=== PATIENT | female | born 1975 | race Caucasian/White ===

== ENCOUNTER 2021-01-19 18:26 | Emergency (ER) | payer MEDICAID ==
[~2021-01-19] VITALS: Ht 165.1 cm; Wt 127.0 kg
[~2021-01-19 18:26] MED LIST: ATEN100T; DIPH25CA39; TRAM-411
[2021-01-19 19:30] LABS: Basophils # (auto) 0.2 10 ^3/uL (0-0.2); Eosinophils # (auto) 0.8 10 ^3/uL (0-0.8); Eosinophils % (auto) 5.3 % (0.0-7.0); Hemoglobin 14.6 g/dL (12.2-16.2); Lymphocytes # (auto) 4.4 10 ^3/uL (0.4-5.4); Lymphocytes % (auto) 29.2 % (10.0-50.0); Mean Corpuscular Hemoglobin 30.7 pg (28.0-32.0); Mean Corpuscular Volume 90.4 fL (80.0-100.0); Monocytes # (auto) 1.2 10 ^3/uL (0-1.3); Neutrophils # (auto) 8.6 10 ^3/uL (1.6-8.6); Neutrophils % (auto) 56.5 % (37.0-80.0); Red Blood Cells 4.76 10^6/uL (4.0-5.20); Red Cell Distribution Width 13.3 % (11.8-14.3); White Blood Cell 15.2 10^3/uL (4.4-10.8)
[2021-01-19 19:47] LABS: Albumin 3.3 g/dL (3.4-5.0); Anion Gap 6 (5-15); Blood Urea Nitrogen 8 mg/dL (7-18); Calcium 9.2 mg/dL (8.5-10.1); Carbon Dioxide 26 mmol/L (21-32); Chloride 104 mmol/L (98-107); Glucose 100 mg/dL (74-106); Potassium 3.8 mmol/L (3.5-5.1); Sodium 136 mmol/L (136-145)
[2021-01-19 19:52] LABS: Alanine Aminotransferase 41 U/L (13-56); Alkaline Phosphatase 98 U/L (45-117); Aspartate Aminotransferase 39 U/L (15-37); BUN/Creatinine Ratio 14.3; Bilirubin, Total 0.8 mg/dL (0.2-1.0); GFR African American 150 mL/min; GFR Non-African American 124 mL/min; Total Protein 7.3 g/dL (6.4-8.2)
[2021-01-19] MEDS ORDERED: HYDROcodone-ACET 5/325MG TAB PO ONE (23:30)
[2021-01-20] MEDS ORDERED: HYDROcodone-ACET 5/325MG TAB PO ONE (04:15)
[2021-01-20 09:00] VITALS: BP 148/88
[2021-01-20 09:37] LABS: Urine Bacteria FEW /hpf (None Seen); Urine Blood Negative /uL (Negative); Urine Mucus FEW (None Seen); Urine Specific Gravity 1.027 (1.001-1.035); Urine WBC 3 /hpf (0 - 5)
== END 2021-01-20 11:43 | disposition home or self-care (01) ==
LOC: ER 18:34
DX: M79.605 Pain in left leg (principal); R60.0 Localized edema; E03.9 Hypothyroidism, unspecified; E66.01 Morbid (severe) obesity due to excess calories; I10 Essential (primary) hypertension; M54.5 Low back pain; G89.29 Other chronic pain; Z68.42 Body mass index [BMI] 45.0-49.9, adult; Z79.899 Other long term (current) drug therapy; Z90.710 Acquired absence of both cervix and uterus; Z98.890 Other specified postprocedural states
CPT/HCPCS: 36415; 71045; 80053; 81001; 83880; 84443; 84484; 85025; 85379; 93005; 93970

== ENCOUNTER 2022-03-16 16:33 | Emergency (ER) | payer MEDICAID ==
[~2022-03-16] VITALS: Ht 167.6 cm; Wt 140.0 kg
[2022-03-16 17:29] LABS: Basophils # (auto) 0.2 10 ^3/uL (0-0.2); Basophils % (auto) 1.3 % (0.0-2.0); Eosinophils # (auto) 0.6 10 ^3/uL (0-0.8); Eosinophils % (auto) 4.1 % (0.0-7.0); Hematocrit 44.5 % (36.0-46.0); Hemoglobin 14.7 g/dL (12.2-16.2); Lymphocytes # (auto) 3.5 10 ^3/uL (0.4-5.4); Lymphocytes % (auto) 24.9 % (10.0-50.0); Mean Corpuscular Hemoglobin 29.7 pg (28.0-32.0); Monocytes # (auto) 1.1 10 ^3/uL (0-1.3); Monocytes % (auto) 8.3 % (0.0-12.0); Neutrophils # (auto) 8.5 10 ^3/uL (1.6-8.6); Neutrophils % (auto) 61.4 % (37.0-80.0); Red Blood Cells 4.95 10^6/uL (4.0-5.20); Red Cell Distribution Width 13.1 % (11.8-14.3); White Blood Cell 13.9 10^3/uL (4.4-10.8)
[2022-03-16 17:34] LABS: Albumin 3.5 g/dL (3.4-5.0); Calcium 9.4 mg/dL (8.5-10.1); Potassium 3.6 mmol/L (3.5-5.1)
[2022-03-16 17:38] LABS: BUN/Creatinine Ratio 17.4; Bilirubin, Total 0.7 mg/dL (0.2-1.0); Total Protein 7.8 g/dL (6.4-8.2)
[2022-03-16 18:41] LABS: Urine Amorphous Crystal FEW /hpf (None Seen); Urine Bacteria FEW /hpf (None Seen); Urine Blood Negative /uL (Negative); Urine Mucus FEW (None Seen); Urine Specific Gravity 1.019 (1.001-1.035); Urine WBC 2 /hpf (0 - 5)
[2022-03-17] MEDS ORDERED: HYDROcodone-ACET 5/325MG TAB PO ONE ×2 (01:45→03:00)
[2022-03-17] MEDS ORDERED: KETOROLAC TROMETH 30 MG/ML 1ML VIAL IM ONE (01:45)
[2022-03-17 04:00] VITALS: BP 136/79
== END 2022-03-17 04:13 | disposition home or self-care (01) ==
LOC: ER 16:33
DX: R19.04 Left lower quadrant abdominal swelling, mass and lump (principal); R10.84 Generalized abdominal pain; I10 Essential (primary) hypertension; Z90.49 Acquired absence of other specified parts of digestive tract; Z90.710 Acquired absence of both cervix and uterus; Z79.899 Other long term (current) drug therapy; Z88.5 Allergy status to narcotic agent
CPT/HCPCS: 36415; 74176; 80053; 81001; 83690; 85025; 96372; 99285; J1885

== ENCOUNTER 2022-12-26 16:23 | Emergency (ER) | payer MEDICAID ==
[~2022-12-26] VITALS: Ht 167.6 cm; Wt 131.8 kg
[2022-12-26] MEDS ORDERED: HYDROmorphone HCL 2 MG/ML VL/or syr IM ONE (17:30)
[2022-12-26] MEDS ORDERED: LIDOCAINE VISCOUS 2% 15ML UD MT ONE (17:30)
[2022-12-26 18:15] LABS: Albumin 3.1 g/dL (3.4-5.0); BUN/Creatinine Ratio 7.1 (10.0-20.0); Calcium 7.9 mg/dL (8.5-10.1); Potassium 3.4 mmol/L (3.5-5.1)
[2022-12-26 18:17] LABS: Bilirubin, Total 1.1 mg/dL (0.2-1.0); Total Protein 6.7 g/dL (6.4-8.2)
[2022-12-26 18:24] LABS: Hematocrit 38.6 % (36.0-46.0); Hemoglobin 13.2 g/dL (12.2-16.2); Mean Corpuscular Hemoglobin 31.1 pg (28.0-32.0); Mean Corpuscular Hgb Conc. 34.2 g/dL (32.0-36.0); Mean Corpuscular Volume 90.8 fL (80.0-100.0); Red Blood Cells 4.26 10^6/uL (4.0-5.20); White Blood Cell 3.4 10^3/uL (4.4-10.8)
[2022-12-26 18:27] LABS: Basophils % (manual) 0 (0.0-2.0); Blast Cells 0; Metamyelocytes % 0; Myelocytes % 0; Promyelocytes % 0; Reactive Lymphocytes 0
[2022-12-26 18:54] LABS: Band Neutrophils % (manual) 1; Eosinophils % (manual) 1 (0-7); Lymphocytes % (manual) 44 (10.0-50.0); Monocytes % (manual) 42 (0-12)
[2022-12-26] MEDS ORDERED: SODIUM CHLORIDE 0.9% 1,000 ML IV ONE (19:30)
[2022-12-26 22:02] LABS: Urine Bacteria FEW /hpf (None Seen); Urine Blood Negative /uL (Negative); Urine Specific Gravity 1.018 (1.001-1.035); Urine WBC 2 /hpf (0 - 5)
[2022-12-26 23:30] VITALS: PULSE 89; RESP 12; TEMP 99; O2SAT 97
[2022-12-27] MEDS ORDERED: POTASSIUM EFFERVESENT TAB 25 MEQ PO ONE (01:15)
[2022-12-27] MEDS ORDERED: HYDROmorphone HCL 2 MG/ML VL/or syr IV ONE (01:15)
[2022-12-27] MEDS ORDERED: OXYMETAZOLINE HCL 0.05 % NASAL SPRAY 15ML EACHNOSTRI ONE (01:30)
[2022-12-27] MEDS: POTASSIUM CHL 20MEQ/100ML 100 ML IV SCH ×2 (01:34→01:35)
[2022-12-27] MEDS: CALCIUM GLUC 1,000mg/50ml-NS 50 ML IV SCH ×4 (01:34→02:54)
[2022-12-27] MEDS ORDERED: LACT10SO3 PO (01:38)
[2022-12-27] MEDS ORDERED: OXYM-15 (01:38)
[2022-12-27] MEDS ORDERED: LORA-622 PO (01:38)
[2022-12-27] MEDS ORDERED: ONDANSETRON HCL 4 MG/2 ML VIAL IV ONE (02:00)
[2022-12-27 04:00] VITALS: BP 140/71; PULSE 81; RESP 15; O2SAT 96
== END 2022-12-27 06:51 | disposition home or self-care (01) ==
LOC: EDBD 16:23 → ER 16:23
DX: B34.9 Viral infection, unspecified (principal); T45.1X5A Adverse effect of antineoplastic and immunosuppressive drugs, initial encounter; I10 Essential (primary) hypertension; Z87.442 Personal history of urinary calculi; Z90.49 Acquired absence of other specified parts of digestive tract; Z90.710 Acquired absence of both cervix and uterus; Z98.890 Other specified postprocedural states; Z88.6 Allergy status to analgesic agent; Z79.899 Other long term (current) drug therapy; Y92.89 Other specified places as the place of occurrence of the external cause
CPT/HCPCS: 36415; 36600; 80053; 81001; 82805; 83880; 85007; 85027; 96361; 96365; 96366; 96375; 99285; J0610; J1170; J2405; J3480; J7030

== ENCOUNTER 2022-12-31 05:52 | Inpatient (IN) | payer MEDICAID ==
[~2022-12-31] VITALS: Ht 167.6 cm; Wt 138.0 kg
[~2022-12-31 05:52] MED LIST changes: +LACT10SO3 PO; +LORA-622 PO; +OXYM-15
[2022-12-31] MEDS ORDERED: MORPHINE SULFATE 4 MG/ML SYR/VIAL IV ONE (06:45)
[2022-12-31] MEDS ORDERED: ONDANSETRON HCL 4 MG/2 ML VIAL IV ONE (06:45)
[2022-12-31] MEDS ORDERED: SODIUM CHLORIDE 0.9% 500 ML IV ONE (06:45)
[2022-12-31 07:26] LABS: Basophils # (auto) 0.1 10 ^3/uL (0-0.2); Basophils % (auto) 0.9 % (0.0-2.0); Eosinophils # (auto) 0 10 ^3/uL (0-0.8); Eosinophils % (auto) 0.1 % (0.0-7.0); Hematocrit 39.8 % (36.0-46.0); Lymphocytes # (auto) 2.5 10 ^3/uL (0.4-5.4); Lymphocytes % (auto) 18.3 % (10.0-50.0); Mean Corpuscular Hemoglobin 30.6 pg (28.0-32.0); Mean Corpuscular Hgb Conc. 32.6 g/dL (32.0-36.0); Mean Corpuscular Volume 93.8 fL (80.0-100.0); Monocytes # (auto) 1.3 10 ^3/uL (0-1.3); Monocytes % (auto) 9.8 % (0.0-12.0); Neutrophils # (auto) 9.7 10 ^3/uL (1.6-8.6); Neutrophils % (auto) 70.9 % (37.0-80.0); Nucleated Red Blood Cells % 0.2 %; Red Blood Cells 4.25 10^6/uL (4.0-5.20); Red Cell Distribution Width 15.5 % (11.8-14.3); White Blood Cell 13.7 10^3/uL (4.4-10.8)
[2022-12-31 07:30] VITALS: PULSE 78; RESP 15; O2SAT 97
[2022-12-31 07:39] LABS: INR 1.06 (0.9-1.15); Partial Thromboplastin Time 26.5 SEC (24.5-34.5); Prothrombin Time 11.1 sec (9.3-11.8)
[2022-12-31 07:44] LABS: Albumin 2.8 g/dL (3.4-5.0); Calcium 8.2 mg/dL (8.5-10.1)
[2022-12-31] MEDS ORDERED: HYDROmorphone HCL 2 MG/ML VL/or syr IV ONE (07:45)
[2022-12-31 07:47] LABS: BUN/Creatinine Ratio 8.8 (10.0-20.0); Bilirubin, Total 0.6 mg/dL (0.2-1.0); Total Protein 6.9 g/dL (6.4-8.2)
[2022-12-31] MEDS ORDERED: CLINDAMYCIN 600MG IV 50 ML IV ONE (08:30)
[2022-12-31] MEDS ORDERED: VANCOMYCIN 1GM/250ML 250 ML IV ONE (09:00)
[2022-12-31 09:15] LABS: Erythrocyte Sedimentation Rate 48 mm/hr (0-20)
[2022-12-31] MEDS ORDERED: TEMAZEPAM 15 MG CAP PO PRN (11:15)
[2022-12-31] MEDS ORDERED: traMADol HCL 50 MG TAB PO PRN (11:15)
[2022-12-31] MEDS ORDERED: ACETAMINOPHEN 325 MG TAB PO PRN (11:15)
[2022-12-31] MEDS ORDERED: VANCOMYCIN PER PHARMACY 0 MG IV SCH (11:15)
[2022-12-31] MEDS ORDERED: NITROGLYCERIN 0.4 MG SL TAB SL PRN (11:15)
[2022-12-31] MEDS ORDERED: POTASSIUM CHL 20MEQ/100ML 100 ML IV SCH (11:15)
[2022-12-31] MEDS: SODIUM CHLORIDE 0.9% 1,000 ML IV SCH (11:25)
[2022-12-31 12:06] LABS: Urine Bacteria FEW /hpf (None Seen); Urine Blood TRACE /uL (Negative); Urine Clarity HAZY (Clear); Urine Color Yellow (Yellow); Urine Mucus FEW (None Seen); Urine Protein, UAD TRACE (Negative); Urine Specific Gravity 1.022 (1.001-1.035); Urine WBC 104 /hpf (0 - 5)
[2022-12-31] MEDS ORDERED: POTASSIUM EFFERVESENT TAB 25 MEQ PO ONE (13:00)
[2022-12-31] MEDS: HYDROmorphone HCL 2 MG/ML VL/or syr IV PRN ×2 (14:47→23:07)
[2022-12-31] MEDS: VANCOMYCIN 1GM/250ML 250 ML IV SCH (17:00)
[2022-12-31] MEDS: NYSTATIN (MOUTH-THROAT) 500,000 UNITS/5 ML SUSP MT SCH ×2 (17:49→22:00)
[2022-12-31] MEDS: ONDANSETRON HCL 4 MG/2 ML VIAL IV PRN (17:57)
[2022-12-31] MEDS: OXYCODONE W/ ACETAMINOPHEN 5/325MG TABLET PO PRN (18:44)
[2022-12-31 22:13] VITALS: PULSE 61; RESP 19; O2SAT 97
[2023-01-01] MEDS: VANCOMYCIN 1GM/250ML 250 ML IV SCH ×3 (01:00→14:01)
[2023-01-01] MEDS: SODIUM CHLORIDE 0.9% 1,000 ML IV SCH ×4 (01:50→20:35)
[2023-01-01] MEDS: OXYCODONE W/ ACETAMINOPHEN 5/325MG TABLET PO PRN ×4 (02:19→23:09)
[2023-01-01 05:00] VITALS: BP 119/68; PULSE 61; RESP 19; TEMP 98.1; O2SAT 93
[2023-01-01] MEDS: NYSTATIN (MOUTH-THROAT) 500,000 UNITS/5 ML SUSP MT SCH ×4 (05:40→22:00)
[2023-01-01 08:00] VITALS: BP 152/87; PULSE 67; PULSE 76; RESP 22; TEMP 97.6; O2SAT 95
[2023-01-01 09:09] LABS: Basophils # (auto) 0.1 10 ^3/uL (0-0.2); Basophils % (auto) 1.2 % (0.0-2.0); Eosinophils # (auto) 0 10 ^3/uL (0-0.8); Hematocrit 38.9 % (36.0-46.0); Hemoglobin 12.7 g/dL (12.2-16.2); Lymphocytes # (auto) 2.8 10 ^3/uL (0.4-5.4); Lymphocytes % (auto) 24.3 % (10.0-50.0); Mean Corpuscular Hemoglobin 29.9 pg (28.0-32.0); Mean Corpuscular Hgb Conc. 32.7 g/dL (32.0-36.0); Mean Corpuscular Volume 91.2 fL (80.0-100.0); Monocytes # (auto) 1.2 10 ^3/uL (0-1.3); Monocytes % (auto) 10.5 % (0.0-12.0); Neutrophils # (auto) 7.3 10 ^3/uL (1.6-8.6); Nucleated Red Blood Cells % 0.1 %; Red Blood Cells 4.26 10^6/uL (4.0-5.20); Red Cell Distribution Width 15.4 % (11.8-14.3); White Blood Cell 11.4 10^3/uL (4.4-10.8)
[2023-01-01] MEDS: FAMOTIDINE 20 MG TAB PO SCH (09:12)
[2023-01-01] MEDS: ENOXAPARIN SOD 40 MG/0.4 ML SYRINGE SC SCH (09:12)
[2023-01-01 10:47] LABS: Albumin 2.7 g/dL (3.4-5.0); Calcium 8.5 mg/dL (8.5-10.1); Potassium 3.2 mmol/L (3.5-5.1)
[2023-01-01 10:50] LABS: BUN/Creatinine Ratio 7.9 (10.0-20.0); Bilirubin, Total 0.5 mg/dL (0.2-1.0); Total Protein 6.7 g/dL (6.4-8.2)
[2023-01-01] MEDS ORDERED: POTASSIUM EFFERVESENT TAB 25 MEQ PO ONE (11:15)
[2023-01-01 12:00] VITALS: BP 137/77; PULSE 64; RESP 20; TEMP 98.3; O2SAT 95
[2023-01-01] MEDS: HYDROmorphone HCL 2 MG/ML VL/or syr IV PRN ×2 (14:02→20:35)
[2023-01-01] MEDS: ONDANSETRON HCL 4 MG/2 ML VIAL IV PRN ×2 (14:19→22:57)
[2023-01-01 16:00] VITALS: BP 147/86; PULSE 75; RESP 20; TEMP 98.1; O2SAT 96
[2023-01-01] MEDS: SALINE 0.65 % NASAL SPRAY 45ML BOTTLE EACHNOSTRI SCH (17:42)
[2023-01-01] MEDS ORDERED: cefTRIAXone 1GM/50ML D5W 50 ML IV ONE (18:15)
[2023-01-01 20:00] VITALS: PULSE 76; PULSE 81; RESP 18; O2SAT 97
[2023-01-01 22:00] VITALS: BP 140/80; PULSE 77; RESP 18; TEMP 97.6; O2SAT 98
[2023-01-02] MEDS: VANCOMYCIN 1GM/250ML 250 ML IV SCH ×3 (02:09→21:59)
[2023-01-02] MEDS: SALINE 0.65 % NASAL SPRAY 45ML BOTTLE EACHNOSTRI SCH ×4 (02:17→18:20)
[2023-01-02] MEDS: HYDROmorphone HCL 2 MG/ML VL/or syr IV PRN ×3 (03:08→16:30)
[2023-01-02] MEDS: SODIUM CHLORIDE 0.9% 1,000 ML IV SCH ×3 (04:55→22:31)
[2023-01-02 05:00] VITALS: BP 120/64; PULSE 68; RESP 20; TEMP 97.7; O2SAT 97
[2023-01-02] MEDS: NYSTATIN (MOUTH-THROAT) 500,000 UNITS/5 ML SUSP MT SCH ×4 (06:00→22:00)
[2023-01-02 08:00] VITALS: BP 139/76; PULSE 61; PULSE 66; RESP 22; TEMP 97.5; O2SAT 95
[2023-01-02] MEDS: cefTRIAXone 1GM/50ML D5W 50 ML IV SCH (09:39)
[2023-01-02] MEDS: FAMOTIDINE 20 MG TAB PO SCH (09:40)
[2023-01-02] MEDS: ENOXAPARIN SOD 40 MG/0.4 ML SYRINGE SC SCH (09:51)
[2023-01-02 12:00] VITALS: BP 142/76; PULSE 65; RESP 21; TEMP 98.8; O2SAT 97
[2023-01-02] MEDS: OXYCODONE W/ ACETAMINOPHEN 5/325MG TABLET PO PRN ×2 (13:14→19:43)
[2023-01-02] MEDS: ONDANSETRON HCL 4 MG/2 ML VIAL IV PRN (13:24)
[2023-01-02 16:00] VITALS: BP 134/65; PULSE 69; RESP 21; TEMP 98; O2SAT 95
[2023-01-02 20:00] VITALS: PULSE 67; RESP 20; O2SAT 96
[2023-01-02 20:13] VITALS: PULSE 78
[2023-01-02] MEDS: DOCUSATE SOD 100 MG CAP PO SCH (21:54)
[2023-01-03] VITALS (7 sets, daily range): BP systolic 116–153; BP diastolic 63–88; PULSE 53–76; RESP 14–20; TEMP 97.4–98.9; O2SAT 95–98
[2023-01-03] MEDS: ONDANSETRON HCL 4 MG/2 ML VIAL IV PRN (00:34)
[2023-01-03] MEDS: HYDROmorphone HCL 2 MG/ML VL/or syr IV PRN ×5 (01:13→22:01)
[2023-01-03] MEDS: SALINE 0.65 % NASAL SPRAY 45ML BOTTLE EACHNOSTRI SCH ×5 (01:57→22:06)
[2023-01-03] MEDS: OXYCODONE W/ ACETAMINOPHEN 5/325MG TABLET PO PRN ×3 (02:31→15:40)
[2023-01-03] MEDS: NYSTATIN (MOUTH-THROAT) 500,000 UNITS/5 ML SUSP MT SCH ×2 (06:00→12:00)
[2023-01-03] MEDS: SODIUM CHLORIDE 0.9% 1,000 ML IV SCH (07:06)
[2023-01-03] MEDS: VANCOMYCIN 1GM/250ML 250 ML IV SCH ×2 (07:08→17:22)
[2023-01-03] MEDS: ENOXAPARIN SOD 40 MG/0.4 ML SYRINGE SC SCH (09:26)
[2023-01-03] MEDS: FAMOTIDINE 20 MG TAB PO SCH (09:27)
[2023-01-03] MEDS: DOCUSATE SOD 100 MG CAP PO SCH ×2 (09:27→22:00)
[2023-01-03] MEDS: cefTRIAXone 1GM/50ML D5W 50 ML IV SCH (09:27)
[2023-01-04] VITALS (7 sets, daily range): BP systolic 140–152; BP diastolic 69–99; PULSE 60–68; RESP 14–18; TEMP 97.5–98.5; O2SAT 93–96
[2023-01-04] MEDS: HYDROmorphone HCL 2 MG/ML VL/or syr IV PRN ×5 (03:08→20:02)
[2023-01-04] MEDS: VANCOMYCIN 1GM/250ML 250 ML IV SCH ×3 (03:31→23:17)
[2023-01-04] MEDS: OXYCODONE W/ ACETAMINOPHEN 5/325MG TABLET PO PRN ×3 (05:35→21:36)
[2023-01-04] MEDS: SALINE 0.65 % NASAL SPRAY 45ML BOTTLE EACHNOSTRI SCH ×4 (07:46→21:44)
[2023-01-04] MEDS: FAMOTIDINE 20 MG TAB PO SCH (07:55)
[2023-01-04] MEDS: cefTRIAXone 1GM/50ML D5W 50 ML IV SCH (07:55)
[2023-01-04] MEDS: DOCUSATE SOD 100 MG CAP PO SCH ×2 (07:55→21:36)
[2023-01-04] MEDS: ONDANSETRON HCL 4 MG/2 ML VIAL IV PRN ×2 (17:00→21:30)
[2023-01-05] VITALS (8 sets, daily range): BP systolic 123–170; BP diastolic 69–96; PULSE 58–80; RESP 17–19; TEMP 97.4–98.4; O2SAT 92–96
[2023-01-05] MEDS: HYDROmorphone HCL 2 MG/ML VL/or syr IV PRN ×6 (00:05→21:21)
[2023-01-05] MEDS: SALINE 0.65 % NASAL SPRAY 45ML BOTTLE EACHNOSTRI SCH ×4 (04:28→22:00)
[2023-01-05] MEDS: FAMOTIDINE 20 MG TAB PO SCH (08:05)
[2023-01-05] MEDS: DOCUSATE SOD 100 MG CAP PO SCH ×2 (08:05→21:19)
[2023-01-05] MEDS: VANCOMYCIN 1GM/250ML 250 ML IV SCH ×2 (08:41→18:39)
[2023-01-05 09:03] LABS: BUN/Creatinine Ratio 13.5 (10.0-20.0); Potassium 4.1 mmol/L (3.5-5.1)
[2023-01-05] MEDS: ONDANSETRON HCL 4 MG/2 ML VIAL IV PRN ×2 (09:10→17:30)
[2023-01-05] MEDS: cefTRIAXone 1GM/50ML D5W 50 ML IV SCH (09:15)
[2023-01-05] MEDS: OXYCODONE W/ ACETAMINOPHEN 5/325MG TABLET PO PRN (18:54)
[2023-01-05] MEDS: diphenhdrAMINE HCL 50 MG/1 ML VL IV PRN (21:21)
[2023-01-06] VITALS (7 sets, daily range): BP systolic 114–152; BP diastolic 61–85; PULSE 59–70; RESP 17–20; TEMP 97.5–98.5; O2SAT 90–97
[2023-01-06] MEDS: HYDROmorphone HCL 2 MG/ML VL/or syr IV PRN ×5 (01:54→20:37)
[2023-01-06] MEDS: ONDANSETRON HCL 4 MG/2 ML VIAL IV PRN ×2 (02:01→05:47)
[2023-01-06] MEDS: VANCOMYCIN 1GM/250ML 250 ML IV SCH (05:00)
[2023-01-06] MEDS: SALINE 0.65 % NASAL SPRAY 45ML BOTTLE EACHNOSTRI SCH ×4 (05:48→22:00)
[2023-01-06] MEDS: DOCUSATE SOD 100 MG CAP PO SCH ×2 (11:14→22:00)
[2023-01-06] MEDS: FAMOTIDINE 20 MG TAB PO SCH (11:14)
[2023-01-06] MEDS: diphenhdrAMINE HCL 50 MG/1 ML VL IV PRN ×2 (11:27→20:44)
[2023-01-06] MEDS: cefTRIAXone 1GM/50ML D5W 50 ML IV SCH (11:28)
[2023-01-06 14:10] LABS: Basophils # (auto) 0 10 ^3/uL (0-0.2); Basophils % (auto) 0.4 % (0.0-2.0); Eosinophils # (auto) 0.2 10 ^3/uL (0-0.8); Eosinophils % (auto) 1.9 % (0.0-7.0); Hematocrit 36.9 % (36.0-46.0); Hemoglobin 12.5 g/dL (12.2-16.2); Lymphocytes # (auto) 2.8 10 ^3/uL (0.4-5.4); Lymphocytes % (auto) 29.4 % (10.0-50.0); Mean Corpuscular Hgb Conc. 33.8 g/dL (32.0-36.0); Mean Corpuscular Volume 91.8 fL (80.0-100.0); Monocytes % (auto) 10.9 % (0.0-12.0); Neutrophils # (auto) 5.4 10 ^3/uL (1.6-8.6); Neutrophils % (auto) 57.4 % (37.0-80.0); Nucleated Red Blood Cells % 0.2 %; Red Blood Cells 4.02 10^6/uL (4.0-5.20); Red Cell Distribution Width 15.4 % (11.8-14.3); White Blood Cell 9.4 10^3/uL (4.4-10.8)
[2023-01-06] MEDS: DOXYCYCLINE 100 MG TAB/CAP PO SCH (22:00)
[2023-01-07] MEDS: HYDROmorphone HCL 2 MG/ML VL/or syr IV PRN ×3 (00:58→09:30)
[2023-01-07] MEDS: ONDANSETRON HCL 4 MG/2 ML VIAL IV PRN (00:58)
[2023-01-07 05:00] VITALS: BP 144/88; PULSE 69; RESP 18; TEMP 97.5; O2SAT 96
[2023-01-07] MEDS: diphenhdrAMINE HCL 50 MG/1 ML VL IV PRN (05:15)
[2023-01-07] MEDS: SALINE 0.65 % NASAL SPRAY 45ML BOTTLE EACHNOSTRI SCH ×2 (06:20→12:09)
[2023-01-07 08:10] VITALS: PULSE 77; O2SAT 95
[2023-01-07 09:00] VITALS: BP 122/74; PULSE 65; RESP 20; TEMP 97.5; O2SAT 97
[2023-01-07] MEDS ORDERED: cefTRIAXone 1GM/50ML D5W 50 ML IV SCH ×2 (09:00)
[2023-01-07] MEDS: DOCUSATE SOD 100 MG CAP PO SCH (09:02)
[2023-01-07] MEDS: FAMOTIDINE 20 MG TAB PO SCH (09:02)
[2023-01-07] MEDS: DOXYCYCLINE 100 MG TAB/CAP PO SCH (09:02)
[2023-01-07] MEDS ORDERED: DOXY-447 PO (09:41)
[2023-01-07] MEDS ORDERED: CEFD300C2 PO (09:41)
[2023-01-07 13:00] VITALS: BP 152/97; PULSE 70; RESP 16; TEMP 97.9; O2SAT 97
== END 2023-01-07 15:32 | disposition home health service (06) | DRG 383 ==
LOC: ER 05:52 → TELE 11:05 → TELE-WESTW 21:15
PROVIDERS: ADMIT Nurse Practitioner; ATTEND Nurse Practitioner
PROC: 0JH63WZ Insertion of Totally Implantable Vascular Access Device into Chest Subcutaneous Tissue and Fascia, Percutaneous Approach (ICD-10-PCS; principal; 2023-01-02)
DX: L03.314 Cellulitis of groin (principal); C56.9 Malignant neoplasm of unspecified ovary; A49.02 Methicillin resistant Staphylococcus aureus infection, unspecified site; D72.829 Elevated white blood cell count, unspecified; E66.01 Morbid (severe) obesity due to excess calories; I10 Essential (primary) hypertension; N39.0 Urinary tract infection, site not specified; E78.5 Hyperlipidemia, unspecified; L02.214 Cutaneous abscess of groin; Z68.42 Body mass index [BMI] 45.0-49.9, adult; Z80.6 Family history of leukemia; Z82.49 Family history of ischemic heart disease and other diseases of the circulatory system; Z85.43 Personal history of malignant neoplasm of ovary; Z87.442 Personal history of urinary calculi; Z90.710 Acquired absence of both cervix and uterus; Z92.21 Personal history of antineoplastic chemotherapy; Z88.5 Allergy status to narcotic agent; Z90.49 Acquired absence of other specified parts of digestive tract
CPT/HCPCS: 36415; 80048; 80053; 80202; 81001; 82565; 85025; 85610; 85652; 85730; 87040; 87077; 87186; 87205; 93926; 96361; 96365; 96375; G0378; J0696; J1642; J2405; J3480

== ENCOUNTER 2023-02-01 08:02 | Inpatient (IN) | payer MEDICAID ==
[~2023-02-01] VITALS: Ht 170.2 cm; Wt 138.1 kg
[~2023-02-01 08:02] MED LIST changes: +CEFD300C2 PO; +DOXY-447 PO; -TRAM-411
[2023-02-01 09:35] LABS: Basophils # (auto) 0.2 10 ^3/uL (0-0.2); Basophils % (auto) 1.9 % (0.0-2.0); Eosinophils # (auto) 0 10 ^3/uL (0-0.8); Hematocrit 40.1 % (36.0-46.0); Hemoglobin 13.3 g/dL (12.2-16.2); Lymphocytes # (auto) 2.5 10 ^3/uL (0.4-5.4); Lymphocytes % (auto) 20.1 % (10.0-50.0); Mean Corpuscular Hemoglobin 30.3 pg (28.0-32.0); Mean Corpuscular Volume 91.7 fL (80.0-100.0); Neutrophils # (auto) 8.9 10 ^3/uL (1.6-8.6); Nucleated Red Blood Cells % 0.2 %; Red Blood Cells 4.38 10^6/uL (4.0-5.20); Red Cell Distribution Width 15.8 % (11.8-14.3); White Blood Cell 12.7 10^3/uL (4.4-10.8)
[2023-02-01 10:04] LABS: Alanine Aminotransferase 35 U/L (7-40); Albumin 4.3 g/dL (3.2-4.8); Alkaline Phosphatase 83 U/L (46-116); Anion Gap 7.7 (5-15); Aspartate Aminotransferase 57 U/L (13-40); BUN/Creatinine Ratio 12.5 (10.0-20.0); Bilirubin, Total 1.2 mg/dL (0.2-1.0); Blood Urea Nitrogen 7 mg/dL (9-23); Calcium 9.3 mg/dL (8.5-10.1); Carbon Dioxide 26.3 mmol/L (20-30); Chloride 102 mmol/L (98-107); Glucose 120 mg/dL (74-106); Potassium 3.3 mmol/L (3.5-5.1); Sodium 136 mmol/L (136-145); Total Protein 7.2 g/dL (5.7-8.2)
[2023-02-01] MEDS ORDERED: SODIUM CHLORIDE 0.9% 1,000 ML IV ONE (10:45)
[2023-02-01] MEDS ORDERED: HYDROcodone-ACET 10/325MG TAB PO ONE (10:45)
[2023-02-01] MEDS ORDERED: DOCUSATE SOD 100 MG CAP PO ONE (10:45)
[2023-02-01] MEDS ORDERED: cefTRIAXone 1GM/50ML D5W 50 ML IV ONE (10:45)
[2023-02-01 11:56] VITALS: PULSE 75; RESP 16; O2SAT 95
[2023-02-01 13:30] VITALS: O2SAT 95
[2023-02-01] MEDS ORDERED: HYDROcodone-ACET 5/325MG TAB PO PRN (14:45)
[2023-02-01] MEDS ORDERED: KETOROLAC TROMETH 30 MG/ML 1ML VIAL IV ONE (14:45)
[2023-02-01] MEDS ORDERED: NITROGLYCERIN 0.4 MG SL TAB SL PRN (14:45)
[2023-02-01] MEDS ORDERED: ONDANSETRON HCL 4 MG/2 ML VIAL IV ONE (15:00)
[2023-02-01] MEDS: HYDROmorphone HCL 2 MG/ML VL/or syr IV PRN ×2 (15:49→20:41)
[2023-02-01] MEDS ORDERED: HYDROmorphone HCL 2 MG/ML VL/or syr IV ONE (17:45)
[2023-02-01 19:38] VITALS: PULSE 77; RESP 11; O2SAT 94
[2023-02-01 20:33] LABS: Urine Bacteria FEW /hpf (None Seen); Urine Blood Negative /uL (Negative); Urine Clarity HAZY (Clear); Urine Color Yellow (Yellow); Urine Mucus FEW (None Seen); Urine Protein, UAD TRACE (Negative); Urine Urobilinogen Normal (Negative); Urine WBC 10 /hpf (0 - 5)
[2023-02-02] VITALS (8 sets, daily range): BP systolic 111–164; BP diastolic 63–88; PULSE 72–83; RESP 16–21; TEMP 97.2–98.6; O2SAT 91–99
[2023-02-02] MEDS: HYDROmorphone HCL 2 MG/ML VL/or syr IV PRN ×8 (00:18→23:42)
[2023-02-02] MEDS: ONDANSETRON HCL 4 MG/2 ML VIAL IV PRN ×3 (00:19→20:27)
[2023-02-02 05:04] LABS: Basophils # (auto) 0 10 ^3/uL (0-0.2); Basophils % (auto) 0.1 % (0.0-2.0); Eosinophils # (auto) 0 10 ^3/uL (0-0.8); Hemoglobin 12.1 g/dL (12.2-16.2); Lymphocytes # (auto) 2.8 10 ^3/uL (0.4-5.4); Lymphocytes % (auto) 24.7 % (10.0-50.0); Mean Corpuscular Hemoglobin 30.8 pg (28.0-32.0); Mean Corpuscular Hgb Conc. 32.6 g/dL (32.0-36.0); Mean Corpuscular Volume 94.4 fL (80.0-100.0); Monocytes # (auto) 1.4 10 ^3/uL (0-1.3); Monocytes % (auto) 11.7 % (0.0-12.0); Neutrophils # (auto) 7.3 10 ^3/uL (1.6-8.6); Neutrophils % (auto) 63.5 % (37.0-80.0); Nucleated Red Blood Cells % 0.1 %; Red Blood Cells 3.92 10^6/uL (4.0-5.20); Red Cell Distribution Width 15.7 % (11.8-14.3); White Blood Cell 11.5 10^3/uL (4.4-10.8)
[2023-02-02 05:22] LABS: Alanine Aminotransferase 29 U/L (7-40); Albumin 3.8 g/dL (3.2-4.8); Alkaline Phosphatase 72 U/L (46-116); Anion Gap 6.8 (5-15); Aspartate Aminotransferase 51 U/L (13-40); BUN/Creatinine Ratio 13.8 (10.0-20.0); Blood Urea Nitrogen 9 mg/dL (9-23); Carbon Dioxide 24.2 mmol/L (20-30); Chloride 105 mmol/L (98-107); Glucose 116 mg/dL (74-106); Potassium 3.5 mmol/L (3.5-5.1); Sodium 136 mmol/L (136-145); Total Protein 6.4 g/dL (5.7-8.2)
[2023-02-02] MEDS: ENOXAPARIN SOD 40 MG/0.4 ML SYRINGE SC SCH (08:47)
[2023-02-02] MEDS: SALINE 0.65 % NASAL SPRAY 45ML BOTTLE EACHNOSTRI SCH ×3 (12:00→20:20)
[2023-02-02] MEDS: NEOMYCIN-POLYM-GRAM OPTH(EYE) SOL 10ML EACHEYE SCH ×3 (13:55→22:00)
[2023-02-02] MEDS: diphenhdrAMINE HCL 50 MG/1 ML VL IV PRN ×2 (16:26→23:43)
[2023-02-02] MEDS: LACTULOSE 20Gm/30ML SOLN PO PRN (20:20)
[2023-02-03] VITALS (7 sets, daily range): BP systolic 123–140; BP diastolic 64–81; PULSE 66–104; RESP 16–21; TEMP 97.3–97.8; O2SAT 95–97
[2023-02-03] MEDS: NEOMYCIN-POLYM-GRAM OPTH(EYE) SOL 10ML EACHEYE SCH ×6 (02:00→21:00)
[2023-02-03] MEDS: LACTULOSE 20Gm/30ML SOLN PO PRN ×2 (03:15→14:10)
[2023-02-03] MEDS: ONDANSETRON HCL 4 MG/2 ML VIAL IV PRN ×4 (03:15→20:35)
[2023-02-03] MEDS: HYDROmorphone HCL 2 MG/ML VL/or syr IV PRN ×7 (03:21→23:49)
[2023-02-03] MEDS: OXYCODONE W/ ACETAMINOPHEN 5/325MG TABLET PO PRN ×2 (04:23→18:54)
[2023-02-03] MEDS: SALINE 0.65 % NASAL SPRAY 45ML BOTTLE EACHNOSTRI SCH ×4 (06:23→21:00)
[2023-02-03] MEDS: diphenhdrAMINE HCL 50 MG/1 ML VL IV PRN ×3 (06:23→20:35)
[2023-02-03] MEDS: PANTOPRAZOLE 40 MG TAB PO SCH (08:55)
[2023-02-03] MEDS: ENOXAPARIN SOD 40 MG/0.4 ML SYRINGE SC SCH (08:56)
[2023-02-03] MEDS: LISINOPRIL 20 MG TAB PO SCH (08:56)
[2023-02-03] MEDS: HYDROCORTISONE ACET 25 MG RECTAL SUPP PR SCH ×3 (10:00→21:01)
[2023-02-04] VITALS (7 sets, daily range): BP systolic 109–129; BP diastolic 66–75; PULSE 64–100; RESP 15–20; TEMP 97.5–98.4; O2SAT 95–98
[2023-02-04] MEDS: NEOMYCIN-POLYM-GRAM OPTH(EYE) SOL 10ML EACHEYE SCH ×6 (02:00→21:31)
[2023-02-04] MEDS: diphenhdrAMINE HCL 50 MG/1 ML VL IV PRN ×4 (02:37→23:15)
[2023-02-04] MEDS: ONDANSETRON HCL 4 MG/2 ML VIAL IV PRN ×4 (02:48→23:14)
[2023-02-04] MEDS: HYDROmorphone HCL 2 MG/ML VL/or syr IV PRN ×7 (02:54→23:15)
[2023-02-04] MEDS: SENNA 8.6 MG TAB PO PRN ×2 (03:01→21:37)
[2023-02-04] MEDS: SALINE 0.65 % NASAL SPRAY 45ML BOTTLE EACHNOSTRI SCH ×4 (06:04→21:31)
[2023-02-04] MEDS: OXYCODONE W/ ACETAMINOPHEN 5/325MG TABLET PO PRN ×2 (06:56→21:28)
[2023-02-04] MEDS: PANTOPRAZOLE 40 MG TAB PO SCH (09:30)
[2023-02-04] MEDS: LISINOPRIL 20 MG TAB PO SCH (09:30)
[2023-02-04] MEDS: LACTULOSE 20Gm/30ML SOLN PO PRN ×2 (09:30→15:30)
[2023-02-04] MEDS: ENOXAPARIN SOD 40 MG/0.4 ML SYRINGE SC SCH (09:31)
[2023-02-04] MEDS: HYDROCORTISONE ACET 25 MG RECTAL SUPP PR SCH ×2 (09:31→21:31)
[2023-02-04] MEDS ORDERED: GOLYTELY 4L KIT PO ONE (11:30)
[2023-02-04] MEDS: MUPIROCIN 2% OINT 15gm or 22gm FOR MRSA NARES EACHNOSTRI SCH (21:30)
[2023-02-05] VITALS (7 sets, daily range): BP systolic 127–146; BP diastolic 70–97; PULSE 66–84; RESP 16–18; TEMP 97.7–98.3; O2SAT 93–98
[2023-02-05] MEDS: NEOMYCIN-POLYM-GRAM OPTH(EYE) SOL 10ML EACHEYE SCH ×6 (02:00→21:17)
[2023-02-05] MEDS: HYDROmorphone HCL 2 MG/ML VL/or syr IV PRN ×7 (02:33→23:35)
[2023-02-05] MEDS: diphenhdrAMINE HCL 50 MG/1 ML VL IV PRN ×3 (05:43→20:31)
[2023-02-05] MEDS: SALINE 0.65 % NASAL SPRAY 45ML BOTTLE EACHNOSTRI SCH ×4 (05:44→21:17)
[2023-02-05] MEDS: OXYCODONE W/ ACETAMINOPHEN 5/325MG TABLET PO PRN (07:11)
[2023-02-05] MEDS: ONDANSETRON HCL 4 MG/2 ML VIAL IV PRN ×2 (09:59→20:31)
[2023-02-05] MEDS: PANTOPRAZOLE 40 MG TAB PO SCH (09:59)
[2023-02-05] MEDS: LACTULOSE 20Gm/30ML SOLN PO PRN (09:59)
[2023-02-05] MEDS: LISINOPRIL 20 MG TAB PO SCH (10:00)
[2023-02-05] MEDS: ENOXAPARIN SOD 40 MG/0.4 ML SYRINGE SC SCH (10:00)
[2023-02-05] MEDS: MUPIROCIN 2% OINT 15gm or 22gm FOR MRSA NARES EACHNOSTRI SCH ×2 (10:00→21:16)
[2023-02-05] MEDS: HYDROCORTISONE ACET 25 MG RECTAL SUPP PR SCH ×2 (10:01→21:16)
[2023-02-05] MEDS ORDERED: HYD25RS PR (10:27)
[2023-02-06] VITALS (8 sets, daily range): BP systolic 119–157; BP diastolic 68–80; PULSE 72–82; RESP 18–21; TEMP 97.5–98.4; O2SAT 94–96
[2023-02-06] MEDS: diphenhdrAMINE HCL 50 MG/1 ML VL IV PRN ×2 (03:01→15:50)
[2023-02-06] MEDS: HYDROmorphone HCL 2 MG/ML VL/or syr IV PRN ×6 (03:01→21:31)
[2023-02-06] MEDS: ONDANSETRON HCL 4 MG/2 ML VIAL IV PRN ×3 (03:01→19:33)
[2023-02-06] MEDS: LACTULOSE 20Gm/30ML SOLN PO PRN (03:02)
[2023-02-06] MEDS: NEOMYCIN-POLYM-GRAM OPTH(EYE) SOL 10ML EACHEYE SCH ×6 (03:03→21:25)
[2023-02-06] MEDS: SALINE 0.65 % NASAL SPRAY 45ML BOTTLE EACHNOSTRI SCH ×4 (06:35→21:25)
[2023-02-06] MEDS: MUPIROCIN 2% OINT 15gm or 22gm FOR MRSA NARES EACHNOSTRI SCH ×2 (10:00→21:26)
[2023-02-06] MEDS: LISINOPRIL 20 MG TAB PO SCH (10:00)
[2023-02-06] MEDS: ENOXAPARIN SOD 40 MG/0.4 ML SYRINGE SC SCH (10:00)
[2023-02-06] MEDS: HYDROCORTISONE ACET 25 MG RECTAL SUPP PR SCH ×2 (10:00→21:25)
[2023-02-06] MEDS: PANTOPRAZOLE 40 MG TAB PO SCH (10:05)
[2023-02-06] MEDS: SENNA 8.6 MG TAB PO PRN (21:35)
[2023-02-07] MEDS: HYDROmorphone HCL 2 MG/ML VL/or syr IV PRN ×5 (00:34→15:16)
[2023-02-07] MEDS: NEOMYCIN-POLYM-GRAM OPTH(EYE) SOL 10ML EACHEYE SCH ×4 (03:51→15:17)
[2023-02-07 05:00] VITALS: BP 144/88; PULSE 77; RESP 18; TEMP 97.7; O2SAT 95
[2023-02-07] MEDS: diphenhdrAMINE HCL 50 MG/1 ML VL IV PRN ×2 (06:00→12:06)
[2023-02-07] MEDS: SALINE 0.65 % NASAL SPRAY 45ML BOTTLE EACHNOSTRI SCH ×2 (06:02→12:06)
[2023-02-07 08:00] VITALS: PULSE 70
[2023-02-07 09:00] VITALS: BP 122/61; PULSE 83; RESP 18; TEMP 98; O2SAT 94
[2023-02-07] MEDS: HYDROCORTISONE ACET 25 MG RECTAL SUPP PR SCH (10:00)
[2023-02-07] MEDS: LISINOPRIL 20 MG TAB PO SCH (10:00)
[2023-02-07] MEDS: ENOXAPARIN SOD 40 MG/0.4 ML SYRINGE SC SCH (10:00)
[2023-02-07] MEDS: MUPIROCIN 2% OINT 15gm or 22gm FOR MRSA NARES EACHNOSTRI SCH (10:00)
[2023-02-07] MEDS: ONDANSETRON HCL 4 MG/2 ML VIAL IV PRN (11:49)
[2023-02-07 13:00] VITALS: BP 133/82; PULSE 73; RESP 18; TEMP 98.3; O2SAT 94
[2023-02-07] MEDS ORDERED: LEVO500T91 PO (13:59)
[2023-02-07 16:02] VITALS: BP 131/80; PULSE 74; RESP 16; TEMP 98; O2SAT 98
== END 2023-02-07 17:24 | disposition home health service (06) | DRG 254 ==
LOC: ER 08:02 → TELE 14:48 → TELE-EAST 02-02 11:54
PROVIDERS: ADMIT Nurse Practitioner; ATTEND Nurse Practitioner
DX: K59.00 Constipation, unspecified (principal); B95.62 Methicillin resistant Staphylococcus aureus infection as the cause of diseases classified elsewhere; I10 Essential (primary) hypertension; E78.5 Hyperlipidemia, unspecified; K64.4 Residual hemorrhoidal skin tags; Z80.6 Family history of leukemia; Z85.43 Personal history of malignant neoplasm of ovary; Z87.442 Personal history of urinary calculi; Z90.710 Acquired absence of both cervix and uterus; Z88.6 Allergy status to analgesic agent; Z90.49 Acquired absence of other specified parts of digestive tract; Z82.49 Family history of ischemic heart disease and other diseases of the circulatory system
CPT/HCPCS: 36415; 74176; 80053; 81001; 84484; 85025; 87077; 87081; 87186; 87205; G0378; J0696; J1642; J1885; J2405

== ENCOUNTER 2023-02-17 04:49 | Inpatient (IN) | payer MEDICAID ==
[~2023-02-17] VITALS: Ht 167.6 cm; Wt 129.0 kg
[~2023-02-17 04:49] MED LIST changes: -CEFD300C2 PO; -DOXY-447 PO; +HYD25RS PR; +LEVO500T91 PO
[2023-02-17 07:01] LABS: Alanine Aminotransferase 21 U/L (7-40); Alkaline Phosphatase 81 U/L (46-116); Anion Gap 9.7 (5-15); Blood Urea Nitrogen 7 mg/dL (9-23); Calcium 9.5 mg/dL (8.5-10.1); Carbon Dioxide 22.3 mmol/L (20-30); Chloride 103 mmol/L (98-107); Glucose 111 mg/dL (74-106); Potassium 3.7 mmol/L (3.5-5.1); Sodium 135 mmol/L (136-145)
[2023-02-17 07:02] LABS: Albumin 4.1 g/dL (3.2-4.8); Aspartate Aminotransferase 35 U/L (13-40); Bilirubin, Total 1.1 mg/dL (0.2-1.0); Total Protein 7.1 g/dL (5.7-8.2)
[2023-02-17] MEDS ORDERED: ONDANSETRON HCL 4 MG/2 ML VIAL IV ONE ×2 (07:15→09:30)
[2023-02-17] MEDS ORDERED: HYDROmorphone HCL 2 MG/ML VL/or syr IV ONE ×2 (07:15→09:30)
[2023-02-17 07:50] LABS: Basophils # (auto) 0.2 10 ^3/uL (0-0.2); Eosinophils # (auto) 1.3 10 ^3/uL (0-0.8); Eosinophils % (auto) 8.9 % (0.0-7.0); Hematocrit 40.5 % (36.0-46.0); Hemoglobin 13.7 g/dL (12.2-16.2); Lymphocytes # (auto) 4.1 10 ^3/uL (0.4-5.4); Lymphocytes % (auto) 27.5 % (10.0-50.0); Mean Corpuscular Hemoglobin 31.5 pg (28.0-32.0); Mean Corpuscular Hgb Conc. 33.9 g/dL (32.0-36.0); Mean Corpuscular Volume 92.9 fL (80.0-100.0); Monocytes # (auto) 1.1 10 ^3/uL (0-1.3); Monocytes % (auto) 7.3 % (0.0-12.0); Neutrophils # (auto) 8.3 10 ^3/uL (1.6-8.6); Neutrophils % (auto) 55.3 % (37.0-80.0); Nucleated Red Blood Cells % 0.2 %; Red Blood Cells 4.36 10^6/uL (4.0-5.20); Red Cell Distribution Width 16.1 % (11.8-14.3); White Blood Cell 15.1 10^3/uL (4.4-10.8)
[2023-02-17 08:06] VITALS: PULSE 66; RESP 17; O2SAT 94
[2023-02-17] MEDS ORDERED: TEMAZEPAM 15 MG CAP PO PRN (10:00)
[2023-02-17] MEDS ORDERED: ACETAMINOPHEN 325 MG TAB PO PRN (10:00)
[2023-02-17] MEDS ORDERED: DOCUSATE SOD 100 MG CAP PO PRN (10:00)
[2023-02-17] MEDS ORDERED: NITROGLYCERIN 0.4 MG SL TAB SL PRN (10:00)
[2023-02-17] MEDS ORDERED: HYDROcodone-ACET 5/325MG TAB PO PRN (10:00)
[2023-02-17] MEDS: HYDROmorphone HCL 2 MG/ML VL/or syr IV PRN ×4 (10:39→23:53)
[2023-02-17 10:40] LABS: Urine Bacteria FEW /hpf (None Seen); Urine Blood TRACE /uL (Negative); Urine Clarity Clear (Clear); Urine Color Yellow (Yellow); Urine Mucus FEW (None Seen); Urine Protein, UAD TRACE (Negative); Urine Specific Gravity 1.023 (1.001-1.035); Urine Urobilinogen Normal (Negative); Urine WBC 6 /hpf (0 - 5); Urine pH 5.5 (5.0-8.0)
[2023-02-17] MEDS: diphenhdrAMINE HCL 50 MG/1 ML VL IV PRN (11:29)
[2023-02-17] MEDS: WITCH HAZEL-GLYCERIN PAD TOP SCH ×3 (11:40→22:00)
[2023-02-17] MEDS: LACTULOSE 20Gm/30ML SOLN PO SCH ×2 (13:40→23:39)
[2023-02-17] MEDS: HYDROCORTISONE ACET 25 MG RECTAL SUPP PR SCH ×2 (14:00→22:00)
[2023-02-17 19:45] VITALS: PULSE 68; RESP 17; O2SAT 98
[2023-02-17 22:00] VITALS: BP_SYST 130; BP_SYST 94; BP_DIAS 50; BP_DIAS 97; PULSE 73; PULSE 77; RESP 16; TEMP 97.8; TEMP 98.2; O2SAT 95; O2SAT 96
[2023-02-18] VITALS: PULSE 73; RESP 16; O2SAT 95
[2023-02-18] MEDS: ONDANSETRON HCL 4 MG/2 ML VIAL IV PRN ×5 (00:03→23:43)
[2023-02-18] MEDS: HYDROmorphone HCL 2 MG/ML VL/or syr IV PRN ×6 (04:27→23:43)
[2023-02-18 05:00] VITALS: BP 121/71; PULSE 94; RESP 16; TEMP 97.9; O2SAT 94
[2023-02-18 05:50] LABS: Basophils # (auto) 0.1 10 ^3/uL (0-0.2); Basophils % (auto) 1.4 % (0.0-2.0); Eosinophils # (auto) 0.9 10 ^3/uL (0-0.8); Eosinophils % (auto) 8.8 % (0.0-7.0); Hemoglobin 12.6 g/dL (12.2-16.2); Lymphocytes # (auto) 2.8 10 ^3/uL (0.4-5.4); Lymphocytes % (auto) 27.1 % (10.0-50.0); Mean Corpuscular Hemoglobin 31.8 pg (28.0-32.0); Mean Corpuscular Hgb Conc. 33.9 g/dL (32.0-36.0); Mean Corpuscular Volume 93.6 fL (80.0-100.0); Monocytes # (auto) 0.8 10 ^3/uL (0-1.3); Monocytes % (auto) 8.2 % (0.0-12.0); Neutrophils # (auto) 5.7 10 ^3/uL (1.6-8.6); Neutrophils % (auto) 54.5 % (37.0-80.0); Nucleated Red Blood Cells % 0.1 %; Red Blood Cells 3.96 10^6/uL (4.0-5.20); Red Cell Distribution Width 16.3 % (11.8-14.3); White Blood Cell 10.4 10^3/uL (4.4-10.8)
[2023-02-18] MEDS: LACTULOSE 20Gm/30ML SOLN PO SCH ×3 (05:51→22:04)
[2023-02-18] MEDS: HYDROCORTISONE ACET 25 MG RECTAL SUPP PR SCH ×3 (05:51→22:05)
[2023-02-18] MEDS: WITCH HAZEL-GLYCERIN PAD TOP SCH ×4 (05:51→22:05)
[2023-02-18 06:16] LABS: Alanine Aminotransferase 25 U/L (7-40); Albumin 3.9 g/dL (3.2-4.8); Alkaline Phosphatase 71 U/L (46-116); Anion Gap 8.2 (5-15); Aspartate Aminotransferase 42 U/L (13-40); BUN/Creatinine Ratio 12.1 (10.0-20.0); Blood Urea Nitrogen 7 mg/dL (9-23); Carbon Dioxide 25.8 mmol/L (20-30); Chloride 104 mmol/L (98-107); Glucose 98 mg/dL (74-106); Potassium 3.3 mmol/L (3.5-5.1); Sodium 138 mmol/L (136-145)
[2023-02-18 06:17] LABS: Bilirubin, Total 1.3 mg/dL (0.2-1.0); Total Protein 6.7 g/dL (5.7-8.2)
[2023-02-18 09:00] VITALS: BP 138/85; PULSE 68; RESP 19; TEMP 97.8; O2SAT 94
[2023-02-18 13:00] VITALS: BP 136/72; PULSE 68; RESP 18; TEMP 97.7; O2SAT 93
[2023-02-18] MEDS ORDERED: POTASSIUM CHL 20 Meq TABLET PO ONE (13:45)
[2023-02-18 17:00] VITALS: BP 135/73; PULSE 69; RESP 18; TEMP 97.9; O2SAT 98
[2023-02-18] MEDS: diphenhdrAMINE HCL 50 MG/1 ML VL IV PRN (20:39)
[2023-02-18 22:00] VITALS: BP 151/89; PULSE 75; RESP 18; TEMP 98.4; O2SAT 97
[2023-02-19] VITALS (7 sets, daily range): BP systolic 110–145; BP diastolic 63–85; PULSE 63–75; RESP 18–20; TEMP 97.5–98.4; O2SAT 93–97
[2023-02-19] MEDS: HYDROmorphone HCL 2 MG/ML VL/or syr IV PRN ×7 (03:08→23:45)
[2023-02-19] MEDS: LACTULOSE 20Gm/30ML SOLN PO SCH ×3 (06:17→21:54)
[2023-02-19] MEDS: WITCH HAZEL-GLYCERIN PAD TOP SCH ×4 (06:21→21:52)
[2023-02-19] MEDS: HYDROCORTISONE ACET 25 MG RECTAL SUPP PR SCH ×3 (06:21→21:52)
[2023-02-19] MEDS: ONDANSETRON HCL 4 MG/2 ML VIAL IV PRN ×3 (10:11→20:43)
[2023-02-19] MEDS: diphenhdrAMINE HCL 50 MG/1 ML VL IV PRN (14:20)
[2023-02-19] MEDS ORDERED: POTASSIUM CHL 20 Meq TABLET PO ONE (22:15)
[2023-02-20] MEDS: HYDROmorphone HCL 2 MG/ML VL/or syr IV PRN ×3 (02:55→09:29)
[2023-02-20 05:00] VITALS: BP 127/58; PULSE 69; RESP 18; TEMP 97.6; O2SAT 96
[2023-02-20] MEDS: LACTULOSE 20Gm/30ML SOLN PO SCH (06:00)
[2023-02-20 06:08] LABS: Anion Gap 6 (5-15); Carbon Dioxide 24 mmol/L (20-30); Chloride 106 mmol/L (98-107); Potassium 4.5 mmol/L (3.5-5.1); Sodium 136 mmol/L (136-145)
[2023-02-20 06:10] LABS: Calcium 8.9 mg/dL (8.7-10.4)
[2023-02-20] MEDS: HYDROCORTISONE ACET 25 MG RECTAL SUPP PR SCH (06:10)
[2023-02-20] MEDS: WITCH HAZEL-GLYCERIN PAD TOP SCH ×2 (06:11→12:00)
[2023-02-20 06:14] LABS: Glucose 99 mg/dL (74-106)
[2023-02-20 06:15] LABS: BUN/Creatinine Ratio 9.3 (10.0-20.0); Blood Urea Nitrogen < 5 mg/dL (9-23)
[2023-02-20 07:44] LABS: Basophils # (auto) 0.1 10 ^3/uL (0-0.2); Basophils % (auto) 0.7 % (0.0-2.0); Eosinophils # (auto) 0.9 10 ^3/uL (0-0.8); Eosinophils % (auto) 9.5 % (0.0-7.0); Hematocrit 37.8 % (36.0-46.0); Hemoglobin 12.5 g/dL (12.2-16.2); Lymphocytes # (auto) 3.3 10 ^3/uL (0.4-5.4); Lymphocytes % (auto) 33.5 % (10.0-50.0); Mean Corpuscular Hemoglobin 32.2 pg (28.0-32.0); Mean Corpuscular Hgb Conc. 33.1 g/dL (32.0-36.0); Mean Corpuscular Volume 97.2 fL (80.0-100.0); Monocytes # (auto) 0.8 10 ^3/uL (0-1.3); Monocytes % (auto) 7.8 % (0.0-12.0); Neutrophils # (auto) 4.8 10 ^3/uL (1.6-8.6); Neutrophils % (auto) 48.5 % (37.0-80.0); Nucleated Red Blood Cells % 0.1 %; Red Blood Cells 3.89 10^6/uL (4.0-5.20); Red Cell Distribution Width 16.1 % (11.8-14.3); White Blood Cell 9.9 10^3/uL (4.4-10.8)
[2023-02-20 08:00] VITALS: RESP 16; O2SAT 96
[2023-02-20 09:00] VITALS: BP 130/71; PULSE 65; RESP 18; TEMP 97.6; O2SAT 92
[2023-02-20 09:29] VITALS: BP 130/71; PULSE 65; RESP 17
[2023-02-20] MEDS ORDERED: LACT10SO3 PO (10:08)
== END 2023-02-20 11:59 | disposition home or self-care (01) | DRG 254 ==
LOC: ER 04:49 → OVERFLOW 09:57 → CENTRAL 20:50
PROVIDERS: ADMIT Nurse Practitioner; ATTEND Nurse Practitioner
DX: K59.00 Constipation, unspecified (principal); I10 Essential (primary) hypertension; K64.4 Residual hemorrhoidal skin tags; Z86.14 Personal history of Methicillin resistant Staphylococcus aureus infection; Z80.6 Family history of leukemia; Z85.43 Personal history of malignant neoplasm of ovary; Z90.710 Acquired absence of both cervix and uterus; Z87.442 Personal history of urinary calculi; Z82.49 Family history of ischemic heart disease and other diseases of the circulatory system; Z88.6 Allergy status to analgesic agent; Z90.49 Acquired absence of other specified parts of digestive tract
CPT/HCPCS: 36415; 74018; 80048; 80053; 81001; 85025; 87081; 96374; 96375; 96376; G0378; J2405

== ENCOUNTER 2023-04-02 04:25 | Inpatient (IN) | payer MEDICAID ==
[~2023-04-02] VITALS: Ht 167.6 cm; Wt 132.9 kg
[~2023-04-02 04:25] MED LIST changes: -LEVO500T91 PO
[2023-04-02 06:18] LABS: Basophils # (auto) 0.2 10 ^3/uL (0-0.2); Basophils % (auto) 1.1 % (0.0-2.0); Eosinophils # (auto) 0.6 10 ^3/uL (0-0.8); Eosinophils % (auto) 3.8 % (0.0-7.0); Hematocrit 43.2 % (36.0-46.0); Hemoglobin 14.5 g/dL (12.2-16.2); Lymphocytes # (auto) 3.4 10 ^3/uL (0.4-5.4); Mean Corpuscular Hemoglobin 31.9 pg (28.0-32.0); Mean Corpuscular Hgb Conc. 33.4 g/dL (32.0-36.0); Mean Corpuscular Volume 95.4 fL (80.0-100.0); Monocytes # (auto) 1.1 10 ^3/uL (0-1.3); Monocytes % (auto) 6.6 % (0.0-12.0); Neutrophils # (auto) 10.8 10 ^3/uL (1.6-8.6); Neutrophils % (auto) 67.5 % (37.0-80.0); Nucleated Red Blood Cells % 0.7 %; Red Blood Cells 4.53 10^6/uL (4.0-5.20); Red Cell Distribution Width 14.6 % (11.8-14.3)
[2023-04-02 06:30] LABS: Alanine Aminotransferase 28 U/L (7-40); Albumin 4.2 g/dL (3.2-4.8); Alkaline Phosphatase 78 U/L (46-116); Anion Gap 9 (5-15); Aspartate Aminotransferase 31 U/L (13-40); BUN/Creatinine Ratio 9.6 (10.0-20.0); Blood Urea Nitrogen 5 mg/dL (9-23); Carbon Dioxide 22 mmol/L (20-30); Chloride 104 mmol/L (98-107); Glucose 117 mg/dL (74-106); Potassium 4.1 mmol/L (3.5-5.1); Sodium 135 mmol/L (136-145)
[2023-04-02 06:31] LABS: Bilirubin, Total 1.9 mg/dL (0.2-1.0); Total Protein 7.1 g/dL (5.7-8.2)
[2023-04-02] MEDS ORDERED: CLINDAMYCIN 600MG IV 50 ML IV ONE (07:45)
[2023-04-02] MEDS ORDERED: cefTRIAXone 1GM/50ML D5W 50 ML IV ONE (07:45)
[2023-04-02 08:45] LABS: Lactic Acid w/Reflex 2.9 mmol/L (0.4-2.0)
[2023-04-02] MEDS ORDERED: OXYCODONE W/ ACETAMINOPHEN 5/325MG TABLET PO PRN (09:45)
[2023-04-02] MEDS ORDERED: NITROGLYCERIN 0.4 MG SL TAB SL PRN (09:45)
[2023-04-02] MEDS ORDERED: HYDROmorphone HCL 2 MG/ML VL/or syr IV PRN (09:45)
[2023-04-02] MEDS ORDERED: DOCUSATE SOD 100 MG CAP PO PRN (09:45)
[2023-04-02] MEDS ORDERED: PIPERACILLIN-TAZOB 3.375GM 100 ML IV ONE (10:00)
[2023-04-02] MEDS: HYDROCORTISONE ACET 25 MG RECTAL SUPP PR SCH ×2 (10:00→22:26)
[2023-04-02] MEDS: ONDANSETRON HCL 4 MG/2 ML VIAL IV PRN ×3 (11:05→22:25)
[2023-04-02] MEDS: LACTULOSE 20Gm/30ML SOLN PO SCH ×2 (11:05→22:16)
[2023-04-02] MEDS: SODIUM CHLORIDE 0.9% 1,000 ML IV SCH (11:05)
[2023-04-02] MEDS: ENOXAPARIN SOD 40 MG/0.4 ML SYRINGE SC SCH (11:13)
[2023-04-02] MEDS: FAMOTIDINE INJECTION 40 MG in SODIUM CHL 0.9% 100 ML IV SCH (11:14)
[2023-04-02 11:30] VITALS: PULSE 82; RESP 16; O2SAT 92
[2023-04-02 13:41] VITALS: BP 150/92; PULSE 94; RESP 18; TEMP 98.6; O2SAT 98
[2023-04-02] MEDS: diphenhdrAMINE HCL 50 MG/1 ML VL IV PRN (13:42)
[2023-04-02] MEDS: ACETAMINOPHEN 325 MG TAB PO PRN ×2 (14:28→20:30)
[2023-04-02] MEDS: HYDROmorphone HCL 2 MG/ML VL/or syr IV PRN ×3 (15:06→23:14)
[2023-04-02] MEDS: PIPERACILLIN-TAZOB 3.375GM 100 ML IV SCH ×2 (16:55→22:23)
[2023-04-02 17:00] VITALS: BP 122/67; PULSE 83; RESP 17; TEMP 97.7; O2SAT 94
[2023-04-02] MEDS ORDERED: VANCOMYCIN PER PHARMACY 0 MG IV SCH (18:30)
[2023-04-02] MEDS ORDERED: VANCOMYCIN 1GM/250ML 250 ML IV ONE (18:45)
[2023-04-02 22:00] VITALS: BP 130/76; PULSE 89; RESP 19; TEMP 99; O2SAT 96
[2023-04-03] VITALS (11 sets, daily range): BP systolic 112–140; BP diastolic 70–84; PULSE 72–83; RESP 16–20; TEMP 97.9–98.7; O2SAT 92–98
[2023-04-03] MEDS: HYDROmorphone HCL 2 MG/ML VL/or syr IV PRN ×5 (03:04→20:14)
[2023-04-03] MEDS: VANCOMYCIN 1GM/250ML 250 ML IV SCH ×3 (04:15→20:52)
[2023-04-03] MEDS: SODIUM CHLORIDE 0.9% 1,000 ML IV SCH ×2 (04:17→18:10)
[2023-04-03 05:47] LABS: Basophils # (auto) 0.1 10 ^3/uL (0-0.2); Basophils % (auto) 0.6 % (0.0-2.0); Eosinophils # (auto) 0.2 10 ^3/uL (0-0.8); Eosinophils % (auto) 1.8 % (0.0-7.0); Hematocrit 38.6 % (36.0-46.0); Lymphocytes # (auto) 1.3 10 ^3/uL (0.4-5.4); Lymphocytes % (auto) 12.7 % (10.0-50.0); Mean Corpuscular Hemoglobin 31.9 pg (28.0-32.0); Mean Corpuscular Hgb Conc. 33.7 g/dL (32.0-36.0); Mean Corpuscular Volume 94.8 fL (80.0-100.0); Neutrophils # (auto) 7.5 10 ^3/uL (1.6-8.6); Neutrophils % (auto) 74.9 % (37.0-80.0); Red Blood Cells 4.07 10^6/uL (4.0-5.20); Red Cell Distribution Width 14.2 % (11.8-14.3)
[2023-04-03] MEDS: PIPERACILLIN-TAZOB 3.375GM 100 ML IV SCH ×3 (05:54→22:10)
[2023-04-03] MEDS: ACETAMINOPHEN 325 MG TAB PO PRN ×3 (05:55→19:51)
[2023-04-03 06:00] LABS: Alkaline Phosphatase 73 U/L (46-116)
[2023-04-03 06:01] LABS: Alanine Aminotransferase 33 U/L (7-40); Albumin 3.7 g/dL (3.2-4.8); Anion Gap 5 (5-15); Aspartate Aminotransferase 53 U/L (13-40); Bilirubin, Total 0.9 mg/dL (0.2-1.0); Calcium 8.5 mg/dL (8.7-10.4); Carbon Dioxide 25 mmol/L (20-30); Chloride 104 mmol/L (98-107); Glucose 127 mg/dL (74-106); Potassium 3.8 mmol/L (3.5-5.1); Sodium 134 mmol/L (136-145); Total Protein 6.3 g/dL (5.7-8.2)
[2023-04-03 06:30] LABS: BUN/Creatinine Ratio 8.3 (10.0-20.0); Blood Urea Nitrogen < 5 mg/dL (9-23)
[2023-04-03] MEDS: ENOXAPARIN SOD 40 MG/0.4 ML SYRINGE SC SCH (10:00)
[2023-04-03] MEDS: LACTULOSE 20Gm/30ML SOLN PO SCH ×2 (10:24→22:00)
[2023-04-03] MEDS: HYDROCORTISONE ACET 25 MG RECTAL SUPP PR SCH ×2 (10:25→22:10)
[2023-04-03] MEDS: FAMOTIDINE INJECTION 40 MG in SODIUM CHL 0.9% 100 ML IV SCH (10:26)
[2023-04-03] MEDS: ONDANSETRON HCL 4 MG/2 ML VIAL IV PRN ×2 (10:39→20:18)
[2023-04-03] MEDS: diphenhdrAMINE HCL 50 MG/1 ML VL IV PRN (10:39)
[2023-04-03] MEDS ORDERED: ALBUTEROL MEDNEB 2.5 mg/3ml NEB ONE (13:36)
[2023-04-03] MEDS: ALBUTEROL SULF 2.5 MG/0.5ML(0.5%) NEB SOLN NEB PRN (13:47)
[2023-04-03] MEDS: FLUTICASONE PROP NASAL SPR 0.05 % (50MCG) 16GM EACHNOSTRI SCH ×2 (13:59→22:10)
[2023-04-03] MEDS: MUPIROCIN 2% OINT 15gm or 22gm FOR MRSA NARES EACHNOSTRI SCH (22:10)
[2023-04-04] VITALS (11 sets, daily range): BP systolic 129–153; BP diastolic 77–99; PULSE 69–74; RESP 18–20; TEMP 97.4–98.1; O2SAT 92–98
[2023-04-04] MEDS: HYDROmorphone HCL 2 MG/ML VL/or syr IV PRN ×6 (00:13→21:24)
[2023-04-04] MEDS: diphenhdrAMINE HCL 50 MG/1 ML VL IV PRN ×3 (00:27→18:13)
[2023-04-04] MEDS: ACETAMINOPHEN 325 MG TAB PO PRN ×2 (03:57→10:53)
[2023-04-04] MEDS: VANCOMYCIN 1GM/250ML 250 ML IV SCH ×3 (05:19→21:01)
[2023-04-04] MEDS: PIPERACILLIN-TAZOB 3.375GM 100 ML IV SCH ×3 (06:28→22:45)
[2023-04-04] MEDS: LACTULOSE 20Gm/30ML SOLN PO SCH ×2 (10:00→22:00)
[2023-04-04] MEDS: FAMOTIDINE INJECTION 40 MG in SODIUM CHL 0.9% 100 ML IV SCH (10:26)
[2023-04-04] MEDS: HYDROCORTISONE ACET 25 MG RECTAL SUPP PR SCH ×2 (10:26→22:52)
[2023-04-04] MEDS: MUPIROCIN 2% OINT 15gm or 22gm FOR MRSA NARES EACHNOSTRI SCH ×2 (10:26→22:53)
[2023-04-04] MEDS: FLUTICASONE PROP NASAL SPR 0.05 % (50MCG) 16GM EACHNOSTRI SCH ×2 (10:26→22:53)
[2023-04-04] MEDS: SODIUM CHLORIDE 0.9% 1,000 ML IV SCH (11:45)
[2023-04-04] MEDS ORDERED: ALBUTEROL MEDNEB 2.5 mg/3ml NEB ONE (14:00)
[2023-04-04] MEDS: ALBUTEROL SULF 2.5 MG/0.5ML(0.5%) NEB SOLN NEB PRN (14:08)
[2023-04-04] MEDS: ONDANSETRON HCL 4 MG/2 ML VIAL IV PRN (18:34)
[2023-04-04] MEDS: OXYCODONE W/ ACETAMINOPHEN 5/325MG TABLET PO PRN (23:09)
[2023-04-05] VITALS (9 sets, daily range): BP systolic 125–140; BP diastolic 76–91; PULSE 58–72; RESP 16–18; TEMP 97.5–98.4; O2SAT 95–100
[2023-04-05] MEDS: HYDROmorphone HCL 2 MG/ML VL/or syr IV PRN ×5 (01:32→20:38)
[2023-04-05] MEDS: diphenhdrAMINE HCL 50 MG/1 ML VL IV PRN ×3 (01:43→20:34)
[2023-04-05] MEDS: OXYCODONE W/ ACETAMINOPHEN 5/325MG TABLET PO PRN (03:40)
[2023-04-05] MEDS: SODIUM CHLORIDE 0.9% 1,000 ML IV SCH (04:45)
[2023-04-05] MEDS: VANCOMYCIN 1GM/250ML 250 ML IV SCH ×2 (05:07→13:12)
[2023-04-05] MEDS: PIPERACILLIN-TAZOB 3.375GM 100 ML IV SCH ×4 (06:05→22:45)
[2023-04-05 07:51] LABS: Basophils # (auto) 0.1 10 ^3/uL (0-0.2); Basophils % (auto) 0.9 % (0.0-2.0); Eosinophils # (auto) 0.6 10 ^3/uL (0-0.8); Eosinophils % (auto) 8.6 % (0.0-7.0); Hematocrit 42.6 % (36.0-46.0); Hemoglobin 13.9 g/dL (12.2-16.2); Lymphocytes # (auto) 2.2 10 ^3/uL (0.4-5.4); Lymphocytes % (auto) 30.7 % (10.0-50.0); Mean Corpuscular Hemoglobin 31.4 pg (28.0-32.0); Mean Corpuscular Hgb Conc. 32.7 g/dL (32.0-36.0); Mean Corpuscular Volume 96.3 fL (80.0-100.0); Monocytes # (auto) 1.1 10 ^3/uL (0-1.3); Monocytes % (auto) 14.6 % (0.0-12.0); Neutrophils # (auto) 3.3 10 ^3/uL (1.6-8.6); Neutrophils % (auto) 45.2 % (37.0-80.0); Red Blood Cells 4.43 10^6/uL (4.0-5.20); White Blood Cell 7.2 10^3/uL (4.4-10.8)
[2023-04-05 08:08] LABS: Alanine Aminotransferase 32 U/L (7-40); Albumin 3.8 g/dL (3.2-4.8); Alkaline Phosphatase 67 U/L (46-116); Anion Gap 8 (5-15); Aspartate Aminotransferase 45 U/L (13-40); Bilirubin, Total 0.4 mg/dL (0.2-1.0); Calcium 8.8 mg/dL (8.5-10.1); Carbon Dioxide 22 mmol/L (20-30); Chloride 106 mmol/L (98-107); Glucose 93 mg/dL (74-106); Sodium 136 mmol/L (136-145); Total Protein 6.5 g/dL (5.7-8.2)
[2023-04-05 08:10] LABS: BUN/Creatinine Ratio 8.5 (10.0-20.0); Blood Urea Nitrogen < 5 mg/dL (9-23)
[2023-04-05] MEDS: HYDROCORTISONE ACET 25 MG RECTAL SUPP PR SCH ×2 (10:00→22:00)
[2023-04-05] MEDS: LACTULOSE 20Gm/30ML SOLN PO SCH ×2 (10:00→22:00)
[2023-04-05] MEDS: FLUTICASONE PROP NASAL SPR 0.05 % (50MCG) 16GM EACHNOSTRI SCH (10:40)
[2023-04-05] MEDS: FAMOTIDINE INJECTION 40 MG in SODIUM CHL 0.9% 100 ML IV SCH (10:42)
[2023-04-05] MEDS: MUPIROCIN 2% OINT 15gm or 22gm FOR MRSA NARES EACHNOSTRI SCH (10:43)
[2023-04-05] MEDS: ACETAMINOPHEN 325 MG TAB PO PRN (12:02)
[2023-04-05] MEDS ORDERED: ALBUTEROL MEDNEB 2.5 mg/3ml NEB ONE (15:41)
[2023-04-05] MEDS: ALBUTEROL SULF 2.5 MG/0.5ML(0.5%) NEB SOLN NEB PRN (15:51)
[2023-04-05] MEDS ORDERED: ALBUTEROL MEDNEB 2.5 mg/3ml NEB NEB PRN (16:30)
[2023-04-05] MEDS: ONDANSETRON HCL 4 MG/2 ML VIAL IV PRN (20:34)
[2023-04-06] VITALS (10 sets, daily range): BP systolic 124–144; BP diastolic 64–92; PULSE 65–97; RESP 16–21; TEMP 97.6–98.2; O2SAT 95–97
[2023-04-06] MEDS: HYDROmorphone HCL 2 MG/ML VL/or syr IV PRN ×6 (01:17→22:20)
[2023-04-06] MEDS: diphenhdrAMINE HCL 50 MG/1 ML VL IV PRN ×4 (01:28→23:53)
[2023-04-06] MEDS: ONDANSETRON HCL 4 MG/2 ML VIAL IV PRN ×3 (01:28→23:36)
[2023-04-06] MEDS: VANCOMYCIN 1GM/250ML 250 ML IV SCH ×4 (01:29→22:31)
[2023-04-06] MEDS: MUPIROCIN 2% OINT 15gm or 22gm FOR MRSA NARES EACHNOSTRI SCH ×3 (01:51→22:24)
[2023-04-06] MEDS: FLUTICASONE PROP NASAL SPR 0.05 % (50MCG) 16GM EACHNOSTRI SCH ×3 (01:51→22:24)
[2023-04-06] MEDS: SODIUM CHLORIDE 0.9% 1,000 ML IV SCH ×2 (01:51→13:57)
[2023-04-06] MEDS: OXYCODONE W/ ACETAMINOPHEN 5/325MG TABLET PO PRN (04:07)
[2023-04-06] MEDS: PIPERACILLIN-TAZOB 3.375GM 100 ML IV SCH ×3 (04:56→17:51)
[2023-04-06 09:53] LABS: Basophils # (auto) 0 10 ^3/uL (0-0.2); Basophils % (auto) 0.7 % (0.0-2.0); Eosinophils # (auto) 0.5 10 ^3/uL (0-0.8); Eosinophils % (auto) 6.5 % (0.0-7.0); Hematocrit 38.9 % (36.0-46.0); Hemoglobin 13.1 g/dL (12.2-16.2); Lymphocytes # (auto) 2.2 10 ^3/uL (0.4-5.4); Mean Corpuscular Hemoglobin 31.6 pg (28.0-32.0); Mean Corpuscular Hgb Conc. 33.6 g/dL (32.0-36.0); Mean Corpuscular Volume 94.2 fL (80.0-100.0); Monocytes # (auto) 0.6 10 ^3/uL (0-1.3); Monocytes % (auto) 8.6 % (0.0-12.0); Neutrophils # (auto) 3.9 10 ^3/uL (1.6-8.6); Neutrophils % (auto) 53.2 % (37.0-80.0); Red Blood Cells 4.13 10^6/uL (4.0-5.20); Red Cell Distribution Width 13.9 % (11.8-14.3); White Blood Cell 7.2 10^3/uL (4.4-10.8)
[2023-04-06] MEDS: LACTULOSE 20Gm/30ML SOLN PO SCH ×2 (09:58→22:30)
[2023-04-06] MEDS: HYDROCORTISONE ACET 25 MG RECTAL SUPP PR SCH ×2 (09:59→23:27)
[2023-04-06] MEDS: FAMOTIDINE INJECTION 40 MG in SODIUM CHL 0.9% 100 ML IV SCH (10:05)
[2023-04-06 10:09] LABS: Alanine Aminotransferase 27 U/L (7-40); Albumin 3.7 g/dL (3.2-4.8); Alkaline Phosphatase 65 U/L (46-116); Anion Gap 6 (5-15); Aspartate Aminotransferase 30 U/L (13-40); Calcium 8.8 mg/dL (8.5-10.1); Carbon Dioxide 26 mmol/L (20-30); Chloride 104 mmol/L (98-107); Glucose 152 mg/dL (74-106); Potassium 3.4 mmol/L (3.5-5.1); Sodium 136 mmol/L (136-145); Total Protein 6.3 g/dL (5.7-8.2)
[2023-04-06 10:28] LABS: Bilirubin, Total 0.6 mg/dL (0.2-1.0)
[2023-04-06 11:54] LABS: BUN/Creatinine Ratio 8.5 (10.0-20.0); Blood Urea Nitrogen < 5 mg/dL (9-23)
[2023-04-07] VITALS (7 sets, daily range): BP systolic 111–144; BP diastolic 76–90; PULSE 61–68; RESP 16–21; TEMP 97.7–98; O2SAT 95–98
[2023-04-07] MEDS: HYDROmorphone HCL 2 MG/ML VL/or syr IV PRN ×4 (02:30→15:49)
[2023-04-07] MEDS: PIPERACILLIN-TAZOB 3.375GM 100 ML IV SCH ×3 (04:52→10:45)
[2023-04-07] MEDS: VANCOMYCIN 1GM/250ML 250 ML IV SCH ×2 (05:09→13:00)
[2023-04-07] MEDS: SODIUM CHLORIDE 0.9% 1,000 ML IV SCH (06:25)
[2023-04-07] MEDS: diphenhdrAMINE HCL 50 MG/1 ML VL IV PRN ×2 (08:09→15:53)
[2023-04-07] MEDS: FAMOTIDINE INJECTION 40 MG in SODIUM CHL 0.9% 100 ML IV SCH (09:12)
[2023-04-07] MEDS: LACTULOSE 20Gm/30ML SOLN PO SCH (09:13)
[2023-04-07] MEDS: MUPIROCIN 2% OINT 15gm or 22gm FOR MRSA NARES EACHNOSTRI SCH (09:13)
[2023-04-07] MEDS: FLUTICASONE PROP NASAL SPR 0.05 % (50MCG) 16GM EACHNOSTRI SCH (09:13)
[2023-04-07] MEDS: HYDROCORTISONE ACET 25 MG RECTAL SUPP PR SCH (09:14)
[2023-04-07] MEDS ORDERED: DOXY-447 PO (13:11)
[2023-04-07] MEDS ORDERED: PERCOT PO (13:11)
== END 2023-04-07 17:27 | disposition home or self-care (01) | DRG 383 ==
LOC: ER 04:25 → OVERFLOW 09:42 → CENTRAL 12:51
PROVIDERS: ADMIT Nurse Practitioner; ATTEND Nurse Practitioner
DX: L03.317 Cellulitis of buttock (principal); L03.314 Cellulitis of groin; I10 Essential (primary) hypertension; L02.31 Cutaneous abscess of buttock; K59.00 Constipation, unspecified; Z22.322 Carrier or suspected carrier of Methicillin resistant Staphylococcus aureus; Z78.9 Other specified health status; Z85.43 Personal history of malignant neoplasm of ovary; Z86.14 Personal history of Methicillin resistant Staphylococcus aureus infection; Z88.6 Allergy status to analgesic agent; Z80.6 Family history of leukemia; Z82.49 Family history of ischemic heart disease and other diseases of the circulatory system; Z87.442 Personal history of urinary calculi; Z90.710 Acquired absence of both cervix and uterus; Z90.49 Acquired absence of other specified parts of digestive tract
CPT/HCPCS: 36415; 74177; 80053; 80202; 81025; 83605; 85025; 87040; 87077; 87081; 87186; 87205; 93926; 93971; 94640; 96365; 96368; 96375; G0378; J0696; J1642; J2405; J2543; J3490

== ENCOUNTER 2023-07-05 11:18 | Emergency (ER) | payer MEDICAID ==
[~2023-07-05] VITALS: Ht 167.6 cm; Wt 122.7 kg
[~2023-07-05 11:18] MED LIST changes: +DOXY-447 PO; +PERCOT PO
[2023-07-05] MEDS ORDERED: SODIUM CHLORIDE 0.9% 1,000 ML IV ONE (13:00)
[2023-07-05] MEDS ORDERED: cefTRIAXone 1GM/50ML D5W 50 ML IV ONE (13:00)
[2023-07-05 13:45] LABS: Basophils # (auto) 0.2 10 ^3/uL (0-0.2); Basophils % (auto) 1.3 % (0.0-2.0); Eosinophils % (auto) 8.1 % (0.0-7.0); Hematocrit 43.6 % (36.0-46.0); Hemoglobin 14.1 g/dL (12.2-16.2); Lymphocytes # (auto) 3.6 10 ^3/uL (0.4-5.4); Lymphocytes % (auto) 30.3 % (10.0-50.0); Mean Corpuscular Hemoglobin 30.3 pg (28.0-32.0); Mean Corpuscular Hgb Conc. 32.4 g/dL (32.0-36.0); Mean Corpuscular Volume 93.6 fL (80.0-100.0); Monocytes % (auto) 8.3 % (0.0-12.0); Neutrophils # (auto) 6.2 10 ^3/uL (1.6-8.6); Nucleated Red Blood Cells % 0.1 %; Red Blood Cells 4.66 10^6/uL (4.0-5.20); Red Cell Distribution Width 14.5 % (11.8-14.3); White Blood Cell 11.8 10^3/uL (4.4-10.8)
[2023-07-05 13:46] LABS: Chloride 108 mmol/L (98-107); Potassium 3.9 mmol/L (3.5-5.1); Sodium 139 mmol/L (136-145)
[2023-07-05 13:47] LABS: Anion Gap 7 (5-15); Calcium 9.4 mg/dL (8.5-10.1); Carbon Dioxide 24 mmol/L (20-30)
[2023-07-05 13:52] LABS: BUN/Creatinine Ratio 11.3 (10.0-20.0); Blood Urea Nitrogen 6 mg/dL (9-23); Glucose 96 mg/dL (74-106)
[2023-07-05 14:05] LABS: Lipase 38 U/L (12-53)
[2023-07-05 14:06] LABS: Magnesium 1.6 mg/dL (1.6-2.6)
[2023-07-05] MEDS ORDERED: ONDANSETRON HCL 4 MG/2 ML VIAL IV ONE (14:15)
[2023-07-05] MEDS ORDERED: MORPHINE SULFATE INJ 2 MG/ml SYRG IV ONE (14:15)
[2023-07-05] MEDS ORDERED: IOHEXOL 300 MG/ML 100ML BOTTLE IJ ONE (16:04)
[2023-07-05] MEDS ORDERED: HYDROmorphone HCL 2 MG/ML VL/or syr IV ONE ×2 (17:00→18:45)
[2023-07-05] MEDS ORDERED: CEFD300C2 PO (18:48)
[2023-07-05 19:42] VITALS: BP 103/51; PULSE 73; RESP 18; TEMP 98.2; O2SAT 96
== END 2023-07-05 20:28 | disposition home or self-care (01) ==
LOC: ER 11:18
DX: R10.84 Generalized abdominal pain (principal); L76.34 Postprocedural seroma of skin and subcutaneous tissue following other procedure; I10 Essential (primary) hypertension; E78.5 Hyperlipidemia, unspecified; Z85.43 Personal history of malignant neoplasm of ovary; Z90.49 Acquired absence of other specified parts of digestive tract; Z90.710 Acquired absence of both cervix and uterus; Z90.89 Acquired absence of other organs; Z79.2 Long term (current) use of antibiotics; Z79.899 Other long term (current) drug therapy; Z88.5 Allergy status to narcotic agent
CPT/HCPCS: 36415; 74177; 80048; 83690; 83735; 85025; 96365; 96375; 96376; 99285; J0696; J1170; J2405; J7030; Q9967

== ENCOUNTER 2024-11-18 06:25 | Inpatient (IN) | payer MEDICAID ==
[~2024-11-18] VITALS: Ht 167.6 cm; Wt 122.0 kg
[~2024-11-18 06:25] MED LIST changes: -DOXY-447 PO; +LORA-655 PO; -OXYM-15
--- NOTE | 2024-11-18 06:47 | ED.PDOC ---
GI ASSESSMENT HPI Comments 49-year-old female with PMHx Ovarian Cancer presents with a chief complaint of abdominal pain and periumbilical hernia. Patient had a CT scan performed x2 days ago and it showed an incarcerated small bowel. Patient also has a non-reducible periumbilical hernia. Patient was referred to the ER from her Cancer doctor. Time Seen by MD: 06:38 Primary Care Provider: CHRIS Reviewed Notes: Medications, Allergies Allergies: Coded Allergies: Morphine (Verified Allergy, Unknown, 03/16/22) Home Meds Active Scripts Oxycodone W/ Acetaminophen (Percocet 5/325MG) 1 Tab Tb, 1 TAB PO Q6HP PRN for 5 Days, #20 TAB Prov:FALLONLINDAJHONYSAIMA Avery PLASMA TABLE OPERATOR 04/07/23 Hydrocortisone Acetate (ANUCORT-HC SUPPOSITORY) 25 Mg Cochran, 25 MG AK Q12HR for 15 Days, #30 SUPP Prov:SAIMA GUERRERO Avery PLASMA TABLE OPERATOR 02/05/23 Lactulose (Lactulose) 10 Gm/15 Ml Miroslava, 10 GM PO BIDP PRN, #300 ML Prov:ENRRIQUE RAMIREZ PAC 12/27/22 Loratadine (Claritin) 10 Mg Tab, 1 TAB PO DAILY, #30 TAB 0 Refills Prov:ENRRIQUE RAMIREZ PAC 12/27/22 Reported Medications Lorazepam (Ativan) 0.5 Mg Tab, 1 TAB PO DAILY, #30 TAB 09/08/23 Diphenhydramine Hcl (Benadryl) 25 Mg Cap 12/18/10 Atenolol (Atenolol) 100 Mg Tab 12/18/10 Information Source: Patient Mode of Arrival: Ambulatory Timing: Days Duration: Since onset Prehospital treatment: None Quality: Sharp Vomitus: Food Particles Stool: Normal Severity: Moderate Recent: None Recent Hx of: None Pain Location: LLQ, Periumbilical Associated sign and symptoms: Nausea, Vomiting, Abdominal Pain Past Medical History PAST MEDICAL HISTORY: Cancer, High Lipids, HTN, Kidney Stones Surgical History: Cholecystectomy, Hernia Repair, Hysterectomy, Tonsillectomy 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 Family History Family History: Family hx of DM, Family hx of Cancer Social History Smoker: Non-Smoker Alcohol: Denies ETOH Use Drugs: Denies Drug Use Lives In: Home Constitutional: denies: chills, diaphoresis, fatigue, fever, malaise, sweats, weakness, others EENTM: denies: blurred vision, double vision, ear bleeding, ear discharge, ear drainage, ear pain, ear ringing, eye pain, eye redness, hearing loss, mouth pain, mouth swelling, nasal discharge, nose bleeding, nose congestion, nose pain, photophobia, tearing, throat pain, throat swelling, voice changes, others Respiratory: denies: cough, hemoptysis, orthopnea, SOB at rest, shortness of breath, SOB with excertion, stridor, wheezing, others Cardiovascular: denies: chest pain, dizzy spells, diaphoresis, Dyspnea on exertion, edema, irregular heart beat, left arm pain, lightheadedness, palpitations, PND, syncope, others Gastrointestinal: reports: abdominal pain, nausea, vomiting; denies: abdomen distended, blood streaked bowels, constipated, diarrhea, dysphagia, difficulty swallowing, hematemesis, melena, poor appetite, poor fluid intake, rectal bleeding, rectal pain, others Genitourinary: denies: abnormal vagina bleeding, burning, dyspareunia, dysuria, flank pain, frequency, hematuria, incontinence, pain, , vagina discharge, urgency, others Neurological: denies: dizziness, fainting, headache, left sided numbness, left sided weakness, numbness, paresthesia, pre-existing deficit, right sided numbness, right sided weakness, seizure, speech problems, tingling, tremors, wea kness, others Musculoskeletal: denies: back pain, gout, joint pain, joint swelling, muscle pain, muscle stiffness, neck pain, others Integumetry: denies: bruises, change in color, change in hair/nails, dryness, l aceration, lesions, lumps, rash, wounds, others Allergic/Immunocompromised: denies: Difficulty Healing, Frequent Infections, Hives, Itching, others Hematologic/Lymphatic: denies: anemia, blood clots, easy bleeding, easy bruising, swollen glands, others Endocrine: denies: excessive hunger, excessive sweating, excessive thirst, excessive urination, flushing, intolerance to cold, intolerance to heat, unexplained weight gain, unexplained weight loss, others Psychiatric: denies: anxiety, bipolar disorder, depression, hopeless, panic disorder, schizophrenia, sleepless, suicidal, others All Other Systems: Reviewed and Negative Physical Exam General Appearance: No Apparent Distress, Normal HEENT: Normal ENT Inspection, Pharynx Normal, TMs Normal Neck: Full Range of Motion, Non-Tender, Normal, Normal Inspection Respiratory: Chest Non-Tender, Lungs Clear, No Accessory Muscle Use, No Respiratory Distress, Normal Breath Sounds Cardiovascular: No Edema, No JVD, No Murmur, No Gallop, Normal Peripheral Pulses, Regular Rate/Rhythm Breast Exam: Deferred Gastrointestinal: Mass (PERIUMBILICAL HERNIA, NOT REDUCABLE), No Organomegaly, Normal Bowel Sounds, Soft, Tenderness (LLQ) Genitalia: Deferred Pelvic: Deferred Rectal: Deferred Extremities: No calf tenderness, Normal capillary refill, Normal inspection, Normal range of motion, Non-tender, No pedal edema Musculoskeletal : Apperance: Normal Neurologic: Alert, director airport operations II-XII nml as Tested, No Motor Deficits, Normal Affect, Normal Mood, No Sensory Deficits Cerebellar Function: Normal Reflexes: Normal Skin: Dry, Normal Color, Warm Lymphatic: No Adenopathy Was a procedure done? Was a procedure done?: No GI differential Dx Differential Diagnosis: Bowel Obstruction, Diverticular disease, Gastritis/PUD, Gastroenteritis, Hernia, Hepatitis, Inflammatory BD, Ischemic Bowel, Pancreatitis, Impaction, Ischemic Bowel, Mass X-Ray, Labs, Meds, VS Vital Signs Date Time Temp Pulse Resp B/P (MAP) Pulse Ox O2 Delivery O2 Flow Rate FiO2 11/18/24 08:54 149/97 11/18/24 07:00 98.3 74 12 157/96 (116) 98 98.3 11/18/24 06:52 98.8 84 16 143/108 (120) 98 98.8 Lab Test 11/18/24 08:40 Range/Units White Blood Count 13.3 H 4.4-10.8 10^3/uL Red Blood Count 5.05 4.0-5.20 10^6/uL Hemoglobin 15.4 12.2-16.2 g/dL Hematocrit 46.6 H 36.0-46.0 % Mean Corpuscular Volume 92.2 80.0-100.0 fL Mean Corpuscular Hemoglobin 30.6 28.0-32.0 pg Mean Corpuscular Hemoglobin Concent 33.2 32.0-36.0 g/dL Red Cell Distribution Width 13.9 11.8-14.3 % Platelet Count 251 140-450 10^3/uL Mean Platelet Volume 8.1 6.9-10.8 fL Neutrophils (%) (Auto) 70.1 37.0-80.0 % Lymphocytes (%) (Auto) 21.5 10.0-50.0 % Monocytes (%) (Auto) 5.3 0.0-12.0 % Eosinophils (%) (Auto) 2.1 0.0-7.0 % Basophils (%) (Auto) 1.0 0.0-2.0 % Neutrophils # (Auto) 9.3 H 1.6-8.6 10 ^3/uL Lymphocytes # (Auto) 2.9 0.4-5.4 10 ^3/uL Monocytes # (Auto) 0.7 0-1.3 10 ^3/uL Eosinophils # (Auto) 0.3 0-0.8 10 ^3/uL Basophils # (Auto) 0.1 0-0.2 10 ^3/uL Nucleated Red Blood Cells 0.1 % Sodium Level 139 136-145 mmol/L Potassium Level 4.0 3.5-5.1 mmol/L Chloride Level 103 98-107 mmol/L Carbon Dioxide Level 27 20-31 mmol/L Anion Gap 9 5-15 Blood Urea Nitrogen 10 9-23 mg/dL Creatinine 0.67 0.550-1.02 mg/dL Glomerular Filtration Rate Calc 106 >90 mL/min BUN/Creatinine Ratio 14.9 10.0-20.0 Serum Glucose 138 H 74-106 mg/dL Calcium Level 10.3 8.7-10.4 mg/dL Current Medications Medications (Trade) Dose Ordered Sig/Earl Route Start Time Stop Time Status Last Admin Sodium Chloride 1,000 ml @ 1,000 mls/hr Q1H ONCE IV 11/18/24 07:00 11/18/24 07:59 DC 11/18/24 07:00 Fentanyl Citrate 25 mcg ONCE ONCE IV 11/18/24 07:00 11/18/24 07:01 DC 11/18/24 08:54 Ondansetron HCl (Zofran) 4 mg ONCE ONCE IV 11/18/24 07:00 11/18/24 07:01 DC 11/18/24 08:50 Time of 1ST Reevaluation: 07:12 Reevaluation 1ST: Unchanged Patient Education/Counseling: Diagnosis, Treatment, Need For Follow Up Family Education/Counseling: No Family Present Comments pt does not have hernia incarceration, however, she has intractable abdominal pain. she will be admitted for pain control Departure 1 Departure Time of Disposition: 09:47 Impression: Primary Impression: Intractable abdominal pain Disposition: ADMITTED INPATIENT Admit to: Med Surg Condition: Stable Discharged With: Self Critical Care Note Critical Care Time?: Yes (55 min-critical care time only) Critical care comment: due to concerns for deterioration of patient's condition, the care required my highest level of attention and readiness. i assessed the patient's condition, reviewed relevant documents, communicated with medical personnel, ordered the proper tests and treatments, reassessed for results and response to treatments, spoke to family and consultants and formulated a plan of care Stability Stability form required: No Heart Score Heart Score: Heart Score Response (Comments) Value History N/A 0 EKG N/A 0 Age N/A 0 Risk Factors N/A 0 Troponin N/A 0 Total 0 I personally scribed for SORAYA WELLS MD ([email or web address]) on 11/18/24 at 06:47. Electronically submitted by Garrick Wasserman ([email or web address]). SORAYA WELLS MD Nov 18, 2024 06:47
[2024-11-18] MEDS: SODIUM CHLORIDE 0.9% 1,000 ML IV ONE (07:00)
--- NOTE | 2024-11-18 07:38 | DVH ---
EXAM: CT Abdomen and Pelvis Without Intravenous Contrast CLINICAL INDICATION: Pain TECHNIQUE: Axial computed tomography images of the abdomen and pelvis without intravenous contrast. This CT exam was performed using one or more of the following dose reduction techniques: automated exposure control, adjustment of the mA and/or kV according to patient size, and/or use of iterative r econstruction technique. COMPARISON: No relevant prior studies available. FINDINGS: LUNG BASES: Unremarkable. No mass. No consolidation. MEDIASTINUM: Small esophageal hiatal hernia. ABDOMEN: LIVER: Fatty infiltration of the liver. GALLBLADDER AND BILE DUCTS: Gallbladder is surgically absent. No ductal dilation. PANCREAS: Unremarkable. No ductal dilation. SPLEEN: Unremarkable. No splenomegaly. ADRENALS: Unremarkable. No mass. KIDNEYS AND URETERS: Unremarkable. No obstructing stones. No hydronephrosis. STOMACH AND BOWEL: Anterior ventral hernia containing colon and fat. No bowel obstruction. Fecal r etention in the colon consistent with constipation. Colonic diverticulosis without acute diverticuli tis. PELVIS: APPENDIX: No findings to suggest acute appendicitis. BLADDER: Unremarkable. No stones. REPRODUCTIVE: 6.4 cm isodense lesion in the left lower abdomen/hemipelvis could be remnant uterus. ABDOMEN and PELVIS: INTRAPERITONEAL SPACE: Unremarkable. No free air. No significant fluid collection. BONES/JOINTS: Moderate endplate degenerative changes and disc disease of L5-S1. No acute fracture. No dislocation. SOFT TISSUES: See above. VASCULATURE: Unremarkable. No abdominal aortic aneurysm. LYMPH NODES: Unremarkable. No enlarged lymph nodes. IMPRESSION: 1. Anterior ventral hernia containing colon and fat. No bowel obstruction. 2. Small esophageal hiatal hernia. 3. Fecal retention in the colon consistent with constipation. 4. Colonic diverticulosis without acute diverticulitis.
[2024-11-18] MEDS: ONDANSETRON HCL 4 MG/2 ML VIAL IV ONE (08:50)
[2024-11-18] MEDS: fentaNYL CITRATE 100 MCG/2 ML VL IV ONE (08:54)
[2024-11-18 09:17] LABS: Chloride 103 mmol/L (98-107); Sodium 139 mmol/L (136-145)
[2024-11-18 09:18] LABS: Anion Gap 9 (5-15); Calcium 10.3 mg/dL (8.7-10.4); Carbon Dioxide 27 mmol/L (20-31)
[2024-11-18 09:19] LABS: Basophils # (auto) 0.1 10 ^3/uL (0-0.2); Eosinophils # (auto) 0.3 10 ^3/uL (0-0.8); Eosinophils % (auto) 2.1 % (0.0-7.0); Hematocrit 46.6 % (36.0-46.0); Hemoglobin 15.4 g/dL (12.2-16.2); Lymphocytes # (auto) 2.9 10 ^3/uL (0.4-5.4); Lymphocytes % (auto) 21.5 % (10.0-50.0); Mean Corpuscular Hemoglobin 30.6 pg (28.0-32.0); Mean Corpuscular Hgb Conc. 33.2 g/dL (32.0-36.0); Mean Corpuscular Volume 92.2 fL (80.0-100.0); Monocytes # (auto) 0.7 10 ^3/uL (0-1.3); Monocytes % (auto) 5.3 % (0.0-12.0); Neutrophils # (auto) 9.3 10 ^3/uL (1.6-8.6); Neutrophils % (auto) 70.1 % (37.0-80.0); Nucleated Red Blood Cells % 0.1 %; Platelet Count (auto) 251 10^3/uL (140-450); Red Blood Cells 5.05 10^6/uL (4.0-5.20); Red Cell Distribution Width 13.9 % (11.8-14.3); White Blood Cell 13.3 10^3/uL (4.4-10.8)
[2024-11-18 09:24] LABS: BUN/Creatinine Ratio 14.9 (10.0-20.0); Blood Urea Nitrogen 10 mg/dL (9-23); Glucose 138 mg/dL (74-106)
[2024-11-18] MEDS: HYDROmorphone HCL 2 MG/ML VL/or syr IV ONE (10:04)
[2024-11-18] MEDS: ALPRAZolam 0.25 MG TAB PO ONE (10:37)
[2024-11-18 11:07] VITALS: PULSE 81; RESP 14; O2SAT 97
[2024-11-18] MEDS ORDERED: LABETALOL HCL 20 MG/4 ML VL IV PRN (13:30)
[2024-11-18] MEDS: cefTRIAXone 1GM/50ML D5W 50 ML IV ONE (13:30)
[2024-11-18] MEDS: SODIUM CHLORIDE 0.9% 1,000 ML IV SCH (13:30)
--- NOTE | 2024-11-18 13:36 | DVHHPRES ---
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 Patient denying nausea and vomiting, has regular bowel movement. Patient denying any other symptoms including fever, chills, chest pain, motor weakness, sensory deficits, any other symptoms. No any other new complaints. Past medical history: Hypertension, ovarian cancer stage IV, metastasis to om entum, status post hysterectomy with bilateral oophorectomy Past surgical history: Hysterectomy, tonsillectomy, cholecystectomy, oophorectomy Allergy: Morphine Home medication: Atenolol, oxycodone, stool softener. History of chemotherapy, last dose in 2022 Review of Systems Constitutional: No: Fever, Chills, Sweats, Weakness, Malaise, Other Eyes: No: Pain, Vision change, Conjunctivae inflammation, Eyelid inflammation, Other, Redness ENT: No: Ear pain, Ear discharge, Nose pain, Nose discharge, Nose congestion, Mouth pain, Mouth swelling, Throat pain, Throat swelling, Other Respiratory: No: Cough, Dry, Shortness of breath, SOB with excertion, Wheezing, Hemoptysis, Pleuritic Pain, Sputum, Wheezing, Other Gastrointestinal: Abdominal Pain Genitourinary: No Dysuria, No Frequency, No Incontinence, No Hematuria, No Retention, No Other Musculoskeletal: No: other, neck pain, shoulder pain, arm pain, back pain, hand pain, leg pain, foot pain Skin: No: Rash, Lesions, Jaundice, Bruising, Other Allergies: Coded Allergies: Morphine (Verified Allergy, Unknown, 03/16/22) Medications Current Medications Medications Dose Ordered Sig/Earl Route Start Time Stop Time Status Last Admin Dose Admin Ceftriaxone Sodium 50 ml @ 100 mls/hr DAILY@09 IV 11/19/24 09:00 UNV Metronidazole 100 ml @ 100 mls/hr Q8HR IV 11/18/24 14:00 UNV Hydromorphone HCl 0.25 mg Q2HPRN PRN IV 11/18/24 13:30 UNV Pantoprazole Sodium 40 mg DAILY IV 11/19/24 10:00 UNV Labetalol HCl 5 mg Q2HPRN PRN IV 11/18/24 13:30 UNV Sodium Chloride 1,000 ml @ 75 mls/hr [id number] IV 11/18/24 13:30 UNV Exam Vital Signs Vital Signs Date Time Temp Pulse Resp B/P (MAP) Pulse Ox O2 Delivery O2 Flow Rate FiO2 11/18/24 11:07 81 14 97 Room Air* 0 21 11/18/24 10:04 155/103 11/18/24 07:00 98.3 98.3 Exam General Appearance: Cooperative. Well developed. Well nourished. NAD Head Exam: Normal inspection Neck Exam: Normal inspection. Non-tender. Normal alignment Pulmonary/Respiratory: Chest non-tender. Clear bilateral breath sounds Cardiovascular/Chest: Regular rate and rhythm. No murmurs. No JVD. Peripheral Pulses: 2+ Radial (R). 2+ Radial (L). 2+ Pedal (R). 2+ Pedal (L) Abdominal Exam: Normal bowel sounds. Soft. Nontender. No hepatospenomegaly. Ventral mass, non reducible, worsened with standing up or cough. No tenderness or guarding or rigidity. Ankle Exam: Negative ankle edema Lower extremities: 1 + lower extremity edema Neuro/Mental Status: A&O x4. Coherent Thoughts/Psych: Normal thought pattern. Appropriate mood and affect. Good judgement and insight Appearance: In no acute distress Skin Exam: Normal inspection. Normal color. Warm. Dry Labs/Xrays Labs Test 11/18/24 08:40 Range/Units White Blood Count 13.3 H 4.4-10.8 10^3/uL Red Blood Count 5.05 4.0-5.20 10^6/uL Hemoglobin 15.4 12.2-16.2 g/dL Hematocrit 46.6 H 36.0-46.0 % Mean Corpuscular Volume 92.2 80.0-100.0 fL Mean Corpuscular Hemoglobin 30.6 28.0-32.0 pg Mean Corpuscular Hemoglobin Concent 33.2 32.0-36.0 g/dL Red Cell Distribution Width 13.9 11.8-14.3 % Platelet Count 251 140-450 10^3/uL Mean Platelet Volume 8.1 6.9-10.8 fL Neutrophils (%) (Auto) 70.1 37.0-80.0 % Lymphocytes (%) (Auto) 21.5 10.0-50.0 % Monocytes (%) (Auto) 5.3 0.0-12.0 % Eosinophils (%) (Auto) 2.1 0.0-7.0 % Basophils (%) (Auto) 1.0 0.0-2.0 % Neutrophils # (Auto) 9.3 H 1.6-8.6 10 ^3/uL Lymphocytes # (Auto) 2.9 0.4-5.4 10 ^3/uL Monocytes # (Auto) 0.7 0-1.3 10 ^3/uL Eosinophils # (Auto) 0.3 0-0.8 10 ^3/uL Basophils # (Auto) 0.1 0-0.2 10 ^3/uL Nucleated Red Blood Cells 0.1 % Sodium Level 139 136-145 mmol/L Potassium Level 4.0 3.5-5.1 mmol/L Chloride Level 103 98-107 mmol/L Carbon Dioxide Level 27 20-31 mmol/L Anion Gap 9 5-15 Blood Urea Nitrogen 10 9-23 mg/dL Creatinine 0.67 0.550-1.02 mg/dL Glomerular Filtration Rate Calc 106 >90 mL/min BUN/Creatinine Ratio 14.9 10.0-20.0 Serum Glucose 138 H 74-106 mg/dL Calcium Level 10.3 8.7-10.4 mg/dL Assessment/Plan Assessment/Plan Incarcerated ventral hernia Hypertension Ovarian cancer stage IV, metastasis to omentum 6.4 cm isodense lesion in the left lower abdomen/hemipelvis Morbid obese BMI 36.7 kg/m2 Rule out lower extremity DVT Constipation Diverticulosis Small esophageal hiatal hernia Plan/recommendation -CT scan of abdomen reviewed, 1. Anterior ventral hernia containing colon and fat. No bowel obstruction.2. Small esophageal hiatal hernia.3. Fecal retention in the colon consistent with constipation.4. Colonic diverticulosis without acute diverticulitis -NPO -Surgical consultation -IV fluid normal saline for maintenance -IV antibiotic -pain management with p.r.n. IV Dilaudid -patient is following up with Dr. Ramos oncology in outpatient setting -PUD prophylaxis with Protonix Goals of care discussed greater than 24 minutes, full code status Plan discussed with: Patient, Other My Orders Orders - WALLY BERTRAND RESIDENT Procedure Category Date Status Time Admit ADMIT 11/18/24 Transmitted 13:17 Electrocardigram EKG 11/18/24 Logged 13:17 Npo (Nothing By DIET 11/18/24 Transmitted Mouth) Diet Lunch * Surgical Consult CONS 11/18/24 Transmitted Ceftriaxone 1gm/50ml PHA 11/19/24 Logged D5w (Rocephin) 09:00 Ceftriaxone 1gm/50ml PHA 11/18/24 Logged D5w (Rocephin) 13:30 Metronidazole PHA 11/18/24 Logged 500mg/100ml (Flagyl 14:00 Hydromorphone PHA 11/18/24 Logged Injection (Dilaudid 13:30 Pantoprazole PHA 11/19/24 Logged (Protonix) 10:00 Pantoprazole PHA 11/18/24 Logged (Protonix) 13:30 Urinalysis LAB 11/18/24 Logged 13:21 Test, Urine LAB 11/18/24 Logged 13:21 Labetalol Hcl PHA 11/18/24 Logged (Labetalol Hcl) 13:30 Bilat Lower Dvt US 11/18/24 Logged 13:22 Sodium Chloride 0.9% PHA 11/18/24 Logged 13:30 Date of Service: Nov 18, 2024 Billing Provider: RUPAL DAVIS MD Common Visit Codes: 30515-[id number] INP/OBS CARE (HIGH) WALLY BERTRAND Nov 18, 2024 13:36 RUPAL DAVIS MD Nov 21, 2024 13:42
[2024-11-18] MEDS: PANTOPRAZOLE 40 MG/10 ML VIAL INJ IV ONE (14:16)
[2024-11-18] MEDS: HYDROmorphone HCL 2 MG/ML VL/or syr IV PRN (14:17)
--- NOTE | 2024-11-18 14:22 | DVH ---
Bilateral lower extremity venous duplex Clinical History: pain Comparison: BI LOWER DVT on DOS: 01/20/21 Technique: Duplex Doppler evaluation of the deep venous systems of both lower extremities from the common femora l veins to the popliteal veins including color Doppler and spectral/pulsed waveform analysis was perf ormed. Findings: RIGHT SIDE: The common femoral vein demonstrates appropriate compressibility and waveform variability. There is compressibility/patency of the great saphenous vein at the proximal thigh. The femoral vein demonstrates appropriate compressibility and waveform variability. The deep femoral vein demonstrates appropriate compressibility and waveform variability. The popliteal vein demonstrates appropriate compressibility and waveform variability. There is normal compressibility at the tibioperoneal trunk. LEFT SIDE: The common femoral vein demonstrates appropriate compressibility and waveform variability. There is compressibility/patency of the great saphenous vein at the proximal thigh. The femoral vein demonstrates appropriate compressibility and waveform variability. The deep femoral vein demonstrates appropriate compressibility and waveform variability. The popliteal vein demonstrates appropriate compressibility and waveform variability. There is normal compressibility at the tibioperoneal trunk. Impression: No right or left femoropopliteal venous thrombosis.
[2024-11-18] MEDS: metroNIDAZOLE 500MG/100ML 100 ML IV SCH (15:02)
[2024-11-18 16:55] LABS: Urine Bacteria None Seen /hpf (None Seen)
[2024-11-18 17:14] LABS: Urine Blood Negative /uL (Negative); Urine Clarity Clear (Clear); Urine Color Yellow (Yellow); Urine Protein, UAD Negative (Negative); Urine Squamous Epithelial Cell FEW /hpf (<5); Urine Urobilinogen Normal (Negative); Urine WBC < 1 /HPF (0-5); Urine pH 6.5 (5.0-9.0)
[2024-11-18] MEDS: diphenhdrAMINE HCL 25 MG CAP PO ONE (17:15)
[2024-11-18 19:57] VITALS: PULSE 77; RESP 18; O2SAT 96
[2024-11-19 06:24] LABS: Basophils # (auto) 0.1 10 ^3/uL (0-0.2); Basophils % (auto) 0.9 % (0.0-2.0); Eosinophils # (auto) 0.5 10 ^3/uL (0-0.8); Eosinophils % (auto) 4.5 % (0.0-7.0); Hematocrit 37.9 % (36.0-46.0); Hemoglobin 12.9 g/dL (12.2-16.2); Lymphocytes # (auto) 3.1 10 ^3/uL (0.4-5.4); Lymphocytes % (auto) 28.8 % (10.0-50.0); Mean Corpuscular Hemoglobin 31.2 pg (28.0-32.0); Mean Corpuscular Volume 91.8 fL (80.0-100.0); Monocytes # (auto) 0.7 10 ^3/uL (0-1.3); Monocytes % (auto) 6.5 % (0.0-12.0); Neutrophils # (auto) 6.3 10 ^3/uL (1.6-8.6); Neutrophils % (auto) 59.3 % (37.0-80.0); Platelet Count (auto) 198 10^3/uL (140-450); Red Blood Cells 4.13 10^6/uL (4.0-5.20); Red Cell Distribution Width 13.8 % (11.8-14.3); White Blood Cell 10.7 10^3/uL (4.4-10.8)
[2024-11-19 06:30] LABS: Anion Gap 9 (5-15); Carbon Dioxide 26 mmol/L (20-31); Chloride 107 mmol/L (98-107); Potassium 3.8 mmol/L (3.5-5.1); Sodium 142 mmol/L (136-145)
[2024-11-19 06:31] LABS: Calcium 9.3 mg/dL (8.7-10.4)
[2024-11-19 06:36] LABS: BUN/Creatinine Ratio 15.8 (10.0-20.0); Blood Urea Nitrogen 9 mg/dL (9-23); Glucose 147 mg/dL (74-106)
[2024-11-19 08:00] VITALS: PULSE 73; RESP 14; O2SAT 92
[2024-11-19] MEDS: cefTRIAXone 1GM/50ML D5W 50 ML IV SCH (09:27)
[2024-11-19] MEDS: PANTOPRAZOLE 40 MG/10 ML VIAL INJ IV SCH (11:30)
[2024-11-19 14:36] VITALS: BP 130/65; PULSE 75; RESP 18; TEMP 97.8; O2SAT 75
[2024-11-19] MEDS: SODIUM CHLORIDE 0.9% 1,000 ML IV SCH (15:50)
[2024-11-19] MEDS: HYDROmorphone HCL 2 MG/ML VL/or syr IV PRN (15:54)
--- NOTE | 2024-11-19 16:00 | DVHINCON2 ---
Date of service: Nov 19, 2024 History of Present Illness 49-year-old female with a history of stage IV ovarian cancer with omental metastasis status post chemotherapy in 2022 was told by her oncologist to come to the emergency room due to her recent CT of the abdomen and pelvis which showed a new lesion in the left lower quadrant as well has an incarcerated ventral hernia. Patient has been having abdominal pain on and off for several months however the pain is mostly in the left lower quadrant and not into the hernia. Patient denies any fevers, chills, nausea or vomiting and reports normal bowel movements. Past Medical History Stage IV ovarian cancer with omental metastasis. Hypertension. Past Surgical History Hysterectomy. Subsequent bilateral oophorectomy. Expiratory laparotomy with debulking of ovarian cancer. Family History: FH: leukemia G8 MOTHER, G8 FATHER, , Onset:60 years & older Hypertension G8 MOTHER, (htn/unk year) G8 FATHER, Other blood disorders G8 FATHER, (leukemia,unk year) Family History Noncontributory Social History Denies alcohol, tobacco, IV drug use Allergies: Coded Allergies: Morphine (Verified Allergy, Unknown, 03/16/22) Home Meds Active Scripts Oxycodone W/ Acetaminophen (Percocet 5/325MG) 1 Tab Tb, 1 TAB PO Q6HP PRN for 5 Days, #20 TAB Prov:SAIMA GUERRERO NP 04/07/23 Hydrocortisone Acetate (ANUCORT-HC SUPPOSITORY) 25 Mg Cochran, 25 MG IN Q12HR for 15 Days, #30 SUPP Prov:SAIMA GUERRERO NP 02/05/23 Lactulose (Lactulose) 10 Gm/15 Ml Miroslava, 10 GM PO BIDP PRN, #300 ML Prov:ENRRIQUE RAMIREZ PAC 12/27/22 Loratadine (Claritin) 10 Mg Tab, 1 TAB PO DAILY, #30 TAB 0 Refills Prov:ENRRIQUE RAMIREZ PAC 12/27/22 Reported Medications Lorazepam (Ativan) 0.5 Mg Tab, 1 TAB PO DAILY, #30 TAB 09/08/23 Diphenhydramine Hcl (Benadryl) 25 Mg Cap 12/18/10 Atenolol (Atenolol) 100 Mg Tab 12/18/10 Current Medications Current Medications Medications (Trade) Dose Ordered Sig/Earl Route PRN Reason Start Time Stop Time Status Last Admin Ceftriaxone Sodium 50 ml @ 100 mls/hr DAILY@09 IV 11/19/24 09:00 11/19/24 09:27 Pantoprazole Sodium (Protonix) 40 mg DAILY IV 11/19/24 10:00 11/19/24 11:30 Hydromorphone HCl (Dilaudid Injection) 1 mg Q3HP PRN IV SEVERE PAIN (7-10 PAIN SCALE) 11/19/24 15:30 Prochlorperazine Edisylate (Compazine Inj) 10 mg Q4HPRN PRN IV NAUSEA OR VOMITING 11/19/24 15:30 Sennosides (Senokot Tablet) 17.2 mg HS PO 11/19/24 22:00 Polyethylene Glycol (Miralax 17GM Powder) 17 gm DAILY PO 11/19/24 15:30 Sodium Chloride 1,000 ml @ 50 mls/hr Q20H IV 11/19/24 15:30 Heparin Sodium (Porcine) 5,000 units Q12HR SC 11/20/24 10:00 Vital Signs Vital Signs Date Time Temp Pulse Resp B/P (MAP) Pulse Ox O2 Delivery O2 Flow Rate FiO2 11/19/24 15:11 75 18 130/65 11/19/24 14:36 Room Air* 0 21 11/19/24 14:36 97.8 75 97.8 Physical Exam GEN: Obese female in no acute distress. Alert. HEENT: Normocephalic atraumatic. Moist mucous membranes. Anicteric sclerae. CV: RRR Respiratory: CTAB ABD: Obese abdomen with incisional scar. There is soft periumbilical ventral hernia that is nontender. Localized left lower quadrant tenderness to palpation . CT of the abdomen and pelvis: 6.4 cm isodense lesion in the left lower abdomen/hemipelvis. Anterior ventral hernia containing colon and fat without obstruction. Labs/Diagnostic Data Labs Test 11/19/24 05:19 11/18/24 16:37 Range/Units White Blood Count 10.7 4.4-10.8 10^3/uL Red Blood Count 4.13 4.0-5.20 10^6/uL Hemoglobin 12.9 # 12.2-16.2 g/dL Hematocrit 37.9 # 36.0-46.0 % Mean Corpuscular Volume 91.8 80.0-100.0 fL Mean Corpuscular Hemoglobin 31.2 28.0-32.0 pg Mean Corpuscular Hemoglobin Concent 34.0 32.0-36.0 g/dL Red Cell Distribution Width 13.8 11.8-14.3 % Platelet Count 198 140-450 10^3/uL Mean Platelet Volume 8.1 6.9-10.8 fL Neutrophils (%) (Auto) 59.3 37.0-80.0 % Lymphocytes (%) (Auto) 28.8 10.0-50.0 % Monocytes (%) (Auto) 6.5 0.0-12.0 % Eosinophils (%) (Auto) 4.5 0.0-7.0 % Basophils (%) (Auto) 0.9 0.0-2.0 % Neutrophils # (Auto) 6.3 1.6-8.6 10 ^3/uL Lymphocytes # (Auto) 3.1 0.4-5.4 10 ^3/uL Monocytes # (Auto) 0.7 0-1.3 10 ^3/uL Eosinophils # (Auto) 0.5 0-0.8 10 ^3/uL Basophils # (Auto) 0.1 0-0.2 10 ^3/uL Nucleated Red Blood Cells 0.0 % Sodium Level 142 136-145 mmol/L Potassium Level 3.8 3.5-5.1 mmol/L Chloride Level 107 98-107 mmol/L Carbon Dioxide Level 26 20-31 mmol/L Anion Gap 9 5-15 Blood Urea Nitrogen 9 9-23 mg/dL Creatinine 0.57 0.550-1.02 mg/dL Glomerular Filtration Rate Calc 111 >90 mL/min BUN/Creatinine Ratio 15.8 10.0-20.0 Serum Glucose 147 H 74-106 mg/dL Calcium Level 9.3 8.7-10.4 mg/dL Urine Color Yellow Yellow Urine Clarity Clear Clear Urine pH 6.5 5.0-9.0 Urine Specific [place] 1.020 1.001-1.035 Urine Protein Negative Negative Urine Ketones Negative Negative Urine Blood Negative Negative /uL Urine Nitrite Negative Negative Urine Bilirubin Negative Negative Urine Urobilinogen Normal Negative mg/dL Urine Leukocyte Esterase Negative Negative /uL Urine RBC <1 0 - 4 /hpf Urine Microscopic WBC < 1 0-5 /HPF Urine Squamous Epithelial Cells Few <5 /hpf Urine Bacteria None seen None Seen /hpf Urine Glucose Normal Normal mg/dL Urine Test Negative Negative Assessment 1. Incarcerated ventral hernia without obstruction 2. New left lower quadrant pelvic lesions suspicious for recurrent cancer 3. Stage IV ovarian cancer with the omental metastasis status post chemotherapy Plan/Recommendation 1. Percutaneous biopsy of the left lower pelvic lesion by IR on Thursday. 2. No indication for acute surgical intervention for the hernia as there is no signs of obstruction. We will start diet. Plan discussed with: Patient NABOR LUBIN MD Nov 19, 2024 16:00
[2024-11-19] MEDS: POLYETHYLENE GLYCOL 17 GM PWDR PO SCH (16:03)
[2024-11-19 16:50] VITALS: BP 115/72; PULSE 70; RESP 17; TEMP 97.1; O2SAT 96
--- NOTE | 2024-11-19 17:14 | DVHPN2 ---
Progress Note - Dictate Date Seen: Nov 19, 2024 Medical Necessity Reason Pt with a Central, PICC or Fol: No vital signs Vital Sign Date Time Temp Pulse Resp B/P (MAP) Pulse Ox O2 Delivery O2 Flow Rate FiO2 11/19/24 16:50 97.1 70 17 115/72 (86) 96 97.1 11/19/24 14:36 Room Air* 0 21 Total Intake and Output 11/18/24 11/18/24 11/19/24 15:00 23:00 07:00 Intake Total 1175 ml 230 ml Balance 1175 ml 230 ml medications Current Medications Medications Dose Ordered Sig/Earl Route Start Time Stop Time Status Last Admin Dose Admin Ceftriaxone Sodium 50 ml @ 100 mls/hr DAILY@09 IV 11/19/24 09:00 11/19/24 09:27 100 MLS/HR Metronidazole 100 ml @ 100 mls/hr Q8HR IV 11/18/24 14:00 11/19/24 15:09 100 MLS/HR Pantoprazole Sodium 40 mg DAILY IV 11/19/24 10:00 11/19/24 11:30 40 MG Labetalol HCl 5 mg Q2HPRN PRN IV 11/18/24 13:30 Hydromorphone HCl 1 mg Q3HP PRN IV 11/19/24 15:30 11/19/24 15:54 1 MG Prochlorperazine Edisylate 10 mg Q4HPRN PRN IV 11/19/24 15:30 Sennosides 17.2 mg HS PO 11/19/24 22:00 Polyethylene Glycol 17 gm DAILY PO 11/19/24 15:30 11/19/24 16:03 17 GM Sodium Chloride 1,000 ml @ 50 mls/hr Q20H IV 11/19/24 15:30 11/19/24 15:50 50 MLS/HR Heparin Sodium (Porcine) 5,000 units Q12HR SC 11/20/24 10:00 objective General Appearance: alert, no distress HEENT: EOMI, PERRLA, normal external inspect of ears, no icterus, no nasal drainage Neck: no carotid bruit, no jugular venous distention (JVD), no lymphadenopathy Chest: normal thorax Respiratory: clear to auscultation, normal air movement Cardiovascular: regular rate and rhythm, no diastolic murmur, no jugular venous distention (JVD), no rub, no systolic murmur Abdominal: soft, no hepatomegaly, no mass, no splenomegaly, no tenderness Genitourinary: grossly normal external Musculoskeletal: no joint tenderness, no swelling Extremities: normal pulses, no calf tenderness, no clubbing, no cyanosis, no edema Skin: no bruising, no jaundice, no rash Neurological: alert, No focal deficit laboratory and microbiology Laboratory Tests 11/19/24 05:19 Test 11/19/24 05:19 Range/Units Serum Glucose 147 H 74-106 mg/dL Problem List 1. Ventral Hernia, Possible incarceration Surgical Consult, monitoring 2. Morbid Obesity Diet education, Monitoring 3. Chronic Constipation cathartics, monitoring 4. Stage IV ovarian cancer, S/P chemotherapy 2022 Medications, monitoring Assessment/Plan Subjective: Patient is awake and alert. Objective: Patient was admitted for large ventral hernia, possibly incarcerated. General surgery has consulted. Patient has a history of stage four ovarian cancer. She completed her chemotherapy last year. Plan: Continue current treatment. Monitor daily labs. Continue pain medication as needed. Continue IV hydration, PPI, DVT prophylaxis. Plan discussed with: Patient, Other SAIMA GUERRERO NP Nov 19, 2024 17:14
[2024-11-19] MEDS: PROCHLORPERAZINE EDISYLATE 5 MG/ML 2ML VIAL IV PRN (18:44)
[2024-11-19 18:59] VITALS: BP 154/80; PULSE 87; RESP 20
[2024-11-19] MEDS ORDERED: SENNA 8.6 MG TAB PO SCH (22:00)
[2024-11-20] MEDS ORDERED: HEPARIN SODIUM (PORCINE) 5000 UNITS/ML 1ML VIAL SC SCH (10:00)
--- NOTE | 2024-11-20 14:21 | DVHDS2 ---
Discharge Summary Date of Admission Nov 18, 2024 at 13:17 Date of Discharge: Nov 19, 2024 Labs/Diagnostic Data: Laboratory Results Test 11/19/24 05:19 11/18/24 16:37 White Blood Count 10.7 10^3/uL (4.4-10.8) Red Blood Count 4.13 10^6/uL (4.0-5.20) Hemoglobin 12.9 g/dL (12.2-16.2) Hematocrit 37.9 % (36.0-46.0) Mean Corpuscular Volume 91.8 fL (80.0-100.0) Mean Corpuscular Hemoglobin 31.2 pg (28.0-32.0) Mean Corpuscular Hemoglobin Concent 34.0 g/dL (32.0-36.0) Red Cell Distribution Width 13.8 % (11.8-14.3) Platelet Count 198 10^3/uL (140-450) Mean Platelet Volume 8.1 fL (6.9-10.8) Neutrophils (%) (Auto) 59.3 % (37.0-80.0) Lymphocytes (%) (Auto) 28.8 % (10.0-50.0) Monocytes (%) (Auto) 6.5 % (0.0-12.0) Eosinophils (%) (Auto) 4.5 % (0.0-7.0) Basophils (%) (Auto) 0.9 % (0.0-2.0) Neutrophils # (Auto) 6.3 10 ^3/uL (1.6-8.6) Lymphocytes # (Auto) 3.1 10 ^3/uL (0.4-5.4) Monocytes # (Auto) 0.7 10 ^3/uL (0-1.3) Eosinophils # (Auto) 0.5 10 ^3/uL (0-0.8) Basophils # (Auto) 0.1 10 ^3/uL (0-0.2) Nucleated Red Blood Cells 0.0 % Sodium Level 142 mmol/L (136-145) Potassium Level 3.8 mmol/L (3.5-5.1) Chloride Level 107 mmol/L (98-107) Carbon Dioxide Level 26 mmol/L (20-31) Anion Gap 9 (5-15) Blood Urea Nitrogen 9 mg/dL (9-23) Creatinine 0.57 mg/dL (0.550-1.02) Glomerular Filtration Rate Calc 111 mL/min (>90) BUN/Creatinine Ratio 15.8 (10.0-20.0) Serum Glucose 147 mg/dL (74-106) Calcium Level 9.3 mg/dL (8.7-10.4) Urine Color Yellow (Yellow) Urine Clarity Clear (Clear) Urine pH 6.5 (5.0-9.0) Urine Specific [place] 1.020 (1.001-1.035) Urine Protein Negative (Negative) Urine Ketones Negative (Negative) Urine Blood Negative /uL (Negative) Urine Nitrite Negative (Negative) Urine Bilirubin Negative (Negative) Urine Urobilinogen Normal mg/dL (Negative) Urine Leukocyte Esterase Negative /uL (Negative) Urine RBC <1 /hpf (0 - 4) Urine Microscopic WBC < 1 /HPF (0-5) Urine Squamous Epithelial Cells Few /hpf (<5) Urine Bacteria None seen /hpf (None Seen) Urine Glucose Normal mg/dL (Normal) Urine Test Negative (Negative) Other Laboratory Tests 11/19/24 05:19 Brief Hx & Hospital Course: Patient has a history of stage IV ovarian cancer. She completed her chemotherapy treatment. Patient was admitted for new pelvic masses. Patient was sent in by her oncologist Dr. Ness. Patient did not want to stay for further workup. She was seen by general surgeon and they did recommend pelvic mass biopsy. Patient left AMA before further workup could be done. She was instructed to follow-up with her PCP in 1 week. The patient decided they wanted to leave AMA. The patient was informed about the risk of leaving. And was informed about the risk that are involved if they left without any treatment which may include . The patient was okay with it and decided to leave without any intervention. The patient was told to return for any worsening symptoms. Condition at Discharge: Unstable Final Diagnosis/Problems List Ventral Hernia, Possible incarceration Morbid Obesity Chronic Constipation Stage IV ovarian cancer, S/P chemotherapy 2022 Discharge Disposition: AMA Discharge Statement: "Patient was advised to return to the ER or call 911 if any headaches, dizziness, shortness of breath, chest pain, abdominal pain, bleeding, fevers, or worsening of medical condition. Patient was counseled about treatment plan, medications, possible side effects, patientverbalized understanding. All questions were answered to the best of my ability. This discharge took greater then 30 minutes in planning, reviewing documentation, counseling the patient, and discussing with other team members." ASSESSMENT ASSESSMENT Assessment SAIMA GUERRERO WEB SITE PROJECT MANAGER Nov 20, 2024 14:21
== END 2024-11-19 21:45 | disposition left against medical advice (07) | DRG 254 ==
LOC: ER 06:25 → OVERFLOW 13:17 → CENTRAL 11-19 14:45
PROVIDERS: ADMIT Student in an Organized Health Care Education/Training Program; ATTEND Internal Medicine
DX: K43.6 Other and unspecified ventral hernia with obstruction, without gangrene (principal); C56.9 Malignant neoplasm of unspecified ovary; C78.6 Secondary malignant neoplasm of retroperitoneum and peritoneum; E66.01 Morbid (severe) obesity due to excess calories; Z68.41 Body mass index [BMI] 40.0-44.9, adult; I10 Essential (primary) hypertension; K44.9 Diaphragmatic hernia without obstruction or gangrene; K59.09 Other constipation; K57.50 Diverticulosis of both small and large intestine without perforation or abscess without bleeding; Z53.29 Procedure and treatment not carried out because of patient's decision for other reasons; Z90.49 Acquired absence of other specified parts of digestive tract; Z92.21 Personal history of antineoplastic chemotherapy; Z90.710 Acquired absence of both cervix and uterus; Z87.442 Personal history of urinary calculi; Z85.43 Personal history of malignant neoplasm of ovary; Z83.3 Family history of diabetes mellitus; Z80.8 Family history of malignant neoplasm of other organs or systems; Z82.49 Family history of ischemic heart disease and other diseases of the circulatory system; Z80.6 Family history of leukemia; Z88.5 Allergy status to narcotic agent
CPT/HCPCS: 36415; 74176; 80048; 81001; 81025; 85025; 87081; 93970; 96365; 96375; 99291; G0378; J2405; J2470; J3490

== ENCOUNTER 2025-01-04 05:19 | Inpatient (IN) | payer MEDICAID ==
[~2025-01-04] VITALS: Ht 167.6 cm; Wt 140.1 kg
[2025-01-04 06:36] LABS: Hematocrit 37.4 % (36.0-46.0); Hemoglobin 12.6 g/dL (12.2-16.2); Mean Corpuscular Hemoglobin 30.2 pg (28.0-32.0); Mean Corpuscular Volume 89.5 fL (80.0-100.0); Nucleated Red Blood Cells % 0.1 %
[2025-01-04 06:38] LABS: Alanine Aminotransferase 10 U/L (7-40); Albumin 4.1 g/dL (3.2-4.8); Alkaline Phosphatase 101 U/L (46-116); Anion Gap 10 (5-15); BUN/Creatinine Ratio 15.1 (10.0-20.0); Calcium 9.2 mg/dL (8.7-10.4); Carbon Dioxide 23 mmol/L (20-31); Chloride 105 mmol/L (98-107); Potassium 3.8 mmol/L (3.5-5.1); Sodium 138 mmol/L (136-145); Total Protein 7.1 g/dL (5.7-8.2)
[2025-01-04 06:39] LABS: Bilirubin, Total 0.8 mg/dL (0.2-1.0)
[2025-01-04 06:42] LABS: Blood Urea Nitrogen 8 mg/dL (9-23); Glucose 114 mg/dL (74-106)
--- NOTE | 2025-01-04 06:51 | ED.PDOC ---
GI ASSESSMENT HPI Comments 49-year-old female with PMHx Ovarian Cancer, Diverticulosis, Hemorrhoids presents with a chief complaint of abdominal pain and rectal bleeding x 2 weeks. Patient states that her pain is localized diffusely, nonradiating, nonexertional, describes as aching, and rates her pain a 8/10. Patient reports that she has been having rectal bleeding everyday. Patient denies any pain with her bowel movements. Patient is currently not on chemotherapy any longer for her cancer. No other symptoms or modifying factors present at this time. Chief Complaint: GI Bleed Time Seen by MD: 06:40 Primary Care Provider: CHRIS Reviewed Notes: Medications, Allergies Allergies: Coded Allergies: Morphine (Verified Allergy, Unknown, 03/16/22) Home Meds Active Scripts Oxycodone W/ Acetaminophen (Percocet 5/325MG) 1 Tab Tb, 1 TAB PO Q6HP PRN for 5 Days, #20 TAB Prov:SAMIA GUERRERO NP 04/07/23 Hydrocortisone Acetate (ANUCORT-HC SUPPOSITORY) 25 Mg Cochran, 25 MG [place] Q12HR for 15 Days, #30 SUPP Prov:SAIMA GUERRERO MACHINE CLIPPER 02/05/23 Lactulose (Lactulose) 10 Gm/15 Ml Miroslava, 10 GM PO BIDP PRN, #300 ML Prov:ENRRIQUE RAMIREZ PAC 12/27/22 Loratadine (Claritin) 10 Mg Tab, 1 TAB PO DAILY, #30 TAB 0 Refills Prov:ENRRIQUE RAMIREZ PAC 12/27/22 Reported Medications Lorazepam (Ativan) 0.5 Mg Tab, 1 TAB PO DAILY, #30 TAB 09/08/23 Diphenhydramine Hcl (Benadryl) 25 Mg Cap 12/18/10 Atenolol (Atenolol) 100 Mg Tab 12/18/10 Information Source: Patient Mode of Arrival: Ambulatory Timing: Weeks Duration: Since onset Prehospital treatment: None Quality: Cramping Vomitus: None Stool: Blood Streaked Severity: Moderate Recent: None Recent Hx of: None Pain Location: Diffuse Associated sign and symptoms: Abdominal Pain, Blood in Stool Past Medical History PAST MEDICAL HISTORY: Cancer, High Lipids, HTN, Kidney Stones Surgical History: Cholecystectomy, Hernia Repair, Hysterectomy, Tonsillectomy 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 Family History Family History: Family hx of DM, Family hx of Cancer Social History Smoker: Non-Smoker Alcohol: Denies ETOH Use Drugs: Denies Drug Use Lives In: Home Constitutional: denies: chills, diaphoresis, fatigue, fever, malaise, sweats, weakness, others EENTM: denies: blurred vision, double vision, ear bleeding, ear discharge, ear drainage, ear pain, ear ringing, eye pain, eye redness, hearing loss, mouth pain, mouth swelling, nasal discharge, nose bleeding, nose congestion, nose pain, photophobia, tearing, throat pain, throat swelling, voice changes, others Respiratory: denies: cough, hemoptysis, orthopnea, SOB at rest, shortness of breath, SOB with excertion, stridor, wheezing, others Cardiovascular: denies: chest pain, dizzy spells, diaphoresis, Dyspnea on exertion, edema, irregular heart beat, left arm pain, lightheadedness, palpitations, PND, syncope, others Gastrointestinal: reports: abdominal pain, rectal bleeding; denies: abdomen distended, blood streaked bowels, constipated, diarrhea, dysphagia, difficulty swallowing, hematemesis, melena, nausea, poor appetite, poor fluid intake, rectal pain, vomiting, others Genitourinary: denies: abnormal vagina bleeding, burning, dyspareunia, dysuria, flank pain, frequency, hematuria, incontinence, pain, , vagina discharge, urgency, others Neurological: denies: dizziness, fainting, headache, left sided numbness, left sided weakness, numbness, paresthesia, pre-existing deficit, right sided numbness, right sided weakness, seizure, speech problems, tingling, tremors, weakness, others Musculoskeletal: denies: back pain, gout, joint pain, joint swelling, muscle pain, muscle stiffness, neck pain, others Integumetry: denies: bruises, change in color, change in hair/nails, dryness, laceration, lesions, lumps, rash, wounds, others Allergic/Immunocompromised: denies: Difficulty Healing, Frequent Infections, Hives, Itching, others Hematologic/Lymphatic: denies: anemia, blood clots, easy bleeding, easy bruising, swollen glands, others Endocrine: denies: excessive hunger, excessive sweating, excessive thirst, excessive urination, flushing, intolerance to cold, intolerance to heat, unexplained weight gain, unexplained weight loss, others Psychiatric: denies: anxiety, bipolar disorder, depression, hopeless, panic disorder, schizophrenia, sleepless, suicidal, others All Other Systems: Reviewed and Negative Physical Exam General Appearance: No Apparent Distress, Obese HEENT: Normal ENT Inspection, Pharynx Normal, TMs Normal Neck: Full Range of Motion, Non-Tender, Normal, Normal Inspection Respiratory: Chest Non-Tender, Lungs Clear, No Accessory Muscle Use, No Respiratory Distress, Normal Breath Sounds Cardiovascular: No Edema, No JVD, No Murmur, No Gallop, Normal Peripheral Pulses, Regular Rate/Rhythm Breast Exam: Deferred Gastrointestinal: No Organomegaly, Non Tender, No Pulsatile Mass, Normal Bowel Sounds, Soft Genitalia: Deferred Pelvic: Deferred Rectal: Deferred Extremities: No calf tenderness, Normal capillary refill, Normal inspection, Normal range of motion, Non-tender, No pedal edema Musculoskeletal : Apperance: Normal Neurologic: Alert, youth care professional II-XII nml as Tested, No Motor Deficits, Normal Affect, Normal Mood, No Sensory Deficits Cerebellar Function: Normal Reflexes: Normal Skin: Dry, Normal Color, Warm Lymphatic: No Adenopathy Was a procedure done? Was a procedure done?: No GI differential Dx Differential Diagnosis: Constipation, Gastroenteritis, Ischemic Bowel, Pancreatitis, UTI, Urolithiasis, Dehydration, Electrolyte Imbalance, Food Poisoning, Hypovolemia X-Ray, Labs, Meds, VS Vital Signs Date Time Temp Pulse Resp B/P (MAP) Pulse Ox O2 Delivery O2 Flow Rate FiO2 01/04/25 07:30 98.0 77 20 120/46 (70) 96 98.0 01/04/25 07:30 77 20 96 Room Air* 0 21 01/04/25 05:22 98.0 81 18 125/66 96 98.0 Lab Test 01/04/25 05:58 Range/Units White Blood Count 16.1 H 4.4-10.8 10^3/uL Red Blood Count 4.18 4.0-5.20 10^6/uL Hemoglobin 12.6 12.2-16.2 g/dL Hematocrit 37.4 36.0-46.0 % Mean Corpuscular Volume 89.5 80.0-100.0 fL Mean Corpuscular Hemoglobin 30.2 28.0-32.0 pg Mean Corpuscular Hemoglobin Concent 33.7 32.0-36.0 g/dL Red Cell Distribution Width 14.1 11.8-14.3 % Platelet Count 497 H 140-450 10^3/uL Mean Platelet Volume 7.0 6.9-10.8 fL Neutrophils (%) (Auto) 69.3 37.0-80.0 % Lymphocytes (%) (Auto) 19.6 10.0-50.0 % Monocytes (%) (Auto) 7.2 0.0-12.0 % Eosinophils (%) (Auto) 2.6 0.0-7.0 % Basophils (%) (Auto) 1.3 0.0-2.0 % Neutrophils # (Auto) 11.2 H 1.6-8.6 10 ^3/uL Lymphocytes # (Auto) 3.1 0.4-5.4 10 ^3/uL Monocytes # (Auto) 1.2 0-1.3 10 ^3/uL Eosinophils # (Auto) 0.4 0-0.8 10 ^3/uL Basophils # (Auto) 0.2 0-0.2 10 ^3/uL Nucleated Red Blood Cells 0.1 % Sodium Level 138 136-145 mmol/L Potassium Level 3.8 3.5-5.1 mmol/L Chloride Level 105 98-107 mmol/L Carbon Dioxide Level 23 20-31 mmol/L Anion Gap 10 5-15 Blood Urea Nitrogen 8 L 9-23 mg/dL Creatinine 0.53 L 0.550-1.02 mg/dL Glomerular Filtration Rate Calc 113 >90 mL/min BUN/Creatinine Ratio 15.1 10.0-20.0 Serum Glucose 114 H 74-106 mg/dL Calcium Level 9.2 8.7-10.4 mg/dL Total Bilirubin 0.8 0.2-1.0 mg/dL Aspartate Amino Transferase (AST) 17 13-40 U/L Alanine Aminotransferase (ALT) 10 7-40 U/L Alkaline Phosphatase 101 46-116 U/L Total Protein 7.1 5.7-8.2 g/dL Albumin 4.1 3.2-4.8 g/dL Lipase 33 12-53 U/L Current Medications Medications (Trade) Dose Ordered Sig/Earl Route Start Time Stop Time Status Last Admin Sodium Chloride 1,000 ml @ 150 mls/hr Q6H40M ONCE IV 01/04/25 05:45 01/04/25 12:24 7/30/25 08:16 Time of 1ST Reevaluation: 07:10 Reevaluation 1ST: Unchanged Patient Education/Counseling: Diagnosis, Treatment Family Education/Counseling: No Family Present SEPSIS Sepsis Screen Date sepsis recognized/suspect: Jan 04, 2025 Time Sepsis recognized/suspect: 521 Recent Procedure: No On Antibiotic Therapy: No Respiratory Rate >20: No Heart Rate >90: No Temp<36 C (96.8 F) or >38.3 C: No SBP <90 or MAP <65 mmHG: No New Acute Mental Status Change: No Is the patient on CPAP, BIPAP,: No Physician Orders Ct Ab Pel Wo Con-No Oral Or Iv (01/04/25 05:37) Heplock Iv (01/04/25 ) Type And Screen (01/04/25 05:39) Sodium Chloride 0.9% (01/04/25 05:45) Chest Portable (01/04/25 06:44) Fentanyl Citrate Injection (01/04/25 08:30) Metoclopramide Injection (Reglan Injecti (01/04/25 08:30) Lactic Acid W/ Reflex Order (01/04/25 08:23) Blood Culture (01/04/25 08:23) Cefazolin Ancef (01/04/25 08:30) Metronidazole Ivpb Flagyl (01/04/25 08:30) Vital Signs Date Time Temp Pulse Resp B/P (MAP) Pulse Ox O2 Delivery O2 Flow Rate FiO2 01/04/25 07:30 98.0 77 20 120/46 (70) 96 98.0 01/04/25 07:30 77 20 96 Room Air* 0 21 01/04/25 05:22 98.0 81 18 125/66 96 98.0 Laboratory Tests Test 01/04/25 05:58 White Blood Count 16.1 10^3/uL (4.4-10.8) H Medications Medications Dose Ordered Sig/Earl Route Start Time Stop Time Status Last Admin Dose Admin Sodium Chloride 1,000 ml @ 150 mls/hr Q6H40M ONCE IV 01/04/25 05:45 01/04/25 12:24 01/04/25 08:16 Departure 1 Departure Time of Disposition: 08:25 (Patient presented with abdominal pain that was concerning for possible appendicits, gastritis, cholecystitis, colitis, gastroenteritis, sbo, or orther possible surgical emergency. Data: 1. I ordered and reviewed the result of at least 3 labs including a CBC, BMP, and Urinalysis. 2. I independently interpreted the following tests: CT Abdoment and Pelvis is concerning for intra-abdominal abscess .Risk:This patient has a high risk of morbidity due to further diagnostic testing or treatment and may suffer from an acute abdominal process disorder. Workup reveals abdominal abscess and patient should be admitted for further workup. and possible expert consultation. ) Impression: Primary Impression: Intra-abdominal abscess Additional Impressions: Intractable abdominal pain Bright red blood per rectum Disposition: ADMITTED INPATIENT Admit to: Med Surg Condition: Serious Critical Care Note Critical Care Time?: Yes Critical care comment: Intractable abdominal pain Authorized and Performed by: Molly Rojas MD Total critical care time: Approximately 42 minutes Due to a high probability of clinically significant, life threatening deterioration, the patient required my highest level of preparedness to intervene emergently and I personally spent this critical care time directly and personally managing the patient. This critical care time included obtaining a history; examining the patient; pulse oximetry; ordering and review of studies; arranging urgent treatment with development of a management plan; evaluation of patient's response to treatment; frequent reassessment; and, discussions with other providers. This critical care time was performed to assess and manage the high probability of imminent, life-threatening deterioration that could result in multi-organ failure. It was exclusive of separately billable procedures and treating other patients and teaching time. Please see my other sections and the rest of the note for further information on patient assessment and treatment. Stability Stability form required: No Heart Score Heart Score: Heart Score Response (Comments) Value History N/A 0 EKG N/A 0 Age N/A 0 Risk Factors N/A 0 Troponin N/A 0 Total 0 I personally scribed for MOLLY ROJAS MD ([email or web address]) on 01/04/25 at 06:51. Electronically submitted by Garrick Wasserman ([email or web address]). MOLLY ROJAS MD Jan 04, 2025 06:51
[2025-01-04 07:30] VITALS: PULSE 77; RESP 20; O2SAT 96
--- NOTE | 2025-01-04 07:49 | DVH ---
CHEST RADIOGRAPH Indication: weakness, verify port placement Technique: Single frontal view of the chest was obtained Comparison: CHEST XRAY 1 VIEW on DOS: 01/20/21 FINDINGS: Lines and Tubes: Right infusion catheter with tip terminating in the superior cavoatrial junction. Lungs: No focal consolidation. Pleura: No effusion. No pneumothorax. Cardiomediastinal contours: Unremarkable Bones: No acute osseous abnormality. IMPRESSION: 1. Right infusion catheter with tip terminating in the superior cavoatrial junction. 2. No acute cardiopulmonary disease.
--- NOTE | 2025-01-04 08:02 | DVH ---
Exam: CT CT AB PEL WO CON-NO ORAL OR IV History: Right lower quadrant pain/GI bleed Comparison Study: CT CT AB PEL WO CON-NO ORAL OR IV on DOS: 11/18/24 Technique: Multidetector spiral CT of the abdomen and pelvis was performed from lung bases to pubic s ymphysis. Imaging was performed without intravenous contrast. Coronal and sagittal multiplanar reform ats were obtained from the axial data set by the technologist. Radiation Dose : 1. Abdomen/Pelvis: CTDIvol 25.34 mGy, DLP 1432.2 mGy*cm. Findings: Evaluation of vasculature and solid organs is limited due to lack of intravenous contrast use. Lung Bases: Lung bases are clear. Visualized portions of the heart and pericardium are unremarkable. Liver: The liver is normal in size. No focal lesions. Diffusely hypoattenuating liver parenchyma con sistent with hepatic steatosis. Gallbladder and Biliary Tree: The gallbladder is surgically absent. No intrahepatic or extrahepatic b iliary ductal dilatation. Spleen: Unremarkable Pancreas: The pancreas is grossly unremarkable. Adrenal Glands: Unremarkable. Kidneys: Kidneys are unremarkable without calculi or hydronephrosis. GI tract: The stomach is grossly normal in appearance. No evidence of small bowel dilatation or wall thickening. There is sigmoid diverticulosis. There is a complex fluid collection containing gas in t he left lower quadrant which measures 14.25 x 12.8 cm inseparable from the sigmoid colon. This is inc reased in size since the prior study. No acute appendicitis. Peritoneum/mesentery/retroperitoneum. No evidence of free intraperitoneal air. No ascites. No evidenc e of suspicious lymphadenopathy. Abdominal Wall: Ventral abdominal wall hernia containing unobstructed bowel loops. Linear soft tissu e stranding in the ventral abdominal wall suggestive prior surgery. Vasculature: The visualized abdominal aorta is normal in size and caliber. Evaluation of abdominal a nd pelvic vessels is limited due to lack of intravenous contrast. Urinary Bladder: Grossly unremarkable for degree of distention. Pelvic Organs: Unremarkable Musculoskeletal: No aggressive focal bony lesions, acute fractures or dislocation. Multilevel lumbar spondylosis. IMPRESSION: 1. 14.3 cm complex fluid collection containing gas in the left lower quadrant inseparable from the si gmoid colon which contains diverticula suspicious for an abscess. This is increased significantly in size since the prior study. 2. Hepatic steatosis. 3. Ventral abdominal wall hernia containing unobstructed bowel loops. 4. Cholecystectomy.
[2025-01-04] MEDS: SODIUM CHLORIDE 0.9% 1,000 ML IV ONE (08:16)
[2025-01-04] MEDS: METOCLOPRAMIDE HCL 5MG/ml INJ 2ml VIAL IV ONE (08:45)
[2025-01-04] MEDS: HYDROmorphone HCL 2 MG/ML VL/or syr IV ONE (09:00)
[2025-01-04] MEDS: ceFAZolin 2 GM/D5W50ml 50 ML IV ONE (09:41)
[2025-01-04] MEDS ORDERED: HYDROmorphone HCL 2 MG/ML VL/or syr IV PRN (09:45)
[2025-01-04] MEDS ORDERED: NITROGLYCERIN 0.4 MG SL TAB SL PRN (09:45)
[2025-01-04] MEDS ORDERED: SODIUM CHLORIDE 0.9% 1,000 ML IV SCH (09:45)
--- NOTE | 2025-01-04 09:46 | DVHHP2 ---
Admitting Diagnosis: Abdominal pain and Rectal Bleed History of Present Illness Patient is a 49 y/o female presenting to the ED with a CC of abdominal pain and rectal bleeding x 2 weeks. Patient has a PMHx of ovarian cancer, diverticulosis, and hemorrhoids. Patient reports that her abdominal pain is nonradiating and that the rectal bleed is occurring every day. Patient states that she is not currently receiving chemotherapy for her cancer. No other symptoms at this time. While in the emergency department the patient was evaluated by the provider, Labs, vital signs, and imagining monitored. Patient will be admitted for further evaluation and treatment. I discussed admission with the patient/family and is in agreement to treatment plan. Patient Family History: FH: leukemia G8 MOTHER, G8 FATHER, , Onset:60 years & older Hypertension G8 MOTHER, (htn/unk year) G8 FATHER, Other blood disorders G8 FATHER, (leukemia,unk year) Allergies: Coded Allergies: Morphine (Verified Allergy, Unknown, 03/16/22) Home Meds Active Scripts Oxycodone W/ Acetaminophen (Percocet 5/325MG) 1 Tab Tb, 1 TAB PO Q6HP PRN for 5 Days, #20 TAB Prov:SAIMA GUERRERO [employer]very OWNER CONSULTING ENGINEER 04/07/23 Hydrocortisone Acetate (ANUCORT-HC SUPPOSITORY) 25 Mg Cochran, 25 MG [place] Q12HR for 15 Days, #30 SUPP Prov:SAIMA GUERRERO OWNER CONSULTING ENGINEER 02/05/23 Lactulose (Lactulose) 10 Gm/15 Ml Miroslava, 10 GM PO BIDP PRN, #300 ML Prov:ENRRIQUE RAMIREZ PAC 12/27/22 Loratadine (Claritin) 10 Mg Tab, 1 TAB PO DAILY, #30 TAB 0 Refills Prov:ENRRIQUE RAMIREZ PAC 12/27/22 Reported Medications Lorazepam (Ativan) 0.5 Mg Tab, 1 TAB PO DAILY, #30 TAB 09/08/23 Diphenhydramine Hcl (Benadryl) 25 Mg Cap 12/18/10 Atenolol (Atenolol) 100 Mg Tab 12/18/10 Current Medications Current Medications Medications (Trade) Dose Ordered Sig/Earl Route PRN Reason Start Time Stop Time Status Last Admin Sodium Chloride 1,000 ml @ 120 mls/hr Q8H20M IV 01/04/25 09:45 01/04/25 10:07 DC Ondansetron HCl (Zofran) 4 mg Q4HP PRN IV NAUSEA / VOMITING 01/04/25 09:45 Pantoprazole Sodium (Protonix) 40 mg BID IV 01/04/25 10:00 01/04/25 10:39 Hydromorphone HCl (Dilaudid Injection) 1 mg Q4HP PRN IV SEVERE PAIN (7-10 PAIN SCALE) 01/04/25 09:45 01/04/25 12:38 DC Nitroglycerin (Ntrostat Sublingual) 0.4 mg Q5MINP PRN SL FOR CHEST PAIN 01/04/25 09:45 Vancomycin HCl 0 ml @ 0 mls/hr UD IV 01/04/25 10:00 Piperacillin Sod/ Tazobactam Sod 100 ml @ 25 mls/hr TID IV 01/04/25 14:00 01/04/25 14:12 Sodium Chloride 1,000 ml @ 75 mls/hr [id number] IV 01/04/25 10:00 01/04/25 10:11 Lorazepam (Ativan Tablet) 1 mg BID PRN PO ANXIETY 01/04/25 10:00 Atenolol (Tenormin Tablet) 50 mg BID PO 01/04/25 10:00 01/04/25 10:40 Diphenhydramine HCl (Benadryl Injection) 25 mg Q8HP PRN IV FOR ITCHING 01/04/25 10:00 Fentanyl Citrate 100 mcg Q3HP PRN IV SEVERE PAIN (7-10 PAIN SCALE) 01/04/25 12:45 01/04/25 16:57 Oxycodone/ Acetaminophen (Percocet 5/ 325MG Tablet) 2 tab Q6HP PRN PO MODERATE PAIN (4-6 PAIN SCALE) 01/04/25 12:45 Polyethylene Glycol (Miralax 17GM Powder) 17 gm DAILY PO 01/04/25 12:45 Vancomycin HCl 200 ml @ 200 mls/hr Q8H IV 01/04/25 20:00 Review of Systems Constitutional: denies chills, denies fever, denies malaise Eyes: denies eye pain, denies vision change ENT: denies ear pain, denies headache, denies nasal congestion, denies painful swallowing, denies voice change Cardiovascular: denies chest pain, denies edema, denies orthopnea, denies palpitations, denies paroxysmal nocturnal dyspnea Respiratory: denies cough, denies shortness of breath Gastrointestinal: denies nausea, denies vomiting Genitourinary: denies dysuria, denies frequent urination, denies urethral d ischarge Musculoskeletal: denies back pain, denies joint pain, denies muscle pain Skin: denies bruising, denies itching, denies rash Neurological: denies focal weakness, denies headache, denies sensory changes Psychiatric: denies anxiety, denies depression Endocrine: denies polydipsia, denies polyuria Hematologic/Lymphatic: denies easy bleeding, denies easy bruising, denies en larged lymph nodes Allergic/Immunologic: denies allergy, denies hives Vital Signs Vital Signs Date Time Temp Pulse Resp B/P (MAP) Pulse Ox O2 Delivery O2 Flow Rate FiO2 01/04/25 16:57 134/69 01/04/25 16:52 98.2 79 17 96 98.2 01/04/25 08:49 Room Air* 0 21 Physical Exam General Appearance: alert, no distress HEENT: EOMI, PERRLA, normal external inspect of ears, no icterus, no nasal drainage Neck: no carotid bruit, no jugular venous distention (JVD), no lymphadenopathy Chest: normal thorax Respiratory: clear to auscultation, normal air movement Cardiovascular: regular rate and rhythm, no diastolic murmur, no jugular venous distention (JVD), no rub, no systolic murmur Abdominal: soft, no hepatomegaly, no mass, no splenomegaly, no tenderness Genitourinary: grossly normal external Musculoskeletal: no joint tenderness, no swelling Extremities: normal pulses, no calf tenderness, no clubbing, no cyanosis, no edema Skin: no bruising, no jaundice, no rash Neurological: alert, No focal deficit SEPSIS Sepsis Screen Date sepsis recognized/suspect: Jan 04, 2025 Time Sepsis recognized/suspect: 521 Recent Procedure: No On Antibiotic Therapy: No Respiratory Rate >20: No Heart Rate >90: No Temp<36 C (96.8 F) or >38.3 C: No SBP <90 or MAP <65 mmHG: No New Acute Mental Status Change: No Is the patient on CPAP, BIPAP,: No Physician Orders Ct Ab Pel Wo Con-No Oral Or Iv (01/04/25 05:37) Heplock Iv (01/04/25 ) Chest Portable (01/04/25 06:44) Blood Culture (01/04/25 08:23) Communication Order (01/04/25 08:48) Admit (01/04/25 09:42) Code Status (01/04/25 09:42) Oxygen Per Hour (01/04/25 09:42) Ondansetron Hcl (Zofran) (01/04/25 09:45) Complete Blood Count (01/05/25 04:00) Comprehensive Metabolic Panel (01/05/25 04:00) Condition: Fair (01/04/25 09:42) Sequential Compression Device (01/04/25 ) * Gi Dvh It Project Coordinator (01/04/25 09:42) Pantoprazole (Protonix) (01/04/25 10:00) Nitroglycerin Sublingual (Ntrostat Subli (01/04/25 09:45) Stat Ekg For Chest Pain (01/04/25 09:42) Notify Md Of Changes From Base (01/04/25 09:42) [employer]cob Pipe Manufacturing Supervisor For 24 Hours (01/04/25 09:42) Emergency Dysrhythmia Protocol (01/04/25 09:42) Rhythm Strips Once Every Shift (01/04/25 09:42) Oxygen By Nasal Cannula (01/04/25 09:42) * Surgical Consult (01/04/25 ) Vancomycin Per Pharmacy (01/04/25 10:00) Piperacillin-Tazob 3.375gm (Zosyn 3.375g (01/04/25 14:00) Sodium Chloride 0.9% (01/04/25 10:00) * Infectious [place]- Dr. Stas Crenshaw (01/04/25 09:49) Lorazepam Tablet (Ativan Tablet) (01/04/25 10:00) Atenolol Tablet (Tenormin Tablet) (01/04/25 10:00) Diphenhdramine Injection (Benadryl Injec (01/04/25 10:00) Fentanyl Citrate Injection (01/04/25 12:45) Oxycodone W/ Acet 5/325mg Tab (Percocet (01/04/25 12:45) Polyethylene Glycol 17g Powder (Miralax (01/04/25 12:45) Communication Order (01/04/25 12:35) Vancomycin 1gm/200ml Pm (01/04/25 20:00) Vancomycin,Trough (01/05/25 11:00) Vancomycin Per Pharmacy Protoc (01/05/25 12:00) * Radiologist Consult (01/04/25 16:56) Npo (Nothing By Mouth) Diet (01/04/25 Dinner) Vital Signs Date Time Temp Pulse Resp B/P (MAP) Pulse Ox O2 Delivery O2 Flow Rate FiO2 01/04/25 16:57 134/69 01/04/25 16:52 98.2 79 17 135/69 (91) 96 98.2 01/04/25 14:29 98.0 77 18 131/70 (90) 98 98.0 01/04/25 13:45 130/60 01/04/25 12:11 98.4 77 18 129/83 (98) 97 98.4 01/04/25 10:40 85 124/68 01/04/25 10:00 78 18 124/68 (86) 95 01/04/25 09:49 135/65 01/04/25 08:49 Room Air* 0 21 01/04/25 08:00 73 01/04/25 08:00 98.2 74 12 126/69 (88) 100 98.2 01/04/25 07:30 98.0 77 20 120/46 (70) 96 98.0 01/04/25 07:30 77 20 96 Room Air* 0 21 01/04/25 05:22 98.0 81 18 125/66 96 98.0 Laboratory Tests Test 01/04/25 05:58 01/04/25 09:41 White Blood Count 16.1 10^3/uL (4.4-10.8) H Lactic Acid Level 1.3 mmol/L (0.4-2.0) Medications Medications Dose Ordered Sig/Earl Route Start Time Stop Time Status Last Admin Dose Admin Atenolol 50 mg BID PO 01/04/25 10:00 01/04/25 10:40 Cefazolin Sodium/ Dextrose 50 ml @ 50 mls/hr ONCE ONCE IV 01/04/25 08:30 01/04/25 09:29 DC 01/04/25 09:41 Fentanyl Citrate 100 mcg ONCE ONCE IV 01/04/25 08:30 01/04/25 08:31 DC 01/04/25 09:49 Fentanyl Citrate 100 mcg Q3HP PRN IV 01/04/25 12:45 01/04/25 16:57 Haloperidol Lactate 10 mg ONCE ONCE IM 01/04/25 09:15 01/04/25 09:20 DC 01/04/25 09:50 Metoclopramide HCl 10 mg ONCE ONCE IV 01/04/25 08:30 01/04/25 08:31 DC 01/04/25 08:45 Metronidazole 100 ml @ 100 mls/hr ONCE ONCE IV 01/04/25 08:30 01/04/25 09:29 DC 01/04/25 09:41 Pantoprazole Sodium 40 mg BID IV 01/04/25 10:00 01/04/25 10:39 Piperacillin Sod/ Tazobactam Sod 100 ml @ 25 mls/hr TID IV 01/04/25 14:00 01/04/25 14:12 Sodium Chloride 1,000 ml @ 75 mls/hr [id number] IV 01/04/25 10:00 01/04/25 10:11 Vancomycin HCl 300 ml @ 300 mls/hr ONCE ONCE IV 01/04/25 10:15 01/04/25 11:14 DC 01/04/25 12:06 Results Labs Test 01/04/25 09:46 01/04/25 09:41 01/04/25 05:58 Range/Units Urine Color Yellow Yellow Urine Clarity Turbid H Clear Urine pH 5.5 5.0-9.0 Urine Specific [place] 1.022 1.001-1.035 Urine Protein Negative Negative Urine Ketones Negative Negative Urine Blood Negative Negative /uL Urine Nitrite Negative Negative Urine Bilirubin Negative Negative Urine Urobilinogen 3 H Negative mg/dL Urine Leukocyte Esterase Negative Negative /uL Urine RBC 2 0 - 4 /hpf Urine Microscopic WBC 2 0-5 /HPF Urine Squamous Epithelial Cells Mod <5 /hpf Urine Bacteria None seen None Seen /hpf Urine Mucus Few None Seen Urine Glucose Normal Normal mg/dL Lactic Acid Level 1.3 0.4-2.0 mmol/L White Blood Count 16.1 H 4.4-10.8 10^3/uL Red Blood Count 4.18 4.0-5.20 10^6/uL Hemoglobin 12.6 12.2-16.2 g/dL Hematocrit 37.4 36.0-46.0 % Mean Corpuscular Volume 89.5 80.0-100.0 fL Mean Corpuscular Hemoglobin 30.2 28.0-32.0 pg Mean Corpuscular Hemoglobin Concent 33.7 32.0-36.0 g/dL Red Cell Distribution Width 14.1 11.8-14.3 % Platelet Count 497 H 140-450 10^3/uL Mean Platelet Volume 7.0 6.9-10.8 fL Neutrophils (%) (Auto) 69.3 37.0-80.0 % Lymphocytes (%) (Auto) 19.6 10.0-50.0 % Monocytes (%) (Auto) 7.2 0.0-12.0 % Eosinophils (%) (Auto) 2.6 0.0-7.0 % Basophils (%) (Auto) 1.3 0.0-2.0 % Neutrophils # (Auto) 11.2 H 1.6-8.6 10 ^3/uL Lymphocytes # (Auto) 3.1 0.4-5.4 10 ^3/uL Monocytes # (Auto) 1.2 0-1.3 10 ^3/uL Eosinophils # (Auto) 0.4 0-0.8 10 ^3/uL Basophils # (Auto) 0.2 0-0.2 10 ^3/uL Nucleated Red Blood Cells 0.1 % Sodium Level 138 136-145 mmol/L Potassium Level 3.8 3.5-5.1 mmol/L Chloride Level 105 98-107 mmol/L Carbon Dioxide Level 23 20-31 mmol/L Anion Gap 10 5-15 Blood Urea Nitrogen 8 L 9-23 mg/dL Creatinine 0.53 L 0.550-1.02 mg/dL Glomerular Filtration Rate Calc 113 >90 mL/min BUN/Creatinine Ratio 15.1 10.0-20.0 Serum Glucose 114 H 74-106 mg/dL Calcium Level 9.2 8.7-10.4 mg/dL Total Bilirubin 0.8 0.2-1.0 mg/dL Aspartate Amino Transferase (AST) 17 13-40 U/L Alanine Aminotransferase (ALT) 10 7-40 U/L Alkaline Phosphatase 101 46-116 U/L Total Protein 7.1 5.7-8.2 g/dL Albumin 4.1 3.2-4.8 g/dL Lipase 33 12-53 U/L Admitting Diagnosis: 1. Rectal Bleed GI Consult, Hold blood thinners 2. Hemorrhoids Medication, GI consult 3. Morbid Obesity Diet Education, monitoring 4. Chronic constipation Cathartics, monitoring Plan discussed with: Patient, Other SAIMA GUERRERO NP Jan 04, 2025 09:46
[2025-01-04] MEDS: fentaNYL CITRATE 100 MCG/2 ML VL IV ONE (09:49)
--- NOTE | 2025-01-04 09:49 | DVHHP2 ---
Patient Family History: FH: leukemia G8 MOTHER, G8 FATHER, , Onset:60 years & older Hypertension G8 MOTHER, (htn/unk year) G8 FATHER, Other blood disorders G8 FATHER, (leukemia,unk year) Allergies: Coded Allergies: Morphine (Verified Allergy, Unknown, 03/16/22) Home Meds Active Scripts Oxycodone W/ Acetaminophen (Percocet 5/325MG) 1 Tab Tb, 1 TAB PO Q6HP PRN for 5 Days, #20 TAB Prov:SAIMA GUERRERO FUEL QUALITY TECH 04/07/23 Hydrocortisone Acetate (ANUCORT-HC SUPPOSITORY) 25 Mg Cochran, 25 MG [place] Q12HR for 15 Days, #30 SUPP Prov:SAIMA GUERRERO FUEL QUALITY TECH 02/05/23 Lactulose (Lactulose) 10 Gm/15 Ml Miroslava, 10 GM PO BIDP PRN, #300 ML Prov:ENRRIQUE RAMIREZ PAC 12/27/22 Loratadine (Claritin) 10 Mg Tab, 1 TAB PO DAILY, #30 TAB 0 Refills Prov:ENRRIQUE RAMIREZ PAC 12/27/22 Reported Medications Lorazepam (Ativan) 0.5 Mg Tab, 1 TAB PO DAILY, #30 TAB 09/08/23 Diphenhydramine Hcl (Benadryl) 25 Mg Cap 12/18/10 Atenolol (Atenolol) 100 Mg Tab 12/18/10 Current Medications Current Medications Medications (Trade) Dose Ordered Sig/Earl Route PRN Reason Start Time Stop Time Status Last Admin Sodium Chloride 1,000 ml @ 120 mls/hr Q8H20M IV 01/04/25 09:45 01/04/25 10:07 DC Ondansetron HCl (Zofran) 4 mg Q4HP PRN IV NAUSEA / VOMITING 01/04/25 09:45 Pantoprazole Sodium (Protonix) 40 mg BID IV 01/04/25 10:00 01/04/25 10:39 Hydromorphone HCl (Dilaudid Injection) 1 mg Q4HP PRN IV SEVERE PAIN (7-10 PAIN SCALE) 01/04/25 09:45 Nitroglycerin (Ntrostat Sublingual) 0.4 mg Q5MINP PRN SL FOR CHEST PAIN 01/04/25 09:45 Vancomycin HCl 0 ml @ 0 mls/hr UD IV 01/04/25 10:00 Piperacillin Sod/ Tazobactam Sod 100 ml @ 25 mls/hr TID IV 01/04/25 14:00 Sodium Chloride 1,000 ml @ 75 mls/hr [id number] IV 01/04/25 10:00 01/04/25 10:11 Lorazepam (Ativan Tablet) 1 mg BID PRN PO ANXIETY 01/04/25 10:00 Atenolol (Tenormin Tablet) 50 mg BID PO 01/04/25 10:00 01/04/25 10:40 Diphenhydramine HCl (Benadryl Injection) 25 mg Q8HP PRN IV FOR ITCHING 01/04/25 10:00 Vital Signs Vital Signs Date Time Temp Pulse Resp B/P (MAP) Pulse Ox O2 Delivery O2 Flow Rate FiO2 01/04/25 12:11 98.4 77 18 129/83 (98) 97 98.4 01/04/25 08:49 Room Air* 0 21 SEPSIS Sepsis Screen Date sepsis recognized/suspect: Jan 04, 2025 Time Sepsis recognized/suspect: 521 Recent Procedure: No On Antibiotic Therapy: No Respiratory Rate >20: No Heart Rate >90: No Temp<36 C (96.8 F) or >38.3 C: No SBP <90 or MAP <65 mmHG: No New Acute Mental Status Change: No Is the patient on CPAP, BIPAP,: No Physician Orders Ct Ab Pel Wo Con-No Oral Or Iv (01/04/25 05:37) Heplock Iv (01/04/25 ) Chest Portable (01/04/25 06:44) Blood Culture (01/04/25 08:23) Communication Order (01/04/25 08:48) Admit (01/04/25 09:42) Code Status (01/04/25 09:42) Oxygen Per Hour (01/04/25 09:42) Ondansetron Hcl (Zofran) (01/04/25 09:45) Complete Blood Count (01/05/25 04:00) Comprehensive Metabolic Panel (01/05/25 04:00) Condition: Fair (01/04/25 09:42) Clear Liq Diet (01/04/25 Lunch) Sequential Compression Device (01/04/25 ) * Gi Dvh Job Trainer (01/04/25 09:42) Pantoprazole (Protonix) (01/04/25 10:00) Hydromorphone Injection (Dilaudid Inject (01/04/25 09:45) Nitroglycerin Sublingual (Ntrostat Subli (01/04/25 09:45) Stat Ekg For Chest Pain (01/04/25 09:42) Notify Md Of Changes From Base (01/04/25 09:42) Technical Clerk For 24 Hours (01/04/25 09:42) Emergency Dysrhythmia Protocol (01/04/25 09:42) Rhythm Strips Once Every Shift (01/04/25 09:42) Oxygen By Nasal Cannula (01/04/25 09:42) * Surgical Consult (01/04/25 ) Vancomycin Per Pharmacy (01/04/25 10:00) Piperacillin-Tazob 3.375gm (Zosyn 3.375g (01/04/25 14:00) Sodium Chloride 0.9% (01/04/25 10:00) * Infectious [place]- Dr. Stas Crenshaw (01/04/25 09:49) Lorazepam Tablet (Ativan Tablet) (01/04/25 10:00) Atenolol Tablet (Tenormin Tablet) (01/04/25 10:00) Diphenhdramine Injection (Benadryl Injec (01/04/25 10:00) Vital Signs Date Time Temp Pulse Resp B/P (MAP) Pulse Ox O2 Delivery O2 Flow Rate FiO2 01/04/25 12:11 98.4 77 18 129/83 (98) 97 98.4 01/04/25 10:40 85 124/68 01/04/25 10:00 78 18 124/68 (86) 95 01/04/25 09:49 135/65 01/04/25 08:49 Room Air* 0 21 01/04/25 08:00 73 01/04/25 08:00 98.2 74 12 126/69 (88) 100 98.2 01/04/25 07:30 98.0 77 20 120/46 (70) 96 98.0 01/04/25 07:30 77 20 96 Room Air* 0 21 01/04/25 05:22 98.0 81 18 125/66 96 98.0 Laboratory Tests Test 01/04/25 05:58 7/30/25 09:41 White Blood Count 16.1 10^3/uL (4.4-10.8) H Lactic Acid Level 1.3 mmol/L (0.4-2.0) Medications Medications Dose Ordered Sig/Earl Route Start Time Stop Time Status Last Admin Dose Admin Atenolol 50 mg BID PO 01/04/25 10:00 01/04/25 10:40 Cefazolin Sodium/ Dextrose 50 ml @ 50 mls/hr ONCE ONCE IV 01/04/25 08:30 01/04/25 09:29 DC 01/04/25 09:41 Fentanyl Citrate 100 mcg ONCE ONCE IV 01/04/25 08:30 01/04/25 08:31 DC 01/04/25 09:49 Haloperidol Lactate 10 mg ONCE ONCE IM 01/04/25 09:15 01/04/25 09:20 DC 01/04/25 09:50 Metoclopramide HCl 10 mg ONCE ONCE IV 01/04/25 08:30 01/04/25 08:31 DC 01/04/25 08:45 Metronidazole 100 ml @ 100 mls/hr ONCE ONCE IV 01/04/25 08:30 01/04/25 09:29 DC 01/04/25 09:41 Pantoprazole Sodium 40 mg BID IV 01/04/25 10:00 01/04/25 10:39 Sodium Chloride 1,000 ml @ 75 mls/hr [id number] IV 01/04/25 10:00 01/04/25 10:11 Sodium Chloride 1,000 ml @ 150 mls/hr Q6H40M ONCE IV 01/04/25 05:45 01/04/25 10:08 DC 01/04/25 08:16 Vancomycin HCl 300 ml @ 300 mls/hr ONCE ONCE IV 01/04/25 10:15 01/04/25 11:14 DC 01/04/25 12:06 Results Labs Test 01/04/25 09:46 01/04/25 09:41 01/04/25 05:58 Range/Units Urine Color Yellow Yellow Urine Clarity Turbid H Clear Urine pH 5.5 5.0-9.0 Urine Specific [place] 1.022 1.001-1.035 Urine Protein Negative Negative Urine Ketones Negative Negative Urine Blood Negative Negative /uL Urine Nitrite Negative Negative Urine Bilirubin Negative Negative Urine Urobilinogen 3 H Negative mg/dL Urine Leukocyte Esterase Negative Negative /uL Urine RBC 2 0 - 4 /hpf Urine Microscopic WBC 2 0-5 /HPF Urine Squamous Epithelial Cells Mod <5 /hpf Urine Bacteria None seen None Seen /hpf Urine Mucus Few None Seen Urine Glucose Normal Normal mg/dL Lactic Acid Level 1.3 0.4-2.0 mmol/L White Blood Count 16.1 H 4.4-10.8 10^3/uL Red Blood Count 4.18 4.0-5.20 10^6/uL Hemoglobin 12.6 12.2-16.2 g/dL Hematocrit 37.4 36.0-46.0 % Mean Corpuscular Volume 89.5 80.0-100.0 fL Mean Corpuscular Hemoglobin 30.2 28.0-32.0 pg Mean Corpuscular Hemoglobin Concent 33.7 32.0-36.0 g/dL Red Cell Distribution Width 14.1 11.8-14.3 % Platelet Count 497 H 140-450 10^3/uL Mean Platelet Volume 7.0 6.9-10.8 fL Neutrophils (%) (Auto) 69.3 37.0-80.0 % Lymphocytes (%) (Auto) 19.6 10.0-50.0 % Monocytes (%) (Auto) 7.2 0.0-12.0 % Eosinophils (%) (Auto) 2.6 0.0-7.0 % Basophils (%) (Auto) 1.3 0.0-2.0 % Neutrophils # (Auto) 11.2 H 1.6-8.6 10 ^3/uL Lymphocytes # (Auto) 3.1 0.4-5.4 10 ^3/uL Monocytes # (Auto) 1.2 0-1.3 10 ^3/uL Eosinophils # (Auto) 0.4 0-0.8 10 ^3/uL Basophils # (Auto) 0.2 0-0.2 10 ^3/uL Nucleated Red Blood Cells 0.1 % Sodium Level 138 136-145 mmol/L Potassium Level 3.8 3.5-5.1 mmol/L Chloride Level 105 98-107 mmol/L Carbon Dioxide Level 23 20-31 mmol/L Anion Gap 10 5-15 Blood Urea Nitrogen 8 L 9-23 mg/dL Creatinine 0.53 L 0.550-1.02 mg/dL Glomerular Filtration Rate Calc 113 >90 mL/min BUN/Creatinine Ratio 15.1 10.0-20.0 Serum Glucose 114 H 74-106 mg/dL Calcium Level 9.2 8.7-10.4 mg/dL Total Bilirubin 0.8 0.2-1.0 mg/dL Aspartate Amino Transferase (AST) 17 13-40 U/L Alanine Aminotransferase (ALT) 10 7-40 U/L Alkaline Phosphatase 101 46-116 U/L Total Protein 7.1 5.7-8.2 g/dL Albumin 4.1 3.2-4.8 g/dL Lipase 33 12-53 U/L SAIMA GUERRERO FUEL QUALITY TECH Jan 04, 2025 09:49
[2025-01-04] MEDS: HALOPERIDOL LACTATE 5 MG/ML INJ VIAL IM ONE (09:50)
[2025-01-04] MEDS ORDERED: VANCOMYCIN PER PHARMACY 0 MG IV SCH (10:00)
[2025-01-04] MEDS: SODIUM CHLORIDE 0.9% 1,000 ML IV SCH (10:11)
[2025-01-04] MEDS: PANTOPRAZOLE 40 MG/10 ML VIAL INJ IV SCH (10:39)
[2025-01-04 10:40] LABS: Urine Protein, UAD Negative (Negative)
[2025-01-04] MEDS: ATENOLOL 25 MG TAB PO SCH (10:40)
[2025-01-04] MEDS: VANCOMYCIN 1.5GM/300ML 300 ML IV ONE (12:06)
[2025-01-04] MEDS: POLYETHYLENE GLYCOL 17 GM PWDR PO SCH (13:20)
[2025-01-04] MEDS: fentaNYL CITRATE 100 MCG/2 ML VL IV PRN (13:45)
[2025-01-04] MEDS: PIPERACILLIN-TAZOB 3.375GM 100 ML IV SCH (14:12)
--- NOTE | 2025-01-04 18:15 | DVHCONRES ---
Date Seen: Jan 04, 2025 Resident Creating Document: ANGIE TORRES RESIDENT Referring Physician SAIMA GUERRERO NP Reason for Consultation GI BLEED History of Present Illness The patient is a 49-year-old female with a past medical history of ovarian cancer, diverticulosis, and hemorrhoids, who presented with diffuse abdominal pain and rectal bleeding for the past 2 weeks. * Pain: 8/10, diffuse but primarily left lower quadrant, aching, non-radiating, non-exertional. The pain has worsened over the last few days. * Rectal bleeding: Bright red blood noted with every bowel movement, no pain during defecation. * Associated symptoms: No nausea or vomiting reported. No melena or hematemesis. * PO intake: Currently NPO for planned IR drainage. * Feeds: None; patient maintained NPO status for interventional procedure. Brief Gist of Todays Progress * CT Abdomen/Pelvis: 14.3 cm complex fluid collection with gas in LLQ inseparable from sigmoid colon consistent with diverticular abscess, increased from prior imaging. Also shows ventral abdominal wall hernia with unobstructed loops. * IR consult placed for percutaneous drainage of diverticular abscess. * Surgical consult placed for further evaluation and possible operative intervention. * Antibiotics: Currently on Vancomycin IV and Piperacillin-Tazobactam IV. * Patient continues to have LLQ tenderness on exam. * Labs show WBC 16.1 (elevated), Platelets 497 (high), Hgb 12.6, Hct 37.4, creatinine 0.53 with normal GFR. * Patient is hemodynamically stable. Past Medical History * Ovarian cancer (status post treatment, currently in remission per prior records) * Diverticulosis * Hemorrhoids Past Surgical History * Cholecystectomy * Ventral abdominal wall hernia repair (prior surgery noted) Family History: FH: leukemia G8 MOTHER, G8 FATHER, , Onset:60 years & older Hypertension G8 MOTHER, (htn/unk year) G8 FATHER, Other blood disorders G8 FATHER, (leukemia,unk year) Social History * No recent alcohol, tobacco, or illicit drug use reported. * Lives with family. Allergies: Coded Allergies: Morphine (Verified Allergy, Unknown, 03/16/22) Home Meds Active Scripts Oxycodone W/ Acetaminophen (Percocet 5/325MG) 1 Tab Tb, 1 TAB PO Q6HP PRN for 5 Days, #20 TAB Prov:SAIMA GUERRERO PLATE GRINDER 04/07/23 Hydrocortisone Acetate (ANUCORT-HC SUPPOSITORY) 25 Mg Cochran, 25 MG AK Q12HR for 15 Days, #30 SUPP Prov:SAIMA GUERRERO PLATE GRINDER 02/05/23 Lactulose (Lactulose) 10 Gm/15 Ml Miroslava, 10 GM PO BIDP PRN, #300 ML Prov:ENRRIQUE RAMIREZ PAC 12/27/22 Loratadine (Claritin) 10 Mg Tab, 1 TAB PO DAILY, #30 TAB 0 Refills Prov:ENRRIQUE RAMIREZ PAC 12/27/22 Reported Medications Lorazepam (Ativan) 0.5 Mg Tab, 1 TAB PO DAILY, #30 TAB 09/08/23 Diphenhydramine Hcl (Benadryl) 25 Mg Cap 12/18/10 Atenolol (Atenolol) 100 Mg Tab 12/18/10 Current Medications Current Medications Medications (Trade) Dose Ordered Sig/Earl Route PRN Reason Start Time Stop Time Status Last Admin Sodium Chloride 1,000 ml @ 120 mls/hr [id number] IV 01/04/25 09:45 01/04/25 10:07 DC Ondansetron HCl (Zofran) 4 mg Q4HP PRN IV NAUSEA / VOMITING 01/04/25 09:45 Pantoprazole Sodium (Protonix) 40 mg BID IV 01/04/25 10:00 01/04/25 10:39 Hydromorphone HCl (Dilaudid Injection) 1 mg Q4HP PRN IV SEVERE PAIN (7-10 PAIN SCALE) 01/04/25 09:45 01/04/25 12:38 DC Nitroglycerin (Ntrostat Sublingual) 0.4 mg Q5MINP PRN SL FOR CHEST PAIN 01/04/25 09:45 Vancomycin HCl 0 ml @ 0 mls/hr UD IV 01/04/25 10:00 Piperacillin Sod/ Tazobactam Sod 100 ml @ 25 mls/hr TID IV 01/04/25 14:00 01/04/25 14:12 Sodium Chloride 1,000 ml @ 75 mls/hr [id number] IV 01/04/25 10:00 01/04/25 10:11 Lorazepam (Ativan Tablet) 1 mg BID PRN PO ANXIETY 01/04/25 10:00 Atenolol (Tenormin Tablet) 50 mg BID PO 01/04/25 10:00 01/04/25 10:40 Diphenhydramine HCl (Benadryl Injection) 25 mg Q8HP PRN IV FOR ITCHING 01/04/25 10:00 Fentanyl Citrate 100 mcg Q3HP PRN IV SEVERE PAIN (7-10 PAIN SCALE) 01/04/25 12:45 01/04/25 16:57 Oxycodone/ Acetaminophen (Percocet 5/ 325MG Tablet) 2 tab Q6HP PRN PO MODERATE PAIN (4-6 PAIN SCALE) 01/04/25 12:45 Polyethylene Glycol (Miralax 17GM Powder) 17 gm DAILY PO 01/04/25 12:45 Vancomycin HCl 200 ml @ 200 mls/hr Q8H IV 01/04/25 20:00 Review of Systems * Constitutional: Denies fever, chills, weight loss. * GI: Positive for abdominal pain and rectal bleeding; denies nausea, vomiting, melena. * : Denies dysuria or hematuria. * Other systems: Noncontributory. Vital Signs Vital Signs Date Time Temp Pulse Resp B/P (MAP) Pulse Ox O2 Delivery O2 Flow Rate FiO2 01/04/25 16:57 134/69 01/04/25 16:52 98.2 79 17 96 98.2 01/04/25 08:49 Room Air* 0 21 Physical Exam * General: Alert, oriented, in moderate discomfort. * Abdomen: Soft, moderately distended, marked LLQ tenderness, no rebound or guarding. Hernia palpable without signs of strangulation. * Rectal: Positive for bright red blood. * Other systems: Noncontributory. Labs/Diagnostic Data Labs Test 01/04/25 09:46 01/04/25 09:41 01/04/25 05:58 Range/Units Urine Color Yellow Yellow Urine Clarity Turbid H Clear Urine pH 5.5 5.0-9.0 Urine Specific [place] 1.022 1.001-1.035 Urine Protein Negative Negative Urine Ketones Negative Negative Urine Blood Negative Negative /uL Urine Nitrite Negative Negative Urine Bilirubin Negative Negative Urine Urobilinogen 3 H Negative mg/dL Urine Leukocyte Esterase Negative Negative /uL Urine RBC 2 0 - 4 /hpf Urine Microscopic WBC 2 0-5 /HPF Urine Squamous Epithelial Cells Mod <5 /hpf Urine Bacteria None seen None Seen /hpf Urine Mucus Few None Seen Urine Glucose Normal Normal mg/dL Lactic Acid Level 1.3 0.4-2.0 mmol/L White Blood Count 16.1 H 4.4-10.8 10^3/uL Red Blood Count 4.18 4.0-5.20 10^6/uL Hemoglobin 12.6 12.2-16.2 g/dL Hematocrit 37.4 36.0-46.0 % Mean Corpuscular Volume 89.5 80.0-100.0 fL Mean Corpuscular Hemoglobin 30.2 28.0-32.0 pg Mean Corpuscular Hemoglobin Concent 33.7 32.0-36.0 g/dL Red Cell Distribution Width 14.1 11.8-14.3 % Platelet Count 497 H 140-450 10^3/uL Mean Platelet Volume 7.0 6.9-10.8 fL Neutrophils (%) (Auto) 69.3 37.0-80.0 % Lymphocytes (%) (Auto) 19.6 10.0-50.0 % Monocytes (%) (Auto) 7.2 0.0-12.0 % Eosinophils (%) (Auto) 2.6 0.0-7.0 % Basophils (%) (Auto) 1.3 0.0-2.0 % Neutrophils # (Auto) 11.2 H 1.6-8.6 10 ^3/uL Lymphocytes # (Auto) 3.1 0.4-5.4 10 ^3/uL Monocytes # (Auto) 1.2 0-1.3 10 ^3/uL Eosinophils # (Auto) 0.4 0-0.8 10 ^3/uL Basophils # (Auto) 0.2 0-0.2 10 ^3/uL Nucleated Red Blood Cells 0.1 % Sodium Level 138 136-145 mmol/L Potassium Level 3.8 3.5-5.1 mmol/L Chloride Level 105 98-107 mmol/L Carbon Dioxide Level 23 20-31 mmol/L Anion Gap 10 5-15 Blood Urea Nitrogen 8 L 9-23 mg/dL Creatinine 0.53 L 0.550-1.02 mg/dL Glomerular Filtration Rate Calc 113 >90 mL/min BUN/Creatinine Ratio 15.1 10.0-20.0 Serum Glucose 114 H 74-106 mg/dL Calcium Level 9.2 8.7-10.4 mg/dL Total Bilirubin 0.8 0.2-1.0 mg/dL Aspartate Amino Transferase (AST) 17 13-40 U/L Alanine Aminotransferase (ALT) 10 7-40 U/L Alkaline Phosphatase 101 46-116 U/L Total Protein 7.1 5.7-8.2 g/dL Albumin 4.1 3.2-4.8 g/dL Lipase 33 12-53 U/L Assessment Assessment 1. Sigmoid diverticulitis with large diverticular abscess (14.3 cm) and sepsis risk 2. Lower GI bleeding likely from diverticulosis/hemorrhoids 3. Ventral abdominal wall hernia without obstruction 4. History of ovarian cancer 5. Leukocytosis with thrombocytosis Plan/Recommendation Treatment Plan GI System * Maintain NPO status pending IR drainage. * Continue broad-spectrum IV antibiotics: Piperacillin-Tazobactam and Vancomycin as per current regimen. * Pain management: Fentanyl IV for severe pain, Percocet PO PRN for moderate pain. * Antiemetics: Ondansetron PRN for nausea. * IR consult for image-guided percutaneous drainage of abscess pending. * Surgery consult for evaluation in case surgical intervention is required. * Monitor abdominal exam, bowel movements, and rectal bleeding. Hematology/Infection * Monitor CBC daily for WBC and H/H trends. * Continue antibiotics; adjust based on cultures from abscess drainage. Fluids & Electrolytes * Maintain IV fluids (0.9% NaCl at 75 mL/hr) while NPO. * Monitor renal function and electrolytes daily. Case discussed in detail with the attending physician, including the clinical presentation, diagnostic workup, and comprehensive management plan. The patient was present for the discussion and demonstrated understanding of her condition and the proposed plan. Plan discussed with: Patient ANGIE TORRES RESIDENT Jan 04, 2025 18:15
[2025-01-04 20:06] VITALS: PULSE 73; RESP 16; O2SAT 97
[2025-01-04] MEDS: VANCOMYCIN 1GM/200ML PM 200 ML IV SCH (20:17)
[2025-01-04 21:12] VITALS: BP 125/70; PULSE 72; TEMP 98.3; O2SAT 96
[2025-01-04 22:45] VITALS: PULSE 72; RESP 18
[2025-01-04] MEDS: HYDROmorphone HCL 2 MG/ML VL/or syr IV PRN (23:58)
[2025-01-05] VITALS (8 sets, daily range): BP systolic 105–143; BP diastolic 53–81; PULSE 63–78; RESP 16–18; TEMP 97.7–98.4; O2SAT 95–99
[2025-01-05] MEDS: LORazepam 0.5 MG TAB PO PRN (00:06)
[2025-01-05 11:03] LABS: INR 1.14 (0.9-1.15); Partial Thromboplastin Time 28.2 SEC (24.5-34.5); Prothrombin Time 11.9 sec (9.3-11.8)
[2025-01-05 11:22] LABS: Albumin 3.4 g/dL (3.2-4.8); Alkaline Phosphatase 84 U/L (46-116); Anion Gap 10 (5-15); BUN/Creatinine Ratio 13.5 (10.0-20.0); Calcium 9.2 mg/dL (8.7-10.4); Carbon Dioxide 21 mmol/L (20-31); Glucose 101 mg/dL (74-106); Potassium 4.4 mmol/L (3.5-5.1); Sodium 138 mmol/L (136-145)
[2025-01-05 11:23] LABS: Bilirubin, Total 0.7 mg/dL (0.2-1.0)
[2025-01-05 11:27] LABS: Alanine Aminotransferase 9 U/L (7-40); Blood Urea Nitrogen 7 mg/dL (9-23); Chloride 107 mmol/L (98-107); Total Protein 5.7 g/dL (5.7-8.2)
--- NOTE | 2025-01-05 12:19 | DVHPN2 ---
Progress Note - Dictate Date Seen: Jan 05, 2025 Medical Necessity Reason Pt with a Central, PICC or Fol: No vital signs Vital Sign Date Time Temp Pulse Resp B/P (MAP) Pulse Ox O2 Delivery O2 Flow Rate FiO2 01/05/25 09:00 97.7 68 17 143/81 (101) 99 97.7 01/04/25 22:45 Room Air* 0 21 Total Intake and Output 01/04/25 01/04/25 01/05/25 15:00 23:00 07:00 Intake Total 1000 ml 500 ml 400 ml Balance 1000 ml 500 ml 400 ml medications Current Medications Medications Dose Ordered Sig/Earl Route Start Time Stop Time Status Last Admin Dose Admin Ondansetron HCl 4 mg Q4HP PRN IV 01/04/25 09:45 Pantoprazole Sodium 40 mg BID IV 01/04/25 10:00 01/05/25 11:36 40 MG Nitroglycerin 0.4 mg Q5MINP PRN SL 01/04/25 09:45 Vancomycin HCl 0 ml @ 0 mls/hr UD IV 01/04/25 10:00 Piperacillin Sod/ Tazobactam Sod 100 ml @ 25 mls/hr TID IV 01/04/25 14:00 01/05/25 05:59 25 MLS/HR Sodium Chloride 1,000 ml @ 75 mls/hr [id number] IV 01/04/25 10:00 01/04/25 10:11 75 MLS/HR Lorazepam 1 mg BID PRN PO 01/04/25 10:00 01/05/25 00:06 1 MG Atenolol 50 mg BID PO 01/04/25 10:00 01/05/25 00:04 50 MG Diphenhydramine HCl 25 mg Q8HP PRN IV 01/04/25 10:00 Oxycodone/ Acetaminophen 2 tab Q6HP PRN PO 01/04/25 12:45 Polyethylene Glycol 17 gm DAILY PO 01/04/25 12:45 Vancomycin HCl 200 ml @ 200 mls/hr Q8H IV 01/04/25 20:00 01/05/25 12:09 200 MLS/HR Hydromorphone HCl 1 mg Q4HPRN PRN IV 01/04/25 23:45 01/05/25 08:50 1 MG objective General Appearance: alert, no distress HEENT: EOMI, PERRLA, normal external inspect of ears, no icterus, no nasal drainage Neck: no carotid bruit, no jugular venous distention (JVD), no lymphadenopathy Chest: normal thorax Respiratory: clear to auscultation, normal air movement Cardiovascular: regular rate and rhythm, no diastolic murmur, no jugular venous distention (JVD), no rub, no systolic murmur Abdominal: soft, no hepatomegaly, no mass, no splenomegaly, no tenderness Genitourinary: grossly normal external Musculoskeletal: no joint tenderness, no swelling Extremities: normal pulses, no calf tenderness, no clubbing, no cyanosis, no edema Skin: no bruising, no jaundice, no rash Neurological: alert, No focal deficit laboratory and microbiology Laboratory Tests 01/05/25 09:50 Test 01/05/25 09:50 Range/Units Serum Glucose 101 74-106 mg/dL Problem List 1. Rectal Bleed GI Consult, Hold blood thinners 2. Hemorrhoids Medication, GI consult 3. Morbid Obesity Diet Education, monitoring 4. Chronic constipation Cathartics, monitoring Assessment/Plan Subjective: Patient is awake and alert. Objective: Patient was admitted for abdominal pain and GI bleed. Patient is having issues with rectal bleeding. She does have a history of severe constipation and hemorrhoids. Patient was found to have a diverticular abscess, most likely related to chronic constipation patient was seen and evaluated by general surgeon. They did consult IR for possible drainage. Patient was started on vancomycin and Zosyn. ID has also been consulted. Plan: Continue current treatment. IR is planning for abscess drainage today. Continue current pain medication regimen. Plan discussed with: Patient, Other SAIMA GUERRERO NP Jan 05, 2025 12:19
[2025-01-05] MEDS: MIDAZOLAM HCL 2MG/2ML 2ml VIAL (1mg/ml) IV ONE (13:00)
[2025-01-05] MEDS: fentaNYL CITRATE 100 MCG/2 ML VL IV ONE (13:00)
[2025-01-05] MEDS: HYDROmorphone HCL 2 MG/ML VL/or syr IV PRN (13:08)
[2025-01-05] MEDS: MIDAZOLAM HCL 2MG/2ML 2ml VIAL (1mg/ml) ONE (13:08)
[2025-01-05] MEDS: LIDOCAINE 2%HCL (LOCAL ANESTH.) INJ 10ml MDV ONE (14:05)
--- NOTE | 2025-01-05 14:54 | DVH ---
PROCEDURE: Drainage catheter placement Procedural Personnel Attending physician(s): Spike Brandon Fellow physician(s): None Resident physician(s): None Advanced practice provider(s): None Pre-procedure diagnosis: Perisigmoid fluid collection Post-procedure diagnosis: Same Indication: Suspected abscess Additional clinical history: Patient reported history of ovarian cancer with omentectomy Complications: No immediate complications. IMPRESSION: Percutaneous placement of a 12 montserratian drainage catheter into perisigmoid fluid collection, yielding 3 0 mL of feculent fluid. Plan: Flush drain with 10 cc normal saline daily to maintain patency. Fluid analysis (microbiology, cytology) pending; Suspicion for metastatic erosion of the sigmoid colo n causing waqar-sigmoid fistula due to history. PROCEDURE SUMMARY: - Intraperitoneal drainage catheter placement under CT guidance - Additional procedure(s): None PROCEDURE DETAILS: Pre-procedure Consent: Informed consent for the procedure including risks, benefits and alternatives was obtained a nd time-out was performed prior to the procedure. Preparation: The site was prepared and draped using maximal sterile barrier technique including cutan eous antisepsis. Anesthesia/sedation Level of anesthesia/sedation: Moderate sedation (conscious sedation) Anesthesia/sedation administered by: Independent trained observer under attending supervision with co ntinuous monitoring of the patient s level of consciousness and physiologic status Total intra-service sedation time (minutes): 45 Drainage catheter placement The patient was positioned supine. Initial imaging was performed. Local anesthesia was administered. The fluid collection was accessed using an access needle followed by wire insertion and serial dilati on and a drainage catheter was placed. Position of the drainage catheter within the fluid collection was confirmed. Initial imaging findings: 13.5 cm perisigmoid fluid and air containing collection Access route: Percutaneous Drainage catheter placed: Flexima Drain size (Fr): 12 External catheter securement: Non-absorbable suture Drainage catheter contrast injection: No Final imaging findings: Partial drainage of the fluid collection Contrast Contrast agent: None Contrast volume (mL): [address] dose length product (mGy-cm): 1133.87 Additional Details Additional description of procedure: None Registry event: V/3/f Device used: None Equipment details: None Specimens removed: 30 mL of feculent fluid. Aspirated fluid was sent for analysis. Estimated blood loss (mL): Less than 10 Standardized report: [email or web address] Attestation Signer name: Spike Brandon I attest that I was present for the entire procedure. I reviewed the stored images and agree with the report as written.
[2025-01-05 15:04] LABS: Hematocrit 37.6 % (36.0-46.0); Hemoglobin 12.1 g/dL (12.2-16.2); Mean Corpuscular Hemoglobin 29.4 pg (28.0-32.0); Mean Corpuscular Volume 91.6 fL (80.0-100.0); Nucleated Red Blood Cells % 0.0 %
[2025-01-05] MEDS: fentaNYL CITRATE 100 MCG/2 ML VL ONE (16:06)
--- NOTE | 2025-01-05 17:22 | DVHPN2 ---
Progress Note Date Seen: Jan 05, 2025 Resident Creating Document: ANGIE TORRES RESIDENT Has the PT tested + for MRSA If YES, has PT been informed?: No Medical Necessity Reason Pt with a Central, PICC or Fol: No Subjective Review of Systems The patient is a 49-year-old female with a past medical history of ovarian cancer, diverticulosis, and hemorrhoids, admitted for diffuse abdominal pain and rectal bleeding for 2 weeks. Initially, pain was severe (8/10) with ongoing rectal bleeding. Today: * Reports improvement in abdominal pain; still has mild left lower quadrant (LLQ) tenderness. * Has passed gas overnight. * Denies nausea, vomiting, melena, or hematemesis. * No new rectal bleeding noted today. * She remains NPO in preparation for IR-guided drainage of diverticular abscess scheduled for today. Brief Gist of Todays Progress * Symptoms: Abdominal pain improving, mild LLQ tenderness persists. * GI status: Passing flatus, no new bleeding. * Imaging: Prior CT abdomen/pelvis revealed 14.3 cm LLQ diverticular abscess, ventral abdominal wall hernia with unobstructed loops. * Consults: IR drainage planned for today; surgical team following. * Antibiotics: Continuing IV Piperacillin-Tazobactam and IV Vancomycin. * Fluids: On IV NS 75 mL/hr. Review of Systems (ROS) * Constitutional: No fever or chills. * GI: Positive for LLQ pain, passing gas, no nausea or vomiting. No new rectal bleeding. * : No dysuria or hematuria. * Other systems: Noncontributory. Objective vital signs Vital Sign Date Time Temp Pulse Resp B/P (MAP) Pulse Ox O2 Delivery O2 Flow Rate FiO2 01/05/25 16:48 74 18 127/53 01/05/25 13:00 98.2 97 98.2 01/05/25 08:00 Room Air* 0 21 Total Intake and Output 01/04/25 01/04/25 01/05/25 15:00 23:00 07:00 Intake Total 1000 ml 500 ml 400 ml Balance 1000 ml 500 ml 400 ml medications Current Medications Medications Dose Ordered Sig/Earl Route Start Time Stop Time Status Last Admin Dose Admin Ondansetron HCl 4 mg Q4HP PRN IV 01/04/25 09:45 Pantoprazole Sodium 40 mg BID IV 01/04/25 10:00 01/05/25 11:36 40 MG Nitroglycerin 0.4 mg Q5MINP PRN SL 01/04/25 09:45 Vancomycin HCl 0 ml @ 0 mls/hr UD IV 01/04/25 10:00 Piperacillin Sod/ Tazobactam Sod 100 ml @ 25 mls/hr TID IV 01/04/25 14:00 01/05/25 05:59 25 MLS/HR Sodium Chloride 1,000 ml @ 75 mls/hr [id number] IV 01/04/25 10:00 01/05/25 12:40 75 MLS/HR Lorazepam 1 mg BID PRN PO 01/04/25 10:00 01/05/25 12:09 1 MG Atenolol 50 mg BID PO 01/04/25 10:00 01/05/25 00:04 50 MG Diphenhydramine HCl 25 mg Q8HP PRN IV 01/04/25 10:00 Oxycodone/ Acetaminophen 2 tab Q6HP PRN PO 01/04/25 12:45 Polyethylene Glycol 17 gm DAILY PO 01/04/25 12:45 Vancomycin HCl 200 ml @ 200 mls/hr Q8H IV 01/04/25 20:00 01/05/25 12:09 200 MLS/HR Hydromorphone HCl 1 mg Q3HPRN PRN IV 01/05/25 12:45 01/05/25 16:40 1 MG Mupirocin 1 applic BID EACHNOSTRI 01/05/25 22:00 01/10/25 21:59 UNV Examination * General: Alert, oriented, not in acute distress. * Abdomen: Soft, non-distended, mild LLQ tenderness, no rebound or guarding, ventral hernia noted without signs of strangulation. * Rectal: No active bleeding currently observed. * Other systems: Noncontributory. laboratory and microbiology Laboratory Tests 01/05/25 14:46 01/05/25 09:50 Test 01/05/25 09:50 Range/Units Serum Glucose 101 74-106 mg/dL Microbiology Date/Time Source Procedure Growth Status 01/05/25 00:50 Nose MRSA Screen - Final Methicillin Resistant S.aureus Complete 01/04/25 09:40 Blood Blood Culture - Preliminary NO GROWTH AFTER 24 HOURS OF INCUBATION. Resulted Problem List/Assessment/Plan Problem List/Assessment/Plan Assessment ( 1. Complicated sigmoid diverticulitis with large abscess (14.3 cm), planned IR drainage 2. Lower GI bleeding likely from diverticulosis/hemorrhoids 3. Ventral abdominal wall hernia without obstruction 4. History of ovarian cancer 5. Leukocytosis and thrombocytosis Plan GI System * Continue NPO status until after IR drainage. * Proceed with IR-guided percutaneous drainage of diverticular abscess today. * Continue broad-spectrum IV antibiotics: Piperacillin-Tazobactam and Vancomycin to cover for gram-negative, anaerobic, and MRSA organisms. * Monitor abdominal exam and bowel function closely. * Surgical team to reassess if IR drainage is unsuccessful or if worsening peritonitis develops. Hematology/Infectious Disease * Monitor CBC daily; trend WBC and H/H. * Obtain abscess fluid culture during drainage for targeted antibiotic therapy. Fluids & Electrolytes * Continue IV NS 75 mL/hr while NPO. * Daily BMP to monitor renal function and electrolytes. Case discussed in detail with the attending physician, including the clinical presentation, diagnostic workup, and comprehensive management plan. The patient was present for the discussion and demonstrated understanding of her condition and the proposed plan. Plan discussed with: Patient BRIANANGIE RUSH RESIDENT Jan 05, 2025 17:22
--- NOTE | 2025-01-05 17:38 | DVHINCON2 ---
Date of service: Jan 04, 2025 Family History: FH: leukemia G8 MOTHER, G8 FATHER, , Onset:60 years & older Hypertension G8 MOTHER, (htn/unk year) G8 FATHER, Other blood disorders G8 FATHER, (leukemia,unk year) Allergies: Coded Allergies: Morphine (Verified Allergy, Unknown, 03/16/22) Home Meds Active Scripts Oxycodone W/ Acetaminophen (Percocet 5/325MG) 1 Tab Tb, 1 TAB PO Q6HP PRN for 5 Days, #20 TAB Prov:FALLONLINDASAIMA Avery TRADER 04/07/23 Hydrocortisone Acetate (ANUCORT-HC SUPPOSITORY) 25 Mg Cochran, 25 MG WI Q12HR for 15 Days, #30 SUPP Prov:FALLONJHONY MCKEONSANTOS Varela TRADER 02/05/23 Lactulose (Lactulose) 10 Gm/15 Ml Miroslava, 10 GM PO BIDP PRN, #300 ML Prov:ENRRIQUE RAMIREZ PAC 12/27/22 Loratadine (Claritin) 10 Mg Tab, 1 TAB PO DAILY, #30 TAB 0 Refills Prov:ENRRIQUE RAMIREZ PAC 12/27/22 Reported Medications Lorazepam (Ativan) 0.5 Mg Tab, 1 TAB PO DAILY, #30 TAB 09/08/23 Diphenhydramine Hcl (Benadryl) 25 Mg Cap 12/18/10 Atenolol (Atenolol) 100 Mg Tab 12/18/10 Current Medications Current Medications Medications (Trade) Dose Ordered Sig/Earl Route PRN Reason Start Time Stop Time Status Last Admin Vancomycin HCl 200 ml @ 200 mls/hr Q8H IV 01/04/25 20:00 01/05/25 12:09 Hydromorphone HCl (Dilaudid Injection) 1 mg Q4HPRN PRN IV SEVERE PAIN (7-10 PAIN SCALE) 01/04/25 23:45 01/05/25 12:38 DC 01/05/25 08:50 Hydromorphone HCl (Dilaudid Injection) 1 mg Q3HPRN PRN IV SEVERE PAIN (7-10 PAIN SCALE) 01/05/25 12:45 01/05/25 16:40 Mupirocin (Bactroban 2% Ointment) 1 applic BID EACHNOSTRI 01/05/25 22:00 01/10/25 21:59 UNV Vital Signs Vital Signs Date Time Temp Pulse Resp B/P (MAP) Pulse Ox O2 Delivery O2 Flow Rate FiO2 01/05/25 17:00 97.8 74 18 127/53 (77) 95 97.8 01/05/25 08:00 Room Air* 0 21 Labs/Diagnostic Data Labs Test 01/05/25 14:46 01/05/25 11:11 01/05/25 09:50 01/04/25 09:46 Range/Units White Blood Count 14.4 H 4.4-10.8 10^3/uL Red Blood Count 4.10 4.0-5.20 10^6/uL Hemoglobin 12.1 L 12.2-16.2 g/dL Hematocrit 37.6 36.0-46.0 % Mean Corpuscular Volume 91.6 80.0-100.0 fL Mean Corpuscular Hemoglobin 29.4 28.0-32.0 pg Mean Corpuscular Hemoglobin Concent 32.1 32.0-36.0 g/dL Red Cell Distribution Width 14.3 11.8-14.3 % Platelet Count 471 H 140-450 10^3/uL Mean Platelet Volume 6.6 L 6.9-10.8 fL Neutrophils (%) (Auto) 68.3 37.0-80.0 % Lymphocytes (%) (Auto) 22.4 10.0-50.0 % Monocytes (%) (Auto) 6.7 0.0-12.0 % Eosinophils (%) (Auto) 2.0 0.0-7.0 % Basophils (%) (Auto) 0.6 0.0-2.0 % Neutrophils # (Auto) 9.8 H 1.6-8.6 10 ^3/uL Lymphocytes # (Auto) 3.2 0.4-5.4 10 ^3/uL Monocytes # (Auto) 1.0 0-1.3 10 ^3/uL Eosinophils # (Auto) 0.3 0-0.8 10 ^3/uL Basophils # (Auto) 0.1 0-0.2 10 ^3/uL Nucleated Red Blood Cells 0.0 % Vancomycin Level Trough 14.7 H 5-10 ug/mL Prothrombin Time 11.9 H 9.3-11.8 sec Prothrombin Time INR 1.14 0.9-1.15 Activated Partial Thromboplast Time 28.2 24.5-34.5 SEC Sodium Level 138 136-145 mmol/L Potassium Level 4.4 3.5-5.1 mmol/L Chloride Level 107 98-107 mmol/L Carbon Dioxide Level 21 20-31 mmol/L Anion Gap 10 5-15 Blood Urea Nitrogen 7 L 9-23 mg/dL Creatinine 0.52 L 0.550-1.02 mg/dL Glomerular Filtration Rate Calc 113 >90 mL/min BUN/Creatinine Ratio 13.5 10.0-20.0 Serum Glucose 101 74-106 mg/dL Calcium Level 9.2 8.7-10.4 mg/dL Total Bilirubin 0.7 0.2-1.0 mg/dL Aspartate Amino Transferase (AST) 21 13-40 U/L Alanine Aminotransferase (ALT) 9 7-40 U/L Alkaline Phosphatase 84 46-116 U/L Total Protein 5.7 5.7-8.2 g/dL Albumin 3.4 3.2-4.8 g/dL Urine Color Yellow Yellow Urine Clarity Turbid H Clear Urine pH 5.5 5.0-9.0 Urine Specific [place] 1.022 1.001-1.035 Urine Protein Negative Negative Urine Ketones Negative Negative Urine Blood Negative Negative /uL Urine Nitrite Negative Negative Urine Bilirubin Negative Negative Urine Urobilinogen 3 H Negative mg/dL Urine Leukocyte Esterase Negative Negative /uL Urine RBC 2 0 - 4 /hpf Urine Microscopic WBC 2 0-5 /HPF Urine Squamous Epithelial Cells Mod <5 /hpf Urine Bacteria None seen None Seen /hpf Urine Mucus Few None Seen Urine Glucose Normal Normal mg/dL Test 01/04/25 09:41 01/04/25 05:58 Range/Units Lactic Acid Level 1.3 0.4-2.0 mmol/L Lipase 33 12-53 U/L Microbiology Date/Time Source Procedure Growth Status 01/05/25 00:50 Nose MRSA Screen - Final Methicillin Resistant S.aureus Complete 01/04/25 09:40 Blood Blood Culture - Preliminary NO GROWTH AFTER 24 HOURS OF INCUBATION. Resulted Problems(with codes): (1) Intractable abdominal pain (2) Bright red blood per rectum (3) Intra-abdominal abscess (4) History of ovarian cancer (5) Acute abdominal pain (6) Abdominal mass (7) Ovarian cancer Plan/Recommendation ASSESSMENT AND PLAN: ID Problem List: \-- Ovarian cancer, not currently on treatment \-- Diverticulosis \-- Acute diverticular abscess (left lower quadrant) \-- Rectal bleeding \-- History of hemorrhoids \-- Hypertension Assessment This is a female with a past medical history of ovarian cancer (not on treatment for the last six months), diverticulosis, hypertension, and hemorrhoids, presenting with several days of acute abdominal pain and rectal bleeding. She is currently admitted for further evaluation and management. On admission, the patient was hemodynamically stable. Initial labs significant for leukocytosis (WBC 16.1), hemoglobin 12.6, and platelets 497. Lactic acid was 1.3. CT abdomen and pelvis without contrast revealed a large (14.3 cm) complex fluid collection containing gas in the left lower quadrant inseparable from the sigmoid colon, with diverticula, highly suspicious for abscess. This has signif icantly increased in size compared to prior imaging. Hepatic steatosis and a ventral abdominal wall hernia with non-obstructed bowel loops noted. Remote cholecystectomy. Plan: Percutaneous drain was placed today (01/05/2025) into the perisigmoid fluid c ollection, which aspirated 30 cc of feculent fluid. Cultures are pending. Current rectal bleeding is being monitored. The patient is NPO except for advancement of diet per surgical team recommendations. Empiric antibiotics initiated (vancomycin and piperacillin-tazobactam). Recommendation now to discontinue vancomycin and continue piperacillin-tazobactam (Zosyn) empirically while awaiting culture results. Blood and urine cultures are no growth to date. Will closely monitor abdominal exam, bowel movements, and rectal bleeding with coordination with surgical colleagues. Continue to monitor drain output. The patient appears to be stable and improving. Will follow up on aspirated culture results and modify antibiotics as needed. Surgical and dietary recommendations per general surgery team to be followed. Will arrange for follow-up after completion of treatment. Isolation Precautions: Standard \*Assessment and plan was discussed with the patient as written above \*Plan is subject to change pending incorporation of new incoming information/diagnostics. Updates may be added as addendum at the bottom (OR TOP) of this note Thank you for interesting consult. ID will continue to follow. Please contact Infectious disease for any questions or concerns. Rogelio Crenshaw M.D. [facility] Ph: ? Teams text: [email or web address] Electronically signed by: Rogelio Crenshaw MD, 01/04/2025 \ History: The patient's chart and medications were reviewed in detail and the patient was seen and examined. History obtained from: patient The patient is a female with a history of ovarian cancer (currently not on treatment for six months), diverticulosis, hypertension, and hemorrhoids, who presents with several days of acute abdominal pain and rectal bleeding. She reports absence of abdominal distension or tenderness on exam. No active treatment for ovarian cancer at this time. No evidence of urinary tract infection on urinalysis. Review of labs and imaging as above. Review of Systems: A complete 10 system review of systems was completed and negative except as noted in the HPI or here. ROS: -CONSTITUTIONAL: Denies weight loss, fever and chills. -HEENT: Denies changes in vision and hearing. -RESPIRATORY: Denies shortness of breath and cough. -CARDIOVASCULAR: Denies palpitations and chest pain. -GASTROINTESTINAL: Reports abdominal pain and rectal bleeding as noted above. Denies nausea, vomiting, diarrhea. -GENITOURINARY: Denies dysuria and urinary frequency. -MUSCULOSKELETAL: Denies myalgia and joint pain. -SKIN: Denies rash and pruritus. -NEUROLOGICAL: Denies headache and syncope. -PSYCHIATRIC: Denies recent changes in mood, anxiety or depression. Past Medical History: Diagnosis Date Ovarian cancer Diverticulosis Hemorrhoids Hypertension Past Surgical History: Cholecystectomy per imaging. Other surgical history not provided. Home Medications: Home medications as reported: -Oxycodone -Hydrocortisone -Loratadine -Lactulose -Diphenhydramine -Acetaminophen Hospital Medications: -Vancomycin (discontinued per ID recommendation) -Piperacillin-tazobactam (Zosyn), ongoing Allergies: No known allergies Family History: Leukemia in father Social History: Not discussed Social Determinants of Health: Not discussed Objective: Vital Signs on Arrival: Temp: 36.8 C (98.2 F) BP: 134/69 Pulse: 79 Resp: 17 SpO2: 96% on room air Most Recent Vital Signs: Not provided Admission Weight: Not provided Physical Exam: General: NAD Neck: Supple. No masses. HEENT: PERRL. Normal lids and conjunctiva. Moist mucous membranes. Oropharynx without lesions, exudates or excessive erythema. Normal appearance of the external aspects of the nose and ears. Heart: Regular rhythm, normal rate. No murmur. No lower extremity edema. Lungs: Normal respiratory effort. Clear to auscultation bilaterally. No wheezes. No crackles. Abdomen: Soft. Non-tender. Non-distended. No masses or abdominal hernia. Msk: No digital cyanosis. Normal strength and tone in all 4 limbs Skin: Warm and dry, no rashes. Neuro: Alert. No facial droop or slurred speech. Extra-ocular movements intact. Sensation intact to soft touch in all 4 limbs. Psych: Appropriate mood. Full affect. Oriented to person, place, time, and situation. Lines: Active Lines Peripheral drain in left lower quadrant (percutaneous) placed 01/05/2025. Diagnostic Studies: Available diagnostic studies were reviewed personally. Significant relevant results and findings are outlined below or addressed in the Assessment and Plan above. Pertinent Imaging: CT Abdomen and Pelvis (non-contrast, 01/04/2025): -14.3 cm complex fluid collection with gas in the left lower quadrant, insepara ble from sigmoid colon, containing diverticula, suspicious for abscess (significantly increased in size from prior imaging). -Hepatic steatosis. -Ventral abdominal wall hernia containing unobstructed bowel loops. -Remote cholecystectomy. Chest X-ray: -Not described in detail. Labs: -WBC 16.1 -Hgb 12.6 -Platelets 497 -Lactic acid 1.3 -Lipase 33 -AST 10 -ALT 17 -Bilirubin 0.8 -Alk phos 101 -Urinalysis: no bacteria, no blood -Blood cultures: negative to date -MRSA: nasal screen positive Procedures: -Percutaneous drain placement into perisigmoid fluid collection (01/05/2025), 30 cc feculent fluid aspirated, cultures pending. Please see above for additional assessment details and ongoing recommendations. Plan discussed with: Patient ROGELIO CRENSHAW MD Jan 05, 2025 17:38
[2025-01-05] MEDS: OXYCODONE W/ ACETAMINOPHEN 5/325MG TABLET PO PRN (18:00)
--- NOTE | 2025-01-05 18:35 | DVHPN2 ---
Consult Progress Note Date Seen: Jan 05, 2025 Subjective Patient reports: Other (tolerating clear liquid diet , has had a bowel movement ) Objective vital signs Vital Sign Date Time Temp Pulse Resp B/P (MAP) Pulse Ox O2 Delivery O2 Flow Rate FiO2 01/05/25 17:00 97.8 74 18 127/53 (77) 95 97.8 01/05/25 08:00 Room Air* 0 21 Total Intake and Output 01/04/25 01/04/25 01/05/25 15:00 23:00 07:00 Intake Total 1000 ml 500 ml 400 ml Balance 1000 ml 500 ml 400 ml medications Current Medications Medications Dose Ordered Sig/Earl Route Start Time Stop Time Status Last Admin Dose Admin Ondansetron HCl 4 mg Q4HP PRN IV 01/04/25 09:45 Pantoprazole Sodium 40 mg BID IV 01/04/25 10:00 01/05/25 11:36 Nitroglycerin 0.4 mg Q5MINP PRN SL 01/04/25 09:45 Vancomycin HCl 0 ml @ 0 mls/hr UD IV 01/04/25 10:00 Piperacillin Sod/ Tazobactam Sod 100 ml @ 25 mls/hr TID IV 01/04/25 14:00 01/05/25 05:59 Sodium Chloride 1,000 ml @ 75 mls/hr [id number] IV 01/04/25 10:00 01/05/25 12:40 Lorazepam 1 mg BID PRN PO 01/04/25 10:00 01/05/25 12:09 Atenolol 50 mg BID PO 01/04/25 10:00 01/05/25 00:04 Diphenhydramine HCl 25 mg Q8HP PRN IV 01/04/25 10:00 Oxycodone/ Acetaminophen 2 tab Q6HP PRN PO 01/04/25 12:45 Polyethylene Glycol 17 gm DAILY PO 01/04/25 12:45 Vancomycin HCl 200 ml @ 200 mls/hr Q8H IV 01/04/25 20:00 01/05/25 12:09 Hydromorphone HCl 1 mg Q3HPRN PRN IV 01/05/25 12:45 01/05/25 16:40 Mupirocin 1 applic BID EACHNOSTRI 01/05/25 22:00 01/10/25 21:59 UNV Physical Exam: General: NAD Neck: Supple. No masses. HEENT: PERRL. Normal lids and conjunctiva. Moist mucous membranes. Oropharynx without lesions, exudates or excessive erythema. Normal appearance of the external aspects of the nose and ears. Heart: Regular rhythm, normal rate. No murmur. No lower extremity edema. Lungs: Normal respiratory effort. Clear to auscultation bilaterally. No wheezes. No crackles. Abdomen: Soft. Non-tender. Non-distended. No masses or abdominal hernia. Msk: No digital cyanosis. Normal strength and tone in all 4 limbs Skin: Warm and dry, no rashes. Neuro: Alert. No facial droop or slurred speech. Extra-ocular movements intact. Sensation intact to soft touch in all 4 limbs. Psych: Appropriate mood. Full affect. Oriented to person, place, time, and situation. laboratory and microbiology Laboratory Tests 01/05/25 14:46 01/05/25 09:50 Test 01/05/25 09:50 Range/Units Serum Glucose 101 74-106 mg/dL Problem List/Assessment/Plan Problems(with codes): (1) Ovarian cancer (2) Abdominal mass (3) Acute abdominal pain (4) Intractable abdominal pain (5) Intra-abdominal abscess (6) Postoperative seroma of subcutaneous tissue Problem List/Assessment/Plan ASSESSMENT AND PLAN: ID Problem List: \-- Ovarian cancer, not currently on treatment \-- Diverticulosis \-- Acute diverticular abscess (left lower quadrant) \-- Rectal bleeding \-- History of hemorrhoids \-- Hypertension Assessment This is a female with a past medical history of ovarian cancer (not on treatment for the last six months), diverticulosis, hypertension, and hemorrhoids, presenting with several days of acute abdominal pain and rectal bleeding. She is currently admitted for further evaluation and management. On admission, the patient was hemodynamically stable. Initial labs significant for leukocytosis (WBC 16.1), hemoglobin 12.6, and platelets 497. Lactic acid was 1.3. CT abdomen and pelvis without contrast revealed a large (14.3 cm) complex fluid collection containing gas in the left lower quadrant inseparable from the sigmoid colon, with diverticula, highly suspicious for abscess. This has significantly increased in size compared to prior imaging. Hepatic steatosis and a ventral abdominal wall hernia with non-obstructed bowel loops noted. Remote cholecystectomy. 7/31: aspirated cultures from intrabdominal abscess is growing gram negative rods , awaiting indentification and susceptibilites Plan: - Percutaneous drain was placed today (01/05/2025) into the perisigmoid fluid collection, which aspirated 30 cc of feculent fluid. - Cultures are pending. - Current rectal bleeding is being monitored. - The patient is NPO except for advancement of diet per surgical team recommendations. Empiric antibiotics initiated (vancomycin and piperacillin- tazobactam). - continue piperacillin-tazobactam (Zosyn) empirically while awaiting culture results. - Blood and urine cultures are no growth to date. - Will closely monitor abdominal exam, bowel movements, and rectal bleeding with coordination with surgical colleagues. - Continue to monitor drain output. The patient appears to be stable and improving. - Will follow up on aspirated culture results and modify antibiotics as needed. - Surgical and dietary recommendations per general surgery team to be followed. Will arrange for follow-up after completion of treatment. Isolation Precautions: Standard Plan discussed with: Other ROGELIO PATRICIA MD Jan 05, 2025 18:35
[2025-01-05] MEDS: MUPIROCIN 2% OINT 15gm or 22gm FOR MRSA NARES EACHNOSTRI SCH (22:00)
[2025-01-06] VITALS (8 sets, daily range): BP systolic 107–124; BP diastolic 55–73; PULSE 65–78; RESP 15–20; TEMP 97.6–98.9; O2SAT 95–97
[2025-01-06 10:38] LABS: Hemoglobin 11.9 g/dL (12.2-16.2)
[2025-01-06 10:40] LABS: Hematocrit 35.9 % (36.0-46.0); Mean Corpuscular Hemoglobin 29.8 pg (28.0-32.0); Mean Corpuscular Volume 89.8 fL (80.0-100.0); Nucleated Red Blood Cells % 0.1 %
[2025-01-06 10:57] LABS: Albumin 3.4 g/dL (3.2-4.8); Alkaline Phosphatase 85 U/L (46-116); Anion Gap 9 (5-15); BUN/Creatinine Ratio 12.3 (10.0-20.0); Bilirubin, Total 0.7 mg/dL (0.2-1.0); Carbon Dioxide 24 mmol/L (20-31); Chloride 106 mmol/L (98-107); Glucose 99 mg/dL (74-106); Potassium 4.3 mmol/L (3.5-5.1); Sodium 139 mmol/L (136-145); Total Protein 5.7 g/dL (5.7-8.2)
[2025-01-06 11:01] LABS: Alanine Aminotransferase < 9 U/L (7-40); Blood Urea Nitrogen 7 mg/dL (9-23); Calcium 8.6 mg/dL (8.7-10.4)
--- NOTE | 2025-01-06 17:29 | DVHPN2 ---
Progress Note Date Seen: Jan 06, 2025 Resident Creating Document: ANGIE TORRES RESIDENT Has the PT tested + for MRSA If YES, has PT been informed?: No Medical Necessity Reason Pt with a Central, PICC or Fol: No Subjective Review of Systems * Abdominal pain has improved but is still present, especially with bloating episodes occurring every 3 hours. * Patient reports ongoing bloody diarrhea, last bowel movement was 2 hours ago with blood. * Drain was placed by IR yesterday under CT guidance; output of 150 mL sanguineous fluid noted from drain bag. * RN has been flushing drain with 10 mL normal saline daily per radiology protocol. * Diet has been advanced to clear liquids, which she is tolerating. * No nausea or vomiting. * No fever or chills. * Patient expresses mild anxiety regarding ongoing bleeding but notes overall pain is better controlled with medications. Brief Gist of Todays Progress * IR-guided drainage catheter successfully placed into perisigmoidal fluid collection; fluid cultures sent, preliminary results show moderate growth of gram-negative rods, pathogen ID pending. * Drain functioning with 150 mL sanguineous output today. * Antibiotics: Currently on Zosyn IV; MRSA nasal screen positive, currently covered with Mupirocin. * Pain control with hydromorphone IV PRN and Percocet PO PRN, adequate. * Labs: WBC improved (14.4 ? 14.1), Hgb stable at 11.9, Hct 35.9, CMP unremarkable. * Culture: Body fluid cultures pending sensitivity. * Suspicion for perisigmoid fistula and possible metastatic erosion of sigmoid colon remains; pathology to be followed up. * Patient hemodynamically stable. Objective vital signs Vital Sign Date Time Temp Pulse Resp B/P (MAP) Pulse Ox O2 Delivery O2 Flow Rate FiO2 01/06/25 16:49 65 17 114/60 01/06/25 13:00 97.9 97 97.9 01/06/25 08:00 Room Air* 0 21 Total Intake and Output 01/05/25 01/05/25 01/06/25 15:00 23:00 07:00 Intake Total 300 ml 340 ml Balance 300 ml 340 ml medications Current Medications Medications Dose Ordered Sig/Earl Route Start Time Stop Time Status Last Admin Dose Admin Ondansetron HCl 4 mg Q4HP PRN IV 01/04/25 09:45 Pantoprazole Sodium 40 mg BID IV 01/04/25 10:00 01/06/25 10:03 40 MG Nitroglycerin 0.4 mg Q5MINP PRN SL 01/04/25 09:45 Vancomycin HCl 0 ml @ 0 mls/hr UD IV 01/04/25 10:00 Cancel Piperacillin Sod/ Tazobactam Sod 100 ml @ 25 mls/hr TID IV 01/04/25 14:00 01/06/25 13:46 25 MLS/HR Sodium Chloride 1,000 ml @ 75 mls/hr [id number] IV 01/04/25 10:00 01/06/25 16:45 75 MLS/HR Lorazepam 1 mg BID PRN PO 01/04/25 10:00 01/06/25 14:30 1 MG Atenolol 50 mg BID PO 01/04/25 10:00 01/06/25 10:03 50 MG Diphenhydramine HCl 25 mg Q8HP PRN IV 01/04/25 10:00 Oxycodone/ Acetaminophen 2 tab Q6HP PRN PO 01/04/25 12:45 01/06/25 01:16 2 TAB Polyethylene Glycol 17 gm DAILY PO 01/04/25 12:45 Hydromorphone HCl 1 mg Q3HPRN PRN IV 01/05/25 12:45 01/06/25 16:49 1 MG Mupirocin 1 applic BID EACHNOSTRI 01/05/25 22:00 01/10/25 21:59 01/06/25 10:10 1 APPLIC Examination * General: Alert, not in acute distress. * Abdomen: Soft, non-distended, mild LLQ tenderness, drain in place with sanguineous output. No peritoneal signs. * Drain Site: No erythema or purulent drainage, flushed per protocol. * Rectal: Not examined today, previous exam positive for bright red blood. * Other systems: Unremarkable. laboratory and microbiology Laboratory Tests 01/06/25 10:05 Test 01/06/25 10:05 Range/Units Serum Glucose 99 74-106 mg/dL Microbiology Date/Time Source Procedure Growth Status 01/05/25 14:10 Aspirate Gram Stain - Final Resulted 01/05/25 14:10 Aspirate Body Fluid Culture - Preliminary Resulted 01/05/25 00:50 Nose MRSA Screen - Final Methicillin Resistant S.aureus Complete 01/04/25 09:40 Blood Blood Culture - Preliminary NO GROWTH AFTER 48 HOURS OF INCUBATION. Resulted Problem List/Assessment/Plan Problem List/Assessment/Plan Assessment 1. Complicated sigmoid diverticulitis with large perisigmoid abscess (drain in situ), suspicion for fistula/metastatic erosion 2. Lower GI bleeding with ongoing hematochezia 3. Gram-negative intra-abdominal infection (pending final culture ID) 4. MRSA colonization (nasal positive) 5. Ventral abdominal wall hernia without obstruction 6. History of ovarian cancer 7. Leukocytosis, improving Plan GI System * Continue clear liquid diet, advance as tolerated. * Maintain percutaneous drain care: flush with 10 mL normal saline daily, monitor output, send cultures as indicated. * Monitor for peritoneal signs or increased bleeding. * Surgical team to follow for possible operative intervention if no improvement. * Consider colonoscopy after stabilization to rule out malignancy/fistula. Infectious Disease * Continue IV Zosyn (covers gram-negative and anaerobes). * Await final culture results for targeted therapy. * MRSA nasal colonization: continue Mupirocin nasal ointment. Pain Management * Continue Hydromorphone 1 mg IV PRN for severe pain. * Percocet PO Q6H PRN for moderate pain. * Monitor for sedation and constipation. Fluids & Nutrition * Continue IV fluids while oral intake is limited. * Reassess dietary advancement daily. Case discussed in detail with the attending physician, including the clinical presentation, diagnostic workup, and comprehensive management plan. The patient was present for the discussion and demonstrated understanding of her condition and the proposed plan. Plan discussed with: Patient ANGIE TORRES RESIDENT Jan 06, 2025 17:29
--- NOTE | 2025-01-06 17:49 | DVHPN2 ---
Consult Progress Note Date Seen: Jan 06, 2025 Subjective Patient reports: Other (had 4 bowel movements overnight , interventional radiology reviewed patient and noted to have 150ccs of fluid from drainage bag in the abdomen which was exchanged ) Objective vital signs Vital Sign Date Time Temp Pulse Resp B/P (MAP) Pulse Ox O2 Delivery O2 Flow Rate FiO2 01/06/25 16:49 65 17 114/60 01/06/25 13:00 97.9 97 97.9 01/06/25 08:00 Room Air* 0 21 Total Intake and Output 01/05/25 01/05/25 01/06/25 15:00 23:00 07:00 Intake Total 300 ml 340 ml Balance 300 ml 340 ml medications Current Medications Medications Dose Ordered Sig/Earl Route Start Time Stop Time Status Last Admin Dose Admin Ondansetron HCl 4 mg Q4HP PRN IV 01/04/25 09:45 Pantoprazole Sodium 40 mg BID IV 01/04/25 10:00 01/06/25 10:03 40 MG Nitroglycerin 0.4 mg Q5MINP PRN SL 01/04/25 09:45 Vancomycin HCl 0 ml @ 0 mls/hr UD IV 01/04/25 10:00 Cancel Piperacillin Sod/ Tazobactam Sod 100 ml @ 25 mls/hr TID IV 01/04/25 14:00 01/06/25 13:46 25 MLS/HR Sodium Chloride 1,000 ml @ 75 mls/hr [id number] IV 01/04/25 10:00 01/06/25 16:45 75 MLS/HR Lorazepam 1 mg BID PRN PO 01/04/25 10:00 01/06/25 14:30 1 MG Atenolol 50 mg BID PO 01/04/25 10:00 01/06/25 10:03 50 MG Diphenhydramine HCl 25 mg Q8HP PRN IV 01/04/25 10:00 Oxycodone/ Acetaminophen 2 tab Q6HP PRN PO 01/04/25 12:45 01/06/25 01:16 2 TAB Polyethylene Glycol 17 gm DAILY PO 01/04/25 12:45 Hydromorphone HCl 1 mg Q3HPRN PRN IV 01/05/25 12:45 01/06/25 16:49 1 MG Mupirocin 1 applic BID EACHNOSTRI 01/05/25 22:00 01/10/25 21:59 01/06/25 10:10 1 APPLIC Physical Exam: General: NAD Neck: Supple. No masses. HEENT: PERRL. Normal lids and conjunctiva. Moist mucous membranes. Oropharynx without lesions, exudates or excessive erythema. Normal appearance of the external aspects of the nose and ears. Heart: Regular rhythm, normal rate. No murmur. No lower extremity edema. Lungs: Normal respiratory effort. Clear to auscultation bilaterally. No wheezes. No crackles. Abdomen: Soft. Non-tender. Non-distended. No masses or abdominal hernia. Msk: No digital cyanosis. Normal strength and tone in all 4 limbs Skin: Warm and dry, no rashes. Neuro: Alert. No facial droop or slurred speech. Extra-ocular movements intact. Sensation intact to soft touch in all 4 limbs. Psych: Appropriate mood. Full affect. Oriented to person, place, time, and situation. laboratory and microbiology Laboratory Tests 01/06/25 10:05 Test 01/06/25 10:05 Range/Units Serum Glucose 99 74-106 mg/dL Problem List/Assessment/Plan Problems(with codes): (1) History of ovarian cancer (2) Ovarian cancer (3) Abdominal mass (4) Acute abdominal pain (5) Intractable abdominal pain (6) Bright red blood per rectum Problem List/Assessment/Plan ASSESSMENT AND PLAN: ID Problem List: \-- Ovarian cancer, not currently on treatment \-- Diverticulosis \-- Acute diverticular abscess (left lower quadrant) \-- Rectal bleeding \-- History of hemorrhoids \-- Hypertension Assessment This is a female with a past medical history of ovarian cancer (not on treatment for the last six months), diverticulosis, hypertension, and hemorrhoids, presenting with several days of acute abdominal pain and rectal bleeding. She is currently admitted for further evaluation and management. On admission, the patient was hemodynamically stable. Initial labs significant for leukocytosis (WBC 16.1), hemoglobin 12.6, and platelets 497. Lactic acid was 1.3. CT abdomen and pelvis without contrast revealed a large (14.3 cm) complex fluid collection containing gas in the left lower quadrant inseparable from the sigmoid colon, with diverticula, highly suspicious for abscess. This has significantly increased in size compared to prior imaging. Hepatic steatosis and a ventral abdominal wall hernia with non-obstructed bowel loops noted. Remote cholecystectomy. 01/05: aspirated cultures from intraabdominal abscess is growing gram negative rods , awaiting identification and susceptibilities 01/06: tolerating clear liquid diet Plan: - continue iv antibiotics given extensive leukocytosis and extensive drainage output from the abdomen - Percutaneous drain was placed today (01/05/2025) into the perisigmoid fluid collection, which aspirated 30 cc of feculent fluid. - Cultures are pending. - Current rectal bleeding is being monitored. - The patient is NPO except for advancement of diet per surgical team recommendations. Empiric antibiotics initiated (vancomycin and piperacillin- tazobactam). - continue piperacillin-tazobactam (Zosyn) empirically while awaiting culture results. - Blood and urine cultures are no growth to date. - Will closely monitor abdominal exam, bowel movements, and rectal bleeding with coordination with surgical colleagues. - Continue to monitor drain output. The patient appears to be stable and improving. - Will follow up on aspirated culture results and modify antibiotics as needed. - Surgical and dietary recommendations per general surgery team to be followed. Will arrange for follow-up after completion of treatment. Isolation Precautions: Standard Plan discussed with: ROGELIO Orozco MD Jan 06, 2025 17:49
[2025-01-06] MEDS: diphenhdrAMINE HCL 50 MG/1 ML VL IV PRN (17:58)
--- NOTE | 2025-01-06 19:00 | DVHPN2 ---
Progress Note Date Seen: Jan 06, 2025 Has the PT tested + for MRSA If YES, has PT been informed?: No Medical Necessity Reason Pt with a Central, PICC or Fol: No Subjective Review of Systems: CVS:Normal, RESPIRATORY:Normal, GI:Normal Objective vital signs Vital Sign Date Time Temp Pulse Resp B/P (MAP) Pulse Ox O2 Delivery O2 Flow Rate FiO2 01/06/25 17:19 70 15 124/73 01/06/25 13:00 97.9 97 97.9 01/06/25 08:00 Room Air* 0 21 Total Intake and Output 01/05/25 01/05/25 01/06/25 15:00 23:00 07:00 Intake Total 300 ml 340 ml Balance 300 ml 340 ml medications Current Medications Medications Dose Ordered Sig/Earl Route Start Time Stop Time Status Last Admin Dose Admin Ondansetron HCl 4 mg Q4HP PRN IV 01/04/25 09:45 Pantoprazole Sodium 40 mg BID IV 01/04/25 10:00 01/06/25 10:03 40 MG Nitroglycerin 0.4 mg Q5MINP PRN SL 01/04/25 09:45 Vancomycin HCl 0 ml @ 0 mls/hr UD IV 01/04/25 10:00 Cancel Piperacillin Sod/ Tazobactam Sod 100 ml @ 25 mls/hr TID IV 01/04/25 14:00 01/06/25 13:46 25 MLS/HR Sodium Chloride 1,000 ml @ 75 mls/hr [id number] IV 01/04/25 10:00 01/06/25 16:45 75 MLS/HR Lorazepam 1 mg BID PRN PO 01/04/25 10:00 01/06/25 14:30 1 MG Atenolol 50 mg BID PO 01/04/25 10:00 01/06/25 10:03 50 MG Diphenhydramine HCl 25 mg Q8HP PRN IV 01/04/25 10:00 01/06/25 17:58 25 MG Oxycodone/ Acetaminophen 2 tab Q6HP PRN PO 01/04/25 12:45 01/06/25 01:16 2 TAB Polyethylene Glycol 17 gm DAILY PO 01/04/25 12:45 Hydromorphone HCl 1 mg Q3HPRN PRN IV 01/05/25 12:45 01/06/25 16:49 1 MG Mupirocin 1 applic BID EACHNOSTRI 01/05/25 22:00 01/10/25 21:59 01/06/25 10:10 1 APPLIC Examination: GENERAL:Normal, LUNGS:Normal, CVS:Normal, SKIN:Normal laboratory and microbiology Laboratory Tests 01/06/25 10:05 Test 01/06/25 10:05 Range/Units Serum Glucose 99 74-106 mg/dL Microbiology Date/Time Source Procedure Growth Status 01/05/25 14:10 Aspirate Gram Stain - Final Resulted 01/05/25 14:10 Aspirate Body Fluid Culture - Preliminary Resulted 01/05/25 00:50 Nose MRSA Screen - Final Methicillin Resistant S.aureus Complete 01/04/25 09:40 Blood Blood Culture - Preliminary NO GROWTH AFTER 48 HOURS OF INCUBATION. Resulted Labs and/or images reviewed: Labs reviewed by me, Image(s) reviewed by me Problem List/Assessment/Plan Problem List/Assessment/Plan 1. Rectal Bleed GI Consult, Hold blood thinners 2. Hemorrhoids Medication, GI consult 3. Morbid Obesity Diet Education, monitoring 4. Chronic constipation Cathartics, monitoring Assessment/Plan Subjective: Patient is awake and alert. Objective: Patient was admitted for abdominal pain and GI bleed. Patient is having issues with rectal bleeding. She does have a history of severe constipation and hemorrhoids. Patient was found to have a diverticular abscess, most likely related to chronic constipation patient was seen and evaluated by general surgeon. Patient is S/P drainage of abscess by IR done on 01/05. Patient remains on Zosyn and vancomycin. Patient is still reporting severe pain Plan: Continue current treatment. Infectious Disease consult appreciated Plan discussed with: Patient Date of Service: Jan 06, 2025 Billing Provider: GERARD WHEAT MD Common Visit Codes: [id number] INP/OBS CARE (MOD) SIMÓN LEAL VRT MECH[employer]IC Jan 06, 2025 19:00
[2025-01-07] VITALS (8 sets, daily range): BP systolic 97–150; BP diastolic 55–85; PULSE 66–79; RESP 18–20; TEMP 97.3–99; O2SAT 94–99
[2025-01-07 09:47] LABS: Nucleated Red Blood Cells % 0.0 %
[2025-01-07 09:48] LABS: Hematocrit 34.9 % (36.0-46.0); Hemoglobin 11.9 g/dL (12.2-16.2); Mean Corpuscular Hemoglobin 30.4 pg (28.0-32.0); Mean Corpuscular Volume 89.0 fL (80.0-100.0)
[2025-01-07 09:49] LABS: Albumin 3.7 g/dL (3.2-4.8); Alkaline Phosphatase 85 U/L (46-116); Anion Gap 10 (5-15); BUN/Creatinine Ratio 8.2 (10.0-20.0); Bilirubin, Total 0.7 mg/dL (0.2-1.0); Carbon Dioxide 24 mmol/L (20-31); Chloride 105 mmol/L (98-107); Glucose 105 mg/dL (74-106); Potassium 3.8 mmol/L (3.5-5.1); Sodium 139 mmol/L (136-145); Total Protein 6.5 g/dL (5.7-8.2)
[2025-01-07 10:04] LABS: Alanine Aminotransferase < 9 U/L (7-40); Blood Urea Nitrogen 5 mg/dL (9-23); Calcium 8.7 mg/dL (8.7-10.4)
--- NOTE | 2025-01-07 11:03 | DVHPN2 ---
Progress Note Date Seen: Jan 07, 2025 Has the PT tested + for MRSA If YES, has PT been informed?: No Medical Necessity Reason Pt with a Central, PICC or Fol: No Subjective Review of Systems: CVS:Normal, RESPIRATORY:Normal, GI:Normal, :Normal Objective vital signs Vital Sign Date Time Temp Pulse Resp B/P (MAP) Pulse Ox O2 Delivery O2 Flow Rate FiO2 01/07/25 10:17 76 18 125/68 01/07/25 09:00 98.1 94 98.1 01/06/25 20:00 Room Air* 0 21 Total Intake and Output 01/06/25 01/06/25 01/07/25 15:00 23:00 07:00 Intake Total 100 ml 975 ml 800 ml Output Total 150 ml Balance 100 ml 825 ml 800 ml medications Current Medications Medications Dose Ordered Sig/Earl Route Start Time Stop Time Status Last Admin Dose Admin Ondansetron HCl 4 mg Q4HP PRN IV 01/04/25 09:45 Pantoprazole Sodium 40 mg BID IV 01/04/25 10:00 01/07/25 10:16 40 MG Nitroglycerin 0.4 mg Q5MINP PRN SL 01/04/25 09:45 Vancomycin HCl 0 ml @ 0 mls/hr UD IV 01/04/25 10:00 Cancel Piperacillin Sod/ Tazobactam Sod 100 ml @ 25 mls/hr TID IV 01/04/25 14:00 01/07/25 05:02 25 MLS/HR Sodium Chloride 1,000 ml @ 75 mls/hr [id number] IV 01/04/25 10:00 01/06/25 16:45 75 MLS/HR Lorazepam 1 mg BID PRN PO 01/04/25 10:00 01/06/25 14:30 1 MG Atenolol 50 mg BID PO 01/04/25 10:00 01/07/25 10:16 50 MG Diphenhydramine HCl 25 mg Q8HP PRN IV 01/04/25 10:00 01/06/25 17:58 25 MG Oxycodone/ Acetaminophen 2 tab Q6HP PRN PO 01/04/25 12:45 01/06/25 01:16 2 TAB Polyethylene Glycol 17 gm DAILY PO 01/04/25 12:45 Hydromorphone HCl 1 mg Q3HPRN PRN IV 01/05/25 12:45 01/07/25 10:17 1 MG Mupirocin 1 applic BID EACHNOSTRI 01/05/25 22:00 01/10/25 21:59 01/07/25 10:16 1 APPLIC Examination: GENERAL:Normal, LUNGS:Normal, CVS:Normal, ABDOMEN:Normal, SKIN:Normal, NEURO:Normal laboratory and microbiology Laboratory Tests 01/07/25 08:36 Test 01/07/25 08:36 Range/Units Serum Glucose 105 74-106 mg/dL Microbiology Date/Time Source Procedure Growth Status 01/05/25 14:10 Aspirate Gram Stain - Final Resulted 01/05/25 14:10 Aspirate Body Fluid Culture - Preliminary Resulted 01/05/25 00:50 Nose MRSA Screen - Final Methicillin Resistant S.aureus Complete 01/04/25 09:40 Blood Blood Culture - Preliminary NO GROWTH AFTER 72 HOURS OF INCUBATION. Resulted Labs and/or images reviewed: Labs reviewed by me, Image(s) reviewed by me Problem List/Assessment/Plan Problem List/Assessment/Plan 1. Rectal Bleed GI Consult, Hold blood thinners 2. Hemorrhoids Medication, GI consult 3. Morbid Obesity Diet Education, monitoring 4. Chronic constipation Cathartics, monitoring Assessment/Plan Subjective: Patient is awake and alert. Objective: Patient was admitted for abdominal pain and GI bleed. Patient is having issues with rectal bleeding. She does have a history of severe constipation and hemorrhoids. Patient was found to have a diverticular abscess, most likely related to chronic constipation patient was seen and evaluated by general surgeon. Patient is S/P drainage of abscess by IR done on 01/05. Patient remains on Zosyn and vancomycin. Patient's pain has improved today, aspirated fluid cultures are still pending. As such still pending discharge recommendations from infections Disease. We will arrange for home health upon discharge Plan: Continue current treatment. Pending aspirated fluid cultures, pending discharge recommendations by Infectious Disease Plan discussed with: Patient Date of Service: Jan 07, 2025 Billing Provider: GERARD WHEAT MD Common Visit Codes: [id number] INP/OBS CARE (MOD) SIMÓN LEAL [employer]ONE PL[employer]ER Jan 07, 2025 11:03
--- NOTE | 2025-01-07 11:51 | DVHPN2 ---
Progress Note - Dictate Date Seen: Jan 07, 2025 Has the PT tested + for MRSA If YES, has PT been informed?: No Medical Necessity Reason Pt with a Central, PICC or Fol: No Subjective IR-guided placed drainage catheter successfully placed into perisigmoidal fluid collection; fluid cultures sent, preliminary results show moderate growth of gram-negative rods, Klebsiella oyytoca * Drain functioning with 150 mL sanguineous output today. * Antibiotics: Currently on Zosyn IV; MRSA nasal screen positive, currently covered with Mupirocin. * Pain control with hydromorphone IV PRN and Percocet PO PRN, adequate. * Labs: Leukocytosis Hgb stable at 11.9, Hct 35.9, CMP unremarkable. * Culture: Body fluid cultures Klebsiella oxytoca sensitive to Levaquin and Cipro * Suspicion for perisigmoid fistula and possible metastatic erosion of sigmoid colon remains; pathology to be followed up. * Patient hemodynamically stable. vital signs Vital Sign Date Time Temp Pulse Resp B/P (MAP) Pulse Ox O2 Delivery O2 Flow Rate FiO2 01/07/25 10:47 71 16 114/53 01/07/25 09:00 98.1 94 98.1 01/07/25 08:00 Room Air* 0 21 Total Intake and Output 01/06/25 01/06/25 01/07/25 15:00 23:00 07:00 Intake Total 100 ml 975 ml 800 ml Output Total 150 ml Balance 100 ml 825 ml 800 ml medications Current Medications Medications Dose Ordered Sig/Earl Route Start Time Stop Time Status Last Admin Dose Admin Ondansetron HCl 4 mg Q4HP PRN IV 01/04/25 09:45 Pantoprazole Sodium 40 mg BID IV 01/04/25 10:00 01/07/25 10:16 40 MG Nitroglycerin 0.4 mg Q5MINP PRN SL 01/04/25 09:45 Vancomycin HCl 0 ml @ 0 mls/hr UD IV 01/04/25 10:00 Cancel Piperacillin Sod/ Tazobactam Sod 100 ml @ 25 mls/hr TID IV 01/04/25 14:00 01/07/25 05:02 25 MLS/HR Sodium Chloride 1,000 ml @ 75 mls/hr [id number] IV 01/04/25 10:00 01/06/25 16:45 75 MLS/HR Lorazepam 1 mg BID PRN PO 01/04/25 10:00 01/06/25 14:30 1 MG Atenolol 50 mg BID PO 01/04/25 10:00 01/07/25 10:16 50 MG Diphenhydramine HCl 25 mg Q8HP PRN IV 01/04/25 10:00 01/06/25 17:58 25 MG Oxycodone/ Acetaminophen 2 tab Q6HP PRN PO 01/04/25 12:45 01/06/25 01:16 2 TAB Polyethylene Glycol 17 gm DAILY PO 01/04/25 12:45 Hydromorphone HCl 1 mg Q3HPRN PRN IV 01/05/25 12:45 01/07/25 10:17 1 MG Mupirocin 1 applic BID EACHNOSTRI 01/05/25 22:00 01/10/25 21:59 01/07/25 10:16 1 APPLIC objective General: Alert, not in acute distress. * Abdomen: Soft, non-distended, mild LLQ tenderness, drain in place with sanguineous output. No peritoneal signs. * Drain Site: No erythema or purulent drainage, flushed per protocol. laboratory and microbiology Laboratory Tests 01/07/25 08:36 Test 01/07/25 08:36 Range/Units Serum Glucose 105 74-106 mg/dL Problems(with codes): (1) History of ovarian cancer (2) Ovarian cancer (3) Abdominal mass (4) Bright red blood per rectum (5) Intractable abdominal pain (6) Acute abdominal pain (7) Intra-abdominal abscess Prognosis Assessment 1. Complicated sigmoid diverticulitis with large perisigmoid abscess (drain in situ), suspicion for fistula/metastatic erosion 2. Lower GI bleeding with ongoing hematochezia 3. Gram-negative intra-abdominal infection Klebsiella oxytoca sensitive Levaquin 4. MRSA colonization (nasal positive) 5. Ventral abdominal wall hernia without obstruction 6. History of ovarian cancer 7. Leukocytosis, worsening Plan GI System * recommending keeping NPO with ice chips or intermittent clear liquids and do not advance diet * Maintain percutaneous drain care: flush with 10 mL normal saline daily, monitor output, send cultures as indicated. * Monitor for peritoneal signs or increased bleeding. * Surgical team to follow for possible operative intervention if no improvement. * Consider colonoscopy after stabilization to rule out malignancy/fistula. Infectious Disease * Continue IV Zosyn and add IV levaquin Patient will need ongoing IV antibiotics for two weeks * MRSA nasal colonization: continue Mupirocin nasal ointment. Pain Management * Continue Hydromorphone 1 mg IV PRN for severe pain. * Percocet PO Q6H PRN for moderate pain. * Monitor for sedation and constipation. Fluids & Nutrition * Continue IV fluids while oral intake is limited. * Plan discussed with: Other (Dr Valiente) PEPE BRADSHAW MD Jan 07, 2025 11:51
--- NOTE | 2025-01-07 23:11 | DVHPN2 ---
Consult Progress Note Date Seen: Jan 07, 2025 Subjective Patient reports: No new complaints (ongoing heavy drainage, tolerating liquid diet having bms, no blood in stool. ongoing concern for bowel leak via metstatic spread to sigmoid and fistulization, therefore recommend picc line and 4 weeks ceftriaxone with oral flagyl. stop levofloxacin and zosyn. fu in id clinic in [address] in 4 weeks to determine if abscess has resolved. will need to fu on aspirated specimen path results. ) Objective vital signs Vital Sign Date Time Temp Pulse Resp B/P (MAP) Pulse Ox O2 Delivery O2 Flow Rate FiO2 01/07/25 21:56 78 19 150/75 01/07/25 20:00 Room Air* 0 21 01/07/25 17:21 99.0 97 99.0 Total Intake and Output 01/06/25 01/06/25 01/07/25 15:00 23:00 07:00 Intake Total 100 ml 975 ml 800 ml Output Total 150 ml Balance 100 ml 825 ml 800 ml medications Current Medications Medications Dose Ordered Sig/Eral Route Start Time Stop Time Status Last Admin Dose Admin Ondansetron HCl 4 mg Q4HP PRN IV 01/04/25 09:45 Pantoprazole Sodium 40 mg BID IV 01/04/25 10:00 01/07/25 21:11 40 MG Nitroglycerin 0.4 mg Q5MINP PRN SL 01/04/25 09:45 Vancomycin HCl 0 ml @ 0 mls/hr UD IV 01/04/25 10:00 Cancel Piperacillin Sod/ Tazobactam Sod 100 ml @ 25 mls/hr TID IV 01/04/25 14:00 01/07/25 21:13 25 MLS/HR Sodium Chloride 1,000 ml @ 75 mls/hr [id number] IV 01/04/25 10:00 01/06/25 16:45 75 MLS/HR Lorazepam 1 mg BID PRN PO 01/04/25 10:00 01/07/25 22:51 1 MG Atenolol 50 mg BID PO 01/04/25 10:00 01/07/25 21:13 50 MG Diphenhydramine HCl 25 mg Q8HP PRN IV 01/04/25 10:00 01/06/25 17:58 25 MG Oxycodone/ Acetaminophen 2 tab Q6HP PRN PO 01/04/25 12:45 01/06/25 01:16 2 TAB Polyethylene Glycol 17 gm DAILY PO 01/04/25 12:45 Hydromorphone HCl 1 mg Q3HPRN PRN IV 01/05/25 12:45 01/07/25 21:56 1 MG Mupirocin 1 applic BID EACHNOSTRI 01/05/25 22:00 01/10/25 21:59 01/07/25 21:11 1 APPLIC Levofloxacin/ Dextrose 100 ml @ 100 mls/hr DAILY IV 01/08/25 10:00 Physical Exam: General: NAD Neck: Supple. No masses. HEENT: PERRL. Normal lids and conjunctiva. Moist mucous membranes. Oropharynx without lesions, exudates or excessive erythema. Normal appearance of the external aspects of the nose and ears. Heart: Regular rhythm, normal rate. No murmur. No lower extremity edema. Lungs: Normal respiratory effort. Clear to auscultation bilaterally. No wheezes. No crackles. Abdomen: Soft. Non-tender. Non-distended. No masses or abdominal hernia. Msk: No digital cyanosis. Normal strength and tone in all 4 limbs Skin: Warm and dry, no rashes. Neuro: Alert. No facial droop or slurred speech. Extra-ocular movements intact. Sensation intact to soft touch in all 4 limbs. Psych: Appropriate mood. Full affect. Oriented to person, place, time, and situation. laboratory and microbiology Laboratory Tests 01/07/25 08:36 Test 01/07/25 08:36 Range/Units Serum Glucose 105 74-106 mg/dL Problem List/Assessment/Plan Problems(with codes): (1) Postoperative seroma of subcutaneous tissue (2) History of ovarian cancer (3) Ovarian cancer (4) Abdominal mass (5) Acute abdominal pain (6) Intractable abdominal pain Problem List/Assessment/Plan ASSESSMENT AND PLAN: ID Problem List: \-- Ovarian cancer, not currently on treatment \-- Diverticulosis \-- Acute diverticular abscess (left lower quadrant) \-- Rectal bleeding \-- History of hemorrhoids \-- Hypertension Assessment This is a female with a past medical history of ovarian cancer (not on treatment for the last six months), diverticulosis, hypertension, and hemorrhoids, presenting with several days of acute abdominal pain and rectal bleeding. She is currently admitted for further evaluation and management. On admission, the patient was hemodynamically stable. Initial labs significant for leukocytosis (WBC 16.1), hemoglobin 12.6, and platelets 497. Lactic acid was 1.3. CT abdomen and pelvis without contrast revealed a large (14.3 cm) complex fluid collection containing gas in the left lower quadrant inseparable from the sigmoid colon, with diverticula, highly suspicious for abscess. This has significantly increased in size compared to prior imaging. Hepatic steatosis and a ventral abdominal wall hernia with non-obstructed bowel loops noted. Remote cholecystectomy. 01/05: aspirated cultures from intraabdominal abscess is growing gram negative rods , awaiting identification and susceptibilities 01/06: tolerating clear liquid diet 01/07: ongoing concern for bowel leak via metstatic spread to sigmoid and fistulization r Plan: - recommend picc line and 4 weeks ceftriaxone with oral flagyl - stop levofloxacin and zosyn. - fu in id clinic in 4 weeks. - will need ct in 4 weeks to determine if abscess has resolved. - will need to fu on aspirated specimen path results. - continue iv antibiotics given extensive leukocytosis and extensive drainage output from the abdomen - Percutaneous drain was placed today (01/05/2025) into the perisigmoid fluid collection, which aspirated 30 cc of feculent fluid. - Cultures are pending. - Current rectal bleeding is being monitored. - The patient is NPO except for advancement of diet per surgical team recommendations. Empiric antibiotics initiated (vancomycin and piperacillin- tazobactam). - Blood and urine cultures are no growth to date. - Will closely monitor abdominal exam, bowel movements, and rectal bleeding with coordination with surgical colleagues. - Continue to monitor drain output. The patient appears to be stable and improving. - Will follow up on aspirated culture results and modify antibiotics as needed. - Surgical and dietary recommendations per general surgery team to be followed. Will arrange for follow-up after completion of treatment. Isolation Precautions: Standard Plan discussed with: Other Dietary Evaluation Review Comments: 1) advance diet as medically feasible 2) Monitor PO intake, lab values, weight trend, and I/O Expected Outcomes/Goals: To meet >75% estimated needs Fu 2-3 days ROGELIO PATRICIA MD Jan 07, 2025 23:11
[2025-01-08] VITALS (7 sets, daily range): BP systolic 109–125; BP diastolic 66–80; PULSE 62–73; RESP 18–19; TEMP 97.3–97.7; O2SAT 96–100
[2025-01-08] MEDS: metroNIDAZOLE 500 MG TAB PO SCH (05:01)
[2025-01-08] MEDS: cefTRIAXone 2GM/50ML D5W 50 ML IV SCH (10:24)
[2025-01-08 10:38] LABS: Hematocrit 36.7 % (36.0-46.0); Hemoglobin 12.2 g/dL (12.2-16.2); Mean Corpuscular Hemoglobin 29.8 pg (28.0-32.0); Mean Corpuscular Volume 89.9 fL (80.0-100.0); Nucleated Red Blood Cells % 0.2 %
[2025-01-08 10:44] LABS: Potassium 3.8 mmol/L (3.5-5.1); Sodium 140 mmol/L (136-145)
[2025-01-08 10:45] LABS: Anion Gap 11 (5-15); Carbon Dioxide 21 mmol/L (20-31)
[2025-01-08 10:50] LABS: Calcium 8.7 mg/dL (8.7-10.4); Chloride 108 mmol/L (98-107); Glucose 105 mg/dL (74-106)
[2025-01-08 10:54] LABS: BUN/Creatinine Ratio 8.9 (10.0-20.0); Blood Urea Nitrogen < 5 mg/dL (9-23)
--- NOTE | 2025-01-08 15:21 | DVHPN2 ---
Progress Note Date Seen: Jan 08, 2025 Has the PT tested + for MRSA If YES, has PT been informed?: No Medical Necessity Reason Pt with a Central, PICC or Fol: No Subjective Review of Systems: CVS:Normal, RESPIRATORY:Normal, GI:Normal, NEURO:Normal Objective vital signs Vital Sign Date Time Temp Pulse Resp B/P (MAP) Pulse Ox O2 Delivery O2 Flow Rate FiO2 01/08/25 14:08 69 16 118/53 01/08/25 13:00 97.5 100 97.5 01/08/25 08:00 Room Air* 0 21 Total Intake and Output 01/07/25 01/07/25 01/08/25 15:00 23:00 07:00 Intake Total 100 ml 1700 ml 1000 ml Balance 100 ml 1700 ml 1000 ml medications Current Medications Medications Dose Ordered Sig/Earl Route Start Time Stop Time Status Last Admin Dose Admin Ondansetron HCl 4 mg Q4HP PRN IV 01/04/25 09:45 Pantoprazole Sodium 40 mg BID IV 01/04/25 10:00 01/08/25 10:23 40 MG Nitroglycerin 0.4 mg Q5MINP PRN SL 01/04/25 09:45 Vancomycin HCl 0 ml @ 0 mls/hr UD IV 01/04/25 10:00 Cancel Sodium Chloride 1,000 ml @ 75 mls/hr [id number] IV 01/04/25 10:00 01/08/25 08:32 75 MLS/HR Lorazepam 1 mg BID PRN PO 01/04/25 10:00 01/07/25 22:51 1 MG Atenolol 50 mg BID PO 01/04/25 10:00 01/08/25 10:24 50 MG Diphenhydramine HCl 25 mg Q8HP PRN IV 01/04/25 10:00 01/06/25 17:58 25 MG Oxycodone/ Acetaminophen 2 tab Q6HP PRN PO 01/04/25 12:45 01/06/25 01:16 2 TAB Polyethylene Glycol 17 gm DAILY PO 01/04/25 12:45 Hydromorphone HCl 1 mg Q3HPRN PRN IV 01/05/25 12:45 01/08/25 13:38 1 MG Mupirocin 1 applic BID EACHNOSTRI 01/05/25 22:00 01/10/25 21:59 01/08/25 10:25 1 APPLIC Levofloxacin/ Dextrose 100 ml @ 100 mls/hr DAILY IV 01/08/25 10:00 Cancel Ceftriaxone Sodium/Dextrose 50 ml @ 50 mls/hr DAILY IV 01/08/25 10:00 01/08/25 10:24 50 MLS/HR Metronidazole 500 mg Q8HR PO 01/08/25 06:00 01/08/25 14:57 500 MG Examination: GENERAL:Normal, LUNGS:Normal, CVS:Normal, ABDOMEN:Normal, SKIN:Normal, NEURO:Normal laboratory and microbiology Laboratory Tests 01/08/25 10:22 Test 01/08/25 10:22 Range/Units Serum Glucose 105 74-106 mg/dL Microbiology Date/Time Source Procedure Growth Status 01/05/25 14:10 Aspirate Gram Stain - Final Resulted 01/05/25 14:10 Body Fluid Culture - Preliminary Klebsiella oxytoca Resulted 01/05/25 00:50 Nose MRSA Screen - Final Methicillin Resistant S.aureus Complete 01/04/25 09:40 Blood Blood Culture - Preliminary NO GROWTH AFTER 72 HOURS OF INCUBATION. Resulted Labs and/or images reviewed: Image(s) reviewed by me Problem List/Assessment/Plan Problem List/Assessment/Plan 1. Rectal Bleed GI Consult, Hold blood thinners 2. Hemorrhoids Medication, GI consult 3. Morbid Obesity Diet Education, monitoring 4. Chronic constipation Cathartics, monitoring 5. Ovarian cancer Follow up with oncologist Assessment/Plan Subjective: Patient is awake and alert. Objective: Patient was admitted for abdominal pain and GI bleed. Patient is having issues with rectal bleeding. She does have a history of severe constipation and hemorrhoids. Patient was found to have a diverticular abscess, most likely related to chronic constipation patient was seen and evaluated by general surgeon. Patient is S/P drainage of abscess by IR done on 01/05. Patient remains on Zosyn. Patient's pain has improved today, aspirated fluid cultures s how Klebsiella oxytoca, patient will be arranged with IV antibiotics as per Infectious Disease. Plan: Continue current treatment. Arranged home health for IV antibiotics as per Infectious Disease, advance diet as per surgery Plan discussed with: Patient Dietary Evaluation Review Comments: 1) advance diet as medically feasible 2) Monitor PO intake, lab values, weight trend, and I/O Expected Outcomes/Goals: To meet >75% estimated needs Fu 2-3 days Date of Service: Jan 08, 2025 Billing Provider: GERARD WHEAT MD Common Visit Codes: [id number] INP/OBS CARE (MOD) SIMÓN LEAL CINEMA OPERATOR Jan 08, 2025 15:21
[2025-01-09] VITALS (8 sets, daily range): BP systolic 112–129; BP diastolic 57–80; PULSE 60–67; RESP 16–19; TEMP 97.1–98.3; O2SAT 95–97
--- NOTE | 2025-01-09 12:53 | DVHPN2 ---
Progress Note - Dictate Date Seen: Jan 09, 2025 Has the PT tested + for MRSA If YES, has PT been informed?: No Medical Necessity Reason Pt with a Central, PICC or Fol: No vital signs Vital Sign Date Time Temp Pulse Resp B/P (MAP) Pulse Ox O2 Delivery O2 Flow Rate FiO2 01/09/25 12:47 60 16 124/77 01/09/25 09:00 97.6 97 97.6 01/09/25 08:00 Room Air* 0 21 Total Intake and Output 01/08/25 01/08/25 01/09/25 15:00 23:00 07:00 Intake Total 50 ml 950 ml 1200 ml Balance 50 ml 950 ml 1200 ml medications Current Medications Medications Dose Ordered Sig/Earl Route Start Time Stop Time Status Last Admin Dose Admin Ondansetron HCl 4 mg Q4HP PRN IV 01/04/25 09:45 Pantoprazole Sodium 40 mg BID IV 01/04/25 10:00 01/09/25 08:58 40 MG Nitroglycerin 0.4 mg Q5MINP PRN SL 01/04/25 09:45 Vancomycin HCl 0 ml @ 0 mls/hr UD IV 01/04/25 10:00 Cancel Sodium Chloride 1,000 ml @ 75 mls/hr [id number] IV 01/04/25 10:00 01/08/25 08:32 75 MLS/HR Lorazepam 1 mg BID PRN PO 01/04/25 10:00 01/08/25 22:33 1 MG Atenolol 50 mg BID PO 01/04/25 10:00 01/08/25 22:32 50 MG Diphenhydramine HCl 25 mg Q8HP PRN IV 01/04/25 10:00 01/06/25 17:58 25 MG Oxycodone/ Acetaminophen 2 tab Q6HP PRN PO 01/04/25 12:45 01/06/25 01:16 2 TAB Polyethylene Glycol 17 gm DAILY PO 01/04/25 12:45 Hydromorphone HCl 1 mg Q3HPRN PRN IV 01/05/25 12:45 01/09/25 12:17 1 MG Mupirocin 1 applic BID EACHNOSTRI 01/05/25 22:00 01/10/25 21:59 01/09/25 09:03 1 APPLIC Levofloxacin/ Dextrose 100 ml @ 100 mls/hr DAILY IV 01/08/25 10:00 Cancel Ceftriaxone Sodium/Dextrose 50 ml @ 50 mls/hr DAILY IV 01/08/25 10:00 01/09/25 09:02 50 MLS/HR Metronidazole 500 mg Q8HR PO 01/08/25 06:00 01/09/25 05:37 500 MG objective General Appearance: alert, no distress HEENT: EOMI, PERRLA, normal external inspect of ears, no icterus, no nasal drainage Neck: no carotid bruit, no jugular venous distention (JVD), no lymphadenopathy Chest: normal thorax Respiratory: clear to auscultation, normal air movement Cardiovascular: regular rate and rhythm, no diastolic murmur, no jugular venous distention (JVD), no rub, no systolic murmur Abdominal: soft, no hepatomegaly, no mass, no splenomegaly, no tenderness Genitourinary: grossly normal external Musculoskeletal: no joint tenderness, no swelling Extremities: normal pulses, no calf tenderness, no clubbing, no cyanosis, no edema Skin: no bruising, no jaundice, no rash Neurological: alert, No focal deficit laboratory and microbiology Laboratory Tests 01/08/25 10:22 Test 01/08/25 10:22 Range/Units Serum Glucose 105 74-106 mg/dL Problem List 1. Rectal Bleed GI Consult, Hold blood thinners 2. Hemorrhoids Medication, GI consult 3. Morbid Obesity Diet Education, monitoring 4. Chronic constipation Cathartics, monitoring Assessment/Plan Subjective Patient is awake and alert. Objective Patient was admitted for abdominal pain related to diverticular abscess. Patient is status post drainage by radiology. Approximately 30 mL of feculent fluid was removed. Patient fluid culture shows gram-negative rods with Klebsiella oxytoca. Plan Continue antibiotics with Zosyn and Levaquin. General Surgery consult. I did speak with Dr. Zepeda. Continue pain medication. Patient states her pain is increased to her left lower abdomen. Increase Dilaudid to 1.5 mg every 3 hours as needed for severe pain. ID recommendations appreciated. Plan for PICC line placement. Dietary Evaluation Review Comments: 1) advance diet as medically feasible 2) Monitor PO intake, lab values, weight trend, and I/O Expected Outcomes/Goals: To meet >75% estimated needs Fu 2-3 days Plan discussed with: Patient, Other SAIMA GUERRERO NP Jan 09, 2025 12:53
--- NOTE | 2025-01-09 17:28 | DVHPN2 ---
Progress Note Date Seen: Jan 09, 2025 Resident Creating Document: ANGIE TORRES RESIDENT Has the PT tested + for MRSA If YES, has PT been informed?: No Medical Necessity Reason Pt with a Central, PICC or Fol: No Subjective Review of Systems 71-year-old female with a recent perisigmoid abscess status-post IR-guided percutaneous drainage catheter placement presents on for ongoing abdominal pain management and infection control. * Abdominal Pain: Improved significantly compared to previous days. Now localized to the left lower quadrant, described as dull and intermittent. No peritoneal signs. * Bowel Movements: Had 2 bowel movements today, described as loose. Noted resolution of hematochezia; no visible bleeding in the last 24 hours. * Drain Output: The IR-placed drain continues to produce sanguineous fluid, though output has decreased to ~150 mL today. * Diet: Currently on clear liquid diet, tolerating well without nausea or vomiting. * Antibiotics: Receiving IV ceftriaxone and metronidazole (Flagyl) as per latest ID recommendations. Zosyn was discontinued. * Microbiology: Fluid aspirate culture returned positive for Klebsiella oxytoca (gram-negative shantanu). Awaiting sensitivities. * Pain: Controlled with scheduled and PRN hydromorphone and Percocet. No requirement for escalation. * Other: PICC line planned for long-term IV antibiotic administration. Objective vital signs Vital Sign Date Time Temp Pulse Resp B/P (MAP) Pulse Ox O2 Delivery O2 Flow Rate FiO2 01/09/25 16:50 97.5 64 16 112/69 (83) 96 97.5 01/09/25 08:00 Room Air* 0 21 Total Intake and Output 01/08/25 01/08/25 01/09/25 15:00 23:00 07:00 Intake Total 50 ml 950 ml 1200 ml Balance 50 ml 950 ml 1200 ml medications Current Medications Medications Dose Ordered Sig/Earl Route Start Time Stop Time Status Last Admin Dose Admin Ondansetron HCl 4 mg Q4HP PRN IV 01/04/25 09:45 Pantoprazole Sodium 40 mg BID IV 01/04/25 10:00 01/09/25 08:58 40 MG Nitroglycerin 0.4 mg Q5MINP PRN SL 01/04/25 09:45 Vancomycin HCl 0 ml @ 0 mls/hr UD IV 01/04/25 10:00 Cancel Sodium Chloride 1,000 ml @ 75 mls/hr [id number] IV 01/04/25 10:00 01/08/25 08:32 75 MLS/HR Lorazepam 1 mg BID PRN PO 01/04/25 10:00 01/08/25 22:33 1 MG Atenolol 50 mg BID PO 01/04/25 10:00 01/08/25 22:32 50 MG Diphenhydramine HCl 25 mg Q8HP PRN IV 01/04/25 10:00 01/06/25 17:58 25 MG Oxycodone/ Acetaminophen 2 tab Q6HP PRN PO 01/04/25 12:45 01/06/25 01:16 2 TAB Polyethylene Glycol 17 gm DAILY PO 01/04/25 12:45 Mupirocin 1 applic BID EACHNOSTRI 01/05/25 22:00 01/10/25 21:59 01/09/25 09:03 1 APPLIC Levofloxacin/ Dextrose 100 ml @ 100 mls/hr DAILY IV 01/08/25 10:00 Cancel Ceftriaxone Sodium/Dextrose 50 ml @ 50 mls/hr DAILY IV 01/08/25 10:00 01/09/25 09:02 50 MLS/HR Metronidazole 500 mg Q8HR PO 01/08/25 06:00 01/09/25 15:16 500 MG Hydromorphone HCl 1.5 mg Q3HPRN PRN IV 01/09/25 16:15 Examination * General: Elderly female, alert, in no acute distress * Abdomen: Soft, mild left lower quadrant tenderness to deep palpation. Bowel sounds present. IR drain in place with 150 mL of dark sanguineous output today. No rebound or guarding. * Drain Site: Clean and dry; no erythema or purulent discharge laboratory and microbiology Laboratory Tests 01/08/25 10:22 Test 01/08/25 10:22 Range/Units Serum Glucose 105 74-106 mg/dL Microbiology Date/Time Source Procedure Growth Status 01/05/25 14:10 Aspirate Gram Stain - Final Complete 01/05/25 14:10 Body Fluid Culture - Final Klebsiella oxytoca Complete 01/05/25 00:50 Nose MRSA Screen - Final Methicillin Resistant S.aureus Complete 01/04/25 09:40 Blood Blood Culture - Final NO GROWTH AFTER 5 DAYS OF INCUBATION. Complete Problem List/Assessment/Plan Problem List/Assessment/Plan Assessment 1. Complicated sigmoid diverticulitis with large perisigmoid abscess (drain in situ), suspicion for fistula/metastatic erosion 2. Lower GI bleeding with ongoing hematochezia 3. Gram-negative intra-abdominal infection (pending final culture ID) 4. MRSA colonization (nasal positive) 5. Ventral abdominal wall hernia without obstruction 6. History of ovarian cancer 7. 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 * Monitor for return of bowel function, distention, and bloating * GI Bleeding: * Monitor for recurrent hematochezia or melena * Continue IV pantoprazole 40 mg BID * Monitor H/H daily * No EGD/colonoscopy at this time unless bleeding recurs PROPHYLAXIS / SUPPORTIVE CARE: * GI prophylaxis: Pantoprazole IV * Skin care: Monitor IR drain site for signs of infection * Electrolyte monitoring: Daily BMP to monitor renal function on antibiotics * Contact precautions due to MRSA nasal swab * Encourage ambulation with assistance Case discussed in detail with the attending physician, including the clinical presentation, diagnostic workup, and comprehensive management plan. The patient was present for the discussion and demonstrated understanding of her condition and the proposed plan. Plan discussed with: Patient Dietary Evaluation Review Comments: 1) advance diet as medically feasible 2) Monitor PO intake, lab values, weight trend, and I/O Expected Outcomes/Goals: To meet >75% estimated needs Fu 2-3 days ANGIE TORRES RESIDENT Jan 09, 2025 17:28
[2025-01-09] MEDS: HYDROmorphone HCL 2 MG/ML VL/or syr IV PRN (18:39)
[2025-01-10] VITALS (7 sets, daily range): BP systolic 114–123; BP diastolic 63–81; PULSE 59–74; RESP 16–18; TEMP 97–98.1; O2SAT 95–98
--- NOTE | 2025-01-10 13:10 | DVHPN2 ---
Progress Note - Dictate Date Seen: Jan 10, 2025 Has the PT tested + for MRSA If YES, has PT been informed?: No Medical Necessity Reason Pt with a Central, PICC or Fol: No vital signs Vital Sign Date Time Temp Pulse Resp B/P (MAP) Pulse Ox O2 Delivery O2 Flow Rate FiO2 01/10/25 10:23 60 16 119/80 01/10/25 08:45 97.0 95 97.0 01/09/25 20:00 Room Air* 0 21 Total Intake and Output 01/09/25 01/09/25 01/10/25 15:00 23:00 07:00 Intake Total 50 ml 850 ml 600 ml Balance 50 ml 850 ml 600 ml medications Current Medications Medications Dose Ordered Sig/Earl Route Start Time Stop Time Status Last Admin Dose Admin Ondansetron HCl 4 mg Q4HP PRN IV 01/04/25 09:45 Pantoprazole Sodium 40 mg BID IV 01/04/25 10:00 01/10/25 10:22 40 MG Nitroglycerin 0.4 mg Q5MINP PRN SL 01/04/25 09:45 Vancomycin HCl 0 ml @ 0 mls/hr UD IV 01/04/25 10:00 Cancel Sodium Chloride 1,000 ml @ 75 mls/hr [id number] IV 01/04/25 10:00 01/08/25 08:32 75 MLS/HR Lorazepam 1 mg BID PRN PO 01/04/25 10:00 01/08/25 22:33 1 MG Atenolol 50 mg BID PO 01/04/25 10:00 01/09/25 22:08 50 MG Diphenhydramine HCl 25 mg Q8HP PRN IV 01/04/25 10:00 01/06/25 17:58 25 MG Oxycodone/ Acetaminophen 2 tab Q6HP PRN PO 01/04/25 12:45 01/06/25 01:16 2 TAB Polyethylene Glycol 17 gm DAILY PO 01/04/25 12:45 01/10/25 10:24 17 GM Mupirocin 1 applic BID EACHNOSTRI 01/05/25 22:00 01/10/25 21:59 01/10/25 10:24 1 APPLIC Levofloxacin/ Dextrose 100 ml @ 100 mls/hr DAILY IV 01/08/25 10:00 Cancel Ceftriaxone Sodium/Dextrose 50 ml @ 50 mls/hr DAILY IV 01/08/25 10:00 01/10/25 10:24 50 MLS/HR Metronidazole 500 mg Q8HR PO 01/08/25 06:00 01/10/25 05:43 500 MG Hydromorphone HCl 1.5 mg Q3HPRN PRN IV 01/09/25 16:15 01/10/25 10:23 1.5 MG objective General Appearance: alert, no distress HEENT: EOMI, PERRLA, normal external inspect of ears, no icterus, no nasal drainage Neck: no carotid bruit, no jugular venous distention (JVD), no lymphadenopathy Chest: normal thorax Respiratory: clear to auscultation, normal air movement Cardiovascular: regular rate and rhythm, no diastolic murmur, no jugular venous distention (JVD), no rub, no systolic murmur Abdominal: soft, no hepatomegaly, no mass, no splenomegaly, no tenderness Genitourinary: grossly normal external Musculoskeletal: no joint tenderness, no swelling Extremities: normal pulses, no calf tenderness, no clubbing, no cyanosis, no edema Skin: no bruising, no jaundice, no rash Neurological: alert, No focal deficit laboratory and microbiology Laboratory Tests 01/08/25 10:22 Test 01/08/25 10:22 Range/Units Serum Glucose 105 74-106 mg/dL Problem List 1. Rectal Bleed GI Consult, Hold blood thinners 2. Hemorrhoids Medication, GI consult 3. Morbid Obesity Diet Education, monitoring 4. Chronic constipation Cathartics, monitoring Assessment/Plan Subjective Patient is awake and alert. Objective Still pending general surgery consult. Patient was admitted for abdominal pain. Patient was found to have a diverticular abscess. Patient is status post drainage. ID started patient on antibiotics. Per GI fistula needs to be ruled out. Plan Pending general surgery consult. ID recommendations appreciated. Discharge planning. Dietary Evaluation Review Comments: 1) advance diet as medically feasible 2) Monitor PO intake, lab values, weight trend, and I/O Expected Outcomes/Goals: To meet >75% estimated needs Fu 2-3 days Plan discussed with: Patient, Other SAIMA GUERRERO NP Jan 10, 2025 13:10
--- NOTE | 2025-01-10 17:50 | DVHPN2 ---
Progress Note Date Seen: Jan 10, 2025 Resident Creating Document: ANGIE TORRES RESIDENT Has the PT tested + for MRSA If YES, has PT been informed?: No Medical Necessity Reason Pt with a Central, PICC or Fol: No Subjective Review of Systems 49 Year-old female with a recent perisigmoid abscess status-post IR-guided percutaneous drainage catheter placement presents on for ongoing abdominal pain management and infection control. The patient is complaining of slight pain and erythema around the percutaneous drain insertion site. And the patient also developed blisters in and around abdominal area around the insertion site. Dr. Az wilkinson and the primary team to further evaluate the blisters. * Abdominal Pain: Improved significantly compared to previous days. Now localized to the left lower quadrant, described as dull and intermittent. No peritoneal signs. * Bowel Movements: Had 2 bowel movements today, described as loose. Noted resolution of hematochezia; no visible bleeding in the last 24 hours. * Drain Output: The IR-placed drain continues to produce sanguineous fluid, though output has decreased to today. * Diet: Currently on clear liquid diet, tolerating well without nausea or vomiting. * Antibiotics: Receiving IV ceftriaxone and metronidazole (Flagyl) as per latest ID recommendations. Zosyn was discontinued. * Microbiology: Fluid aspirate culture returned positive for Klebsiella oxytoca (gram-negative shantanu). Awaiting sensitivities. * Pain: Controlled with scheduled and PRN hydromorphone and Percocet. No requirement for escalation. * Other: PICC line planned for long-term IV antibiotic administration. Objective vital signs Vital Sign Date Time Temp Pulse Resp B/P (MAP) Pulse Ox O2 Delivery O2 Flow Rate FiO2 01/10/25 16:52 97.0 65 16 118/63 (81) 97 97.0 01/09/25 20:00 Room Air* 0 21 Total Intake and Output 01/09/25 01/09/25 01/10/25 15:00 23:00 07:00 Intake Total 50 ml 850 ml 600 ml Balance 50 ml 850 ml 600 ml medications Current Medications Medications Dose Ordered Sig/Earl Route Start Time Stop Time Status Last Admin Dose Admin Ondansetron HCl 4 mg Q4HP PRN IV 01/04/25 09:45 Pantoprazole Sodium 40 mg BID IV 01/04/25 10:00 01/10/25 10:22 40 MG Nitroglycerin 0.4 mg Q5MINP PRN SL 01/04/25 09:45 Vancomycin HCl 0 ml @ 0 mls/hr UD IV 01/04/25 10:00 Cancel Sodium Chloride 1,000 ml @ 75 mls/hr [id number] IV 01/04/25 10:00 01/08/25 08:32 75 MLS/HR Lorazepam 1 mg BID PRN PO 01/04/25 10:00 01/08/25 22:33 1 MG Atenolol 50 mg BID PO 01/04/25 10:00 01/09/25 22:08 50 MG Diphenhydramine HCl 25 mg Q8HP PRN IV 01/04/25 10:00 01/06/25 17:58 25 MG Oxycodone/ Acetaminophen 2 tab Q6HP PRN PO 01/04/25 12:45 01/06/25 01:16 2 TAB Polyethylene Glycol 17 gm DAILY PO 01/04/25 12:45 01/10/25 10:24 17 GM Mupirocin 1 applic BID EACHNOSTRI 01/05/25 22:00 01/10/25 21:59 01/10/25 10:24 1 APPLIC Levofloxacin/ Dextrose 100 ml @ 100 mls/hr DAILY IV 01/08/25 10:00 Cancel Ceftriaxone Sodium/Dextrose 50 ml @ 50 mls/hr DAILY IV 01/08/25 10:00 01/10/25 10:24 50 MLS/HR Metronidazole 500 mg Q8HR PO 01/08/25 06:00 01/10/25 05:43 500 MG Hydromorphone HCl 1.5 mg Q3HPRN PRN IV 01/09/25 16:15 01/10/25 13:38 1.5 MG Examination General: Elderly female, alert, in no acute distress * Abdomen: Soft, mild left lower quadrant tenderness to deep palpation. Bowel sounds present. IR drain in place with 150 mL of dark sanguineous output today. No rebound or guarding. Patient developed blisters on the abdomen around the drainage site. * Drain Site: Clean and dry; no erythema or purulent discharge laboratory and microbiology Laboratory Tests 01/08/25 10:22 Test 01/08/25 10:22 Range/Units Serum Glucose 105 74-106 mg/dL Microbiology Date/Time Source Procedure Growth Status 01/05/25 14:10 Aspirate Gram Stain - Final Complete 01/05/25 14:10 Body Fluid Culture - Final Klebsiella oxytoca Complete 01/05/25 00:50 Nose MRSA Screen - Final Methicillin Resistant S.aureus Complete 01/04/25 09:40 Blood Blood Culture - Final NO GROWTH AFTER 5 DAYS OF INCUBATION. Complete Problem List/Assessment/Plan Problem List/Assessment/Plan Assessment 1. Complicated sigmoid diverticulitis with large perisigmoid abscess (drain in situ), suspicion for fistula/metastatic erosion 2. Lower GI bleeding with ongoing hematochezia 3. Gram-negative intra-abdominal infection (pending final culture ID) 4. MRSA colonization (nasal positive) 5. Ventral abdominal wall hernia without obstruction 6. History of ovarian cancer 7. Leukocytosis, improving 8. Abdominal blisters around the percutaneous drain insertion site Plan GI-SPECIFIC PLAN GASTROINTESTINAL / INFECTIOUS DISEASES: For her percutaneous drain insertion site erythema and blisters placed a wound consult and wound care with dry dressing with hydrogen peroxide has been ordered. The plan is to discharge the patient on PICC line and place her on clear liquid diet for 2 weeks. And TPN during that time. And IV antibiotics. And repeat imaging after 2 weeks and outpatient follow-up with GI. 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 * Monitor for return of bowel function, distention, and bloating * GI Bleeding: * Monitor for recurrent hematochezia or melena * Continue IV pantoprazole 40 mg BID * Monitor H/H daily * No EGD/colonoscopy at this time unless bleeding recurs PROPHYLAXIS / SUPPORTIVE CARE: * GI prophylaxis: Pantoprazole IV * Skin care: Monitor IR drain site for signs of infection * Electrolyte monitoring: Daily BMP to monitor renal function on antibiotics * Contact precautions due to MRSA nasal swab * Encourage ambulation with assistance Case discussed in detail with the attending physician, including the clinical presentation, diagnostic workup, and comprehensive management plan. The patient was present for the discussion and demonstrated understanding of her condition and the proposed plan. Plan discussed with: Patient My Orders My Orders Orders - ANGIE TORRES RESIDENT Procedure Category Date Status Time * Wound Consult CONS 01/10/25 Verified Wound Dressing: MONICO 01/10/25 Verified 17:37 Dietary Evaluation Review Comments: Clear Liquid diet with Ensure Clear BID Expected Outcomes/Goals: recovered GI function, gradual wt loss, ANGIE TORRES RESIDENT Jan 10, 2025 17:50
--- NOTE | 2025-01-10 22:08 | DVHPN2 ---
Consult Progress Note Date Seen: Jan 10, 2025 Subjective Patient reports: Other (piccline in place , abdominal drain has dark brown fluid of 50ccs . intermittently requires TPN , tolerating clear liquid diet ) Objective vital signs Vital Sign Date Time Temp Pulse Resp B/P (MAP) Pulse Ox O2 Delivery O2 Flow Rate FiO2 01/10/25 21:00 98.1 69 17 121/79 (93) 96 98.1 01/10/25 08:00 Room Air* 0 21 Total Intake and Output 01/09/25 01/09/25 01/10/25 15:00 23:00 07:00 Intake Total 50 ml 850 ml 600 ml Balance 50 ml 850 ml 600 ml medications Current Medications Medications Dose Ordered Sig/Earl Route Start Time Stop Time Status Last Admin Dose Admin Ondansetron HCl 4 mg Q4HP PRN IV 01/04/25 09:45 Pantoprazole Sodium 40 mg BID IV 01/04/25 10:00 01/10/25 10:22 40 MG Nitroglycerin 0.4 mg Q5MINP PRN SL 01/04/25 09:45 Vancomycin HCl 0 ml @ 0 mls/hr UD IV 01/04/25 10:00 Cancel Sodium Chloride 1,000 ml @ 75 mls/hr [id number] IV 01/04/25 10:00 01/08/25 08:32 75 MLS/HR Lorazepam 1 mg BID PRN PO 01/04/25 10:00 01/08/25 22:33 1 MG Atenolol 50 mg BID PO 01/04/25 10:00 01/09/25 22:08 50 MG Diphenhydramine HCl 25 mg Q8HP PRN IV 01/04/25 10:00 01/06/25 17:58 25 MG Oxycodone/ Acetaminophen 2 tab Q6HP PRN PO 01/04/25 12:45 01/06/25 01:16 2 TAB Polyethylene Glycol 17 gm DAILY PO 01/04/25 12:45 01/10/25 10:24 17 GM Levofloxacin/ Dextrose 100 ml @ 100 mls/hr DAILY IV 01/08/25 10:00 Cancel Ceftriaxone Sodium/Dextrose 50 ml @ 50 mls/hr DAILY IV 01/08/25 10:00 01/10/25 10:24 50 MLS/HR Metronidazole 500 mg Q8HR PO 01/08/25 06:00 01/10/25 14:00 500 MG Hydromorphone HCl 1.5 mg Q3HPRN PRN IV 01/09/25 16:15 01/10/25 18:17 1.5 MG Physical Exam: General: NAD Neck: Supple. No masses. HEENT: PERRL. Normal lids and conjunctiva. Moist mucous membranes. Oropharynx without lesions, exudates or excessive erythema. Normal appearance of the external aspects of the nose and ears. Heart: Regular rhythm, normal rate. No murmur. No lower extremity edema. Lungs: Normal respiratory effort. Clear to auscultation bilaterally. No wheezes. No crackles. Abdomen: Soft. Non-tender. Non-distended. No masses or abdominal hernia. Msk: No digital cyanosis. Normal strength and tone in all 4 limbs Skin: Warm and dry, no rashes. Neuro: Alert. No facial droop or slurred speech. Extra-ocular movements intact. Sensation intact to soft touch in all 4 limbs. Psych: Appropriate mood. Full affect. Oriented to person, place, time, and situation laboratory and microbiology Laboratory Tests 01/08/25 10:22 Test 01/08/25 10:22 Range/Units Serum Glucose 105 74-106 mg/dL Problem List/Assessment/Plan Problems(with codes): (1) Postoperative seroma of subcutaneous tissue (2) History of ovarian cancer (3) Ovarian cancer (4) Abdominal mass (5) Acute abdominal pain (6) Intractable abdominal pain (7) Bright red blood per rectum (8) Intra-abdominal abscess Problem List/Assessment/Plan ASSESSMENT AND PLAN: ID Problem List: \-- Ovarian cancer, not currently on treatment \-- Diverticulosis \-- Acute diverticular abscess (left lower quadrant) \-- Rectal bleeding \-- History of hemorrhoids \-- Hypertension Assessment This is a female with a past medical history of ovarian cancer (not on treatment for the last six months), diverticulosis, hypertension, and hemorrhoids, presenting with several days of acute abdominal pain and rectal bleeding. She is currently admitted for further evaluation and management. On admission, the patient was hemodynamically stable. Initial labs significant for leukocytosis (WBC 16.1), hemoglobin 12.6, and platelets 497. Lactic acid was 1.3. CT abdomen and pelvis without contrast revealed a large (14.3 cm) complex fluid collection containing gas in the left lower quadrant inseparable from the sigmoid colon, with diverticula, highly suspicious for abscess. This has significantly increased in size compared to prior imaging. Hepatic steatosis and a ventral abdominal wall hernia with non-obstructed bowel loops noted. Remote cholecystectomy. 01/05: aspirated cultures from intraabdominal abscess is growing gram negative rods , awaiting identification and susceptibilities 01/06: tolerating clear liquid diet 01/07: ongoing concern for bowel leak via metstatic spread to sigmoid and fistulization r 01/08: aspirated fluid collection show klebsiella that is morejon sensitive and is also growing streptococcus . drainage output down to 50ccs of bilious fluid 01/09: hemoglobin appears stable and whitecount is coming down . no drain output through billiary drain 01/10: required intermittently TPN but tolerating clear liquid diet Plan: - recommend close observation to see if patient can advance diet and see if additional surgical remedies are needed - agree with stopping zosyn and switching to ceftriaxone - tolerating clear liquid diet and off tpn - recommend picc line and 4 weeks ceftriaxone til 02/02 if the intraabdominal abscess remains persistently large - can consited repeat ct imaging if patient remains longer than a week - fu in [facility] clinic in 4 weeks. - will need ct in 4 weeks to determine if abscess has resolved. - will need to fu on aspirated specimen path results. - continue iv antibiotics given extensive leukocytosis and extensive drainage output from the abdomen - Percutaneous drain was placed today (01/05/2025) into the perisigmoid fluid collection, which aspirated 30 cc of feculent fluid. - Cultures are pending. - Current rectal bleeding is being monitored. - The patient is NPO except for advancement of diet per surgical team recommendations. Empiric antibiotics initiated (vancomycin and piperacillin- tazobactam). - Blood and urine cultures are no growth to date. - Will closely monitor abdominal exam, bowel movements, and rectal bleeding with coordination with surgical colleagues. - Continue to monitor drain output. The patient appears to be stable and improving. - Will follow up on aspirated culture results and modify antibiotics as needed. - Surgical and dietary recommendations per general surgery team to be followed. Will arrange for follow-up after completion of treatment. Isolation Precautions: Standard Plan discussed with: Other Dietary Evaluation Review Comments: Clear Liquid diet with Ensure Clear BID Expected Outcomes/Goals: recovered GI function, gradual wt loss, ROGELIO PATRICIA MD Jan 10, 2025 22:08
--- NOTE | 2025-01-10 22:08 | DVHPN2 ---
Consult Progress Note Date Seen: Jan 08, 2025 Subjective Patient reports: Other (still requiring piccline which has not yet been placed , endorsing 12/15 pain in abdomen . has a port cath . ) Objective vital signs Vital Sign Date Time Temp Pulse Resp B/P (MAP) Pulse Ox O2 Delivery O2 Flow Rate FiO2 01/10/25 21:00 98.1 69 17 121/79 (93) 96 98.1 01/10/25 08:00 Room Air* 0 21 Total Intake and Output 01/09/25 01/09/25 01/10/25 15:00 23:00 07:00 Intake Total 50 ml 850 ml 600 ml Balance 50 ml 850 ml 600 ml medications Current Medications Medications Dose Ordered Sig/Earl Route Start Time Stop Time Status Last Admin Dose Admin Ondansetron HCl 4 mg Q4HP PRN IV 01/04/25 09:45 Pantoprazole Sodium 40 mg BID IV 01/04/25 10:00 01/10/25 10:22 40 MG Nitroglycerin 0.4 mg Q5MINP PRN SL 01/04/25 09:45 Vancomycin HCl 0 ml @ 0 mls/hr UD IV 01/04/25 10:00 Cancel Sodium Chloride 1,000 ml @ 75 mls/hr [id number] IV 01/04/25 10:00 01/08/25 08:32 75 MLS/HR Lorazepam 1 mg BID PRN PO 01/04/25 10:00 01/08/25 22:33 1 MG Atenolol 50 mg BID PO 01/04/25 10:00 01/09/25 22:08 50 MG Diphenhydramine HCl 25 mg Q8HP PRN IV 01/04/25 10:00 01/06/25 17:58 25 MG Oxycodone/ Acetaminophen 2 tab Q6HP PRN PO 01/04/25 12:45 01/06/25 01:16 2 TAB Polyethylene Glycol 17 gm DAILY PO 01/04/25 12:45 01/10/25 10:24 17 GM Levofloxacin/ Dextrose 100 ml @ 100 mls/hr DAILY IV 01/08/25 10:00 Cancel Ceftriaxone Sodium/Dextrose 50 ml @ 50 mls/hr DAILY IV 01/08/25 10:00 01/10/25 10:24 50 MLS/HR Metronidazole 500 mg Q8HR PO 01/08/25 06:00 01/10/25 14:00 500 MG Hydromorphone HCl 1.5 mg Q3HPRN PRN IV 01/09/25 16:15 01/10/25 18:17 1.5 MG Physical Exam: General: NAD Neck: Supple. No masses. HEENT: PERRL. Normal lids and conjunctiva. Moist mucous membranes. Oropharynx without lesions, exudates or excessive erythema. Normal appearance of the external aspects of the nose and ears. Heart: Regular rhythm, normal rate. No murmur. No lower extremity edema. Lungs: Normal respiratory effort. Clear to auscultation bilaterally. No wheezes. No crackles. Abdomen: Soft. Non-tender. Non-distended. No masses or abdominal hernia. Msk: No digital cyanosis. Normal strength and tone in all 4 limbs Skin: Warm and dry, no rashes. Neuro: Alert. No facial droop or slurred speech. Extra-ocular movements intact. Sensation intact to soft touch in all 4 limbs. Psych: Appropriate mood. Full affect. Oriented to person, place, time, and situation laboratory and microbiology Laboratory Tests 01/08/25 10:22 Test 01/08/25 10:22 Range/Units Serum Glucose 105 74-106 mg/dL Problem List/Assessment/Plan Problems(with codes): (1) Postoperative seroma of subcutaneous tissue (2) History of ovarian cancer (3) Ovarian cancer (4) Abdominal mass (5) Acute abdominal pain (6) Intractable abdominal pain (7) Bright red blood per rectum Problem List/Assessment/Plan ASSESSMENT AND PLAN: ID Problem List: \-- Ovarian cancer, not currently on treatment \-- Diverticulosis \-- Acute diverticular abscess (left lower quadrant) \-- Rectal bleeding \-- History of hemorrhoids \-- Hypertension Assessment This is a female with a past medical history of ovarian cancer (not on treatment for the last six months), diverticulosis, hypertension, and hemorrhoids, presenting with several days of acute abdominal pain and rectal bleeding. She is currently admitted for further evaluation and management. On admission, the patient was hemodynamically stable. Initial labs significant for leukocytosis (WBC 16.1), hemoglobin 12.6, and platelets 497. Lactic acid was 1.3. CT abdomen and pelvis without contrast revealed a large (14.3 cm) complex fluid collection containing gas in the left lower quadrant inseparable from the sigmoid colon, with diverticula, highly suspicious for abscess. This has significantly increased in size compared to prior imaging. Hepatic steatosis and a ventral abdominal wall hernia with non-obstructed bowel loops noted. Remote cholecystectomy. 01/05: aspirated cultures from intraabdominal abscess is growing gram negative rods , awaiting identification and susceptibilities 01/06: tolerating clear liquid diet 01/07: ongoing concern for bowel leak via metstatic spread to sigmoid and fistulization r 01/08: aspirated fluid collection show klebsiella that is morejon sensitive and is also growing streptococcus . drainage output down to 50ccs of bilious fluid Plan: - recommend picc line and 4 weeks ceftriaxone with oral flagyl - stop levofloxacin and zosyn. - fu in [facility] clinic in 4 weeks. - will need ct in 4 weeks to determine if abscess has resolved. - will need to fu on aspirated specimen path results. - continue iv antibiotics given extensive leukocytosis and extensive drainage output from the abdomen - Percutaneous drain was placed today (01/05/2025) into the perisigmoid fluid collection, which aspirated 30 cc of feculent fluid. - Cultures are pending. - Current rectal bleeding is being monitored. - The patient is NPO except for advancement of diet per surgical team recommendations. Empiric antibiotics initiated (vancomycin and piperacillin- tazobactam). - Blood and urine cultures are no growth to date. - Will closely monitor abdominal exam, bowel movements, and rectal bleeding with coordination with surgical colleagues. - Continue to monitor drain output. The patient appears to be stable and improving. - Will follow up on aspirated culture results and modify antibiotics as needed. - Surgical and dietary recommendations per general surgery team to be followed. Will arrange for follow-up after completion of treatment. Isolation Precautions: Standard Plan discussed with: Other Dietary Evaluation Review Comments: Clear Liquid diet with Ensure Clear BID Expected Outcomes/Goals: recovered GI function, gradual wt loss, ROGELIO PATRICIA MD Jan 10, 2025 22:08
--- NOTE | 2025-01-10 22:08 | DVHPN2 ---
Consult Progress Note Date Seen: Jan 09, 2025 Subjective Patient reports: Other (no fevers or chills , abdominal pain has improved on delotted ) Objective vital signs Vital Sign Date Time Temp Pulse Resp B/P (MAP) Pulse Ox O2 Delivery O2 Flow Rate FiO2 01/10/25 21:00 98.1 69 17 121/79 (93) 96 98.1 01/10/25 08:00 Room Air* 0 21 Total Intake and Output 01/09/25 01/09/25 01/10/25 15:00 23:00 07:00 Intake Total 50 ml 850 ml 600 ml Balance 50 ml 850 ml 600 ml medications Current Medications Medications Dose Ordered Sig/Earl Route Start Time Stop Time Status Last Admin Dose Admin Ondansetron HCl 4 mg Q4HP PRN IV 01/04/25 09:45 Pantoprazole Sodium 40 mg BID IV 01/04/25 10:00 01/10/25 10:22 40 MG Nitroglycerin 0.4 mg Q5MINP PRN SL 01/04/25 09:45 Vancomycin HCl 0 ml @ 0 mls/hr UD IV 01/04/25 10:00 Cancel Sodium Chloride 1,000 ml @ 75 mls/hr [id number] IV 01/04/25 10:00 01/08/25 08:32 75 MLS/HR Lorazepam 1 mg BID PRN PO 01/04/25 10:00 01/08/25 22:33 1 MG Atenolol 50 mg BID PO 01/04/25 10:00 01/09/25 22:08 50 MG Diphenhydramine HCl 25 mg Q8HP PRN IV 01/04/25 10:00 01/06/25 17:58 25 MG Oxycodone/ Acetaminophen 2 tab Q6HP PRN PO 01/04/25 12:45 01/06/25 01:16 2 TAB Polyethylene Glycol 17 gm DAILY PO 01/04/25 12:45 01/10/25 10:24 17 GM Levofloxacin/ Dextrose 100 ml @ 100 mls/hr DAILY IV 01/08/25 10:00 Cancel Ceftriaxone Sodium/Dextrose 50 ml @ 50 mls/hr DAILY IV 01/08/25 10:00 01/10/25 10:24 50 MLS/HR Metronidazole 500 mg Q8HR PO 01/08/25 06:00 01/10/25 14:00 500 MG Hydromorphone HCl 1.5 mg Q3HPRN PRN IV 01/09/25 16:15 01/10/25 18:17 1.5 MG Physical Exam: General: NAD Neck: Supple. No masses. HEENT: PERRL. Normal lids and conjunctiva. Moist mucous membranes. Oropharynx without lesions, exudates or excessive erythema. Normal appearance of the external aspects of the nose and ears. Heart: Regular rhythm, normal rate. No murmur. No lower extremity edema. Lungs: Normal respiratory effort. Clear to auscultation bilaterally. No wheezes. No crackles. Abdomen: Soft. Non-tender. Non-distended. No masses or abdominal hernia. Msk: No digital cyanosis. Normal strength and tone in all 4 limbs Skin: Warm and dry, no rashes. Neuro: Alert. No facial droop or slurred speech. Extra-ocular movements intact. Sensation intact to soft touch in all 4 limbs. Psych: Appropriate mood. Full affect. Oriented to person, place, time, and situation laboratory and microbiology Laboratory Tests 01/08/25 10:22 Test 01/08/25 10:22 Range/Units Serum Glucose 105 74-106 mg/dL Problem List/Assessment/Plan Problems(with codes): (1) Postoperative seroma of subcutaneous tissue (2) History of ovarian cancer (3) Ovarian cancer (4) Abdominal mass (5) Acute abdominal pain (6) Intractable abdominal pain Problem List/Assessment/Plan ASSESSMENT AND PLAN: ID Problem List: \-- Ovarian cancer, not currently on treatment \-- Diverticulosis \-- Acute diverticular abscess (left lower quadrant) \-- Rectal bleeding \-- History of hemorrhoids \-- Hypertension Assessment This is a female with a past medical history of ovarian cancer (not on treatment for the last six months), diverticulosis, hypertension, and hemorrhoids, presenting with several days of acute abdominal pain and rectal bleeding. She is currently admitted for further evaluation and management. On admission, the patient was hemodynamically stable. Initial labs significant for leukocytosis (WBC 16.1), hemoglobin 12.6, and platelets 497. Lactic acid was 1.3. CT abdomen and pelvis without contrast revealed a large (14.3 cm) complex fluid collection containing gas in the left lower quadrant inseparable from the sigmoid colon, with diverticula, highly suspicious for abscess. This has significantly increased in size compared to prior imaging. Hepatic steatosis and a ventral abdominal wall hernia with non-obstructed bowel loops noted. Remote cholecystectomy. 01/05: aspirated cultures from intraabdominal abscess is growing gram negative rods , awaiting identification and susceptibilities 01/06: tolerating clear liquid diet 01/07: ongoing concern for bowel leak via metstatic spread to sigmoid and fistulization r 01/08: aspirated fluid collection show klebsiella that is morejon sensitive and is also growing streptococcus . drainage output down to 50ccs of bilious fluid 01/09: hemoglobin appears stable and whitecount is coming down . no drain output through billiary drain Plan: - tolerating clear liquid diet and off tpn - recommend picc line and 4 weeks ceftriaxone with oral flagyl - fu in [facility] clinic in 4 weeks. - will need ct in 4 weeks to determine if abscess has resolved. - will need to fu on aspirated specimen path results. - continue iv antibiotics given extensive leukocytosis and extensive drainage output from the abdomen - Percutaneous drain was placed today (01/05/2025) into the perisigmoid fluid collection, which aspirated 30 cc of feculent fluid. - Cultures are pending. - Current rectal bleeding is being monitored. - The patient is NPO except for advancement of diet per surgical team recommendations. Empiric antibiotics initiated (vancomycin and piperacillin- tazobactam). - Blood and urine cultures are no growth to date. - Will closely monitor abdominal exam, bowel movements, and rectal bleeding with coordination with surgical colleagues. - Continue to monitor drain output. The patient appears to be stable and improving. - Will follow up on aspirated culture results and modify antibiotics as needed. - Surgical and dietary recommendations per general surgery team to be followed. Will arrange for follow-up after completion of treatment. Isolation Precautions: Standard Plan discussed with: Other Dietary Evaluation Review Comments: Clear Liquid diet with Ensure Clear BID Expected Outcomes/Goals: recovered GI function, gradual wt loss, ROGELIO PATRICIA MD Jan 10, 2025 22:08
[2025-01-11] VITALS (9 sets, daily range): BP systolic 113–155; BP diastolic 60–128; PULSE 60–97; RESP 16–70; TEMP 97.1–97.9; O2SAT 51–98
[2025-01-11 11:41] LABS: INR 1.19 (0.9-1.15); Partial Thromboplastin Time 28.8 SEC (24.5-34.5); Prothrombin Time 12.4 sec (9.3-11.8)
--- NOTE | 2025-01-11 15:37 | DVHPN2 ---
Progress Note - Dictate Date Seen: Jan 11, 2025 Has the PT tested + for MRSA If YES, has PT been informed?: No Medical Necessity Reason Pt with a Central, PICC or Fol: No vital signs Vital Sign Date Time Temp Pulse Resp B/P (MAP) Pulse Ox O2 Delivery O2 Flow Rate FiO2 01/11/25 14:18 97.9 60 21 113/70 (84) 94 97.9 01/11/25 07:30 Room Air* 0 21 Total Intake and Output 01/10/25 01/10/25 01/11/25 15:00 23:00 07:00 Intake Total 1150 ml 500 ml Balance 1150 ml 500 ml medications Current Medications Medications Dose Ordered Sig/Earl Route Start Time Stop Time Status Last Admin Dose Admin Ondansetron HCl 4 mg Q4HP PRN IV 01/04/25 09:45 Pantoprazole Sodium 40 mg BID IV 01/04/25 10:00 01/11/25 09:38 40 MG Nitroglycerin 0.4 mg Q5MINP PRN SL 01/04/25 09:45 Vancomycin HCl 0 ml @ 0 mls/hr UD IV 01/04/25 10:00 Cancel Sodium Chloride 1,000 ml @ 75 mls/hr [id number] IV 01/04/25 10:00 01/08/25 08:32 75 MLS/HR Lorazepam 1 mg BID PRN PO 01/04/25 10:00 01/11/25 11:31 1 MG Atenolol 50 mg BID PO 01/04/25 10:00 01/11/25 09:38 50 MG Diphenhydramine HCl 25 mg Q8HP PRN IV 01/04/25 10:00 01/06/25 17:58 25 MG Oxycodone/ Acetaminophen 2 tab Q6HP PRN PO 01/04/25 12:45 01/06/25 01:16 2 TAB Polyethylene Glycol 17 gm DAILY PO 01/04/25 12:45 01/10/25 10:24 17 GM Levofloxacin/ Dextrose 100 ml @ 100 mls/hr DAILY IV 01/08/25 10:00 Cancel Ceftriaxone Sodium/Dextrose 50 ml @ 50 mls/hr DAILY IV 01/08/25 10:00 01/11/25 09:37 50 MLS/HR Metronidazole 500 mg Q8HR PO 01/08/25 06:00 01/11/25 13:58 500 MG Hydromorphone HCl 1.5 mg Q3HPRN PRN IV 01/09/25 16:15 01/11/25 13:58 1.5 MG Sodium Chloride 10 ml QSHIFT@10,22 IV 01/11/25 22:00 objective General Appearance: alert, no distress HEENT: EOMI, PERRLA, normal external inspect of ears, no icterus, no nasal drainage Neck: no carotid bruit, no jugular venous distention (JVD), no lymphadenopathy Chest: normal thorax Respiratory: clear to auscultation, normal air movement Cardiovascular: regular rate and rhythm, no diastolic murmur, no jugular venous distention (JVD), no rub, no systolic murmur Abdominal: soft, no hepatomegaly, no mass, no splenomegaly, no tenderness Genitourinary: grossly normal external Musculoskeletal: no joint tenderness, no swelling Extremities: normal pulses, no calf tenderness, no clubbing, no cyanosis, no edema Skin: no bruising, no jaundice, no rash Neurological: alert, No focal deficit laboratory and microbiology Laboratory Tests 01/08/25 10:22 Test 01/08/25 10:22 Range/Units Serum Glucose 105 74-106 mg/dL Problem List 1. Rectal Bleed GI Consult, Hold blood thinners 2. Hemorrhoids Medication, GI consult 3. Morbid Obesity Diet Education, monitoring 4. Chronic constipation Cathartics, monitoring Assessment/Plan Subjective Patient is awake and alert. Objective Patient was seen by surgery today. Still pending recommendations. Patient was admitted for abdominal pain. Patient was found to have a diverticular abscess. Patient is status post drainage of abscess by radiologist. Patient was also seen by infectious disease. GI is requesting clear liquid diet for two weeks and TPN at home for 2 weeks. Pending surgery evaluation for possible fistula. Plan Continue antibiotics. web services professional consult for discharge. Planning with TPN and IV antibiotics. Patient has picc line catheter in place. Dietary Evaluation Review Comments: Clear Liquid diet with Ensure Clear BID Expected Outcomes/Goals: recovered GI function, gradual wt loss, Plan discussed with: Patient, Other SAIMA GUERRERO NP Jan 11, 2025 15:37
--- NOTE | 2025-01-11 15:42 | DVHPN2 ---
Progress Note Date Seen: Jan 11, 2025 Resident Creating Document: ANGIE TORRES RESIDENT Has the PT tested + for MRSA If YES, has PT been informed?: No Medical Necessity Reason Pt with a Central, PICC or Fol: No Subjective Review of Systems 49 Year-old female with a recent perisigmoid abscess status-post IR-guided percutaneous drainage catheter placement presents on for ongoing abdominal pain management and infection control. Today's updates Abdominal pain continued to improve, now mild and intermittent only. Drain output is about 150 mL blood-tinged fluid, output consistent with prior days. Periosteal skin rash and blisters around the drain site improving with local wound care and adhesive changes. Four bowel movements today, no new rectal bleeding, stool consistency normal. Patient remains afebrile, hemodynamically stable, tolerating clear liquid diet. Receiving IV ceftriaxone and metronidazole with good response. Patient will need IV antibiotics via a PICC line once discharged from hospital. TPN initiation plan due to limited enteral intake and need for nutritional support post discharge. Discharge planning underway with PICC line, TPN at home and outpatient follow- up. We will need repeat CT abdominal scan in 2 weeks and colonoscopy in 3-4 months after full recovery. Objective vital signs Vital Sign Date Time Temp Pulse Resp B/P (MAP) Pulse Ox O2 Delivery O2 Flow Rate FiO2 01/11/25 14:18 97.9 60 21 113/70 (84) 94 97.9 01/11/25 07:30 Room Air* 0 21 Total Intake and Output 01/10/25 01/10/25 01/11/25 15:00 23:00 07:00 Intake Total 1150 ml 500 ml Balance 1150 ml 500 ml medications Current Medications Medications Dose Ordered Sig/Earl Route Start Time Stop Time Status Last Admin Dose Admin Ondansetron HCl 4 mg Q4HP PRN IV 01/04/25 09:45 Pantoprazole Sodium 40 mg BID IV 01/04/25 10:00 01/11/25 09:38 40 MG Nitroglycerin 0.4 mg Q5MINP PRN SL 01/04/25 09:45 Vancomycin HCl 0 ml @ 0 mls/hr UD IV 01/04/25 10:00 Cancel Sodium Chloride 1,000 ml @ 75 mls/hr [id number] IV 01/04/25 10:00 01/08/25 08:32 75 MLS/HR Lorazepam 1 mg BID PRN PO 01/04/25 10:00 01/11/25 11:31 1 MG Atenolol 50 mg BID PO 01/04/25 10:00 01/11/25 09:38 50 MG Diphenhydramine HCl 25 mg Q8HP PRN IV 01/04/25 10:00 01/06/25 17:58 25 MG Oxycodone/ Acetaminophen 2 tab Q6HP PRN PO 01/04/25 12:45 01/06/25 01:16 2 TAB Polyethylene Glycol 17 gm DAILY PO 01/04/25 12:45 01/10/25 10:24 17 GM Levofloxacin/ Dextrose 100 ml @ 100 mls/hr DAILY IV 01/08/25 10:00 Cancel Ceftriaxone Sodium/Dextrose 50 ml @ 50 mls/hr DAILY IV 01/08/25 10:00 01/11/25 09:37 50 MLS/HR Metronidazole 500 mg Q8HR PO 01/08/25 06:00 01/11/25 13:58 500 MG Hydromorphone HCl 1.5 mg Q3HPRN PRN IV 01/09/25 16:15 01/11/25 13:58 1.5 MG Sodium Chloride 10 ml QSHIFT@10,22 IV 01/11/25 22:00 Examination General: Elderly female, alert, in no acute distress * Abdomen: Soft, mild left lower quadrant tenderness to deep palpation. Bowel sounds present. IR drain in place with 150 mL of dark sanguineous output today. No rebound or guarding. * Drain Site: Clean and dry; no erythema or purulent discharge laboratory and microbiology Laboratory Tests 01/08/25 10:22 Test 01/08/25 10:22 Range/Units Serum Glucose 105 74-106 mg/dL Microbiology Date/Time Source Procedure Growth Status 01/05/25 14:10 Aspirate Gram Stain - Final Complete 01/05/25 14:10 Body Fluid Culture - Final Klebsiella oxytoca Complete 01/05/25 00:50 Nose MRSA Screen - Final Methicillin Resistant S.aureus Complete 01/04/25 09:40 Blood Blood Culture - Final NO GROWTH AFTER 5 DAYS OF INCUBATION. Complete Problem List/Assessment/Plan Problem List/Assessment/Plan Assessment 1. Complicated sigmoid diverticulitis with large perisigmoid abscess (drain in situ), suspicion for fistula/metastatic erosion 2. Lower GI bleeding with ongoing hematochezia 3. Gram-negative intra-abdominal infection (pending final culture ID) 4. MRSA colonization (nasal positive) 5. Ventral abdominal wall hernia without obstruction 6. History of ovarian cancer 7. Leukocytosis, improving 8. Abdominal blisters around the percutaneous drain insertion site Plan GI-SPECIFIC PLAN GASTROINTESTINAL / INFECTIOUS DISEASES: The plan is to discharge the patient on PICC line and place her on clear liquid diet for 2 weeks. And TPN during that time. And IV antibiotics. And repeat imaging after 2 weeks and outpatient follow-up with GI. * Continue IV antibiotics: * Ceftriaxone IV per ID * Metronidazole IV * De-escalate Zosyn as culture confirmed Klebsiella oxytoca * Await sensitivity results; adjust antibiotics accordingly * Drain Management: * Continue daily assessment of IR drain output * Flush with 10 mL NS daily to maintain patency. And continue wound care daily. * Monitor for signs of clogging or infection at the site * Change drainage bag daily or PRN * IR/nursing to perform supervisor facepiece line * Pain Control: * Continue hydromorphone 1 mg IV and Percocet PRN * Wean opioids as tolerated * Monitor for constipation continue Miralax 17 g PO PRN * Nutrition: * Continue clear liquid diet * Monitor for return of bowel function, distention, and bloating * GI Bleeding: * Monitor for recurrent hematochezia or melena * Continue IV pantoprazole 40 mg BID * Monitor H/H daily * No EGD/colonoscopy at this time unless bleeding recurs PROPHYLAXIS / SUPPORTIVE CARE: * GI prophylaxis: Pantoprazole IV * Skin care: Monitor IR drain site for signs of infection * Electrolyte monitoring: Daily BMP to monitor renal function on antibiotics * Contact precautions due to MRSA nasal swab * Encourage ambulation with assistance Follow-up planning with repeat CT abdomen and pelvis in 2 weeks to assess abscess resolution Colonoscopy in 3-4 months post discharge for further GI evaluation. Arrange outpatient clinic follow-up after hospital discharge. Discharge plan includes TPN, PICC line antibiotics, home health and wound care. Case discussed in detail with the attending physician, including the clinical presentation, diagnostic workup, and comprehensive management plan. The patient was present for the discussion and demonstrated understanding of her condition and the proposed plan. Plan discussed with: Patient My Orders My Orders Orders - ANGIE TORRES RESIDENT Procedure Category Date Status Time * Wound Consult CONS 01/10/25 Transmitted 17:45 Wound Dressing: MONICO 01/10/25 In Process 17:45 Dietary Evaluation Review Comments: Clear Liquid diet with Ensure Clear BID Expected Outcomes/Goals: recovered GI function, gradual wt loss, ANGIE TORRES RESIDENT Jan 11, 2025 15:42
--- NOTE | 2025-01-11 16:15 | DVHINCON2 ---
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 04/07/23 Hydrocortisone Acetate (ANUCORT-HC SUPPOSITORY) 25 Mg Cochran, 25 MG VT Q12HR for 15 Days, #30 SUPP Prov:SAIMA GUERRERO Avery DEHAIRING MACHINE TENDER 02/05/23 Lactulose (Lactulose) 10 Gm/15 Ml Miroslava, 10 GM PO BIDP PRN, #300 ML Prov:ENRRIQUE RAMIREZ PAC 12/27/22 Loratadine (Claritin) 10 Mg Tab, 1 TAB PO DAILY, #30 TAB 0 Refills Prov:ENRRIQUE RAMIREZ PAC 12/27/22 Reported Medications Lorazepam (Ativan) 0.5 Mg Tab, 1 TAB PO DAILY, #30 TAB 09/08/23 Diphenhydramine Hcl (Benadryl) 25 Mg Cap 12/18/10 Atenolol (Atenolol) 100 Mg Tab 12/18/10 Current Medications Current Medications Medications (Trade) Dose Ordered Sig/Earl Route PRN Reason Start Time Stop Time Status Last Admin Sodium Chloride (Saline Lock Ns) 10 ml QSHIFT@ IV 01/11/25 22:00 Vital Signs Vital Signs Date Time Temp Pulse Resp B/P (MAP) Pulse Ox O2 Delivery O2 Flow Rate FiO2 01/11/25 14:18 97.9 60 21 113/70 (84) 94 97.9 01/11/25 07:30 Room Air* 0 21 Labs/Diagnostic Data Labs Test 01/11/25 10:49 01/08/25 10:22 01/07/25 08:36 01/06/25 11:24 Range/Units Prothrombin Time 12.4 H 9.3-11.8 sec Prothrombin Time INR 1.19 H 0.9-1.15 Activated Partial Thromboplast Time 28.8 24.5-34.5 SEC White Blood Count 13.2 H 4.4-10.8 10^3/uL Red Blood Count 4.08 4.0-5.20 10^6/uL Hemoglobin 12.2 12.2-16.2 g/dL Hematocrit 36.7 36.0-46.0 % Mean Corpuscular Volume 89.9 80.0-100.0 fL Mean Corpuscular Hemoglobin 29.8 28.0-32.0 pg Mean Corpuscular Hemoglobin Concent 33.1 32.0-36.0 g/dL Red Cell Distribution Width 14.0 11.8-14.3 % Platelet Count 492 H 140-450 10^3/uL Mean Platelet Volume 6.5 L 6.9-10.8 fL Neutrophils (%) (Auto) 71.9 37.0-80.0 % Lymphocytes (%) (Auto) 19.7 10.0-50.0 % Monocytes (%) (Auto) 6.3 0.0-12.0 % Eosinophils (%) (Auto) 1.2 0.0-7.0 % Basophils (%) (Auto) 0.9 0.0-2.0 % Neutrophils # (Auto) 9.5 H 1.6-8.6 10 ^3/uL Lymphocytes # (Auto) 2.6 0.4-5.4 10 ^3/uL Monocytes # (Auto) 0.8 0-1.3 10 ^3/uL Eosinophils # (Auto) 0.2 0-0.8 10 ^3/uL Basophils # (Auto) 0.1 0-0.2 10 ^3/uL Nucleated Red Blood Cells 0.2 % Sodium Level 140 136-145 mmol/L Potassium Level 3.8 3.5-5.1 mmol/L Chloride Level 108 H 98-107 mmol/L Carbon Dioxide Level 21 20-31 mmol/L Anion Gap 11 5-15 Blood Urea Nitrogen < 5 L 9-23 mg/dL Creatinine 0.56 0.550-1.02 mg/dL Glomerular Filtration Rate Calc 111 >90 mL/min BUN/Creatinine Ratio 8.9 L 10.0-20.0 Serum Glucose 105 74-106 mg/dL Calcium Level 8.7 8.7-10.4 mg/dL Total Bilirubin 0.7 0.2-1.0 mg/dL Aspartate Amino Transferase (AST) 13 13-40 U/L Alanine Aminotransferase (ALT) < 9 7-40 U/L Alkaline Phosphatase 85 46-116 U/L Total Protein 6.5 5.7-8.2 g/dL Albumin 3.7 3.2-4.8 g/dL POC Glucose 95 70-106 mg/dl Test 01/05/25 11:11 01/04/25 09:46 01/04/25 09:41 01/04/25 05:58 Range/Units Vancomycin Level Trough 14.7 H 5-10 ug/mL Urine Color Yellow Yellow Urine Clarity Turbid H Clear Urine pH 5.5 5.0-9.0 Urine Specific [place] 1.022 1.001-1.035 Urine Protein Negative Negative Urine Ketones Negative Negative Urine Blood Negative Negative /uL Urine Nitrite Negative Negative Urine Bilirubin Negative Negative Urine Urobilinogen 3 H Negative mg/dL Urine Leukocyte Esterase Negative Negative /uL Urine RBC 2 0 - 4 /hpf Urine Microscopic WBC 2 0-5 /HPF Urine Squamous Epithelial Cells Mod <5 /hpf Urine Bacteria None seen None Seen /hpf Urine Mucus Few None Seen Urine Glucose Normal Normal mg/dL Lactic Acid Level 1.3 0.4-2.0 mmol/L Lipase 33 12-53 U/L Microbiology Date/Time Source Procedure Growth Status 01/05/25 14:10 Aspirate Gram Stain - Final Complete 01/05/25 14:10 Body Fluid Culture - Final Klebsiella oxytoca Complete 01/05/25 00:50 Nose MRSA Screen - Final Methicillin Resistant S.aureus Complete 01/04/25 09:40 Blood Blood Culture - Final NO GROWTH AFTER 5 DAYS OF INCUBATION. Complete Assessment [id number] afebrile VSS ABD PAIN RESOLVED ABD NON TENDER BM + RESOLVING SIGMOID DIVERTICULITIS MONITOR DRAIN CLOSE OBSERVATION REPEAT CT SCAN ABD PELVIS Plan discussed with: Patient CHIQUITA BRADSHAW MD Jan 11, 2025 16:15
--- NOTE | 2025-01-11 16:24 | DVHINCON2 ---
DATE OF CONSULTATION: 01/11/2025 HISTORY OF PRESENT ILLNESS: This patient is 49 years old, coming with abdominal pain and now, the abdominal pain has subsided. She had rectal bleeding also 2 weeks and history of ovarian cancer, diverticulosis, hemorrhoids, and she was found to have sigmoid diverticulitis complicated by an abscess that was drained and now she is feeling better. No nausea or vomiting. No hematemesis or melena. No bleeding per rectum. PAST MEDICAL HISTORY: History of ovarian cancer, diverticulosis, rectal bleeding, history of hemorrhoids, hypertension. PHYSICAL EXAMINATION: VITAL SIGNS: Afebrile. Stable signs. HEENT: With no evidence of pallor, cyanosis, or jaundice. NECK: Supple and nontender. No thyromegaly or lymphadenopathy. CHEST AND LUNGS: Clear. HEART: Within normal limits. ABDOMEN: Soft. She is morbidly obese. Difficult to evaluate. She has drainage tube in place that is functioning and does not have any acute abdomen. NEUROLOGIC: Not assessed. EXTREMITIES: Unremarkable. CLINICAL IMPRESSION: Resolving sigmoid diverticulitis. PLAN: She is tolerating a liquid diet. The plan will be to manage her conservatively and she is high risk for surgery and consider repeat CT scan of the abdomen and pelvis to determine the need for removing of the drainage catheter. MD CORINNA Herring/MAMIE TID: [id number] RECEIPT: [id number] cc: Sherri Godinez
[2025-01-11] MEDS: SODIUM CHLOR 0.9% PF (SALINE LOCK) 10ML VIAL/SYR IV SCH (22:20)
[2025-01-12] VITALS (8 sets, daily range): BP systolic 108–140; BP diastolic 21–90; PULSE 60–73; RESP 16–19; TEMP 96.7–97.9; O2SAT 95–100
--- NOTE | 2025-01-12 13:57 | DVHPN2 ---
Progress Note Date Seen: Jan 12, 2025 Resident Creating Document: ANGIE TORRES RESIDENT Has the PT tested + for MRSA If YES, has PT been informed?: No Medical Necessity Reason Pt with a Central, PICC or Fol: No Subjective Review of Systems Today's updates Abdominal pain continued to improve, now mild and intermittent only. Drain output is very minimal blood-tinged fluid. Periosteal skin rash and blisters around the drain site improving with local wound care and adhesive changes. Patient had bowel movements today, no new rectal bleeding, stool consistency normal. Patient remains afebrile, hemodynamically stable, tolerating clear liquid diet. Receiving IV ceftriaxone and metronidazole with good response. Patient will need IV antibiotics via a PICC line once discharged from hospital. TPN initiation plan due to limited enteral intake and need for nutritional support post discharge. Discharge planning underway with PICC line, TPN at home and outpatient follow- up. We will need repeat CT abdominal scan in 2 weeks and colonoscopy in 3-4 months after full recovery. Objective vital signs Vital Sign Date Time Temp Pulse Resp B/P (MAP) Pulse Ox O2 Delivery O2 Flow Rate FiO2 01/12/25 12:47 97.9 72 19 140/90 (107) 96 97.9 01/11/25 20:00 Room Air* 0 21 Total Intake and Output 01/11/25 01/11/25 01/12/25 15:00 23:00 07:00 Intake Total 920 ml 650 ml Balance 920 ml 650 ml medications Current Medications Medications Dose Ordered Sig/Earl Route Start Time Stop Time Status Last Admin Dose Admin Ondansetron HCl 4 mg Q4HP PRN IV 01/04/25 09:45 Pantoprazole Sodium 40 mg BID IV 01/04/25 10:00 01/12/25 09:32 40 MG Nitroglycerin 0.4 mg Q5MINP PRN SL 01/04/25 09:45 Vancomycin HCl 0 ml @ 0 mls/hr UD IV 01/04/25 10:00 Cancel Sodium Chloride 1,000 ml @ 75 mls/hr [id number] IV 01/04/25 10:00 01/08/25 08:32 75 MLS/HR Lorazepam 1 mg BID PRN PO 01/04/25 10:00 01/11/25 11:31 1 MG Atenolol 50 mg BID PO 01/04/25 10:00 8/7/25 09:33 50 MG Diphenhydramine HCl 25 mg Q8HP PRN IV 01/04/25 10:00 01/06/25 17:58 25 MG Oxycodone/ Acetaminophen 2 tab Q6HP PRN PO 01/04/25 12:45 01/06/25 01:16 2 TAB Polyethylene Glycol 17 gm DAILY PO 01/04/25 12:45 01/10/25 10:24 17 GM Levofloxacin/ Dextrose 100 ml @ 100 mls/hr DAILY IV 01/08/25 10:00 Cancel Ceftriaxone Sodium/Dextrose 50 ml @ 50 mls/hr DAILY IV 01/08/25 10:00 01/12/25 09:32 50 MLS/HR Metronidazole 500 mg Q8HR PO 01/08/25 06:00 01/12/25 06:18 500 MG Hydromorphone HCl 1.5 mg Q3HPRN PRN IV 01/09/25 16:15 01/12/25 12:36 1.5 MG Sodium Chloride 10 ml QSHIFT@10,22 IV 01/11/25 22:00 01/12/25 09:32 10 ML laboratory and microbiology Laboratory Tests 01/08/25 10:22 Test 01/08/25 10:22 Range/Units Serum Glucose 105 74-106 mg/dL Microbiology Date/Time Source Procedure Growth Status 01/05/25 14:10 Aspirate Gram Stain - Final Complete 01/05/25 14:10 Body Fluid Culture - Final Klebsiella oxytoca Complete 01/05/25 00:50 Nose MRSA Screen - Final Methicillin Resistant S.aureus Complete 01/04/25 09:40 Blood Blood Culture - Final NO GROWTH AFTER 5 DAYS OF INCUBATION. Complete Problem List/Assessment/Plan Problem List/Assessment/Plan Assessment 1. Complicated sigmoid diverticulitis with large perisigmoid abscess (drain in situ), suspicion for fistula/metastatic erosion 2. Lower GI bleeding with ongoing hematochezia 3. Gram-negative intra-abdominal infection (pending final culture ID) 4. MRSA colonization (nasal positive) 5. Ventral abdominal wall hernia without obstruction 6. History of ovarian cancer 7. Leukocytosis, improving 8. Abdominal blisters around the percutaneous drain insertion site Plan GI-SPECIFIC PLAN GASTROINTESTINAL / INFECTIOUS DISEASES: The plan is to discharge the patient on PICC line and place her on clear liquid diet for 2 weeks. And TPN during that time. And IV antibiotics. And repeat imaging after 2 weeks and outpatient follow-up with GI. * Continue IV antibiotics: * Ceftriaxone IV per ID * Metronidazole IV * De-escalate Zosyn as culture confirmed Klebsiella oxytoca * Await sensitivity results; adjust antibiotics accordingly * Drain Management: * Continue daily assessment of IR drain output * Flush with 10 mL NS daily to maintain patency. And continue wound care daily. * Monitor for signs of clogging or infection at the site * Change drainage bag daily or PRN * IR/nursing to perform hot top liner helper * Pain Control: * Continue hydromorphone 1 mg IV and Percocet PRN * Wean opioids as tolerated * Monitor for constipation continue Miralax 17 g PO PRN * Nutrition: * Continue clear liquid diet * Monitor for return of bowel function, distention, and bloating * GI Bleeding: * Monitor for recurrent hematochezia or melena * Continue IV pantoprazole 40 mg BID * Monitor H/H daily * No EGD/colonoscopy at this time unless bleeding recurs PROPHYLAXIS / SUPPORTIVE CARE: * GI prophylaxis: Pantoprazole IV * Skin care: Monitor IR drain site for signs of infection * Electrolyte monitoring: Daily BMP to monitor renal function on antibiotics * Contact precautions due to MRSA nasal swab * Encourage ambulation with assistance Follow-up planning with repeat CT abdomen and pelvis in 2 weeks to assess abscess resolution Colonoscopy in 3-4 months post discharge for further GI evaluation. Arrange outpatient clinic follow-up after hospital discharge. Discharge plan includes TPN, PICC line antibiotics, home health and wound care. Case discussed in detail with the attending physician, including the clinical presentation, diagnostic workup, and comprehensive management plan. The patient was present for the discussion and demonstrated understanding of her condition and the proposed plan. Plan discussed with: Patient Dietary Evaluation Review Comments: Clear Liquid diet with Ensure Clear BID Expected Outcomes/Goals: recovered GI function, gradual wt loss, ANGIE TORRES RESIDENT Jan 12, 2025 13:57
[2025-01-12] MEDS: OMNIPAQUE 12mg/ml 500ml ORAL SOLUTION PO ONE (14:44)
--- NOTE | 2025-01-12 16:16 | DVHPN2 ---
Progress Note Date Seen: Jan 12, 2025 Has the PT tested + for MRSA If YES, has PT been informed?: No Medical Necessity Reason Pt with a Central, PICC or Fol: No Objective vital signs Vital Sign Date Time Temp Pulse Resp B/P (MAP) Pulse Ox O2 Delivery O2 Flow Rate FiO2 01/12/25 15:51 68 14 136/88 01/12/25 12:47 97.9 96 97.9 01/12/25 08:00 Room Air* 0 21 Total Intake and Output 01/11/25 01/11/25 01/12/25 15:00 23:00 07:00 Intake Total 920 ml 650 ml Balance 920 ml 650 ml medications Current Medications Medications Dose Ordered Sig/Earl Route Start Time Stop Time Status Last Admin Dose Admin Ondansetron HCl 4 mg Q4HP PRN IV 01/04/25 09:45 Pantoprazole Sodium 40 mg BID IV 01/04/25 10:00 01/12/25 09:32 40 MG Nitroglycerin 0.4 mg Q5MINP PRN SL 01/04/25 09:45 Vancomycin HCl 0 ml @ 0 mls/hr UD IV 01/04/25 10:00 Cancel Sodium Chloride 1,000 ml @ 75 mls/hr [id number] IV 01/04/25 10:00 01/08/25 08:32 75 MLS/HR Lorazepam 1 mg BID PRN PO 01/04/25 10:00 01/11/25 11:31 1 MG Atenolol 50 mg BID PO 01/04/25 10:00 01/12/25 09:33 50 MG Diphenhydramine HCl 25 mg Q8HP PRN IV 01/04/25 10:00 01/06/25 17:58 25 MG Oxycodone/ Acetaminophen 2 tab Q6HP PRN PO 01/04/25 12:45 01/06/25 01:16 2 TAB Polyethylene Glycol 17 gm DAILY PO 01/04/25 12:45 01/10/25 10:24 17 GM Levofloxacin/ Dextrose 100 ml @ 100 mls/hr DAILY IV 01/08/25 10:00 Cancel Ceftriaxone Sodium/Dextrose 50 ml @ 50 mls/hr DAILY IV 01/08/25 10:00 01/12/25 09:32 50 MLS/HR Metronidazole 500 mg Q8HR PO 01/08/25 06:00 01/12/25 14:18 500 MG Hydromorphone HCl 1.5 mg Q3HPRN PRN IV 01/09/25 16:15 01/12/25 15:51 1.5 MG Sodium Chloride 10 ml QSHIFT@10,22 IV 01/11/25 22:00 01/12/25 09:32 10 ML laboratory and microbiology Laboratory Tests 01/08/25 10:22 Test 01/08/25 10:22 Range/Units Serum Glucose 105 74-106 mg/dL Microbiology Date/Time Source Procedure Growth Status 01/05/25 14:10 Aspirate Gram Stain - Final Complete 01/05/25 14:10 Body Fluid Culture - Final Klebsiella oxytoca Complete 01/05/25 00:50 Nose MRSA Screen - Final Methicillin Resistant S.aureus Complete 01/04/25 09:40 Blood Blood Culture - Final NO GROWTH AFTER 5 DAYS OF INCUBATION. Complete Problem List/Assessment/Plan Problem List/Assessment/Plan AFEBRILE VSS ABD SOFT REPEAT CT SCAN ABD PELVIS PENDING CONTINUE CLOSE OBSERVATION Plan discussed with: Patient Dietary Evaluation Review Comments: Clear Liquid diet with Ensure Clear BID Expected Outcomes/Goals: recovered GI function, gradual wt loss, CHIQUITA BRADSHAW MD Jan 12, 2025 16:16
--- NOTE | 2025-01-12 17:17 | DVHPN2 ---
Consult Progress Note Date Seen: Jan 11, 2025 Subjective Patient reports: Other (had piccline placement , continues to have redness and ) Objective vital signs Vital Sign Date Time Temp Pulse Resp B/P (MAP) Pulse Ox O2 Delivery O2 Flow Rate FiO2 01/12/25 16:58 97.8 63 16 127/21 (56) 95 97.8 01/12/25 08:00 Room Air* 0 21 Total Intake and Output 01/11/25 01/11/25 01/12/25 15:00 23:00 07:00 Intake Total 920 ml 650 ml Balance 920 ml 650 ml medications Current Medications Medications Dose Ordered Sig/Earl Route Start Time Stop Time Status Last Admin Dose Admin Ondansetron HCl 4 mg Q4HP PRN IV 01/04/25 09:45 Pantoprazole Sodium 40 mg BID IV 01/04/25 10:00 01/12/25 09:32 40 MG Nitroglycerin 0.4 mg Q5MINP PRN SL 01/04/25 09:45 Vancomycin HCl 0 ml @ 0 mls/hr UD IV 01/04/25 10:00 Cancel Sodium Chloride 1,000 ml @ 75 mls/hr [id number] IV 01/04/25 10:00 01/08/25 08:32 75 MLS/HR Lorazepam 1 mg BID PRN PO 01/04/25 10:00 01/11/25 11:31 1 MG Atenolol 50 mg BID PO 01/04/25 10:00 01/12/25 09:33 50 MG Diphenhydramine HCl 25 mg Q8HP PRN IV 01/04/25 10:00 01/06/25 17:58 25 MG Oxycodone/ Acetaminophen 2 tab Q6HP PRN PO 01/04/25 12:45 01/06/25 01:16 2 TAB Polyethylene Glycol 17 gm DAILY PO 01/04/25 12:45 01/10/25 10:24 17 GM Levofloxacin/ Dextrose 100 ml @ 100 mls/hr DAILY IV 01/08/25 10:00 Cancel Ceftriaxone Sodium/Dextrose 50 ml @ 50 mls/hr DAILY IV 01/08/25 10:00 01/12/25 09:32 50 MLS/HR Metronidazole 500 mg Q8HR PO 01/08/25 06:00 01/12/25 14:18 500 MG Hydromorphone HCl 1.5 mg Q3HPRN PRN IV 01/09/25 16:15 01/12/25 15:51 1.5 MG Sodium Chloride 10 ml QSHIFT@10,22 IV 01/11/25 22:00 01/12/25 09:32 10 ML Physical Exam: General: NAD Neck: Supple. No masses. HEENT: PERRL. Normal lids and conjunctiva. Moist mucous membranes. Oropharynx without lesions, exudates or excessive erythema. Normal appearance of the external aspects of the nose and ears. Heart: Regular rhythm, normal rate. No murmur. No lower extremity edema. Lungs: Normal respiratory effort. Clear to auscultation bilaterally. No wheezes. No crackles. Abdomen: Soft. Non-tender. Non-distended. No masses or abdominal hernia. Msk: No digital cyanosis. Normal strength and tone in all 4 limbs Skin: Warm and dry, no rashes. Neuro: Alert. No facial droop or slurred speech. Extra-ocular movements intact. Sensation intact to soft touch in all 4 limbs. Psych: Appropriate mood. Full affect. Oriented to person, place, time, and situation laboratory and microbiology Laboratory Tests 01/08/25 10:22 Test 01/08/25 10:22 Range/Units Serum Glucose 105 74-106 mg/dL Problem List/Assessment/Plan Problems(with codes): (1) Postoperative seroma of subcutaneous tissue (2) History of ovarian cancer (3) Ovarian cancer (4) Abdominal mass (5) Acute abdominal pain (6) Intractable abdominal pain (7) Bright red blood per rectum Problem List/Assessment/Plan ASSESSMENT AND PLAN: ID Problem List: \-- Ovarian cancer, not currently on treatment \-- Diverticulosis \-- Acute diverticular abscess (left lower quadrant) \-- Rectal bleeding \-- History of hemorrhoids \-- Hypertension \-- Abdominal Wall cellulitis Assessment This is a female with a past medical history of ovarian cancer (not on treatment for the last six months), diverticulosis, hypertension, and hemorrhoids, presenting with several days of acute abdominal pain and rectal bleeding. She is currently admitted for further evaluation and management. On admission, the patient was hemodynamically stable. Initial labs significant for leukocytosis (WBC 16.1), hemoglobin 12.6, and platelets 497. Lactic acid was 1.3. CT abdomen and pelvis without contrast revealed a large (14.3 cm) complex fluid collection containing gas in the left lower quadrant inseparable from the sigmoid colon, with diverticula, highly suspicious for abscess. This has significantly increased in size compared to prior imaging. Hepatic steatosis and a ventral abdominal wall hernia with non-obstructed bowel loops noted. Remote cholecystectomy. 01/05: aspirated cultures from intraabdominal abscess is growing gram negative rods , awaiting identification and susceptibilities 01/06: tolerating clear liquid diet 01/07: ongoing concern for bowel leak via metstatic spread to sigmoid and fistulization r 01/08: aspirated fluid collection show klebsiella that is morejon sensitive and is also growing streptococcus . drainage output down to 50ccs of bilious fluid 01/09: hemoglobin appears stable and whitecount is coming down . no drain output through billiary drain 01/10: required intermittently TPN but tolerating clear liquid diet 01/11: having localized cellulitis around the intraabdominal drain Plan: - add topical neomycin around the drainage catheter to clear localized cellulitis - recommend close observation to see if patient can advance diet and see if additional surgical remedies are needed - continue ceftriaxone - tolerating clear liquid diet and off tpn - recommend picc line and 4 weeks ceftriaxone til 02/02 if the intraabdominal abscess remains persistently large - can consider repeat ct imaging if patient remains longer than a week - fu in id clinic in 4 weeks. - will need ct in 4 weeks to determine if abscess has resolved. - will need to fu on aspirated specimen path results. - continue iv antibiotics given extensive leukocytosis and extensive drainage output from the abdomen - Percutaneous drain was placed today (01/05/2025) into the perisigmoid fluid collection, which aspirated 30 cc of feculent fluid. - Cultures are pending. - Current rectal bleeding is being monitored. - The patient is NPO except for advancement of diet per surgical team recommendations. Empiric antibiotics initiated (vancomycin and piperacillin- tazobactam). - Blood and urine cultures are no growth to date. - Will closely monitor abdominal exam, bowel movements, and rectal bleeding with coordination with surgical colleagues. - Continue to monitor drain output. The patient appears to be stable and improving. - Will follow up on aspirated culture results and modify antibiotics as needed. - Surgical and dietary recommendations per general surgery team to be followed. Will arrange for follow-up after completion of treatment. Isolation Precautions: Standard Plan discussed with: Other Dietary Evaluation Review Comments: Clear Liquid diet with Ensure Clear BID Expected Outcomes/Goals: recovered GI function, gradual wt loss, ROGELIO PATRICIA MD Jan 12, 2025 17:17
--- NOTE | 2025-01-12 17:17 | DVHPN2 ---
Consult Progress Note Date Seen: Jan 12, 2025 Subjective Patient reports: Other (patient has poor po intake , need a double lumen picc per home health , has a fabio cath . no fevers , abdominal pain , no drainage today ) Objective vital signs Vital Sign Date Time Temp Pulse Resp B/P (MAP) Pulse Ox O2 Delivery O2 Flow Rate FiO2 01/12/25 16:58 97.8 63 16 127/21 (56) 95 97.8 01/12/25 08:00 Room Air* 0 21 Total Intake and Output 01/11/25 01/11/25 01/12/25 15:00 23:00 07:00 Intake Total 920 ml 650 ml Balance 920 ml 650 ml medications Current Medications Medications Dose Ordered Sig/Earl Route Start Time Stop Time Status Last Admin Dose Admin Ondansetron HCl 4 mg Q4HP PRN IV 01/04/25 09:45 Pantoprazole Sodium 40 mg BID IV 01/04/25 10:00 01/12/25 09:32 40 MG Nitroglycerin 0.4 mg Q5MINP PRN SL 01/04/25 09:45 Vancomycin HCl 0 ml @ 0 mls/hr UD IV 01/04/25 10:00 Cancel Sodium Chloride 1,000 ml @ 75 mls/hr [id number] IV 01/04/25 10:00 01/08/25 08:32 75 MLS/HR Lorazepam 1 mg BID PRN PO 01/04/25 10:00 01/11/25 11:31 1 MG Atenolol 50 mg BID PO 01/04/25 10:00 01/12/25 09:33 50 MG Diphenhydramine HCl 25 mg Q8HP PRN IV 01/04/25 10:00 01/06/25 17:58 25 MG Oxycodone/ Acetaminophen 2 tab Q6HP PRN PO 01/04/25 12:45 01/06/25 01:16 2 TAB Polyethylene Glycol 17 gm DAILY PO 01/04/25 12:45 01/10/25 10:24 17 GM Levofloxacin/ Dextrose 100 ml @ 100 mls/hr DAILY IV 01/08/25 10:00 Cancel Ceftriaxone Sodium/Dextrose 50 ml @ 50 mls/hr DAILY IV 01/08/25 10:00 01/12/25 09:32 50 MLS/HR Metronidazole 500 mg Q8HR PO 01/08/25 06:00 01/12/25 14:18 500 MG Hydromorphone HCl 1.5 mg Q3HPRN PRN IV 01/09/25 16:15 01/12/25 15:51 1.5 MG Sodium Chloride 10 ml QSHIFT@10,22 IV 01/11/25 22:00 01/12/25 09:32 10 ML Physical Exam: General: NAD Neck: Supple. No masses. HEENT: PERRL. Normal lids and conjunctiva. Moist mucous membranes. Oropharynx without lesions, exudates or excessive erythema. Normal appearance of the external aspects of the nose and ears. Heart: Regular rhythm, normal rate. No murmur. No lower extremity edema. Lungs: Normal respiratory effort. Clear to auscultation bilaterally. No wheezes. No crackles. Abdomen: Soft. Non-tender. Non-distended. No masses or abdominal hernia. Msk: No digital cyanosis. Normal strength and tone in all 4 limbs Skin: Warm and dry, no rashes. Neuro: Alert. No facial droop or slurred speech. Extra-ocular movements intact. Sensation intact to soft touch in all 4 limbs. Psych: Appropriate mood. Full affect. Oriented to person, place, time, and situation laboratory and microbiology Laboratory Tests 01/08/25 10:22 Test 01/08/25 10:22 Range/Units Serum Glucose 105 74-106 mg/dL Problem List/Assessment/Plan Problems(with codes): (1) Postoperative seroma of subcutaneous tissue (2) History of ovarian cancer (3) Ovarian cancer (4) Abdominal mass (5) Acute abdominal pain (6) Intractable abdominal pain (7) Bright red blood per rectum Problem List/Assessment/Plan ASSESSMENT AND PLAN: ID Problem List: \-- Ovarian cancer, not currently on treatment \-- Diverticulosis \-- Acute diverticular abscess (left lower quadrant) \-- Rectal bleeding \-- History of hemorrhoids \-- Hypertension \-- Abdominal Wall cellulitis Assessment This is a female with a past medical history of ovarian cancer (not on treatment for the last six months), diverticulosis, hypertension, and hemorrhoids, presenting with several days of acute abdominal pain and rectal bleeding. She is currently admitted for further evaluation and management. On admission, the patient was hemodynamically stable. Initial labs significant for leukocytosis (WBC 16.1), hemoglobin 12.6, and platelets 497. Lactic acid was 1.3. CT abdomen and pelvis without contrast revealed a large (14.3 cm) complex fluid collection containing gas in the left lower quadrant inseparable from the sigmoid colon, with diverticula, highly suspicious for abscess. This has significantly increased in size compared to prior imaging. Hepatic steatosis and a ventral abdominal wall hernia with non-obstructed bowel loops noted. Remote cholecystectomy. 01/05: aspirated cultures from intraabdominal abscess is growing gram negative rods , awaiting identification and susceptibilities 01/06: tolerating clear liquid diet 01/07: ongoing concern for bowel leak via metstatic spread to sigmoid and fistulization r 01/08: aspirated fluid collection show klebsiella that is morejon sensitive and is also growing streptococcus . drainage output down to 50ccs of bilious fluid 01/09: hemoglobin appears stable and whitecount is coming down . no drain output through billiary drain 01/10: required intermittently TPN but tolerating clear liquid diet 01/11: having localized cellulitis around the intraabdominal drain 01/12: whitecount down to 12.5 Plan: - started on TPN as needed wehn oral intake is insufficient - add topical neomycin cream 3x a day for abdominal cellulitis - recommend close observation to see if patient can advance diet and see if additional surgical remedies are needed - continue ceftriaxone with oral flagyll - agree with repeat ct abdomen and pelvis to see if adjustments need to be made if abscess if multiloculated vs surgical evacuation of intraabdominal abscess - defer to primary on line access needs for IV antibiotics and TPN if needed - recommend picc line and 4 weeks ceftriaxone til 02/02 if the intraabdominal abscess remains persistently large - can consited repeat ct imaging if patient remains longer than a week - fu in id clinic in 4 weeks. - will need ct in 4 weeks to determine if abscess has resolved. - will need to fu on aspirated specimen path results. - continue iv antibiotics given extensive leukocytosis and extensive drainage output from the abdomen - Percutaneous drain was placed today (01/05/2025) into the perisigmoid fluid collection, which aspirated 30 cc of feculent fluid. - Cultures are pending. - Current rectal bleeding is being monitored. - The patient is NPO except for advancement of diet per surgical team recommendations. Empiric antibiotics initiated (vancomycin and piperacillin- tazobactam). - Blood and urine cultures are no growth to date. - Will closely monitor abdominal exam, bowel movements, and rectal bleeding with coordination with surgical colleagues. - Continue to monitor drain output. The patient appears to be stable and improving. - Will follow up on aspirated culture results and modify antibiotics as needed. - Surgical and dietary recommendations per general surgery team to be followed. Will arrange for follow-up after completion of treatment. Isolation Precautions: Standard Plan discussed with: Other Dietary Evaluation Review Comments: Clear Liquid diet with Ensure Clear BID Expected Outcomes/Goals: recovered GI function, gradual wt loss, ROGELIO PATRICIA MD Jan 12, 2025 17:17
[2025-01-12 17:24] LABS: Hemoglobin 12.6 g/dL (12.2-16.2); Mean Corpuscular Volume 89.3 fL (80.0-100.0)
[2025-01-12 17:25] LABS: Hematocrit 38.4 % (36.0-46.0); Mean Corpuscular Hemoglobin 29.4 pg (28.0-32.0); Nucleated Red Blood Cells % 0.0 %
[2025-01-12 17:28] LABS: Anion Gap 9 (5-15); Carbon Dioxide 25 mmol/L (20-31); Chloride 106 mmol/L (98-107); Potassium 4.5 mmol/L (3.5-5.1); Sodium 140 mmol/L (136-145)
[2025-01-12 17:29] LABS: Calcium 8.9 mg/dL (8.7-10.4)
[2025-01-12 17:34] LABS: Glucose 93 mg/dL (74-106); Magnesium 1.7 mg/dL (1.6-2.6)
[2025-01-12] MEDS: IOHEXOL 300 MG/ML 100ML BOTTLE IJ ONE (18:03)
[2025-01-12 18:04] LABS: BUN/Creatinine Ratio 9.6 (10.0-20.0); Blood Urea Nitrogen < 5 mg/dL (9-23)
[2025-01-12] MEDS ORDERED: TPN PER PHARMACY 0 ML IV SCH (18:30)
--- NOTE | 2025-01-12 18:52 | DVH ---
Indication: eval for removal of drainge cath Technique: CT axial images of the abdomen and pelvis are obtained with intravenous contrast. Coronal and sagittal reformats were obtained. Radiation Dose Information: CTDI volume is 27.88 mGy. Dose-length product is 3.92 mGy*cm Comparison: CT CT AB PEL WO CON-NO ORAL OR IV on DOS: 01/05/25, 01/04/2025 FINDINGS: Lung bases demonstrate no pleural effusion. Adrenal glands, spleen, pancreas unremarkable. Cholecystectomy. No enhancing hepatic lesion. Kidneys demonstrate no hydronephrosis / nephrolithiasis. Stomach is partially distended. Small bowel loops are normal in caliber. Left paraumbilical hernia co ntaining bowel loops measuring 4.8 x 3.4 cm. Colonic diverticular disease. Perirectal lymph nodes measuring up to 1.6 cm. Moderate volume stool i n the colon. Normal appendix. Abdominal aorta normal in caliber. Atherosclerotic disease. Bladder partially distended. Soft tissue edema/ anasarca. Left abdominal complex collection measuring 11.7 x 10.8 cm previously 12.8 x 11.6 cm. This is located just posterior to the sigmoid colon Pigtail catheter is centered within the center of this complex c ollection. [id number] thoracolumbar degenerative disc disease most pronounced at L5-S1. IMPRESSION: Interval placement of percutaneous pigtail drainage catheter within the left abdominal complex collec tion which now measures 11.7 x 10.8 cm, slightly /minimally decreased from previously measuring 12.8 x 11.6 cm. Catheter is positioned within the center of the collection. Recommend surgical consultati on for further management. Numerous perirectal lymph nodes measuring up to 1.6 cm. Correlate clinically to exclude rectosigmoid colon neoplasm. This could also be secondary to the left lower quadrant complex collection/ abscess /necrotic lesion.. Left paraumbilical hernia containing bowel loops measuring 4.8 x 3.4 cm without evidence for bowel ob struction. Other findings as described.
--- NOTE | 2025-01-12 20:21 | DVHPN2 ---
Progress Note - Dictate Date Seen: Jan 12, 2025 Has the PT tested + for MRSA If YES, has PT been informed?: No Medical Necessity Reason Pt with a Central, PICC or Fol: No vital signs Vital Sign Date Time Temp Pulse Resp B/P (MAP) Pulse Ox O2 Delivery O2 Flow Rate FiO2 01/12/25 16:58 97.8 63 16 127/21 (56) 95 97.8 01/12/25 08:00 Room Air* 0 21 Total Intake and Output 01/11/25 01/11/25 01/12/25 15:00 23:00 07:00 Intake Total 920 ml 650 ml Balance 920 ml 650 ml medications Current Medications Medications Dose Ordered Sig/Earl Route Start Time Stop Time Status Last Admin Dose Admin Ondansetron HCl 4 mg Q4HP PRN IV 01/04/25 09:45 Pantoprazole Sodium 40 mg BID IV 01/04/25 10:00 01/12/25 09:32 40 MG Nitroglycerin 0.4 mg Q5MINP PRN SL 01/04/25 09:45 Vancomycin HCl 0 ml @ 0 mls/hr UD IV 01/04/25 10:00 Cancel Sodium Chloride 1,000 ml @ 75 mls/hr [id number] IV 01/04/25 10:00 01/12/25 18:00 75 MLS/HR Lorazepam 1 mg BID PRN PO 01/04/25 10:00 01/11/25 11:31 1 MG Atenolol 50 mg BID PO 01/04/25 10:00 01/12/25 09:33 50 MG Diphenhydramine HCl 25 mg Q8HP PRN IV 01/04/25 10:00 01/06/25 17:58 25 MG Oxycodone/ Acetaminophen 2 tab Q6HP PRN PO 01/04/25 12:45 01/06/25 01:16 2 TAB Polyethylene Glycol 17 gm DAILY PO 01/04/25 12:45 01/10/25 10:24 17 GM Levofloxacin/ Dextrose 100 ml @ 100 mls/hr DAILY IV 01/08/25 10:00 Cancel Ceftriaxone Sodium/Dextrose 50 ml @ 50 mls/hr DAILY IV 01/08/25 10:00 01/12/25 09:32 50 MLS/HR Metronidazole 500 mg Q8HR PO 01/08/25 06:00 01/12/25 14:18 500 MG Hydromorphone HCl 1.5 mg Q3HPRN PRN IV 01/09/25 16:15 01/12/25 15:51 1.5 MG Sodium Chloride 10 ml QSHIFT@10,22 IV 01/11/25 22:00 01/12/25 09:32 10 ML Neomycin/ Polymyxin/ Bacitracin 1 applic TID TOP 01/12/25 22:00 Amino Acids 0 ml @ 0 mls/hr PER PHARMACY IV 01/12/25 18:30 Diagnostic Test (Pha) 1 strip Q6HR 01/13/25 00:00 Insulin Human Regular FOLLOW SLIDING SCALE Q6HR SC 01/13/25 00:00 Dextrose 50 ml UD IV 01/12/25 22:00 objective General Appearance: alert, no distress HEENT: EOMI, PERRLA, normal external inspect of ears, no icterus, no nasal drainage Neck: no carotid bruit, no jugular venous distention (JVD), no lymphadenopathy Chest: normal thorax Respiratory: clear to auscultation, normal air movement Cardiovascular: regular rate and rhythm, no diastolic murmur, no jugular venous distention (JVD), no rub, no systolic murmur Abdominal: soft, no hepatomegaly, no mass, no splenomegaly, no tenderness Genitourinary: grossly normal external Musculoskeletal: no joint tenderness, no swelling Extremities: normal pulses, no calf tenderness, no clubbing, no cyanosis, no edema Skin: no bruising, no jaundice, no rash Neurological: alert, No focal deficit laboratory and microbiology Laboratory Tests 01/12/25 16:50 Test 01/12/25 16:50 Range/Units Serum Glucose 93 74-106 mg/dL Problem List 1. Rectal Bleed GI Consult, Hold blood thinners 2. Hemorrhoids Medication, GI consult 3. Morbid Obesity Diet Education, monitoring 4. Chronic constipation Cathartics, monitoring 5.Sepsis Antibiotics, ID consult 6.Diverticular abscess IR consult for drainage, IV antibiotics Assessment/Plan Subjective patient is awake and alert. Objective Patient no longer complains of rectal bleeding. Patient was found to be septic from diverticular ulcers status post drainage. Repeat CT of the abdomen and pelvis is currently pending to determine removal of drain. media services director consult to arrange for TPN and IV antibiotics. Plan Consult residential caregiver for exchange of dual-lumen PICC line. Continue antibiotics. DC planning for tomorrow Dietary Evaluation Review Comments: Clear Liquid diet with Ensure Clear BID Expected Outcomes/Goals: recovered GI function, gradual wt loss, Plan discussed with: Patient, Other SAIMA GUERRERO NP Jan 12, 2025 20:21
[2025-01-12] MEDS ORDERED: DEXTROSE (50%) 50ML SYRG IV SCH (22:00)
[2025-01-12] MEDS: AMINO ACID INFUSION IN D10W 1,000 ML IV ONE (23:17)
[2025-01-12] MEDS: NEOMYCIN-BACITRACIN-POLYM 15GM TOP OINT TOP SCH (23:22)
[2025-01-13] VITALS (8 sets, daily range): BP systolic 110–134; BP diastolic 69–82; PULSE 61–74; RESP 16–17; TEMP 96.7–98; O2SAT 95–97
[2025-01-13] MEDS: InsuLIN REG 1unit/0.01ml Soln (100units/ml) SC SCH
[2025-01-13] MEDS: ACCU-CHEK COMFORT CURVE STRIP VI SCH
--- NOTE | 2025-01-13 03:44 | DVH ---
Exam: US US GUIDED VASCULAR ACCESS Date: 01/11/2025 09:14 AM Clinical History: picc placement Comparison: CT CT GUIDANCE FOR NEEDLE PLACEME on DOS: 01/05/25, US BILAT LOWER DVT on DOS: 11/18/24, US LT UPPER DVT on DOS: 04/06/23, US LEFT LOWER EXTREMITY ULTRASOUN on DOS: 04/03/23, US LEFT LOWER EXT REMITY ULTRASOUN on DOS: 12/31/22 Findings: Targeted sonographic evaluation of the basilic vein was obtained utilizing grayscale and color Dopple r imaging. IMPRESSION: Sonographic assistance for central line placement. Please refer to procedural report for detailed fin dings.
[2025-01-13 12:03] LABS: Albumin 3.8 g/dL (3.2-4.8); Alkaline Phosphatase 75 U/L (46-116); Anion Gap 7 (5-15); Calcium 9.0 mg/dL (8.7-10.4); Carbon Dioxide 27 mmol/L (20-31); Chloride 105 mmol/L (98-107); Glucose 101 mg/dL (74-106); Magnesium 1.8 mg/dL (1.6-2.6); Potassium 4.4 mmol/L (3.5-5.1); Sodium 139 mmol/L (136-145); Total Protein 6.5 g/dL (5.7-8.2); Triglycerides 126 mg/dL (< 150)
[2025-01-13 12:04] LABS: Alanine Aminotransferase < 9 U/L (7-40); BUN/Creatinine Ratio 9.1 (10.0-20.0); Bilirubin, Total 0.4 mg/dL (0.2-1.0); Blood Urea Nitrogen < 5 mg/dL (9-23)
--- NOTE | 2025-01-13 13:11 | DVHPN2 ---
Progress Note - Dictate Date Seen: Jan 13, 2025 Has the PT tested + for MRSA If YES, has PT been informed?: No Medical Necessity Reason Pt with a Central, PICC or Fol: No vital signs Vital Sign Date Time Temp Pulse Resp B/P (MAP) Pulse Ox O2 Delivery O2 Flow Rate FiO2 01/13/25 12:56 62 16 120/77 01/13/25 09:00 97.0 97 97.0 01/12/25 20:00 Room Air* 0 21 Total Intake and Output 01/12/25 01/12/25 01/13/25 15:00 23:00 07:00 Intake Total 50 ml 500 ml 1000 ml Balance 50 ml 500 ml 1000 ml medications Current Medications Medications Dose Ordered Sig/Earl Route Start Time Stop Time Status Last Admin Dose Admin Ondansetron HCl 4 mg Q4HP PRN IV 01/04/25 09:45 Pantoprazole Sodium 40 mg BID IV 01/04/25 10:00 01/13/25 10:12 40 MG Nitroglycerin 0.4 mg Q5MINP PRN SL 01/04/25 09:45 Vancomycin HCl 0 ml @ 0 mls/hr UD IV 01/04/25 10:00 Cancel Sodium Chloride 1,000 ml @ 75 mls/hr [id number] IV 01/04/25 10:00 01/13/25 07:20 75 MLS/HR Lorazepam 1 mg BID PRN PO 01/04/25 10:00 01/11/25 11:31 1 MG Atenolol 50 mg BID PO 01/04/25 10:00 01/13/25 10:14 50 MG Diphenhydramine HCl 25 mg Q8HP PRN IV 01/04/25 10:00 01/06/25 17:58 25 MG Oxycodone/ Acetaminophen 2 tab Q6HP PRN PO 01/04/25 12:45 01/06/25 01:16 2 TAB Polyethylene Glycol 17 gm DAILY PO 01/04/25 12:45 01/10/25 10:24 17 GM Levofloxacin/ Dextrose 100 ml @ 100 mls/hr DAILY IV 01/08/25 10:00 Cancel Ceftriaxone Sodium/Dextrose 50 ml @ 50 mls/hr DAILY IV 01/08/25 10:00 01/13/25 10:13 50 MLS/HR Metronidazole 500 mg Q8HR PO 01/08/25 06:00 01/13/25 06:11 500 MG Hydromorphone HCl 1.5 mg Q3HPRN PRN IV 01/09/25 16:15 01/13/25 11:47 1.5 MG Sodium Chloride 10 ml QSHIFT@10,22 IV 01/11/25 22:00 01/13/25 10:03 10 ML Neomycin/ Polymyxin/ Bacitracin 1 applic TID TOP 01/12/25 22:00 01/13/25 06:12 1 APPLIC Amino Acids 0 ml @ 0 mls/hr PER PHARMACY IV 01/12/25 18:30 Diagnostic Test (Pha) 1 strip Q6HR 01/13/25 00:00 01/13/25 12:00 1 STRIP Insulin Human Regular FOLLOW SLIDING SCALE Q6HR SC 01/13/25 00:00 Dextrose 50 ml UD IV 01/12/25 22:00 objective General Appearance: alert, no distress HEENT: EOMI, PERRLA, normal external inspect of ears, no icterus, no nasal drainage Neck: no carotid bruit, no jugular venous distention (JVD), no lymphadenopathy Chest: normal thorax Respiratory: clear to auscultation, normal air movement Cardiovascular: regular rate and rhythm, no diastolic murmur, no jugular venous distention (JVD), no rub, no systolic murmur Abdominal: soft, no hepatomegaly, no mass, no splenomegaly, no tenderness Genitourinary: grossly normal external Musculoskeletal: no joint tenderness, no swelling Extremities: normal pulses, no calf tenderness, no clubbing, no cyanosis, no edema Skin: no bruising, no jaundice, no rash Neurological: alert, No focal deficit laboratory and microbiology Laboratory Tests 01/13/25 11:20 01/12/25 16:50 Test 01/13/25 11:20 Range/Units Serum Glucose 101 74-106 mg/dL Problem List 1. Rectal Bleed GI Consult, Hold blood thinners 2. Hemorrhoids Medication, GI consult 3. Morbid Obesity Diet Education, monitoring 4. Chronic constipation Cathartics, monitoring 5.Sepsis Antibiotics, ID consult 6.Diverticular abscess IR consult for drainage, IV antibiotics Assessment/Plan Subjective: Patient is awake and alert. Objective: Repeat CT of the abdomen shows abscess only slightly decreased. Patient was admitted for abdominal pain. Patient found to have a diverticular abscess. Drain was placed by radiology. Patient also had signs of rectal bleeding which has since resolved. Patient has a history of constipation with internal and external hemorrhoids. Patient is currently on a clear liquid diet. Radiology did exchange single-lumen PICC line to double-lumen PICC line. Patient started on TPN. Plan: Continue current treatment. Discharge planning. General surgery recommendations appreciated. Dietary Evaluation Review Comments: Clear Liquid diet with Ensure Clear BID Expected Outcomes/Goals: recovered GI function, gradual wt loss, Plan discussed with: Patient, Other SAIAM GUERRERO NP Jan 13, 2025 13:11
[2025-01-13] MEDS: LIDOCAINE 1% (LOCAL ANESTH.) PF 5ml SDV ID ONE (14:10)
--- NOTE | 2025-01-13 16:33 | DVHPN2 ---
Progress Note Date Seen: Jan 13, 2025 Resident Creating Document: ANGIE TORRES RESIDENT Has the PT tested + for MRSA If YES, has PT been informed?: No Medical Necessity Reason Pt with a Central, PICC or Fol: No Subjective Review of Systems Today's updates Abdominal pain continued to improve, now mild and intermittent only. Drain output is very minimal blood-tinged fluid. Periosteal skin rash and blisters around the drain site improving with local wound care and adhesive changes. Patient had bowel movements today, no new rectal bleeding, stool consistency normal. Patient remains afebrile, hemodynamically stable, tolerating clear liquid diet. Receiving IV ceftriaxone and metronidazole with good response. Patient will need IV antibiotics via a PICC line once discharged from hospital. TPN initiation plan due to limited enteral intake and need for nutritional support post discharge. Discharge planning underway with PICC line, TPN at home and outpatient follow- up. CT ABDOMEN PELVIS PERFORMED YESTERDAY WHICH SHOWS LEFT LOWER QUADRANT COMPLEX COLLECTION OF 11.1 INTO 10.8 CM Decreased from 12.8 in 211.6 cm on prior scan. Multiple perirectal lymph nodes up to 1.6 cm likely reactive. Objective vital signs Vital Sign Date Time Temp Pulse Resp B/P (MAP) Pulse Ox O2 Delivery O2 Flow Rate FiO2 01/13/25 15:37 65 16 115/75 01/13/25 13:00 98.0 97 98.0 01/13/25 08:00 Room Air* 0 21 Total Intake and Output 01/12/25 01/12/25 01/13/25 15:00 23:00 07:00 Intake Total 50 ml 500 ml 1000 ml Balance 50 ml 500 ml 1000 ml medications Current Medications Medications Dose Ordered Sig/Earl Route Start Time Stop Time Status Last Admin Dose Admin Ondansetron HCl 4 mg Q4HP PRN IV 01/04/25 09:45 Pantoprazole Sodium 40 mg BID IV 01/04/25 10:00 01/13/25 10:12 40 MG Nitroglycerin 0.4 mg Q5MINP PRN SL 01/04/25 09:45 Vancomycin HCl 0 ml @ 0 mls/hr UD IV 01/04/25 10:00 Cancel Sodium Chloride 1,000 ml @ 75 mls/hr [id number] IV 01/04/25 10:00 01/13/25 07:20 75 MLS/HR Lorazepam 1 mg BID PRN PO 01/04/25 10:00 01/11/25 11:31 1 MG Atenolol 50 mg BID PO 01/04/25 10:00 01/13/25 10:14 50 MG Diphenhydramine HCl 25 mg Q8HP PRN IV 01/04/25 10:00 01/06/25 17:58 25 MG Polyethylene Glycol 17 gm DAILY PO 01/04/25 12:45 01/10/25 10:24 17 GM Levofloxacin/ Dextrose 100 ml @ 100 mls/hr DAILY IV 01/08/25 10:00 Cancel Ceftriaxone Sodium/Dextrose 50 ml @ 50 mls/hr DAILY IV 01/08/25 10:00 01/13/25 10:13 50 MLS/HR Metronidazole 500 mg Q8HR PO 01/08/25 06:00 01/13/25 13:45 500 MG Hydromorphone HCl 1.5 mg Q3HPRN PRN IV 01/09/25 16:15 01/13/25 15:07 1.5 MG Sodium Chloride 10 ml QSHIFT@10,22 IV 01/11/25 22:00 01/13/25 10:03 10 ML Neomycin/ Polymyxin/ Bacitracin 1 applic TID TOP 01/12/25 22:00 01/13/25 06:12 1 APPLIC Amino Acids 0 ml @ 0 mls/hr PER PHARMACY IV 01/12/25 18:30 Diagnostic Test (Pha) 1 strip Q6HR 01/13/25 00:00 01/13/25 16:21 1 STRIP Insulin Human Regular FOLLOW SLIDING SCALE Q6HR SC 01/13/25 00:00 Dextrose 50 ml UD IV 01/12/25 22:00 Fat Emulsion Intravenous 50 ml/ Sodium Chloride 20 meq/Potassium Phosphate 22 meq/ Calcium Gluconate 2.32 meq/ Magnesium Sulfate 8 meq/ Multivitamins 10 ml/Chromium/ Copper/Manganese/ Zinc 1 ml/Amino Acids/Dextrose 877.9892 ml @ 37 mls/hr [id number] IV 01/13/25 22:00 01/14/25 21:59 laboratory and microbiology Laboratory Tests 01/13/25 11:20 01/12/25 16:50 Test 01/13/25 11:20 Range/Units Serum Glucose 101 74-106 mg/dL Microbiology Date/Time Source Procedure Growth Status 7/31/25 14:10 Aspirate Gram Stain - Final Complete 01/05/25 14:10 Body Fluid Culture - Final Klebsiella oxytoca Complete 01/05/25 00:50 Nose MRSA Screen - Final Methicillin Resistant S.aureus Complete 01/04/25 09:40 Blood Blood Culture - Final NO GROWTH AFTER 5 DAYS OF INCUBATION. Complete Problem List/Assessment/Plan Problem List/Assessment/Plan Assessment 1. Complicated sigmoid diverticulitis with large perisigmoid abscess (drain in situ), suspicion for fistula/metastatic erosion 2. Lower GI bleeding with ongoing hematochezia 3. Gram-negative intra-abdominal infection (pending final culture ID) 4. MRSA colonization (nasal positive) 5. Ventral abdominal wall hernia without obstruction 6. History of ovarian cancer 7. Leukocytosis, improving 8. Abdominal blisters around the percutaneous drain insertion site Plan GI-SPECIFIC PLAN GASTROINTESTINAL / INFECTIOUS DISEASES: The plan is to discharge the patient on PICC line and place her on clear liquid diet for 2 weeks. And TPN during that time. And IV antibiotics. And repeat imaging after 2 weeks and outpatient follow-up with GI. * Continue IV antibiotics: * Ceftriaxone IV per ID * Metronidazole IV * De-escalate Zosyn as culture confirmed Klebsiella oxytoca * Await sensitivity results; adjust antibiotics accordingly * Drain Management: * Continue daily assessment of IR drain output * Flush with 10 mL NS daily to maintain patency. And continue wound care daily. 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 * Pain Control: * Continue hydromorphone 1 mg IV and Percocet PRN * Wean opioids as tolerated * Monitor for constipation continue Miralax 17 g PO PRN * Nutrition: * Continue clear liquid diet * Monitor for return of bowel function, distention, and bloating * GI Bleeding: * Monitor for recurrent hematochezia or melena * Continue IV pantoprazole 40 mg BID * Monitor H/H daily * No EGD/colonoscopy at this time unless bleeding recurs PROPHYLAXIS / SUPPORTIVE CARE: * GI prophylaxis: Pantoprazole IV * Skin care: Monitor IR drain site for signs of infection * Electrolyte monitoring: Daily BMP to monitor renal function on antibiotics * Contact precautions due to MRSA nasal swab * Encourage ambulation with assistance Follow-up planning with repeat CT abdomen and pelvis in 2 weeks to assess abscess resolution Colonoscopy in 3-4 months post discharge for further GI evaluation. Arrange outpatient clinic follow-up after hospital discharge. Discharge plan includes TPN, PICC line antibiotics, home health and wound care. Case discussed in detail with the attending physician, including the clinical presentation, diagnostic workup, and comprehensive management plan. The patient was present for the discussion and demonstrated understanding of her condition and the proposed plan. Plan discussed with: Patient Dietary Evaluation Review Comments: Clear Liquid diet with Ensure Clear BID Expected Outcomes/Goals: recovered GI function, gradual wt loss, ANGIE TORRES RESIDENT Jan 13, 2025 16:33
[2025-01-13] MEDS: FAT EMULSION IV NR (21:41)
[2025-01-13] MEDS: POTASSIUM PHOSPHATE IV NR (21:41)
[2025-01-13] MEDS: [UNRECOGNIZED DRUG - OTHER] IV NR (21:41)
[2025-01-13] MEDS: SODIUM CHLORIDE IV NR (21:41)
--- NOTE | 2025-01-13 23:21 | DVHPN2 ---
Consult Progress Note Date Seen: Jan 13, 2025 Subjective Patient reports: Other (having minimal grown gastric drainage output , abdomen is less cellulytic and cream being applied ) Objective vital signs Vital Sign Date Time Temp Pulse Resp B/P (MAP) Pulse Ox O2 Delivery O2 Flow Rate FiO2 01/13/25 21:44 72 110/82 01/13/25 21:43 17 01/13/25 21:00 97.2 97 97.2 01/13/25 08:00 Room Air* 0 21 Total Intake and Output 01/12/25 01/12/25 01/13/25 15:00 23:00 07:00 Intake Total 50 ml 500 ml 1000 ml Balance 50 ml 500 ml 1000 ml medications Current Medications Medications Dose Ordered Sig/Earl Route Start Time Stop Time Status Last Admin Dose Admin Ondansetron HCl 4 mg Q4HP PRN IV 01/04/25 09:45 Pantoprazole Sodium 40 mg BID IV 01/04/25 10:00 01/13/25 21:38 40 MG Nitroglycerin 0.4 mg Q5MINP PRN SL 01/04/25 09:45 Vancomycin HCl 0 ml @ 0 mls/hr UD IV 01/04/25 10:00 Cancel Sodium Chloride 1,000 ml @ 75 mls/hr [id number] IV 01/04/25 10:00 01/13/25 20:42 75 MLS/HR Lorazepam 1 mg BID PRN PO 01/04/25 10:00 01/11/25 11:31 1 MG Atenolol 50 mg BID PO 01/04/25 10:00 01/13/25 21:44 50 MG Diphenhydramine HCl 25 mg Q8HP PRN IV 01/04/25 10:00 01/06/25 17:58 25 MG Polyethylene Glycol 17 gm DAILY PO 01/04/25 12:45 01/10/25 10:24 17 GM Levofloxacin/ Dextrose 100 ml @ 100 mls/hr DAILY IV 01/08/25 10:00 Cancel Ceftriaxone Sodium/Dextrose 50 ml @ 50 mls/hr DAILY IV 01/08/25 10:00 01/13/25 10:13 50 MLS/HR Metronidazole 500 mg Q8HR PO 01/08/25 06:00 01/13/25 21:44 500 MG Hydromorphone HCl 1.5 mg Q3HPRN PRN IV 01/09/25 16:15 01/13/25 21:43 1.5 MG Sodium Chloride 10 ml QSHIFT@10,22 IV 01/11/25 22:00 01/13/25 21:44 10 ML Neomycin/ Polymyxin/ Bacitracin 1 applic TID TOP 01/12/25 22:00 01/13/25 06:12 1 APPLIC Amino Acids 0 ml @ 0 mls/hr PER PHARMACY IV 01/12/25 18:30 Diagnostic Test (Pha) 1 strip Q6HR 01/13/25 00:00 01/13/25 16:21 1 STRIP Insulin Human Regular FOLLOW SLIDING SCALE Q6HR SC 01/13/25 00:00 Dextrose 50 ml UD IV 01/12/25 22:00 Fat Emulsion Intravenous 50 ml/ Sodium Chloride 20 meq/Potassium Phosphate 22 meq/ Calcium Gluconate 2.32 meq/ Magnesium Sulfate 8 meq/ Multivitamins 10 ml/Chromium/ Copper/Manganese/ Zinc 1 ml/Amino Acids/Dextrose 877.9892 ml @ 37 mls/hr [id number] IV 01/13/25 22:00 01/14/25 21:59 01/13/25 21:41 37 MLS/HR Physical Exam: General: NAD Neck: Supple. No masses. HEENT: PERRL. Normal lids and conjunctiva. Moist mucous membranes. Oropharynx without lesions, exudates or excessive erythema. Normal appearance of the external aspects of the nose and ears. Heart: Regular rhythm, normal rate. No murmur. No lower extremity edema. Lungs: Normal respiratory effort. Clear to auscultation bilaterally. No wheezes. No crackles. Abdomen: Soft. Non-tender. Non-distended. No masses or abdominal hernia. Msk: No digital cyanosis. Normal strength and tone in all 4 limbs Skin: Warm and dry, no rashes. Neuro: Alert. No facial droop or slurred speech. Extra-ocular movements intact. Sensation intact to soft touch in all 4 limbs. Psych: Appropriate mood. Full affect. Oriented to person, place, time, and situation laboratory and microbiology Laboratory Tests 01/13/25 11:20 01/12/25 16:50 Test 01/13/25 11:20 Range/Units Serum Glucose 101 74-106 mg/dL Problem List/Assessment/Plan Problems(with codes): (1) Hepatic steatosis (2) Postoperative seroma of subcutaneous tissue (3) History of ovarian cancer (4) Ovarian cancer (5) Abdominal mass (6) Acute abdominal pain (7) Intractable abdominal pain (8) Bright red blood per rectum Problem List/Assessment/Plan ASSESSMENT AND PLAN: ID Problem List: \-- Ovarian cancer, not currently on treatment \-- Diverticulosis \-- Acute diverticular abscess (left lower quadrant) \-- Rectal bleeding \-- History of hemorrhoids \-- Hypertension \-- Abdominal Wall cellulitis Assessment This is a female with a past medical history of ovarian cancer (not on treatment for the last six months), diverticulosis, hypertension, and hemorrhoids, presenting with several days of acute abdominal pain and rectal bleeding. She is currently admitted for further evaluation and management. On admission, the patient was hemodynamically stable. Initial labs significant for leukocytosis (WBC 16.1), hemoglobin 12.6, and platelets 497. Lactic acid was 1.3. CT abdomen and pelvis without contrast revealed a large (14.3 cm) complex fluid collection containing gas in the left lower quadrant inseparable from the sigmoid colon, with diverticula, highly suspicious for abscess. This has significantly increased in size compared to prior imaging. Hepatic steatosis and a ventral abdominal wall hernia with non-obstructed bowel loops noted. Remote cholecystectomy. 01/05: aspirated cultures from intraabdominal abscess is growing gram negative rods , awaiting identification and susceptibilities 01/06: tolerating clear liquid diet 8: ongoing concern for bowel leak via metstatic spread to sigmoid and fistulization r 01/08: aspirated fluid collection show klebsiella that is morejon sensitive and is also growing streptococcus . drainage output down to 50ccs of bilious fluid 01/09: hemoglobin appears stable and whitecount is coming down . no drain output through billiary drain 01/10: required intermittently TPN but tolerating clear liquid diet 8: having localized cellulitis around the intraabdominal drain 01/12: whitecount down to 12.5 01/13: whitecount improved . Ct shows persistent 11.7 x 10.8 cm abdominal complex fluid collection with pigtail drainage catheter in the center of the collection and only minimally decreased in size , additionally has a paraumbilical hernia without evidence of obstruction and numerous perirectal lymph nodes measuring 1.6 cm . Plan: - Given complexity and minial response to pigtail catheter drainage of the intraabdominal abscess , have a strong suspicion that IV antibiotics will be insufficient to remedy this collection , please consider surgical evacuation and will discuss with general surgery team - started on TPN as needed wehn oral intake is insufficient - add topical neomycin cream 3x a day for abdominal cellulitis - recommend close observation to see if patient can advance diet and see if additional surgical remedies are needed - continue ceftriaxone with oral flagyll - agree with repeat ct abdomen and pelvis to see if adjustments need to be made if abscess if multiloculated vs surgical evacuation of intraabdominal abscess - defer to primary on line access needs for IV antibiotics and TPN if needed - recommend picc line and 4 weeks ceftriaxone til 02/02 if the intraabdominal abscess remains persistently large - can consited repeat ct imaging if patient remains longer than a week - fu in id clinic in 4 weeks. - will need ct in 4 weeks to determine if abscess has resolved. - will need to fu on aspirated specimen path results. - continue iv antibiotics given extensive leukocytosis and extensive drainage output from the abdomen - Percutaneous drain was placed today (01/05/2025) into the perisigmoid fluid collection, which aspirated 30 cc of feculent fluid. - Cultures are pending. - Current rectal bleeding is being monitored. - The patient is NPO except for advancement of diet per surgical team recommendations. Empiric antibiotics initiated (vancomycin and piperacillin- tazobactam). - Blood and urine cultures are no growth to date. - Will closely monitor abdominal exam, bowel movements, and rectal bleeding with coordination with surgical colleagues. - Continue to monitor drain output. The patient appears to be stable and improving. - Will follow up on aspirated culture results and modify antibiotics as needed. - Surgical and dietary recommendations per general surgery team to be followed. Will arrange for follow-up after completion of treatment. Isolation Precautions: Standard Plan discussed with: Other Dietary Evaluation Review Comments: Clear Liquid diet with Ensure Clear BID Expected Outcomes/Goals: recovered GI function, gradual wt loss, ROGELIO PATRICIA MD Jan 13, 2025 23:21
[2025-01-14 08:00] VITALS: PULSE 61
[2025-01-14 08:30] VITALS: BP 122/76; PULSE 60; RESP 16; TEMP 98; O2SAT 97
--- NOTE | 2025-01-14 09:05 | DVHPN2 ---
Progress Note - Dictate Date Seen: Jan 14, 2025 Has the PT tested + for MRSA If YES, has PT been informed?: No Medical Necessity Reason Pt with a Central, PICC or Fol: No vital signs Vital Sign Date Time Temp Pulse Resp B/P (MAP) Pulse Ox O2 Delivery O2 Flow Rate FiO2 01/14/25 06:22 67 17 112/78 01/13/25 21:00 97.2 97 97.2 01/13/25 20:00 Room Air* 0 21 Total Intake and Output 01/13/25 01/13/25 01/14/25 15:00 23:00 07:00 Intake Total 275 ml 3500 ml 950 ml Balance 275 ml 3500 ml 950 ml medications Current Medications Medications Dose Ordered Sig/Earl Route Start Time Stop Time Status Last Admin Dose Admin Ondansetron HCl 4 mg Q4HP PRN IV 01/04/25 09:45 Pantoprazole Sodium 40 mg BID IV 01/04/25 10:00 01/13/25 21:38 40 MG Nitroglycerin 0.4 mg Q5MINP PRN SL 01/04/25 09:45 Vancomycin HCl 0 ml @ 0 mls/hr UD IV 01/04/25 10:00 Cancel Sodium Chloride 1,000 ml @ 75 mls/hr [id number] IV 01/04/25 10:00 01/13/25 20:42 75 MLS/HR Lorazepam 1 mg BID PRN PO 01/04/25 10:00 01/11/25 11:31 1 MG Atenolol 50 mg BID PO 01/04/25 10:00 01/13/25 21:44 50 MG Diphenhydramine HCl 25 mg Q8HP PRN IV 01/04/25 10:00 01/06/25 17:58 25 MG Polyethylene Glycol 17 gm DAILY PO 01/04/25 12:45 01/10/25 10:24 17 GM Levofloxacin/ Dextrose 100 ml @ 100 mls/hr DAILY IV 01/08/25 10:00 Cancel Ceftriaxone Sodium/Dextrose 50 ml @ 50 mls/hr DAILY IV 01/08/25 10:00 01/13/25 10:13 50 MLS/HR Metronidazole 500 mg Q8HR PO 01/08/25 06:00 01/14/25 05:38 500 MG Hydromorphone HCl 1.5 mg Q3HPRN PRN IV 01/09/25 16:15 01/14/25 05:52 1.5 MG Sodium Chloride 10 ml QSHIFT@10,22 IV 01/11/25 22:00 01/13/25 21:44 10 ML Neomycin/ Polymyxin/ Bacitracin 1 applic TID TOP 01/12/25 22:00 01/14/25 05:37 1 APPLIC Amino Acids 0 ml @ 0 mls/hr PER PHARMACY IV 01/12/25 18:30 Diagnostic Test (Pha) 1 strip Q6HR 01/13/25 00:00 01/14/25 05:29 1 STRIP Insulin Human Regular FOLLOW SLIDING SCALE Q6HR SC 01/13/25 00:00 Dextrose 50 ml UD IV 01/12/25 22:00 Fat Emulsion Intravenous 50 ml/ Sodium Chloride 20 meq/Potassium Phosphate 22 meq/ Calcium Gluconate 2.32 meq/ Magnesium Sulfate 8 meq/ Multivitamins 10 ml/Chromium/ Copper/Manganese/ Zinc 1 ml/Amino Acids/Dextrose 877.9892 ml @ 37 mls/hr [id number] IV 01/13/25 22:00 01/14/25 21:59 01/13/25 21:41 37 MLS/HR objective General Appearance: alert, no distress HEENT: EOMI, PERRLA, normal external inspect of ears, no icterus, no nasal drainage Neck: no carotid bruit, no jugular venous distention (JVD), no lymphadenopathy Chest: normal thorax Respiratory: clear to auscultation, normal air movement Cardiovascular: regular rate and rhythm, no diastolic murmur, no jugular venous distention (JVD), no rub, no systolic murmur Abdominal: soft, no hepatomegaly, no mass, no splenomegaly, no tenderness Genitourinary: grossly normal external Musculoskeletal: no joint tenderness, no swelling Extremities: normal pulses, no calf tenderness, no clubbing, no cyanosis, no edema Skin: no bruising, no jaundice, no rash Neurological: alert, No focal deficit laboratory and microbiology Laboratory Tests 01/13/25 11:20 01/12/25 16:50 Test 01/13/25 11:20 Range/Units Serum Glucose 101 74-106 mg/dL Problem List 1. Rectal Bleed GI Consult, Hold blood thinners 2. Hemorrhoids Medication, GI consult 3. Morbid Obesity Diet Education, monitoring 4. Chronic constipation Cathartics, monitoring 5.Sepsis Antibiotics, ID consult 6.Diverticular abscess IR consult for drainage, IV antibiotics Assessment/Plan Subjective: Patient is awake and alert. Objective: Patient was seen by general surgery and GI today. Patient apparently had some fluid leaking from her drain on her abdomen according to general surgeon. Patient will need to have a repeat CT and repositioning of drain. Patient states she does not want to take TPN outpatient. Plan: Patient to have IV antibiotics with Rocephin and Flagyl. Patient has a dual lumen PICC line. Discharge planning with TPN however patient is refusing and wants Clinim[facility]. Patient will need a new order for Clinimix for home instead of TPN. Will need radiology intervention for repositioning of drainage tube to abdomen. Dietary Evaluation Review Comments: Clear Liquid diet with Ensure Clear BID Expected Outcomes/Goals: recovered GI function, gradual wt loss, Plan discussed with: Patient, Other SAIMA GUERRERO NP Jan 14, 2025 09:05
[2025-01-14 09:47] LABS: Hematocrit 34.0 % (36.0-46.0); Hemoglobin 11.2 g/dL (12.2-16.2); Mean Corpuscular Hemoglobin 29.9 pg (28.0-32.0); Mean Corpuscular Volume 90.3 fL (80.0-100.0); Nucleated Red Blood Cells % 0.0 %
[2025-01-14 11:07] LABS: Anion Gap 9 (5-15); Carbon Dioxide 23 mmol/L (20-31)
[2025-01-14 11:12] LABS: Alkaline Phosphatase 63 U/L (46-116); Blood Urea Nitrogen < 5 mg/dL (9-23); Chloride 107 mmol/L (98-107); Glucose 125 mg/dL (74-106); Potassium 3.9 mmol/L (3.5-5.1); Sodium 139 mmol/L (136-145)
[2025-01-14 11:13] LABS: BUN/Creatinine Ratio 9.6 (10.0-20.0); Calcium 8.4 mg/dL (8.7-10.4); Magnesium 1.7 mg/dL (1.6-2.6); Total Protein 5.8 g/dL (5.7-8.2)
[2025-01-14 11:14] LABS: Albumin 3.4 g/dL (3.2-4.8)
[2025-01-14 11:15] LABS: Alanine Aminotransferase < 9 U/L (7-40); Bilirubin, Total 0.3 mg/dL (0.2-1.0)
--- NOTE | 2025-01-14 12:14 | DVHPN2 ---
Progress Note - Dictate Date Seen: Jan 14, 2025 Has the PT tested + for MRSA If YES, has PT been informed?: No Medical Necessity Reason Pt with a Central, PICC or Fol: No Subjective Patient seen at bedside ambulating Her IR placed catheter drainage has decreased again The catheter was replaced or changed a couple of days ago allowing drainage of more of the pus from the residual abscess Patient states she is feeling nauseous with the TPN and only wants to stay on a clear liquid diet possibly Clinimix * Suspicion for perisigmoid fistula and possible metastatic erosion of sigmoid colon remains; pathology to be followed up. * Patient hemodynamically stable. vital signs Vital Sign Date Time Temp Pulse Resp B/P (MAP) Pulse Ox O2 Delivery O2 Flow Rate FiO2 01/14/25 09:37 67 112/78 01/14/25 09:10 16 01/14/25 08:30 98.0 97 98.0 01/13/25 20:00 Room Air* 0 21 Total Intake and Output 01/13/25 01/13/25 01/14/25 15:00 23:00 07:00 Intake Total 275 ml 3500 ml 950 ml Balance 275 ml 3500 ml 950 ml medications Current Medications Medications Dose Ordered Sig/Earl Route Start Time Stop Time Status Last Admin Dose Admin Ondansetron HCl 4 mg Q4HP PRN IV 01/04/25 09:45 Pantoprazole Sodium 40 mg BID IV 01/04/25 10:00 01/14/25 09:36 40 MG Nitroglycerin 0.4 mg Q5MINP PRN SL 01/04/25 09:45 Vancomycin HCl 0 ml @ 0 mls/hr UD IV 01/04/25 10:00 Cancel Sodium Chloride 1,000 ml @ 75 mls/hr [id number] IV 01/04/25 10:00 01/13/25 20:42 75 MLS/HR Lorazepam 1 mg BID PRN PO 01/04/25 10:00 01/11/25 11:31 1 MG Atenolol 50 mg BID PO 01/04/25 10:00 01/14/25 09:37 50 MG Diphenhydramine HCl 25 mg Q8HP PRN IV 01/04/25 10:00 01/06/25 17:58 25 MG Polyethylene Glycol 17 gm DAILY PO 01/04/25 12:45 01/10/25 10:24 17 GM Levofloxacin/ Dextrose 100 ml @ 100 mls/hr DAILY IV 01/08/25 10:00 Cancel Ceftriaxone Sodium/Dextrose 50 ml @ 50 mls/hr DAILY IV 01/08/25 10:00 01/14/25 09:36 50 MLS/HR Metronidazole 500 mg Q8HR PO 01/08/25 06:00 01/14/25 05:38 500 MG Hydromorphone HCl 1.5 mg Q3HPRN PRN IV 01/09/25 16:15 01/14/25 09:10 1.5 MG Sodium Chloride 10 ml QSHIFT@10,22 IV 01/11/25 22:00 01/14/25 09:36 10 ML Neomycin/ Polymyxin/ Bacitracin 1 applic TID TOP 01/12/25 22:00 01/14/25 05:37 1 APPLIC Amino Acids 0 ml @ 0 mls/hr PER PHARMACY IV 01/12/25 18:30 Diagnostic Test (Pha) 1 strip Q6HR 01/13/25 00:00 01/14/25 05:29 1 STRIP Insulin Human Regular FOLLOW SLIDING SCALE Q6HR SC 01/13/25 00:00 Dextrose 50 ml UD IV 01/12/25 22:00 Fat Emulsion Intravenous 50 ml/ Sodium Chloride 20 meq/Potassium Phosphate 22 meq/ Calcium Gluconate 2.32 meq/ Magnesium Sulfate 8 meq/ Multivitamins 10 ml/Chromium/ Copper/Manganese/ Zinc 1 ml/Amino Acids/Dextrose 877.9892 ml @ 37 mls/hr [id number] IV 01/13/25 22:00 01/14/25 21:59 01/13/25 21:41 37 MLS/HR objective General: Alert, not in acute distress. * Abdomen: Soft, non-distended, mild LLQ tenderness, drain in place with sanguineous output. No peritoneal signs. * Drain Site: No erythema or purulent drainage, flushed per protocol. laboratory and microbiology Laboratory Tests 01/14/25 10:43 01/14/25 09:05 Test 01/14/25 10:43 Range/Units Serum Glucose 125 H 74-106 mg/dL Problems(with codes): (1) Intra-abdominal abscess (2) Acute abdominal pain (3) Abdominal mass (4) Ovarian cancer (5) Hepatic steatosis Prognosis Plan Patient will likely need repeat CT scan in 2-4 weeks Radiology we will then evaluate for possible removal of the drainage catheter Outpatient follow up with surgical consult in 2-4 weeks after discharge Discharge planning is in progress for possible home antibiotics and Clinimix Patient would like to stay on a clear liquid diet and will drink bone broth Dietary Evaluation Review Comments: Clear Liquid diet with Ensure Clear BID Expected Outcomes/Goals: recovered GI function, gradual wt loss, Plan discussed with: Patient PEPE BRADSHAW MD Jan 14, 2025 12:14
[2025-01-14 13:00] VITALS: BP 131/91; PULSE 67; RESP 18; TEMP 98.8; O2SAT 97
[2025-01-14] MEDS ORDERED: CLINIMIX PER PHARMACY 0 ML IV SCH (13:45)
[2025-01-14 17:26] VITALS: BP 122/76; PULSE 68; RESP 19; TEMP 97.5; O2SAT 98
[2025-01-14] MEDS: ONDANSETRON HCL 4 MG/2 ML VIAL IV PRN (19:33)
[2025-01-14 20:00] VITALS: BP 132/83; PULSE 68; RESP 20; TEMP 98; O2SAT 96
[2025-01-14] MEDS: AMINO ACID INFUSION IN D10W 1,000 ML IV SCH (23:08)
[2025-01-15] VITALS (8 sets, daily range): BP systolic 104–127; BP diastolic 56–86; PULSE 54–83; RESP 20; TEMP 98–98.6; O2SAT 93–98
[2025-01-15 08:37] LABS: Alkaline Phosphatase 61 U/L (46-116); Anion Gap 9 (5-15); Bilirubin, Total 0.3 mg/dL (0.2-1.0); Carbon Dioxide 25 mmol/L (20-31); Chloride 107 mmol/L (98-107); Magnesium 1.6 mg/dL (1.6-2.6); Potassium 3.9 mmol/L (3.5-5.1); Sodium 141 mmol/L (136-145)
[2025-01-15 08:40] LABS: Alanine Aminotransferase < 9 U/L (7-40); Albumin 3.2 g/dL (3.2-4.8); BUN/Creatinine Ratio 9.6 (10.0-20.0); Blood Urea Nitrogen < 5 mg/dL (9-23); Calcium 8.6 mg/dL (8.7-10.4); Glucose 108 mg/dL (74-106); Total Protein 5.5 g/dL (5.7-8.2)
--- NOTE | 2025-01-15 17:17 | DVHPN2 ---
Progress Note Date Seen: Jan 15, 2025 Has the PT tested + for MRSA If YES, has PT been informed?: No Medical Necessity Reason Pt with a Central, PICC or Fol: No Objective vital signs Vital Sign Date Time Temp Pulse Resp B/P (MAP) Pulse Ox O2 Delivery O2 Flow Rate FiO2 01/15/25 16:48 98.5 54 20 127/73 (91) 94 98.5 01/15/25 07:45 Room Air* 0 21 Total Intake and Output 01/14/25 01/14/25 01/15/25 15:00 23:00 07:00 Intake Total 50 ml 2100 ml 200 ml Output Total 0 ml Balance 50 ml 2100 ml 200 ml medications Current Medications Medications Dose Ordered Sig/Earl Route Start Time Stop Time Status Last Admin Dose Admin Ondansetron HCl 4 mg Q4HP PRN IV 01/04/25 09:45 01/14/25 19:33 4 MG Pantoprazole Sodium 40 mg BID IV 01/04/25 10:00 01/15/25 09:45 40 MG Nitroglycerin 0.4 mg Q5MINP PRN SL 01/04/25 09:45 Vancomycin HCl 0 ml @ 0 mls/hr UD IV 01/04/25 10:00 Cancel Sodium Chloride 1,000 ml @ 75 mls/hr [id number] IV 01/04/25 10:00 01/14/25 23:21 75 MLS/HR Lorazepam 1 mg BID PRN PO 01/04/25 10:00 01/11/25 11:31 1 MG Atenolol 50 mg BID PO 01/04/25 10:00 01/15/25 09:47 50 MG Diphenhydramine HCl 25 mg Q8HP PRN IV 01/04/25 10:00 01/06/25 17:58 25 MG Polyethylene Glycol 17 gm DAILY PO 01/04/25 12:45 01/10/25 10:24 17 GM Levofloxacin/ Dextrose 100 ml @ 100 mls/hr DAILY IV 01/08/25 10:00 Cancel Ceftriaxone Sodium/Dextrose 50 ml @ 50 mls/hr DAILY IV 01/08/25 10:00 01/15/25 09:46 50 MLS/HR Metronidazole 500 mg Q8HR PO 01/08/25 06:00 01/15/25 13:53 500 MG Hydromorphone HCl 1.5 mg Q3HPRN PRN IV 01/09/25 16:15 01/15/25 13:53 1.5 MG Sodium Chloride 10 ml QSHIFT@10,22 IV 01/11/25 22:00 01/15/25 10:04 10 ML Neomycin/ Polymyxin/ Bacitracin 1 applic TID TOP 01/12/25 22:00 01/15/25 14:20 1 APPLIC Diagnostic Test (Pha) 1 strip Q6HR 01/13/25 00:00 01/15/25 12:14 1 STRIP Insulin Human Regular FOLLOW SLIDING SCALE Q6HR SC 01/13/25 00:00 Dextrose 50 ml UD IV 01/12/25 22:00 Amino Acids 0 ml @ 0 mls/hr PER PHARMACY IV 01/14/25 13:45 Amino Acids/ Electrolytes/ Dextrose 1,000 ml @ 41 mls/hr DAILY@2200 IV 01/14/25 22:00 01/14/25 23:08 41 MLS/HR laboratory and microbiology Laboratory Tests 01/15/25 06:59 01/14/25 09:05 Test 01/15/25 06:59 Range/Units Serum Glucose 108 H 74-106 mg/dL Microbiology Date/Time Source Procedure Growth Status 01/05/25 14:10 Aspirate Gram Stain - Final Complete 01/05/25 14:10 Body Fluid Culture - Final Klebsiella oxytoca Complete 01/05/25 00:50 Nose MRSA Screen - Final Methicillin Resistant S.aureus Complete 01/04/25 09:40 Blood Blood Culture - Final NO GROWTH AFTER 5 DAYS OF INCUBATION. Complete Problem List/Assessment/Plan Problem List/Assessment/Plan AFEBRILE VSS ABD SOFT REPEAT CT SCAN ABD PELVIS NOTED CONTINUE CLOSE OBSERVATION IR PLACED DRAIN NON FUNCTIONAL CONSIDER IR EVAL FOR REPLACEMENT OF DRAIN Plan discussed with: Patient, Other My Orders My Orders Orders - CHIQUITA BRADSHAW MD Procedure Category Date Status Time Comprehensive LAB 01/16/25 Verified Metabolic Panel 05:00 Magnesium LAB 01/16/25 Verified 05:00 Phosphorus LAB 01/16/25 Verified 05:00 [facility] Per [facility] 01/15/25 In Process 22:00 Dietary Evaluation Review Comments: Clear Liquid diet with Ensure Clear BID Expected Outcomes/Goals: recovered GI function, gradual wt loss, CHIQUITA BRADSHAW MD Jan 15, 2025 17:17
--- NOTE | 2025-01-15 21:01 | DVHPN2 ---
Progress Note - Dictate Date Seen: Jan 15, 2025 Has the PT tested + for MRSA If YES, has PT been informed?: No Medical Necessity Reason Pt with a Central, PICC or Fol: No Subjective No new complaints Her IR placed catheter drainage has stopped again again The catheter was replaced or changed a couple of days ago allowing drainage of more of the pus from the residual abscess Patient states she is feeling nauseous with the TPN and only wants to stay on a clear liquid diet possibly Clinimix * Suspicion for perisigmoid fistula and possible metastatic erosion of sigmoid colon remains; pathology to be followed up. * Patient hemodynamically stable. vital signs Vital Sign Date Time Temp Pulse Resp B/P (MAP) Pulse Ox O2 Delivery O2 Flow Rate FiO2 01/15/25 18:40 64 16 114/62 01/15/25 16:48 98.5 94 98.5 01/15/25 07:45 Room Air* 0 21 Total Intake and Output 01/14/25 01/14/25 01/15/25 15:00 23:00 07:00 Intake Total 50 ml 2100 ml 200 ml Output Total 0 ml Balance 50 ml 2100 ml 200 ml medications Current Medications Medications Dose Ordered Sig/Earl Route Start Time Stop Time Status Last Admin Dose Admin Ondansetron HCl 4 mg Q4HP PRN IV 01/04/25 09:45 01/14/25 19:33 4 MG Pantoprazole Sodium 40 mg BID IV 01/04/25 10:00 01/15/25 09:45 40 MG Nitroglycerin 0.4 mg Q5MINP PRN SL 01/04/25 09:45 Vancomycin HCl 0 ml @ 0 mls/hr UD IV 01/04/25 10:00 Cancel Sodium Chloride 1,000 ml @ 75 mls/hr [id number] IV 01/04/25 10:00 01/15/25 18:19 75 MLS/HR Lorazepam 1 mg BID PRN PO 01/04/25 10:00 01/15/25 19:48 1 MG Atenolol 50 mg BID PO 01/04/25 10:00 01/15/25 09:47 50 MG Diphenhydramine HCl 25 mg Q8HP PRN IV 01/04/25 10:00 01/06/25 17:58 25 MG Polyethylene Glycol 17 gm DAILY PO 01/04/25 12:45 01/10/25 10:24 17 GM Levofloxacin/ Dextrose 100 ml @ 100 mls/hr DAILY IV 01/08/25 10:00 Cancel Ceftriaxone Sodium/Dextrose 50 ml @ 50 mls/hr DAILY IV 01/08/25 10:00 01/15/25 09:46 50 MLS/HR Metronidazole 500 mg Q8HR PO 01/08/25 06:00 01/15/25 13:53 500 MG Hydromorphone HCl 1.5 mg Q3HPRN PRN IV 01/09/25 16:15 01/15/25 18:10 1.5 MG Sodium Chloride 10 ml QSHIFT@10,22 IV 01/11/25 22:00 01/15/25 10:04 10 ML Neomycin/ Polymyxin/ Bacitracin 1 applic TID TOP 01/12/25 22:00 01/15/25 14:20 1 APPLIC Diagnostic Test (Pha) 1 strip Q6HR 01/13/25 00:00 01/15/25 17:21 1 STRIP Insulin Human Regular FOLLOW SLIDING SCALE Q6HR SC 01/13/25 00:00 Dextrose 50 ml UD IV 01/12/25 22:00 Amino Acids 0 ml @ 0 mls/hr PER PHARMACY IV 01/14/25 13:45 Amino Acids/ Electrolytes/ Dextrose 1,000 ml @ 41 mls/hr DAILY@2200 IV 01/14/25 22:00 01/14/25 23:08 41 MLS/HR objective General: Alert, not in acute distress. * Abdomen: Soft, non-distended, mild LLQ tenderness, drain in place with sanguineous output. No peritoneal signs. * Drain Site: No erythema or purulent drainage, flushed per protocol. laboratory and microbiology Laboratory Tests 01/15/25 06:59 01/14/25 09:05 Test 01/15/25 06:59 Range/Units Serum Glucose 108 H 74-106 mg/dL Problems(with codes): (1) Pelvic abscess in female (2) Hepatic steatosis (3) History of ovarian cancer (4) Acute abdominal pain Prognosis PLAN CONTINUE CLOSE OBSERVATION IR PLACED DRAIN NON FUNCTIONAL CONTINUE IV ABX CONSIDER IR EVAL FOR REPLACEMENT OF DRAIN Dietary Evaluation Review Comments: Clear Liquid diet with Ensure Clear BID Expected Outcomes/Goals: recovered GI function, gradual wt loss, Plan discussed with: Other (Dr Gonzalo Kothari) PEPE KOTHARI MD Jan 15, 2025 21:01
[2025-01-16] VITALS (8 sets, daily range): BP systolic 102–143; BP diastolic 59–92; PULSE 60–67; RESP 17–18; TEMP 97.9–98.5; O2SAT 95–98
--- NOTE | 2025-01-16 07:36 | DVHPN2 ---
Progress Note - Dictate Date Seen: Jan 15, 2025 Has the PT tested + for MRSA If YES, has PT been informed?: No Medical Necessity Reason Pt with a Central, PICC or Fol: No vital signs Vital Sign Date Time Temp Pulse Resp B/P (MAP) Pulse Ox O2 Delivery O2 Flow Rate FiO2 01/16/25 05:02 60 18 126/79 01/16/25 05:00 98.4 95 98.4 01/15/25 20:00 Room Air* 0 21 Total Intake and Output 01/15/25 01/15/25 01/16/25 15:00 23:00 07:00 Intake Total 50 ml 1400 ml 520 ml Balance 50 ml 1400 ml 520 ml medications Current Medications Medications Dose Ordered Sig/Earl Route Start Time Stop Time Status Last Admin Dose Admin Ondansetron HCl 4 mg Q4HP PRN IV 01/04/25 09:45 01/14/25 19:33 4 MG Pantoprazole Sodium 40 mg BID IV 01/04/25 10:00 01/15/25 21:45 40 MG Nitroglycerin 0.4 mg Q5MINP PRN SL 01/04/25 09:45 Vancomycin HCl 0 ml @ 0 mls/hr UD IV 01/04/25 10:00 Cancel Sodium Chloride 1,000 ml @ 75 mls/hr [id number] IV 01/04/25 10:00 01/15/25 18:19 75 MLS/HR Lorazepam 1 mg BID PRN PO 01/04/25 10:00 01/15/25 19:48 1 MG Atenolol 50 mg BID PO 01/04/25 10:00 01/15/25 21:46 50 MG Diphenhydramine HCl 25 mg Q8HP PRN IV 01/04/25 10:00 01/06/25 17:58 25 MG Polyethylene Glycol 17 gm DAILY PO 01/04/25 12:45 01/10/25 10:24 17 GM Levofloxacin/ Dextrose 100 ml @ 100 mls/hr DAILY IV 01/08/25 10:00 Cancel Ceftriaxone Sodium/Dextrose 50 ml @ 50 mls/hr DAILY IV 01/08/25 10:00 01/15/25 09:46 50 MLS/HR Metronidazole 500 mg Q8HR PO 01/08/25 06:00 01/16/25 05:31 500 MG Hydromorphone HCl 1.5 mg Q3HPRN PRN IV 01/09/25 16:15 01/16/25 04:32 1.5 MG Sodium Chloride 10 ml QSHIFT@10,22 IV 01/11/25 22:00 01/15/25 21:46 10 ML Neomycin/ Polymyxin/ Bacitracin 1 applic TID TOP 01/12/25 22:00 01/15/25 14:20 1 APPLIC Diagnostic Test (Pha) 1 strip Q6HR 01/13/25 00:00 01/15/25 17:21 1 STRIP Insulin Human Regular FOLLOW SLIDING SCALE Q6HR SC 01/13/25 00:00 Dextrose 50 ml UD IV 01/12/25 22:00 Amino Acids 0 ml @ 0 mls/hr PER PHARMACY IV 01/14/25 13:45 Amino Acids/ Electrolytes/ Dextrose 1,000 ml @ 41 mls/hr DAILY@2200 IV 01/14/25 22:00 01/15/25 21:45 41 MLS/HR objective General Appearance: alert, no distress HEENT: EOMI, PERRLA, normal external inspect of ears, no icterus, no nasal drainage Neck: no carotid bruit, no jugular venous distention (JVD), no lymphadenopathy Chest: normal thorax Respiratory: clear to auscultation, normal air movement Cardiovascular: regular rate and rhythm, no diastolic murmur, no jugular venous distention (JVD), no rub, no systolic murmur Abdominal: soft, no hepatomegaly, no mass, no splenomegaly, no tenderness Genitourinary: grossly normal external Musculoskeletal: no joint tenderness, no swelling Extremities: normal pulses, no calf tenderness, no clubbing, no cyanosis, no edema Skin: no bruising, no jaundice, no rash Neurological: alert, No focal deficit laboratory and microbiology Laboratory Tests 01/15/25 06:59 01/14/25 09:05 Test 01/15/25 06:59 Range/Units Serum Glucose 108 H 74-106 mg/dL Problem List 1. Rectal Bleed GI Consult, Hold blood thinners 2. Hemorrhoids Medication, GI consult 3. Morbid Obesity Diet Education, monitoring 4. Chronic constipation Cathartics, monitoring 5.Sepsis Antibiotics, ID consult 6.Diverticular abscess IR consult for drainage, IV antibiotics Assessment/Plan Subjective: Patient is awake and alert. Objective: Patient was admitted for sepsis related to diverticular abscess. Patient is status post drain placement. Patient will need drain adjustment on Thursday by IR. Patient is leaking fluid around her drain site. Patient also had rectal bleeding which has since resolved. She has a history of chronic constipation and internal and external hemorrhoids. Patient was seen by GI and general surgery. Plan: Continue current treatment. ID recommendations appreciated for discharge. Patient refusing TPN for discharge, she wants Clinimix. Will have social media campaign manager reconsulted on Thursday. Dietary Evaluation Review Comments: Clear Liquid diet with Ensure Clear BID Expected Outcomes/Goals: recovered GI function, gradual wt loss, Plan discussed with: Patient, Other SAIMA GUERRERO NP Jan 16, 2025 07:36
[2025-01-16 08:20] LABS: Alkaline Phosphatase 63 U/L (46-116); Anion Gap 11 (5-15); Carbon Dioxide 22 mmol/L (20-31); Potassium 3.7 mmol/L (3.5-5.1); Sodium 141 mmol/L (136-145)
[2025-01-16 08:21] LABS: Albumin 3.3 g/dL (3.2-4.8); Bilirubin, Total 0.4 mg/dL (0.2-1.0)
[2025-01-16 08:22] LABS: Alanine Aminotransferase < 9 U/L (7-40); BUN/Creatinine Ratio 10.0 (10.0-20.0); Blood Urea Nitrogen < 5 mg/dL (9-23); Calcium 8.5 mg/dL (8.7-10.4); Chloride 108 mmol/L (98-107); Glucose 124 mg/dL (74-106); Magnesium 1.6 mg/dL (1.6-2.6); Total Protein 5.6 g/dL (5.7-8.2)
--- NOTE | 2025-01-16 18:29 | DVHPN2 ---
Progress Note Date Seen: Jan 16, 2025 Resident Creating Document: ANGIE TORRES RESIDENT Has the PT tested + for MRSA If YES, has PT been informed?: No Medical Necessity Reason Pt with a Central, PICC or Fol: No Subjective Review of Systems TODAY'S PROGRESS AND FINDINGS The patient again had a bloody stool, pain in the left lower quadrant is increasing. Her IR placed catheter drainage has stopped again . Pending percutaneous drainage replacement by IR The catheter was replaced or changed a couple of days ago allowing drainage of more of the pus from the residual abscess Patient states she is feeling nauseous with the TPN and only wants to stay on a clear liquid diet possibly Clinimix * Suspicion for perisigmoid fistula and possible metastatic erosion of sigmoid colon remains; pathology to be followed up. * Patient hemodynamically stable. Objective vital signs Vital Sign Date Time Temp Pulse Resp B/P (MAP) Pulse Ox O2 Delivery O2 Flow Rate FiO2 01/16/25 16:57 70 18 136/86 01/16/25 16:53 98.2 98 98.2 01/16/25 08:00 Room Air* 0 21 Total Intake and Output 01/15/25 01/15/25 01/16/25 15:00 23:00 07:00 Intake Total 50 ml 1400 ml 520 ml Balance 50 ml 1400 ml 520 ml medications Current Medications Medications Dose Ordered Sig/Earl Route Start Time Stop Time Status Last Admin Dose Admin Ondansetron HCl 4 mg Q4HP PRN IV 01/04/25 09:45 01/14/25 19:33 4 MG Pantoprazole Sodium 40 mg BID IV 01/04/25 10:00 01/16/25 09:24 40 MG Nitroglycerin 0.4 mg Q5MINP PRN SL 01/04/25 09:45 Vancomycin HCl 0 ml @ 0 mls/hr UD IV 01/04/25 10:00 Cancel Sodium Chloride 1,000 ml @ 75 mls/hr [id number] IV 01/04/25 10:00 01/15/25 18:19 75 MLS/HR Lorazepam 1 mg BID PRN PO 01/04/25 10:00 01/15/25 19:48 1 MG Atenolol 50 mg BID PO 01/04/25 10:00 01/16/25 09:25 50 MG Diphenhydramine HCl 25 mg Q8HP PRN IV 01/04/25 10:00 01/06/25 17:58 25 MG Polyethylene Glycol 17 gm DAILY PO 01/04/25 12:45 01/10/25 10:24 17 GM Levofloxacin/ Dextrose 100 ml @ 100 mls/hr DAILY IV 01/08/25 10:00 Cancel Ceftriaxone Sodium/Dextrose 50 ml @ 50 mls/hr DAILY IV 01/08/25 10:00 01/16/25 09:26 50 MLS/HR Metronidazole 500 mg Q8HR PO 01/08/25 06:00 01/16/25 14:34 500 MG Hydromorphone HCl 1.5 mg Q3HPRN PRN IV 01/09/25 16:15 01/16/25 16:27 1.5 MG Sodium Chloride 10 ml QSHIFT@10,22 IV 01/11/25 22:00 01/16/25 10:00 10 ML Neomycin/ Polymyxin/ Bacitracin 1 applic TID TOP 01/12/25 22:00 01/15/25 14:20 1 APPLIC Diagnostic Test (Pha) 1 strip Q6HR 01/13/25 00:00 01/16/25 12:13 1 STRIP Insulin Human Regular FOLLOW SLIDING SCALE Q6HR SC 01/13/25 00:00 Dextrose 50 ml UD IV 01/12/25 22:00 Amino Acids 0 ml @ 0 mls/hr PER PHARMACY IV 01/14/25 13:45 Amino Acids/ Electrolytes/ Dextrose 1,000 ml @ 41 mls/hr DAILY@2200 IV 01/14/25 22:00 01/15/25 21:45 41 MLS/HR Examination General: Alert, not in acute distress. * Abdomen: Soft, non-distended, mild LLQ tenderness, drain in place with sanguineous output. No peritoneal signs. * Drain Site: No erythema or purulent drainage, flushed per protocol. laboratory and microbiology Laboratory Tests 01/16/25 06:23 01/14/25 09:05 Test 01/16/25 06:23 Range/Units Serum Glucose 124 H 74-106 mg/dL Microbiology Date/Time Source Procedure Growth Status 01/05/25 14:10 Aspirate Gram Stain - Final Complete 01/05/25 14:10 Body Fluid Culture - Final Klebsiella oxytoca Complete 01/05/25 00:50 Nose MRSA Screen - Final Methicillin Resistant S.aureus Complete 01/04/25 09:40 Blood Blood Culture - Final NO GROWTH AFTER 5 DAYS OF INCUBATION. Complete Problem List/Assessment/Plan Problem List/Assessment/Plan Assessment 1. Complicated sigmoid diverticulitis with large perisigmoid abscess (drain in situ), suspicion for fistula/metastatic erosion 2. Lower GI bleeding with ongoing hematochezia 3. Gram-negative intra-abdominal infection (pending final culture ID) 4. MRSA colonization (nasal positive) 5. Ventral abdominal wall hernia without obstruction 6. History of ovarian cancer 7. Leukocytosis, improving 8. Abdominal blisters around the percutaneous drain insertion site Plan GI-SPECIFIC PLAN GASTROINTESTINAL / INFECTIOUS DISEASES: The plan is to discharge the patient on PICC line and place her on clear liquid diet for 2 weeks. And TPN during that time. And IV antibiotics. And repeat imaging after 2 weeks and outpatient follow-up with GI. * Continue IV antibiotics: * Ceftriaxone IV per ID * Metronidazole IV * De-escalate Zosyn as culture confirmed Klebsiella oxytoca * Await sensitivity results; adjust antibiotics accordingly * Drain Management: CONTINUE CLOSE OBSERVATION IR PLACED DRAIN NON FUNCTIONAL. Pending IR evaluation and replacement of drain * Continue daily assessment of IR drain output * Flush with 10 mL NS daily to maintain patency. And continue wound care daily. * Monitor for signs of clogging or infection at the site * Change drainage bag daily or PRN * IR/nursing to perform laborer pipelines * Pain Control: * Continue hydromorphone 1 mg IV and Percocet PRN * Wean opioids as tolerated * Monitor for constipation continue Miralax 17 g PO PRN * Nutrition: * Continue clear liquid diet * Monitor for return of bowel function, distention, and bloating * GI Bleeding: * Monitor for recurrent hematochezia or melena * Continue IV pantoprazole 40 mg BID * Monitor H/H daily * No EGD/colonoscopy at this time unless bleeding recurs PROPHYLAXIS / SUPPORTIVE CARE: * GI prophylaxis: Pantoprazole IV * Skin care: Monitor IR drain site for signs of infection * Electrolyte monitoring: Daily BMP to monitor renal function on antibiotics * Contact precautions due to MRSA nasal swab * Encourage ambulation with assistance Follow-up planning with repeat CT abdomen and pelvis in 2 weeks to assess abscess resolution Colonoscopy in 3-4 months post discharge for further GI evaluation. Arrange outpatient clinic follow-up after hospital discharge. Discharge plan includes TPN, PICC line antibiotics, home health and wound care. Case discussed in detail with the attending physician, including the clinical presentation, diagnostic workup, and comprehensive management plan. The patient was present for the discussion and demonstrated understanding of her condition and the proposed plan. Plan discussed with: Patient Dietary Evaluation Review Comments: Clear Liquid diet with Ensure Clear BID Expected Outcomes/Goals: recovered GI function, gradual wt loss, ANGIE TORRES RESIDENT Jan 16, 2025 18:29
--- NOTE | 2025-01-16 21:12 | DVHPN2 ---
Progress Note - Dictate Date Seen: Jan 16, 2025 Has the PT tested + for MRSA If YES, has PT been informed?: No Medical Necessity Reason Pt with a Central, PICC or Fol: Yes vital signs Vital Sign Date Time Temp Pulse Resp B/P (MAP) Pulse Ox O2 Delivery O2 Flow Rate FiO2 01/16/25 20:49 98.5 63 18 118/74 (89) 96 98.5 01/16/25 08:00 Room Air* 0 21 Total Intake and Output 01/15/25 01/15/25 01/16/25 15:00 23:00 07:00 Intake Total 50 ml 1400 ml 520 ml Balance 50 ml 1400 ml 520 ml medications Current Medications Medications Dose Ordered Sig/Earl Route Start Time Stop Time Status Last Admin Dose Admin Ondansetron HCl 4 mg Q4HP PRN IV 01/04/25 09:45 01/14/25 19:33 4 MG Pantoprazole Sodium 40 mg BID IV 01/04/25 10:00 01/16/25 09:24 40 MG Nitroglycerin 0.4 mg Q5MINP PRN SL 01/04/25 09:45 Vancomycin HCl 0 ml @ 0 mls/hr UD IV 01/04/25 10:00 Cancel Sodium Chloride 1,000 ml @ 75 mls/hr [id number] IV 01/04/25 10:00 01/15/25 18:19 75 MLS/HR Lorazepam 1 mg BID PRN PO 01/04/25 10:00 01/15/25 19:48 1 MG Atenolol 50 mg BID PO 01/04/25 10:00 01/16/25 09:25 50 MG Diphenhydramine HCl 25 mg Q8HP PRN IV 01/04/25 10:00 01/06/25 17:58 25 MG Polyethylene Glycol 17 gm DAILY PO 01/04/25 12:45 01/10/25 10:24 17 GM Levofloxacin/ Dextrose 100 ml @ 100 mls/hr DAILY IV 01/08/25 10:00 Cancel Ceftriaxone Sodium/Dextrose 50 ml @ 50 mls/hr DAILY IV 01/08/25 10:00 01/16/25 09:26 50 MLS/HR Metronidazole 500 mg Q8HR PO 01/08/25 06:00 01/16/25 14:34 500 MG Hydromorphone HCl 1.5 mg Q3HPRN PRN IV 01/09/25 16:15 01/16/25 19:31 1.5 MG Sodium Chloride 10 ml QSHIFT@10,22 IV 01/11/25 22:00 01/16/25 10:00 10 ML Neomycin/ Polymyxin/ Bacitracin 1 applic TID TOP 01/12/25 22:00 01/15/25 14:20 1 APPLIC Diagnostic Test (Pha) 1 strip Q6HR 01/13/25 00:00 01/16/25 18:00 1 STRIP Insulin Human Regular FOLLOW SLIDING SCALE Q6HR SC 01/13/25 00:00 Dextrose 50 ml UD IV 01/12/25 22:00 Amino Acids 0 ml @ 0 mls/hr PER PHARMACY IV 01/14/25 13:45 Amino Acids/ Electrolytes/ Dextrose 1,000 ml @ 41 mls/hr DAILY@2200 IV 01/14/25 22:00 01/15/25 21:45 41 MLS/HR laboratory and microbiology Laboratory Tests 01/16/25 06:23 01/14/25 09:05 Test 01/16/25 06:23 Range/Units Serum Glucose 124 H 74-106 mg/dL Problem List Subjective History of Present Illness Georgia Asencio is a female patient with a history of ovarian cancer presenting with abdominal pain due to a diverticular abscess and sepsis. She underwent drain placement by Interventional Radiology for the abscess. The patient's condition has been complicated by leakage around the drain, which IR initially considered adjusting. However, an update from IR today indicated that the patient is not a candidate for drain removal and replacement due to the solid nature of the material, with a larger bore drain deemed unhelpful. Surgery has been recommended by Dr. Seo, and discussions are ongoing between Dr. Kothari and Dr. Seo regarding surgical intervention for the abscess. The patient is experiencing emotional distress regarding her treatment plan and has inquired about the possibility of drain removal. She has also reported issues with odor from the drain and requested a new bag. Her history of ovarian cancer, discovered in June 2022 and treated with an open laparotomy, adds complexity to her current situation. She currently lacks an oncologist due to insurance changes and is awaiting a biopsy of the mass by another doctor. Initially, the patient was set up for antibiotics and Total Parenteral Nutrition at home, but she declined TPN and is currently on [facility]. Medical History - Ovarian cancer diagnosed in June 2022 - Diverticular abscess Surgical History - Open laparotomy in June 2022 for ovarian cancer treatment - IR drain placement for diverticular abscess Medications and Supplements - Antibiotics - Kinemix Social History - Living Situation: Declined TPN at home, currently on [facility]emix Review of Systems Gastrointestinal: Positive for abdominal pain. Psychiatric: Positive for emotional distress. Objective Laboratory, Imaging, and Diagnostic Test Results - CT or ultrasound: Revealed diverticular abscess - Imaging: Showed solid mass Assessment & Plan [facility] [place]ia marinelli is a patient with a history of ovarian cancer diagnosed in June 2022 presenting with abdominal pain due to a diverticular abscess and sepsis, status post-drain placement by IR. Diverticular abscess with sepsis Assessment: Patient admitted with abdominal pain due to a diverticular abscess complicated by sepsis. IR placed a drain, which is currently leaking. Recent IR update indicates the patient is not a candidate for drain removal and replacement due to solid material in the abscess. There is a discrepancy between the radiologist's assessment of a solid mass and the surgeon's opinion. Surgery is being considered as the next step in management. Plan: - Maintain current drain placement - Await surgical evaluation and decision from Dr. Kothari and Dr. Seo - Continue current antibiotic regimen - Continue Kinemix - Request new drain bag from radiologist nurse in the morning due to odor - Provide emotional support and updates to the patient regarding treatment plan History of ovarian cancer Assessment: Patient has a history of ovarian cancer diagnosed in June 2022, treated with open laparotomy. Currently without an oncologist due to insurance changes. Another doctor is awaiting biopsy results of the current mass. Plan: - Place oncology consult for evaluation - Follow up on biopsy results of current mass Dietary Evaluation Review Comments: Clear Liquid diet with Ensure Clear BID Expected Outcomes/Goals: recovered GI function, gradual wt loss, Plan discussed with: Patient GERARD WHEAT MD Jan 16, 2025 21:12
--- NOTE | 2025-01-16 22:23 | DVHPN2 ---
Progress Note Date Seen: Jan 16, 2025 Has the PT tested + for MRSA If YES, has PT been informed?: No Medical Necessity Reason Pt with a Central, PICC or Fol: Yes Objective vital signs Vital Sign Date Time Temp Pulse Resp B/P (MAP) Pulse Ox O2 Delivery O2 Flow Rate FiO2 01/16/25 21:55 63 118/74 01/16/25 20:49 98.5 18 96 98.5 01/16/25 20:00 Room Air* 0 21 Total Intake and Output 01/15/25 01/15/25 01/16/25 15:00 23:00 07:00 Intake Total 50 ml 1400 ml 520 ml Balance 50 ml 1400 ml 520 ml medications Current Medications Medications Dose Ordered Sig/Earl Route Start Time Stop Time Status Last Admin Dose Admin Ondansetron HCl 4 mg Q4HP PRN IV 01/04/25 09:45 01/14/25 19:33 4 MG Pantoprazole Sodium 40 mg BID IV 01/04/25 10:00 01/16/25 21:54 40 MG Nitroglycerin 0.4 mg Q5MINP PRN SL 01/04/25 09:45 Vancomycin HCl 0 ml @ 0 mls/hr UD IV 01/04/25 10:00 Cancel Sodium Chloride 1,000 ml @ 75 mls/hr [id number] IV 01/04/25 10:00 01/15/25 18:19 75 MLS/HR Lorazepam 1 mg BID PRN PO 01/04/25 10:00 01/15/25 19:48 1 MG Atenolol 50 mg BID PO 01/04/25 10:00 01/16/25 21:55 50 MG Diphenhydramine HCl 25 mg Q8HP PRN IV 01/04/25 10:00 01/06/25 17:58 25 MG Polyethylene Glycol 17 gm DAILY PO 01/04/25 12:45 01/10/25 10:24 17 GM Levofloxacin/ Dextrose 100 ml @ 100 mls/hr DAILY IV 01/08/25 10:00 Cancel Ceftriaxone Sodium/Dextrose 50 ml @ 50 mls/hr DAILY IV 01/08/25 10:00 01/16/25 09:26 50 MLS/HR Metronidazole 500 mg Q8HR PO 01/08/25 06:00 01/16/25 21:54 500 MG Hydromorphone HCl 1.5 mg Q3HPRN PRN IV 01/09/25 16:15 01/16/25 19:31 1.5 MG Sodium Chloride 10 ml QSHIFT@10,22 IV 01/11/25 22:00 01/16/25 21:57 10 ML Neomycin/ Polymyxin/ Bacitracin 1 applic TID TOP 01/12/25 22:00 01/16/25 21:57 1 APPLIC Diagnostic Test (Pha) 1 strip Q6HR 01/13/25 00:00 01/16/25 18:00 1 STRIP Insulin Human Regular FOLLOW SLIDING SCALE Q6HR SC 01/13/25 00:00 Dextrose 50 ml UD IV 01/12/25 22:00 Amino Acids 0 ml @ 0 mls/hr PER PHARMACY IV 01/14/25 13:45 Amino Acids/ Electrolytes/ Dextrose 1,000 ml @ 41 mls/hr DAILY@2200 IV 01/14/25 22:00 01/15/25 21:45 41 MLS/HR laboratory and microbiology Laboratory Tests 01/16/25 06:23 01/14/25 09:05 Test 01/16/25 06:23 Range/Units Serum Glucose 124 H 74-106 mg/dL Microbiology Date/Time Source Procedure Growth Status 01/05/25 14:10 Aspirate Gram Stain - Final Complete 01/05/25 14:10 Body Fluid Culture - Final Klebsiella oxytoca Complete 01/05/25 00:50 Nose MRSA Screen - Final Methicillin Resistant S.aureus Complete 01/04/25 09:40 Blood Blood Culture - Final NO GROWTH AFTER 5 DAYS OF INCUBATION. Complete Problem List/Assessment/Plan Problem List/Assessment/Plan AFEBRILE VSS ABD SOFT POSSIBLE LOWER GI BLEED NOTED BY PT REPEAT CT SCAN ABD PELVIS NOTED CONTINUE CLOSE OBSERVATION IR PLACED DRAIN NON FUNCTIONAL CONSIDER IR EVAL FOR REPLACEMENT OF DRAIN ONCOLOGY EVAL GI EVAL FOR POSSIBLE COLONOSCOPY Plan discussed with: Patient My Orders My Orders Orders - CHIQUITA BRADSHAW MD Procedure Category Date Status Time Comprehensive LAB 01/17/25 Verified Metabolic Panel 05:00 Phosphorus LAB 01/17/25 Verified 05:00 Magnesium LAB 01/17/25 Verified 05:00 [facility] 01/16/25 In Process 22:00 * Gi Dvh Mounter Hand CONS 01/16/25 Transmitted 18:42 * Subassembly Assembler Consultation CONS 01/16/25 Transmitted 18:42 Dietary Evaluation Review Comments: Clear Liquid diet with Ensure Clear BID Expected Outcomes/Goals: recovered GI function, gradual wt loss, CHIQUITA BRADSHAW MD Jan 16, 2025 22:23
[2025-01-17 00:45] VITALS: BP 138/87; PULSE 59; RESP 20; TEMP 98.2; O2SAT 100
[2025-01-17 05:00] VITALS: BP 113/59; PULSE 58; RESP 16; TEMP 98.2; O2SAT 98
[2025-01-17 08:00] VITALS: PULSE 55; RESP 16
[2025-01-17 09:00] VITALS: BP 130/87; PULSE 66; RESP 18; TEMP 97.7; O2SAT 95
[2025-01-17 10:45] LABS: Alkaline Phosphatase 54 U/L (46-116); Anion Gap 10 (5-15); Carbon Dioxide 22 mmol/L (20-31); Potassium 3.6 mmol/L (3.5-5.1); Sodium 143 mmol/L (136-145)
[2025-01-17 10:47] LABS: Alanine Aminotransferase < 9 U/L (7-40); Albumin 2.6 g/dL (3.2-4.8); BUN/Creatinine Ratio 12.8 (10.0-20.0); Bilirubin, Total 0.3 mg/dL (0.2-1.0); Blood Urea Nitrogen < 5 mg/dL (9-23); Calcium 7.2 mg/dL (8.7-10.4); Chloride 111 mmol/L (98-107); Glucose 137 mg/dL (74-106); Magnesium 1.3 mg/dL (1.6-2.6); Total Protein 4.6 g/dL (5.7-8.2)
[2025-01-17 13:24] LABS: Hematocrit 31.4 % (36.0-46.0); Hemoglobin 10.3 g/dL (12.2-16.2); Mean Corpuscular Hemoglobin 29.9 pg (28.0-32.0); Mean Corpuscular Volume 91.1 fL (80.0-100.0); Nucleated Red Blood Cells % 0.1 %
--- NOTE | 2025-01-17 14:48 | DVHPN2 ---
Progress Note Date Seen: Jan 17, 2025 Has the PT tested + for MRSA If YES, has PT been informed?: No Medical Necessity Reason Pt with a Central, PICC or Fol: Yes Objective vital signs Vital Sign Date Time Temp Pulse Resp B/P (MAP) Pulse Ox O2 Delivery O2 Flow Rate FiO2 01/17/25 13:18 79 18 126/97 01/17/25 09:00 97.7 95 97.7 01/17/25 08:00 Room Air* 0 21 Total Intake and Output 01/16/25 01/16/25 01/17/25 15:00 23:00 07:00 Intake Total 50 ml 900 ml 700 ml Balance 50 ml 900 ml 700 ml medications Current Medications Medications Dose Ordered Sig/Earl Route Start Time Stop Time Status Last Admin Dose Admin Ondansetron HCl 4 mg Q4HP PRN IV 01/04/25 09:45 01/17/25 14:02 4 MG Pantoprazole Sodium 40 mg BID IV 01/04/25 10:00 01/17/25 09:03 40 MG Nitroglycerin 0.4 mg Q5MINP PRN SL 01/04/25 09:45 Vancomycin HCl 0 ml @ 0 mls/hr UD IV 01/04/25 10:00 Cancel Sodium Chloride 1,000 ml @ 75 mls/hr [id number] IV 01/04/25 10:00 01/15/25 18:19 75 MLS/HR Lorazepam 1 mg BID PRN PO 01/04/25 10:00 01/15/25 19:48 1 MG Atenolol 50 mg BID PO 01/04/25 10:00 01/17/25 09:18 50 MG Diphenhydramine HCl 25 mg Q8HP PRN IV 01/04/25 10:00 01/06/25 17:58 25 MG Polyethylene Glycol 17 gm DAILY PO 01/04/25 12:45 01/10/25 10:24 17 GM Levofloxacin/ Dextrose 100 ml @ 100 mls/hr DAILY IV 01/08/25 10:00 Cancel Ceftriaxone Sodium/Dextrose 50 ml @ 50 mls/hr DAILY IV 01/08/25 10:00 01/17/25 09:04 50 MLS/HR Metronidazole 500 mg Q8HR PO 01/08/25 06:00 01/17/25 13:55 500 MG Hydromorphone HCl 1.5 mg Q3HPRN PRN IV 01/09/25 16:15 01/17/25 13:18 1.5 MG Sodium Chloride 10 ml QSHIFT@10,22 IV 01/11/25 22:00 01/17/25 10:24 10 ML Neomycin/ Polymyxin/ Bacitracin 1 applic TID TOP 01/12/25 22:00 01/17/25 06:05 1 APPLIC Diagnostic Test (Pha) 1 strip Q6HR 01/13/25 00:00 01/17/25 12:11 1 STRIP Insulin Human Regular FOLLOW SLIDING SCALE Q6HR SC 01/13/25 00:00 Dextrose 50 ml UD IV 01/12/25 22:00 Amino Acids 0 ml @ 0 mls/hr PER PHARMACY IV 01/14/25 13:45 Amino Acids/ Electrolytes/ Dextrose 1,000 ml @ 41 mls/hr DAILY@2200 IV 01/14/25 22:00 01/15/25 21:45 41 MLS/HR Magnesium Sulfate/ Dextrose 100 ml @ 100 mls/hr Q1HR IV 01/17/25 15:00 01/17/25 17:59 UNV laboratory and microbiology Laboratory Tests 01/17/25 09:48 Test 01/17/25 09:48 Range/Units Serum Glucose 137 H 74-106 mg/dL Microbiology Date/Time Source Procedure Growth Status 01/05/25 14:10 Aspirate Gram Stain - Final Complete 01/05/25 14:10 Body Fluid Culture - Final Klebsiella oxytoca Complete 01/05/25 00:50 Nose MRSA Screen - Final Methicillin Resistant S.aureus Complete 01/04/25 09:40 Blood Blood Culture - Final NO GROWTH AFTER 5 DAYS OF INCUBATION. Complete Problem List/Assessment/Plan Problem List/Assessment/Plan AFEBRILE VSS ABD SOFT POSSIBLE LOWER GI BLEED NOTED BY PT REPEAT CT SCAN ABD PELVIS NOTED CONTINUE CLOSE OBSERVATION IR PLACED DRAIN NOW FUNCTIONAL ONCOLOGY EVAL NURSE AT BEDSIDE Plan discussed with: Patient My Orders My Orders Orders - CHIQUITA BRADSHAW MD Procedure Category Date Status Time * [facility] Family Preservation Officer CONS 01/16/25 Transmitted 18:42 * Lead Technologist In Cytogenetics Consultation CONS 01/16/25 Transmitted 18:42 [facility] 01/17/25 In Process 22:00 Comprehensive LAB 01/18/25 Verified Metabolic Panel 05:00 Phosphorus LAB 01/18/25 Verified 05:00 Magnesium LAB 01/18/25 Verified 05:00 Magnesium Sulfate PHA 01/17/25 Logged 1gm/100ml 15:00 Dietary Evaluation Review Comments: Clear Liquid diet with Ensure Clear BID Expected Outcomes/Goals: recovered GI function, gradual wt loss, CHIQUITA BRADSHAW MD Jan 17, 2025 14:48
[2025-01-17] MEDS: MAGNESIUM SULFATE 1GM/100ML 100 ML IV SCH (15:00)
[2025-01-17 17:00] VITALS: BP 140/75; PULSE 60; RESP 17; TEMP 98; O2SAT 95
--- NOTE | 2025-01-17 18:27 | DVHPN2 ---
Consult Progress Note Date Seen: Jan 17, 2025 Objective vital signs Vital Sign Date Time Temp Pulse Resp B/P (MAP) Pulse Ox O2 Delivery O2 Flow Rate FiO2 01/17/25 17:27 60 16 113/54 01/17/25 17:00 98.0 95 98.0 01/17/25 08:00 Room Air* 0 21 Total Intake and Output 01/16/25 01/16/25 01/17/25 15:00 23:00 07:00 Intake Total 50 ml 900 ml 700 ml Balance 50 ml 900 ml 700 ml medications Current Medications Medications Dose Ordered Sig/Earl Route Start Time Stop Time Status Last Admin Dose Admin Ondansetron HCl 4 mg Q4HP PRN IV 01/04/25 09:45 01/17/25 14:02 4 MG Pantoprazole Sodium 40 mg BID IV 01/04/25 10:00 01/17/25 09:03 40 MG Nitroglycerin 0.4 mg Q5MINP PRN SL 01/04/25 09:45 Vancomycin HCl 0 ml @ 0 mls/hr UD IV 01/04/25 10:00 Cancel Sodium Chloride 1,000 ml @ 75 mls/hr [id number] IV 01/04/25 10:00 01/17/25 18:15 75 MLS/HR Lorazepam 1 mg BID PRN PO 01/04/25 10:00 01/15/25 19:48 1 MG Atenolol 50 mg BID PO 01/04/25 10:00 01/17/25 09:18 50 MG Diphenhydramine HCl 25 mg Q8HP PRN IV 01/04/25 10:00 01/06/25 17:58 25 MG Polyethylene Glycol 17 gm DAILY PO 01/04/25 12:45 01/10/25 10:24 17 GM Levofloxacin/ Dextrose 100 ml @ 100 mls/hr DAILY IV 01/08/25 10:00 Cancel Ceftriaxone Sodium/Dextrose 50 ml @ 50 mls/hr DAILY IV 01/08/25 10:00 01/17/25 09:04 50 MLS/HR Metronidazole 500 mg Q8HR PO 01/08/25 06:00 01/17/25 13:55 500 MG Hydromorphone HCl 1.5 mg Q3HPRN PRN IV 01/09/25 16:15 01/17/25 16:57 1.5 MG Sodium Chloride 10 ml QSHIFT@10,22 IV 01/11/25 22:00 01/17/25 10:24 10 ML Neomycin/ Polymyxin/ Bacitracin 1 applic TID TOP 01/12/25 22:00 01/17/25 06:05 1 APPLIC Diagnostic Test (Pha) 1 strip Q6HR 01/13/25 00:00 01/17/25 12:11 1 STRIP Insulin Human Regular FOLLOW SLIDING SCALE Q6HR SC 01/13/25 00:00 Dextrose 50 ml UD IV 01/12/25 22:00 Amino Acids 0 ml @ 0 mls/hr PER PHARMACY IV 01/14/25 13:45 Amino Acids/ Electrolytes/ Dextrose 1,000 ml @ 41 mls/hr DAILY@2200 IV 01/14/25 22:00 01/15/25 21:45 41 MLS/HR laboratory and microbiology Laboratory Tests 01/17/25 09:48 Test 01/17/25 09:48 Range/Units Serum Glucose 137 H 74-106 mg/dL Problem List/Assessment/Plan Problem List/Assessment/Plan ASSESSMENT AND PLAN: ID Problem List: \-- Ovarian cancer, not currently on treatment \-- Diverticulosis \-- Acute diverticular abscess (left lower quadrant) \-- Rectal bleeding \-- History of hemorrhoids \-- Hypertension \-- Abdominal Wall cellulitis Assessment This is a female with a past medical history of ovarian cancer (not on treatment for the last six months), diverticulosis, hypertension, and hemorrhoids, presenting with several days of acute abdominal pain and rectal bleeding. She is currently admitted for further evaluation and management. On admission, the patient was hemodynamically stable. Initial labs significant for leukocytosis (WBC 16.1), hemoglobin 12.6, and platelets 497. Lactic acid was 1.3. CT abdomen and pelvis without contrast revealed a large (14.3 cm) complex fluid collection containing gas in the left lower quadrant inseparable from the sigmoid colon, with diverticula, highly suspicious for abscess. This has significantly increased in size compared to prior imaging. Hepatic steatosis and a ventral abdominal wall hernia with non-obstructed bowel loops noted. Remote cholecystectomy. 01/05: aspirated cultures from intraabdominal abscess is growing gram negative rods , awaiting identification and susceptibilities 01/06: tolerating clear liquid diet 01/07: ongoing concern for bowel leak via metstatic spread to sigmoid and fistulization r 01/08: aspirated fluid collection show klebsiella that is morejon sensitive and is also growing streptococcus . drainage output down to 50ccs of bilious fluid 01/09: hemoglobin appears stable and whitecount is coming down . no drain output through billiary drain 01/10: required intermittently TPN but tolerating clear liquid diet 01/11: having localized cellulitis around the intraabdominal drain 01/12: whitecount down to 12.5 01/13: whitecount improved . Ct shows persistent 11.7 x 10.8 cm abdominal complex fluid collection with pigtail drainage catheter in the center of the collection and only minimally decreased in size , additionally has a paraumbilical hernia without evidence of obstruction and numerous perirectal lymph nodes measuring 1.6 cm . Plan: - Given complexity and minial response to pigtail catheter drainage of the intraabdominal abscess , have a strong suspicion that IV antibiotics will be insufficient to remedy this collection , please consider surgical evacuation and will discuss with general surgery team - started on TPN as needed wehn oral intake is insufficient - add topical neomycin cream 3x a day for abdominal cellulitis - recommend close observation to see if patient can advance diet and see if additional surgical remedies are needed - continue ceftriaxone with oral flagyll - agree with repeat ct abdomen and pelvis to see if adjustments need to be made if abscess if multiloculated vs surgical evacuation of intraabdominal abscess - defer to primary on line access needs for IV antibiotics and TPN if needed - recommend picc line and 4 weeks ceftriaxone til 02/02 if the intraabdominal abscess remains persistently large - can consited repeat ct imaging if patient remains longer than a week - fu in id clinic in 4 weeks. - will need ct in 4 weeks to determine if abscess has resolved. - will need to fu on aspirated specimen path results. - continue iv antibiotics given extensive leukocytosis and extensive drainage output from the abdomen - Percutaneous drain was placed today (01/05/2025) into the perisigmoid fluid collection, which aspirated 30 cc of feculent fluid. - Cultures are pending. - Current rectal bleeding is being monitored. - The patient is NPO except for advancement of diet per surgical team recommendations. Empiric antibiotics initiated (vancomycin and piperacillin- tazobactam). - Blood and urine cultures are no growth to date. - Will closely monitor abdominal exam, bowel movements, and rectal bleeding with coordination with surgical colleagues. - Continue to monitor drain output. The patient appears to be stable and improving. - Will follow up on aspirated culture results and modify antibiotics as needed. - Surgical and dietary recommendations per general surgery team to be followed. Will arrange for follow-up after completion of treatment. Isolation Precautions: Standard Dietary Evaluation Review Comments: Clear Liquid diet with Ensure Clear BID Expected Outcomes/Goals: recovered GI function, gradual wt loss, ROGELIO PATRICIA MD Jan 17, 2025 18:27
--- NOTE | 2025-01-17 18:30 | DVHPN2 ---
Progress Note Date Seen: Jan 17, 2025 Resident Creating Document: ANGIE TORRES RESIDENT Has the PT tested + for MRSA If YES, has PT been informed?: No Medical Necessity Reason Pt with a Central, PICC or Fol: Yes Subjective Review of Systems Today's update Patient reports ongoing blood in stool, no hematemesis and no melena. Abdominal pain is mild and stable, tolerating clear liquid diet. Drain output 30 mL today, blood-tinged, radiology consulted and confirmed drain remains patent. Plan-if drain stopped functioning, will require drain exchange per IR. Surgeon recommends continued inpatient monitoring until further resolution of abscess and bleeding. Possible repeat CT scan to be determined based on surgical assessment and clinical progress. Objective vital signs Vital Sign Date Time Temp Pulse Resp B/P (MAP) Pulse Ox O2 Delivery O2 Flow Rate FiO2 01/17/25 17:27 60 16 113/54 01/17/25 17:00 98.0 95 98.0 01/17/25 08:00 Room Air* 0 21 Total Intake and Output 01/16/25 01/16/25 01/17/25 15:00 23:00 07:00 Intake Total 50 ml 900 ml 700 ml Balance 50 ml 900 ml 700 ml medications Current Medications Medications Dose Ordered Sig/Earl Route Start Time Stop Time Status Last Admin Dose Admin Ondansetron HCl 4 mg Q4HP PRN IV 01/04/25 09:45 01/17/25 14:02 4 MG Pantoprazole Sodium 40 mg BID IV 01/04/25 10:00 01/17/25 09:03 40 MG Nitroglycerin 0.4 mg Q5MINP PRN SL 01/04/25 09:45 Vancomycin HCl 0 ml @ 0 mls/hr UD IV 01/04/25 10:00 Cancel Sodium Chloride 1,000 ml @ 75 mls/hr [id number] IV 01/04/25 10:00 01/17/25 18:15 75 MLS/HR Lorazepam 1 mg BID PRN PO 01/04/25 10:00 01/15/25 19:48 1 MG Atenolol 50 mg BID PO 01/04/25 10:00 01/17/25 09:18 50 MG Diphenhydramine HCl 25 mg Q8HP PRN IV 01/04/25 10:00 01/06/25 17:58 25 MG Polyethylene Glycol 17 gm DAILY PO 01/04/25 12:45 01/10/25 10:24 17 GM Levofloxacin/ Dextrose 100 ml @ 100 mls/hr DAILY IV 01/08/25 10:00 Cancel Ceftriaxone Sodium/Dextrose 50 ml @ 50 mls/hr DAILY IV 01/08/25 10:00 01/17/25 09:04 50 MLS/HR Metronidazole 500 mg Q8HR PO 01/08/25 06:00 01/17/25 13:55 500 MG Hydromorphone HCl 1.5 mg Q3HPRN PRN IV 01/09/25 16:15 01/17/25 16:57 1.5 MG Sodium Chloride 10 ml QSHIFT@10,22 IV 01/11/25 22:00 01/17/25 10:24 10 ML Neomycin/ Polymyxin/ Bacitracin 1 applic TID TOP 01/12/25 22:00 01/17/25 06:05 1 APPLIC Diagnostic Test (Pha) 1 strip Q6HR 01/13/25 00:00 01/17/25 12:11 1 STRIP Insulin Human Regular FOLLOW SLIDING SCALE Q6HR SC 01/13/25 00:00 Dextrose 50 ml UD IV 01/12/25 22:00 Amino Acids 0 ml @ 0 mls/hr PER PHARMACY IV 01/14/25 13:45 Amino Acids/ Electrolytes/ Dextrose 1,000 ml @ 41 mls/hr DAILY@2200 IV 01/14/25 22:00 01/15/25 21:45 41 MLS/HR laboratory and microbiology Laboratory Tests 01/17/25 09:48 Test 01/17/25 09:48 Range/Units Serum Glucose 137 H 74-106 mg/dL Microbiology Date/Time Source Procedure Growth Status 01/05/25 14:10 Aspirate Gram Stain - Final Complete 01/05/25 14:10 Body Fluid Culture - Final Klebsiella oxytoca Complete 01/05/25 00:50 Nose MRSA Screen - Final Methicillin Resistant S.aureus Complete 01/04/25 09:40 Blood Blood Culture - Final NO GROWTH AFTER 5 DAYS OF INCUBATION. Complete Problem List/Assessment/Plan Problem List/Assessment/Plan Assessment 1. Complicated sigmoid diverticulitis with large perisigmoid abscess (drain in situ), suspicion for fistula/metastatic erosion 2. Lower GI bleeding with ongoing hematochezia 3. Gram-negative intra-abdominal infection (pending final culture ID) 4. MRSA colonization (nasal positive) 5. Ventral abdominal wall hernia without obstruction 6. History of ovarian cancer 7. Leukocytosis, improving 8. Abdominal blisters around the percutaneous drain insertion site Plan GI-SPECIFIC PLAN GASTROINTESTINAL / INFECTIOUS DISEASES: Consider repeat CT abdomen pelvis based on surgeon's assessment and clinical progress. The plan is to discharge the patient on PICC line and place her on clear liquid diet for 2 weeks. And TPN during that time. And IV antibiotics. And repeat imaging after 2 weeks and outpatient follow-up with GI. * Continue IV antibiotics: * Ceftriaxone IV per ID * Metronidazole IV * De-escalate Zosyn as culture confirmed Klebsiella oxytoca * Await sensitivity results; adjust antibiotics accordingly * Drain Management: CONTINUE CLOSE OBSERVATION Now drain is functioning. Maintain drain care. If drains ceases to function consult IR for evaluation and possible drain exchange. * Continue daily assessment of IR drain output * Flush with 10 mL NS daily to maintain patency. And continue wound care daily. * Monitor for signs of clogging or infection at the site * Change drainage bag daily or PRN * IR/nursing to perform liner replacer * Pain Control: * Continue hydromorphone 1 mg IV and Percocet PRN * Wean opioids as tolerated * Monitor for constipation continue Miralax 17 g PO PRN * Nutrition: * Continue clear liquid diet * Monitor for return of bowel function, distention, and bloating * GI Bleeding: * Monitor for recurrent hematochezia or melena * Continue IV pantoprazole 40 mg BID * Monitor H/H daily * No EGD/colonoscopy at this time unless bleeding recurs PROPHYLAXIS / SUPPORTIVE CARE: * GI prophylaxis: Pantoprazole IV * Skin care: Monitor IR drain site for signs of infection * Electrolyte monitoring: Daily BMP to monitor renal function on antibiotics * Contact precautions due to MRSA nasal swab * Encourage ambulation with assistance Follow-up planning with repeat CT abdomen and pelvis in 2 weeks to assess abscess resolution Colonoscopy in 3-4 months post discharge for further GI evaluation. Arrange outpatient clinic follow-up after hospital discharge. Discharge plan includes TPN, PICC line antibiotics, home health and wound care. Case discussed in detail with the attending physician, including the clinical presentation, diagnostic workup, and comprehensive management plan. The patient was present for the discussion and demonstrated understanding of her condition and the proposed plan. Plan discussed with: Patient Dietary Evaluation Review Comments: Clear Liquid diet with Ensure Clear BID Expected Outcomes/Goals: recovered GI function, gradual wt loss, ANGIE TORRES RESIDENT Jan 17, 2025 18:30
[2025-01-17 20:00] VITALS: PULSE 75; RESP 18; O2SAT 96
--- NOTE | 2025-01-17 21:41 | DVHPN2 ---
Progress Note - Dictate Date Seen: Jan 17, 2025 Has the PT tested + for MRSA If YES, has PT been informed?: No Medical Necessity Reason Pt with a Central, PICC or Fol: Yes vital signs Vital Sign Date Time Temp Pulse Resp B/P (MAP) Pulse Ox O2 Delivery O2 Flow Rate FiO2 01/17/25 21:28 63 134/76 01/17/25 20:26 18 01/17/25 17:00 98.0 95 98.0 01/17/25 08:00 Room Air* 0 21 Total Intake and Output 01/16/25 01/16/25 01/17/25 15:00 23:00 07:00 Intake Total 50 ml 900 ml 700 ml Balance 50 ml 900 ml 700 ml medications Current Medications Medications Dose Ordered Sig/Earl Route Start Time Stop Time Status Last Admin Dose Admin Ondansetron HCl 4 mg Q4HP PRN IV 01/04/25 09:45 01/17/25 14:02 4 MG Pantoprazole Sodium 40 mg BID IV 01/04/25 10:00 01/17/25 21:27 40 MG Nitroglycerin 0.4 mg Q5MINP PRN SL 01/04/25 09:45 Vancomycin HCl 0 ml @ 0 mls/hr UD IV 01/04/25 10:00 Cancel Sodium Chloride 1,000 ml @ 75 mls/hr [id number] IV 01/04/25 10:00 01/17/25 18:15 75 MLS/HR Lorazepam 1 mg BID PRN PO 01/04/25 10:00 01/15/25 19:48 1 MG Atenolol 50 mg BID PO 01/04/25 10:00 01/17/25 21:28 50 MG Diphenhydramine HCl 25 mg Q8HP PRN IV 01/04/25 10:00 01/06/25 17:58 25 MG Polyethylene Glycol 17 gm DAILY PO 01/04/25 12:45 01/10/25 10:24 17 GM Levofloxacin/ Dextrose 100 ml @ 100 mls/hr DAILY IV 01/08/25 10:00 Cancel Ceftriaxone Sodium/Dextrose 50 ml @ 50 mls/hr DAILY IV 01/08/25 10:00 01/17/25 09:04 50 MLS/HR Metronidazole 500 mg Q8HR PO 01/08/25 06:00 01/17/25 21:27 500 MG Hydromorphone HCl 1.5 mg Q3HPRN PRN IV 01/09/25 16:15 01/17/25 19:56 1.5 MG Sodium Chloride 10 ml QSHIFT@10,22 IV 01/11/25 22:00 01/17/25 21:30 10 ML Neomycin/ Polymyxin/ Bacitracin 1 applic TID TOP 01/12/25 22:00 01/17/25 21:30 1 APPLIC Diagnostic Test (Pha) 1 strip Q6HR 01/13/25 00:00 01/17/25 12:11 1 STRIP Insulin Human Regular FOLLOW SLIDING SCALE Q6HR SC 01/13/25 00:00 Dextrose 50 ml UD IV 01/12/25 22:00 Amino Acids 0 ml @ 0 mls/hr PER PHARMACY IV 01/14/25 13:45 Amino Acids/ Electrolytes/ Dextrose 1,000 ml @ 41 mls/hr DAILY@2200 IV 01/14/25 22:00 01/15/25 21:45 41 MLS/HR laboratory and microbiology Laboratory Tests 01/17/25 09:48 Test 01/17/25 09:48 Range/Units Serum Glucose 137 H 74-106 mg/dL Assessment/Plan Subjective Patient was admitted for diverticular abscess and sepsis. Drain placed by IR for abscess has started working. Patient has a history of ovarian cancer. OBGYN has been consulted for pelvic mass. GI is on the case, no colonoscopy. Medical History - Ovarian cancer diagnosed in June 2022 - Diverticular abscess Surgical History - Open laparotomy in June 2022 for ovarian cancer treatment - IR drain placement for diverticular abscess Medications and Supplements - Antibiotics - Kinemix Social History - Living Situation: Declined TPN at home, currently on [employer] Review of Systems Gastrointestinal: Positive for abdominal pain. Psychiatric: Positive for emotional distress. Objective Laboratory, Imaging, and Diagnostic Test Results - CT or ultrasound: Revealed diverticular abscess - Imaging: Showed solid mass Assessment & Plan Diverticular abscess with sepsis Assessment: Patient admitted with abdominal pain due to a diverticular abscess complicated by sepsis. IR placed a drain, which is currently leaking. Recent IR update indicates the patient is not a candidate for drain removal and replacement due to solid material in the abscess. There is a discrepancy between the radiologist's assessment of a solid mass and the surgeon's opinion. Surgery is being considered as the next step in management. Plan: - Maintain current drain placement - Await surgical evaluation and decision from Dr. Kothari and Dr. Seo - Continue current antibiotic regimen - Continue Kinemix - Request new drain bag from radiologist nurse in the morning due to odor - Provide emotional support and updates to the patient regarding treatment plan History of ovarian cancer Assessment: Patient has a history of ovarian cancer diagnosed in June 2022, treated with open laparotomy. Currently without an oncologist due to insurance changes. Another doctor is awaiting biopsy results of the current mass. Plan: - Place oncology consult for evaluation - Follow up on biopsy results of current mass Dietary Evaluation Review Comments: Clear Liquid diet with Ensure Clear BID Expected Outcomes/Goals: recovered GI function, gradual wt loss, Plan discussed with: Patient, Other GERARD WHEAT MD Jan 17, 2025 21:41
[2025-01-18] VITALS (8 sets, daily range): BP systolic 105–137; BP diastolic 67–84; PULSE 52–87; RESP 18–20; TEMP 97.1–98.8; O2SAT 96–100
[2025-01-18] MEDS: MAGNESIUM SULFATE 1GM/100ML 100 ML IV SCH (06:17)
[2025-01-18 07:37] LABS: Albumin 3.3 g/dL (3.2-4.8); Alkaline Phosphatase 63 U/L (46-116); Anion Gap 7 (5-15); Carbon Dioxide 26 mmol/L (20-31); Magnesium 2.1 mg/dL (1.6-2.6); Potassium 4.3 mmol/L (3.5-5.1); Sodium 140 mmol/L (136-145)
[2025-01-18 07:38] LABS: Alanine Aminotransferase < 9 U/L (7-40); BUN/Creatinine Ratio 8.5 (10.0-20.0); Bilirubin, Total 0.4 mg/dL (0.2-1.0); Blood Urea Nitrogen < 5 mg/dL (9-23); Calcium 8.5 mg/dL (8.7-10.4); Chloride 107 mmol/L (98-107); Glucose 143 mg/dL (74-106); Total Protein 5.6 g/dL (5.7-8.2)
[2025-01-18] MEDS: OMNIPAQUE 12mg/ml 500ml ORAL SOLUTION PO ONE (10:58)
[2025-01-18] MEDS: IOHEXOL 300 MG/ML 100ML BOTTLE IJ ONE (12:54)
--- NOTE | 2025-01-18 15:08 | DVHINCON2 ---
Date of service: Jan 18, 2025 Referring Physician HOSPITALIST Reason for Consultation GI BLEED History of Present Illness PT IS ADMITTED FOR GI BLEED,ABD PAIN AND RECTAL BLEEDING.PT HAS HX OF OVARIAN CA AND IS S/P HYSTERECTOMY SHE HAS ONCOLOGIST IN [place] .HER LAST PAP WAS IN 2016.HER CA 125 HAS BEEN NL ACCORDING TO THE PT. HERCT REVEALS 11.7CM PELVIC MASSTHAT APPEARS COMPLEX LOCATED POST TO SIGMOID COLON Past Medical History OVARIAN CA PER HX.HTN,DIVERTICULAR DS Past Surgical History CHOLECYSTECTOMY, Family History NA Social History Patient Family History: FH: leukemia G8 MOTHER, G8 FATHER, , Onset:60 years & older Hypertension G8 MOTHER, (htn/unk year) G8 FATHER, Other blood disorders G8 FATHER, (leukemia,unk year) Allergies: Coded Allergies: Morphine (Verified Allergy, Unknown, 03/16/22) Home Meds Active Scripts Oxycodone W/ Acetaminophen (Percocet 5/325MG) 1 Tab Tb, 1 TAB PO Q6HP PRN for 5 Days, #20 TAB Prov:FALLONLINDASAIMA Avery LEVELER HELPER 04/07/23 Hydrocortisone Acetate (ANUCORT-HC SUPPOSITORY) 25 Mg Cochran, 25 MG [place] Q12HR for 15 Days, #30 SUPP Prov:FALLONJHONY MCKEONSANTOS Varela LEVELER HELPER 02/05/23 Lactulose (Lactulose) 10 Gm/15 Ml Miroslava, 10 GM PO BIDP PRN, #300 ML Prov:ENRRIQUE RAMIREZ PAC 12/27/22 Loratadine (Claritin) 10 Mg Tab, 1 TAB PO DAILY, #30 TAB 0 Refills Prov:ENRRIQUE RAMIREZ PAC 12/27/22 Reported Medications Lorazepam (Ativan) 0.5 Mg Tab, 1 TAB PO DAILY, #30 TAB 09/08/23 Diphenhydramine Hcl (Benadryl) 25 Mg Cap 12/18/10 Atenolol (Atenolol) 100 Mg Tab 12/18/10 Current Medications Current Medications Medications (Trade) Dose Ordered Sig/Earl Route PRN Reason Start Time Stop Time Status Last Admin Magnesium Sulfate/ Dextrose 100 ml @ 100 mls/hr Q1HR IV 01/17/25 15:00 01/17/25 17:59 DC 01/17/25 19:55 Magnesium Sulfate/ Dextrose 100 ml @ 100 mls/hr Q1HR IV 01/18/25 06:00 01/18/25 09:59 DC 01/18/25 06:17 Review of Systems Constitutional: no fever, chill, weight loss HEENT: no eye pain, no hearing loss, no oral lesion, no scleral icterus Heart: no chest pain, no chest pressure Lung: no cough, no dyspnea with exertion Abdomen: see HPI : no pain with urination, normal appearing urine,POS FOR RECTAL BLOOEDING Musculoskeletal: no joint pain, no muscle pain Neurological: no seizure, no loss of sensation, no weakness in extremities Pysch: no depression, no anxiety Derm: no rash, no jaundice Vital Signs Vital Signs Date Time Temp Pulse Resp B/P (MAP) Pulse Ox O2 Delivery O2 Flow Rate FiO2 01/18/25 13:00 97.1 62 20 137/80 (99) 97 97.1 01/18/25 08:00 Room Air* 0 21 Physical Exam ALERT AND AWAKE HEENT: [NL] NECK: []NL CARDIAC: [RRR] PULMONARY: [CTA] ABDOMEN: [OBESE,NT,NO RIGIDITY OR REBOUND] PELVIC-EXT GENT WNL,CX AND UTERUS ABSENT,VAG ATROPHIC NO LESION,ADENXA NT AND NON PALPABLE Labs/Diagnostic Data Labs Test 01/18/25 07:07 01/17/25 12:08 01/17/25 09:48 01/13/25 11:20 Range/Units Sodium Level 140 136-145 mmol/L Potassium Level 4.3 3.5-5.1 mmol/L Chloride Level 107 98-107 mmol/L Carbon Dioxide Level 26 20-31 mmol/L Anion Gap 7 5-15 Blood Urea Nitrogen < 5 L 9-23 mg/dL Creatinine 0.59 # 0.550-1.02 mg/dL Glomerular Filtration Rate Calc 110 >90 mL/min BUN/Creatinine Ratio 8.5 L 10.0-20.0 Serum Glucose 143 H 74-106 mg/dL Calcium Level 8.5 L 8.7-10.4 mg/dL Phosphorus Level 3.3 2.4-5.1 mg/dL Magnesium Level 2.1 1.6-2.6 mg/dL Total Bilirubin 0.4 0.2-1.0 mg/dL Aspartate Amino Transferase (AST) 11 L 13-40 U/L Alanine Aminotransferase (ALT) < 9 7-40 U/L Alkaline Phosphatase 63 46-116 U/L Total Protein 5.6 L 5.7-8.2 g/dL Albumin 3.3 3.2-4.8 g/dL POC Glucose 113 H 70-106 mg/dl White Blood Count 9.9 4.4-10.8 10^3/uL Red Blood Count 3.44 L 4.0-5.20 10^6/uL Hemoglobin 10.3 L 12.2-16.2 g/dL Hematocrit 31.4 L 36.0-46.0 % Mean Corpuscular Volume 91.1 80.0-100.0 fL Mean Corpuscular Hemoglobin 29.9 28.0-32.0 pg Mean Corpuscular Hemoglobin Concent 32.8 32.0-36.0 g/dL Red Cell Distribution Width 15.1 H 11.8-14.3 % Platelet Count 345 140-450 10^3/uL Mean Platelet Volume 7.4 6.9-10.8 fL Neutrophils (%) (Auto) 66.8 37.0-80.0 % Lymphocytes (%) (Auto) 19.9 10.0-50.0 % Monocytes (%) (Auto) 8.8 0.0-12.0 % Eosinophils (%) (Auto) 3.7 0.0-7.0 % Basophils (%) (Auto) 0.8 0.0-2.0 % Neutrophils # (Auto) 6.6 1.6-8.6 10 ^3/uL Lymphocytes # (Auto) 2.0 0.4-5.4 10 ^3/uL Monocytes # (Auto) 0.9 0-1.3 10 ^3/uL Eosinophils # (Auto) 0.4 0-0.8 10 ^3/uL Basophils # (Auto) 0.1 0-0.2 10 ^3/uL Nucleated Red Blood Cells 0.1 % Carcinoembryonic Antigen < 0.50 <=5.0 ng/mL Triglycerides Level 126 < 150 mg/dL Test 01/11/25 10:49 01/05/25 11:11 01/04/25 09:46 01/04/25 09:41 Range/Units Prothrombin Time 12.4 H 9.3-11.8 sec Prothrombin Time INR 1.19 H 0.9-1.15 Activated Partial Thromboplast Time 28.8 24.5-34.5 SEC Vancomycin Level Trough 14.7 H 5-10 ug/mL Urine Color Yellow Yellow Urine Clarity Turbid H Clear Urine pH 5.5 5.0-9.0 Urine Specific [place] 1.022 1.001-1.035 Urine Protein Negative Negative Urine Ketones Negative Negative Urine Blood Negative Negative /uL Urine Nitrite Negative Negative Urine Bilirubin Negative Negative Urine Urobilinogen 3 H Negative mg/dL Urine Leukocyte Esterase Negative Negative /uL Urine RBC 2 0 - 4 /hpf Urine Microscopic WBC 2 0-5 /HPF Urine Squamous Epithelial Cells Mod <5 /hpf Urine Bacteria None seen None Seen /hpf Urine Mucus Few None Seen Urine Glucose Normal Normal mg/dL Lactic Acid Level 1.3 0.4-2.0 mmol/L Test 01/04/25 05:58 Range/Units Lipase 33 12-53 U/L Microbiology Date/Time Source Procedure Growth Status 01/05/25 14:10 Aspirate Gram Stain - Final Complete 01/05/25 14:10 Body Fluid Culture - Final Klebsiella oxytoca Complete 01/05/25 00:50 Nose MRSA Screen - Final Methicillin Resistant S.aureus Complete 01/04/25 09:40 Blood Blood Culture - Final NO GROWTH AFTER 5 DAYS OF INCUBATION. Complete Primary Diagnosis PELVIC MASS R/O RECURRENCE OF OVARIAN CA VERSUS PERITONEAL CYST Admitting Diagnosis: OVARIAN CA PER HX Plan RECOMMEND FU WITH [facility] AND ONCOLOGIST REPEAT CA125 WILL SIGN OFF THANK YOU Plan discussed with: Patient Visit Coding OBGYN Date of Service: Jan 18, 2025 Billing Provider: BLAIR HERBERT DO PLANT QUALITY MANAGER Common Visit Codes: [id number] INP/OBS CARE(HIGH), CONSULTATION ONLY PLANT QUALITY MANAGER Consultation Codes: 02852-D/U INPATIENT CONSULT (HIGH) BLAIR HERBERT DO Jan 18, 2025 15:08
--- NOTE | 2025-01-18 15:35 | DVH ---
Exam: CT CT ABD PELVIS W CON-ORAL IV History: abscess Comparison Study: CT CT ABD PELVIS W CON-ORAL IV on DOS: 01/12/25, CT CT AB PEL WO CON-NO ORAL OR IV on DOS: 01/05/25, CT CT AB PEL WO CON-NO ORAL OR IV on DOS: 01/04/25 TECHNIQUE: A digital care manager image was obtained. During the uneventful, intravenous administration of c ontrast material, multislice data acquisition was obtained through the abdomen and pelvis. The data s et was subsequently reconstructed into axial images. Images reviewed on a wrist examination is an exa mination of axial and multiplanar reformations using a variety of window levels and settings. RADIATION DOSE: DLP 1745.59 mGy.cm; CTDI vol 27.28 mGy. Findings: Lungs: The lung bases are clear. Heart: No cardiomegaly or pericardial effusion. Liver: Fatty infiltration of the liver. Gallbladder: Cholecystectomy. Spleen: Unremarkable Pancreas: Unremarkable Adrenals: Unremarkable Kidneys: Unremarkable GI tract: Diverticulosis without evidence of acute diverticulitis. : Unremarkable. Vasculature: Unremarkable Lymphadenopathy: Similar prominent but nonenlarged perirectal nodes. Peritoneum: No ascites. Similar-appearing 11.0 x 13.5 cm abscess in the left hemiabdomen with pigtai l catheter located centrally. Musculoskeletal: Mild multilevel degenerative changes of the thoracolumbar spine. Soft tissues: Small left paramedian ventral hernia containing mesenteric fat and a portion of small b owel. No obstruction. Impression: 1. No acute abdominopelvic abnormalities. 2. Similar 13 cm abscess in the left hemiabdomen with centrally located pigtail catheter. 3. Nonenlarged perirectal nodes, nonspecific but favored reactive. 4. Diverticulosis without evidence of acute diverticulitis. 5. Hepatic steatosis.
--- NOTE | 2025-01-18 17:25 | DVHPN2 ---
Progress Note Date Seen: Jan 18, 2025 Resident Creating Document: ANGIE TORRES RESIDENT Has the PT tested + for MRSA If YES, has PT been informed?: No Medical Necessity Reason Pt with a Central, PICC or Fol: Yes Subjective Review of Systems Today's updates Overnight drain output approximately 200-300 mL serosanguineous fluid. Reports significantly improved abdominal pain and reduced blood in the stool only speckled blood today. Slight nausea but much improved from prior days, no vomiting. CT abdomen and pelvis was done today-the findings are as follows- No acute abdominal/pelvic abnormality Persistent 13 cm left claudio abdominal abscess with centrally located pigtail catheter. No enlarged perirectal nodes, small several likely reactive nodes. Diverticulosis without acute diverticulitis. Hepatic steatosis. OBGYN consult was placed they recommended outpatient follow-up with gynecological oncology and oncology consult repeat CA 125 Objective vital signs Vital Sign Date Time Temp Pulse Resp B/P (MAP) Pulse Ox O2 Delivery O2 Flow Rate FiO2 01/18/25 15:31 84 18 137/80 01/18/25 13:00 97.1 97 97.1 01/18/25 08:00 Room Air* 0 21 Total Intake and Output 01/17/25 01/17/25 01/18/25 15:00 23:00 07:00 Intake Total 700 ml 650 ml Output Total 175 ml Balance 700 ml 475 ml medications Current Medications Medications Dose Ordered Sig/Earl Route Start Time Stop Time Status Last Admin Dose Admin Ondansetron HCl 4 mg Q4HP PRN IV 01/04/25 09:45 01/18/25 03:27 4 MG Pantoprazole Sodium 40 mg BID IV 01/04/25 10:00 01/18/25 09:43 40 MG Nitroglycerin 0.4 mg Q5MINP PRN SL 01/04/25 09:45 Vancomycin HCl 0 ml @ 0 mls/hr UD IV 01/04/25 10:00 Cancel Sodium Chloride 1,000 ml @ 75 mls/hr [id number] IV 01/04/25 10:00 01/18/25 07:20 75 MLS/HR Lorazepam 1 mg BID PRN PO 01/04/25 10:00 01/15/25 19:48 1 MG Atenolol 50 mg BID PO 01/04/25 10:00 01/17/25 21:28 50 MG Diphenhydramine HCl 25 mg Q8HP PRN IV 01/04/25 10:00 01/06/25 17:58 25 MG Polyethylene Glycol 17 gm DAILY PO 01/04/25 12:45 01/10/25 10:24 17 GM Levofloxacin/ Dextrose 100 ml @ 100 mls/hr DAILY IV 01/08/25 10:00 Cancel Ceftriaxone Sodium/Dextrose 50 ml @ 50 mls/hr DAILY IV 01/08/25 10:00 01/18/25 09:48 50 MLS/HR Metronidazole 500 mg Q8HR PO 01/08/25 06:00 01/18/25 14:00 500 MG Hydromorphone HCl 1.5 mg Q3HPRN PRN IV 01/09/25 16:15 01/18/25 15:31 1.5 MG Sodium Chloride 10 ml QSHIFT@10,22 IV 01/11/25 22:00 01/18/25 10:00 10 ML Neomycin/ Polymyxin/ Bacitracin 1 applic TID TOP 01/12/25 22:00 01/18/25 14:00 1 APPLIC Diagnostic Test (Pha) 1 strip Q6HR 01/13/25 00:00 01/17/25 12:11 1 STRIP Insulin Human Regular FOLLOW SLIDING SCALE Q6HR SC 01/13/25 00:00 Dextrose 50 ml UD IV 01/12/25 22:00 Amino Acids/ Electrolytes/ Dextrose 1,000 ml @ 41 mls/hr DAILY@2200 IV 01/14/25 22:00 01/18/25 21:59 01/15/25 21:45 41 MLS/HR Examination General-alert, comfortable in no acute distress. Abdomen-soft, nondistended, mild left lower quadrant tenderness. Drain site-pigtail catheter in place, draining serosanguineous fluid, dressing intact, no signs of infection. Bowel sounds present in all quadrants. laboratory and microbiology Laboratory Tests 01/18/25 07:07 01/17/25 09:48 Test 01/18/25 07:07 Range/Units Serum Glucose 143 H 74-106 mg/dL Microbiology Date/Time Source Procedure Growth Status 01/05/25 14:10 Aspirate Gram Stain - Final Complete 01/05/25 14:10 Body Fluid Culture - Final Klebsiella oxytoca Complete 01/05/25 00:50 Nose MRSA Screen - Final Methicillin Resistant S.aureus Complete 01/04/25 09:40 Blood Blood Culture - Final NO GROWTH AFTER 5 DAYS OF INCUBATION. Complete Problem List/Assessment/Plan Problem List/Assessment/Plan Assessment 1. Complicated sigmoid diverticulitis with large perisigmoid abscess (drain in situ), suspicion for fistula/metastatic erosion 2. Lower GI bleeding with ongoing hematochezia 3. Gram-negative intra-abdominal infection (pending final culture ID) 4. MRSA colonization (nasal positive) 5. Ventral abdominal wall hernia without obstruction 6. History of ovarian cancer 7. Leukocytosis, improving 8. Abdominal blisters around the percutaneous drain insertion site Plan GI-SPECIFIC PLAN Outpatient gynecological oncology/oncology follow-up appointment is required and repeat CA 125 as per OBGYN recommendation. GASTROINTESTINAL / INFECTIOUS DISEASES: The plan is to discharge the patient on PICC line and place her on clear liquid diet for 2 weeks. And TPN during that time. And IV antibiotics. And repeat imaging after 2 weeks and outpatient follow-up with GI. * Continue IV antibiotics: * Ceftriaxone IV per ID * Metronidazole IV * De-escalate Zosyn as culture confirmed Klebsiella oxytoca * Await sensitivity results; adjust antibiotics accordingly * Drain Management: CONTINUE CLOSE OBSERVATION Now drain is functioning. Maintain drain care. If drains ceases to function consult IR for evaluation and possible drain exchange. * Continue daily assessment of IR drain output * Flush with 10 mL NS daily to maintain patency. And continue wound care daily. * Monitor for signs of clogging or infection at the site * Change drainage bag daily or PRN * IR/nursing to perform linen room worker * Pain Control: * Continue hydromorphone 1 mg IV and Percocet PRN * Wean opioids as tolerated * Monitor for constipation continue Miralax 17 g PO PRN * Nutrition: * Continue clear liquid diet * Monitor for return of bowel function, distention, and bloating * GI Bleeding: * Monitor for recurrent hematochezia or melena * Continue IV pantoprazole 40 mg BID * Monitor H/H daily * No EGD/colonoscopy at this time unless bleeding recurs PROPHYLAXIS / SUPPORTIVE CARE: * GI prophylaxis: Pantoprazole IV * Skin care: Monitor IR drain site for signs of infection * Electrolyte monitoring: Daily BMP to monitor renal function on antibiotics * Contact precautions due to MRSA nasal swab * Encourage ambulation with assistance Follow-up planning with repeat CT abdomen and pelvis in 2 weeks to assess abscess resolution Colonoscopy in 3-4 months post discharge for further GI evaluation. Arrange outpatient clinic follow-up after hospital discharge. Discharge plan includes TPN, PICC line antibiotics, home health and wound care. Case discussed in detail with the attending physician, including the clinical presentation, diagnostic workup, and comprehensive management plan. The patient was present for the discussion and demonstrated understanding of her condition and the proposed plan. Plan discussed with: Patient Dietary Evaluation Review Comments: Clear Liquid diet with Ensure Clear BID Expected Outcomes/Goals: recovered GI function, gradual wt loss, ANGIE TORRES RESIDENT Jan 18, 2025 17:25
--- NOTE | 2025-01-18 19:40 | DVHPN2 ---
Progress Note - Dictate Date Seen: Jan 18, 2025 Has the PT tested + for MRSA If YES, has PT been informed?: No Medical Necessity Reason Pt with a Central, PICC or Fol: Yes vital signs Vital Sign Date Time Temp Pulse Resp B/P (MAP) Pulse Ox O2 Delivery O2 Flow Rate FiO2 01/18/25 18:49 65 18 132/84 01/18/25 13:00 97.1 97 97.1 01/18/25 08:00 Room Air* 0 21 Total Intake and Output 01/17/25 01/17/25 01/18/25 15:00 23:00 07:00 Intake Total 700 ml 650 ml Output Total 175 ml Balance 700 ml 475 ml medications Current Medications Medications Dose Ordered Sig/Earl Route Start Time Stop Time Status Last Admin Dose Admin Ondansetron HCl 4 mg Q4HP PRN IV 01/04/25 09:45 01/18/25 03:27 4 MG Pantoprazole Sodium 40 mg BID IV 01/04/25 10:00 01/18/25 09:43 40 MG Nitroglycerin 0.4 mg Q5MINP PRN SL 01/04/25 09:45 Vancomycin HCl 0 ml @ 0 mls/hr UD IV 01/04/25 10:00 Cancel Sodium Chloride 1,000 ml @ 75 mls/hr [id number] IV 01/04/25 10:00 01/18/25 07:20 75 MLS/HR Lorazepam 1 mg BID PRN PO 01/04/25 10:00 01/15/25 19:48 1 MG Atenolol 50 mg BID PO 01/04/25 10:00 01/17/25 21:28 50 MG Diphenhydramine HCl 25 mg Q8HP PRN IV 01/04/25 10:00 01/06/25 17:58 25 MG Polyethylene Glycol 17 gm DAILY PO 01/04/25 12:45 01/10/25 10:24 17 GM Levofloxacin/ Dextrose 100 ml @ 100 mls/hr DAILY IV 01/08/25 10:00 Cancel Ceftriaxone Sodium/Dextrose 50 ml @ 50 mls/hr DAILY IV 01/08/25 10:00 01/18/25 09:48 50 MLS/HR Metronidazole 500 mg Q8HR PO 01/08/25 06:00 01/18/25 14:00 500 MG Sodium Chloride 10 ml QSHIFT@10,22 IV 01/11/25 22:00 01/18/25 10:00 10 ML Neomycin/ Polymyxin/ Bacitracin 1 applic TID TOP 01/12/25 22:00 01/18/25 14:00 1 APPLIC Diagnostic Test (Pha) 1 strip Q6HR 01/13/25 00:00 01/17/25 12:11 1 STRIP Insulin Human Regular FOLLOW SLIDING SCALE Q6HR SC 01/13/25 00:00 Dextrose 50 ml UD IV 01/12/25 22:00 Amino Acids/ Electrolytes/ Dextrose 1,000 ml @ 41 mls/hr DAILY@2200 IV 01/14/25 22:00 01/18/25 21:59 01/15/25 21:45 41 MLS/HR laboratory and microbiology Laboratory Tests 01/18/25 07:07 01/17/25 09:48 Test 01/18/25 07:07 Range/Units Serum Glucose 143 H 74-106 mg/dL Assessment/Plan Subjective Patient was admitted for diverticular abscess and sepsis. Drain placed for abscess is working well. OBGYN was consulted for pelvic mass, patient has history of ovarian cancer. Will continue current treatment and monitor daily labs. Discharge planning home tomorrow. Medical History - Ovarian cancer diagnosed in June 2022 - Diverticular abscess Surgical History - Open laparotomy in June 2022 for ovarian cancer treatment - IR drain placement for diverticular abscess Medications and Supplements - Antibiotics - [employer] Social History - Living Situation: Declined TPN at home, currently on [employer] Review of Systems Gastrointestinal: Positive for abdominal pain. Psychiatric: Positive for emotional distress. Objective Laboratory, Imaging, and Diagnostic Test Results - CT or ultrasound: Revealed diverticular abscess - Imaging: Showed solid mass Assessment & Plan Diverticular abscess with sepsis Assessment: Patient admitted with abdominal pain due to a diverticular abscess complicated by sepsis. IR placed a drain, which is currently leaking. Recent IR update indicates the patient is not a candidate for drain removal and replacement due to solid material in the abscess. There is a discrepancy between the radiologist's assessment of a solid mass and the surgeon's opinion. Surgery is being considered as the next step in management. Plan: - Maintain current drain placement - Await surgical evaluation and decision from Dr. Kothari and Dr. Seo - Continue current antibiotic regimen - Continue Kinemix - Request new drain bag from radiologist nurse in the morning due to odor - Provide emotional support and updates to the patient regarding treatment plan History of ovarian cancer Assessment: Patient has a history of ovarian cancer diagnosed in June 2022, treated with open laparotomy. Currently without an oncologist due to insurance changes. Another doctor is awaiting biopsy results of the current mass. Plan: - Place oncology consult for evaluation - Follow up on biopsy results of current mass Dietary Evaluation Review Comments: Clear Liquid diet with Ensure Clear BID Expected Outcomes/Goals: recovered GI function, gradual wt loss, Plan discussed with: Patient, Other GERARD WHEAT MD Jan 18, 2025 19:40
[2025-01-18] MEDS: HYDROmorphone HCL 2 MG/ML VL/or syr IV PRN (21:49)
[2025-01-19] VITALS (9 sets, daily range): BP systolic 107–129; BP diastolic 62–86; PULSE 56–77; RESP 18–20; TEMP 97.2–98.4; O2SAT 92–98
--- NOTE | 2025-01-19 11:41 | DVHPN2 ---
Progress Note Date Seen: Jan 19, 2025 Has the PT tested + for MRSA If YES, has PT been informed?: No Medical Necessity Reason Pt with a Central, PICC or Fol: Yes Objective vital signs Vital Sign Date Time Temp Pulse Resp B/P (MAP) Pulse Ox O2 Delivery O2 Flow Rate FiO2 01/19/25 10:36 64 18 132/75 01/19/25 09:06 97.7 98 97.7 01/19/25 08:00 Room Air* 0 21 Total Intake and Output 01/18/25 01/18/25 01/19/25 15:00 23:00 07:00 Intake Total 150 ml 1535 ml 1000 ml Balance 150 ml 1535 ml 1000 ml medications Current Medications Medications Dose Ordered Sig/Earl Route Start Time Stop Time Status Last Admin Dose Admin Ondansetron HCl 4 mg Q4HP PRN IV 01/04/25 09:45 01/18/25 03:27 4 MG Pantoprazole Sodium 40 mg BID IV 01/04/25 10:00 01/19/25 10:08 40 MG Nitroglycerin 0.4 mg Q5MINP PRN SL 01/04/25 09:45 Vancomycin HCl 0 ml @ 0 mls/hr UD IV 01/04/25 10:00 Cancel Sodium Chloride 1,000 ml @ 75 mls/hr [id number] IV 01/04/25 10:00 01/19/25 10:12 75 MLS/HR Lorazepam 1 mg BID PRN PO 01/04/25 10:00 01/18/25 20:35 1 MG Atenolol 50 mg BID PO 01/04/25 10:00 01/19/25 10:08 50 MG Diphenhydramine HCl 25 mg Q8HP PRN IV 01/04/25 10:00 01/06/25 17:58 25 MG Polyethylene Glycol 17 gm DAILY PO 01/04/25 12:45 01/10/25 10:24 17 GM Levofloxacin/ Dextrose 100 ml @ 100 mls/hr DAILY IV 01/08/25 10:00 Cancel Ceftriaxone Sodium/Dextrose 50 ml @ 50 mls/hr DAILY IV 01/08/25 10:00 01/19/25 10:09 50 MLS/HR Metronidazole 500 mg Q8HR PO 01/08/25 06:00 01/19/25 05:50 500 MG Sodium Chloride 10 ml QSHIFT@10,22 IV 01/11/25 22:00 01/19/25 10:12 10 ML Neomycin/ Polymyxin/ Bacitracin 1 applic TID TOP 01/12/25 22:00 01/18/25 21:13 1 APPLIC Diagnostic Test (Pha) 1 strip Q6HR 01/13/25 00:00 01/19/25 05:50 1 STRIP Insulin Human Regular FOLLOW SLIDING SCALE Q6HR SC 01/13/25 00:00 Dextrose 50 ml UD IV 01/12/25 22:00 Hydromorphone HCl 1.5 mg Q3HPRN PRN IV 01/18/25 20:00 01/19/25 10:36 1.5 MG laboratory and microbiology Laboratory Tests 01/18/25 07:07 01/17/25 09:48 Test 01/18/25 07:07 Range/Units Serum Glucose 143 H 74-106 mg/dL Microbiology Date/Time Source Procedure Growth Status 01/05/25 14:10 Aspirate Gram Stain - Final Complete 01/05/25 14:10 Body Fluid Culture - Final Klebsiella oxytoca Complete 01/05/25 00:50 Nose MRSA Screen - Final Methicillin Resistant S.aureus Complete 01/04/25 09:40 Blood Blood Culture - Final NO GROWTH AFTER 5 DAYS OF INCUBATION. Complete Problem List/Assessment/Plan Problem List/Assessment/Plan AFEBRILE VSS ABD SOFT NON TENDER POSSIBLE LOWER GI BLEED NOTED BY PT REPEAT CT SCAN ABD PELVIS NOTED DRAIN PLACED BY IR DRAINING CONTINUE CLOSE OBSERVATION IR PLACED DRAIN NOW FUNCTIONAL ONCOLOGY EVAL CUSHION SPRING ASSEMBLER CONSULT NOTED DISCUSSED WITH PT RE OPTIONS PLANNED PELVIC MASS BX AT [facility] PER PT TRANSFER TO HIGHER LEVEL OF CARE BASED UPON POSSIBLE CUSHION SPRING ASSEMBLER/ONCOLOGY/COLONIC EVAL FOR POSSIBLE SURGERY INDICATED NURSE AT BEDSIDE Plan discussed with: Patient My Orders My Orders Orders - CHIQUITA BRADSHAW MD Procedure Category Date Status Time Imaging Transfer ORDERS 01/19/25 Transmitted Request 11:19 Dietary Evaluation Review Comments: Clear Liquid diet with Ensure Clear BID Expected Outcomes/Goals: recovered GI function, gradual wt loss, CHIQUITA BRADSHAW MD Jan 19, 2025 11:41
--- NOTE | 2025-01-19 15:40 | DVHPN2 ---
Progress Note Date Seen: Jan 19, 2025 Resident Creating Document: ANGIE TORRES RESIDENT Has the PT tested + for MRSA If YES, has PT been informed?: No Medical Necessity Reason Pt with a Central, PICC or Fol: Yes Subjective Review of Systems Abscess not decreasing in size; possible surgical intervention discussed, including potential need for colostomy bag. * GI standpoint: Will follow surgical recommendations closely; no immediate GI intervention planned beyond optimizing nutrition and infection control. * Diet change: Discontinuing full liquid diet and transitioning to NPO to promote abscess healing and minimize bowel stimulation. * Nutrition: Will transition fully to TPN via central line for nutritional needs. * Patient denies fever, chills, or worsening abdominal pain; mild discomfort remains in LLQ. No vomiting, minimal nausea. BRIEF GIST OF TODAYS PROGRESS * Persistent large abscess with no radiographic size reduction. * Surgeon considering operative management; GI to support perioperative and nutritional optimization. * Diet changed from full liquids to NPO; TPN initiated as primary nutrition. * Drain remains in place and functioning. * Antibiotics continued per ID. Objective vital signs Vital Sign Date Time Temp Pulse Resp B/P (MAP) Pulse Ox O2 Delivery O2 Flow Rate FiO2 01/19/25 14:26 60 16 118/70 01/19/25 12:36 98.2 97 98.2 01/19/25 08:00 Room Air* 0 21 Total Intake and Output 01/18/25 01/18/25 01/19/25 15:00 23:00 07:00 Intake Total 150 ml 1535 ml 1000 ml Balance 150 ml 1535 ml 1000 ml medications Current Medications Medications Dose Ordered Sig/Earl Route Start Time Stop Time Status Last Admin Dose Admin Ondansetron HCl 4 mg Q4HP PRN IV 01/04/25 09:45 01/18/25 03:27 4 MG Pantoprazole Sodium 40 mg BID IV 01/04/25 10:00 01/19/25 10:08 40 MG Nitroglycerin 0.4 mg Q5MINP PRN SL 01/04/25 09:45 Vancomycin HCl 0 ml @ 0 mls/hr UD IV 01/04/25 10:00 Cancel Sodium Chloride 1,000 ml @ 75 mls/hr [id number] IV 01/04/25 10:00 01/19/25 10:12 75 MLS/HR Lorazepam 1 mg BID PRN PO 01/04/25 10:00 01/18/25 20:35 1 MG Atenolol 50 mg BID PO 01/04/25 10:00 01/19/25 10:08 50 MG Diphenhydramine HCl 25 mg Q8HP PRN IV 01/04/25 10:00 01/06/25 17:58 25 MG Polyethylene Glycol 17 gm DAILY PO 01/04/25 12:45 01/10/25 10:24 17 GM Levofloxacin/ Dextrose 100 ml @ 100 mls/hr DAILY IV 01/08/25 10:00 Cancel Sodium Chloride 10 ml QSHIFT@10,22 IV 01/11/25 22:00 01/19/25 10:12 10 ML Neomycin/ Polymyxin/ Bacitracin 1 applic TID TOP 01/12/25 22:00 01/18/25 21:13 1 APPLIC Diagnostic Test (Pha) 1 strip Q6HR 01/13/25 00:00 01/19/25 12:13 1 STRIP Insulin Human Regular FOLLOW SLIDING SCALE Q6HR SC 01/13/25 00:00 Dextrose 50 ml UD IV 01/12/25 22:00 Hydromorphone HCl 1.5 mg Q3HPRN PRN IV 01/18/25 20:00 01/19/25 13:56 1.5 MG Metronidazole 500 mg Q8HR IV 01/19/25 22:00 Cancel Metronidazole 100 ml @ 100 mls/hr Q8HR IV 01/19/25 22:00 Examination * General: Alert, no acute distress, stable vitals * Abdomen: Soft, mild LLQ tenderness, no rebound or guarding * Drain site: Pigtail catheter draining moderate serosanguinous fluid, dressing intact, no surrounding erythema laboratory and microbiology Laboratory Tests 01/18/25 07:07 01/17/25 09:48 Test 01/18/25 07:07 Range/Units Serum Glucose 143 H 74-106 mg/dL Microbiology Date/Time Source Procedure Growth Status 01/05/25 14:10 Aspirate Gram Stain - Final Complete 01/05/25 14:10 Body Fluid Culture - Final Klebsiella oxytoca Complete 01/05/25 00:50 Nose MRSA Screen - Final Methicillin Resistant S.aureus Complete 01/04/25 09:40 Blood Blood Culture - Final NO GROWTH AFTER 5 DAYS OF INCUBATION. Complete Problem List/Assessment/Plan Problem List/Assessment/Plan Assessment 1. Complicated sigmoid diverticulitis with large perisigmoid abscess (drain in situ), suspicion for fistula/metastatic erosion 2. Lower GI bleeding with ongoing hematochezia 3. Gram-negative intra-abdominal infection (pending final culture ID) 4. MRSA colonization (nasal positive) 5. Ventral abdominal wall hernia without obstruction 6. History of ovarian cancer 7. Leukocytosis, improving 8. Abdominal blisters around the percutaneous drain insertion site Plan GI-SPECIFIC PLAN * Continue IV ceftriaxone and IV metronidazole per culture sensitivity. * Maintain percutaneous drain care: flush daily with 10 mL NS, monitor and document output and character. * Follow surgical teams recommendations regarding potential operative intervention. * Possible surgical resection with colostomy or gastrostomy if abscess persists. Nutrition * Discontinue full liquid diet; NPO starting today. * Continue TPN via central line for complete nutritional support. * Monitor daily electrolytes, glucose, weekly LFTs while on TPN. Monitoring * Monitor drain output daily; notify surgery and IR if output ceases or increases significantly. * CBC daily for infection trends. * CMP daily while inpatient on TPN. Prophylaxis / Supportive * GI prophylaxis: Pantoprazole IV 40 mg BID. Outpatient gynecological oncology/oncology follow-up appointment is required and repeat CA 125 as per OBGYN recommendation. GASTROINTESTINAL / INFECTIOUS DISEASES: The plan is to discharge the patient on PICC line and place her on clear liquid diet for 2 weeks. And TPN during that time. And IV antibiotics. And repeat imaging after 2 weeks and outpatient follow-up with GI. * Continue IV antibiotics: * Ceftriaxone IV per ID * Metronidazole IV * De-escalate Zosyn as culture confirmed Klebsiella oxytoca * Await sensitivity results; adjust antibiotics accordingly * Drain Management: CONTINUE CLOSE OBSERVATION Now drain is functioning. Maintain drain care. If drains ceases to function consult IR for evaluation and possible drain exchange. * Continue daily assessment of IR drain output * Flush with 10 mL NS daily to maintain patency. And continue wound care daily. * Monitor for signs of clogging or infection at the site * Change drainage bag daily or PRN * IR/nursing to perform pot reliner * Pain Control: * Continue hydromorphone 1 mg IV and Percocet PRN * Wean opioids as tolerated * Monitor for constipation continue Miralax 17 g PO PRN * Nutrition: * Continue clear liquid diet * Monitor for return of bowel function, distention, and bloating * GI Bleeding: * Monitor for recurrent hematochezia or melena * Continue IV pantoprazole 40 mg BID * Monitor H/H daily * No EGD/colonoscopy at this time unless bleeding recurs PROPHYLAXIS / SUPPORTIVE CARE: * GI prophylaxis: Pantoprazole IV * Skin care: Monitor IR drain site for signs of infection * Electrolyte monitoring: Daily BMP to monitor renal function on antibiotics * Contact precautions due to MRSA nasal swab * Encourage ambulation with assistance Follow-up planning with repeat CT abdomen and pelvis in 2 weeks to assess abscess resolution Colonoscopy in 3-4 months post discharge for further GI evaluation. Arrange outpatient clinic follow-up after hospital discharge. Discharge plan includes TPN, PICC line antibiotics, home health and wound care. Case discussed in detail with the attending physician, including the clinical presentation, diagnostic workup, and comprehensive management plan. The patient was present for the discussion and demonstrated understanding of her condition and the proposed plan. Plan discussed with: Patient My Orders My Orders Orders - ANGIE TORRES RESIDENT Procedure Category Date Status Time Cancer Antigen (Ca) LAB 01/18/25 In Process 125 17:25 Dietary Evaluation Review Comments: Clear Liquid diet with Ensure Clear BID Expected Outcomes/Goals: recovered GI function, gradual wt loss, ANGIE TORRES RESIDENT Jan 19, 2025 15:40
--- NOTE | 2025-01-19 21:19 | DVHPN2 ---
Progress Note - Dictate Date Seen: Jan 19, 2025 Has the PT tested + for MRSA If YES, has PT been informed?: No Medical Necessity Reason Pt with a Central, PICC or Fol: Yes vital signs Vital Sign Date Time Temp Pulse Resp B/P (MAP) Pulse Ox O2 Delivery O2 Flow Rate FiO2 01/19/25 20:37 87 18 124/77 01/19/25 20:15 96 Room Air* 0 21 01/19/25 16:29 97.9 97.9 Total Intake and Output 01/18/25 01/18/25 01/19/25 15:00 23:00 07:00 Intake Total 150 ml 1535 ml 1000 ml Balance 150 ml 1535 ml 1000 ml medications Current Medications Medications Dose Ordered Sig/Earl Route Start Time Stop Time Status Last Admin Dose Admin Ondansetron HCl 4 mg Q4HP PRN IV 01/04/25 09:45 01/19/25 17:19 4 MG Pantoprazole Sodium 40 mg BID IV 01/04/25 10:00 01/19/25 10:08 40 MG Nitroglycerin 0.4 mg Q5MINP PRN SL 01/04/25 09:45 Vancomycin HCl 0 ml @ 0 mls/hr UD IV 01/04/25 10:00 Cancel Sodium Chloride 1,000 ml @ 75 mls/hr [id number] IV 01/04/25 10:00 01/19/25 10:12 75 MLS/HR Lorazepam 1 mg BID PRN PO 01/04/25 10:00 01/18/25 20:35 1 MG Atenolol 50 mg BID PO 01/04/25 10:00 01/19/25 10:08 50 MG Diphenhydramine HCl 25 mg Q8HP PRN IV 01/04/25 10:00 01/06/25 17:58 25 MG Polyethylene Glycol 17 gm DAILY PO 01/04/25 12:45 01/10/25 10:24 17 GM Levofloxacin/ Dextrose 100 ml @ 100 mls/hr DAILY IV 01/08/25 10:00 Cancel Sodium Chloride 10 ml QSHIFT@10,22 IV 01/11/25 22:00 01/19/25 10:12 10 ML Neomycin/ Polymyxin/ Bacitracin 1 applic TID TOP 01/12/25 22:00 01/18/25 21:13 1 APPLIC Diagnostic Test (Pha) 1 strip Q6HR 01/13/25 00:00 01/19/25 18:00 1 STRIP Insulin Human Regular FOLLOW SLIDING SCALE Q6HR SC 01/13/25 00:00 Dextrose 50 ml UD IV 01/12/25 22:00 Hydromorphone HCl 1.5 mg Q3HPRN PRN IV 01/18/25 20:00 01/19/25 20:37 1.5 MG Metronidazole 500 mg Q8HR IV 01/19/25 22:00 Cancel Metronidazole 100 ml @ 100 mls/hr Q8HR IV 01/19/25 22:00 laboratory and microbiology Laboratory Tests 01/18/25 07:07 01/17/25 09:48 Test 01/18/25 07:07 Range/Units Serum Glucose 143 H 74-106 mg/dL Assessment/Plan Subjective Plan to transfer patient to higher level of care for [employer] onc surgery. Medical History - Ovarian cancer diagnosed in June 2022 - Diverticular abscess Surgical History - Open laparotomy in June 2022 for ovarian cancer treatment - IR drain placement for diverticular abscess Medications and Supplements - Antibiotics - Kinemix Social History - Living Situation: Declined TPN at home, currently on Kinemix Review of Systems Gastrointestinal: Positive for abdominal pain. Psychiatric: Positive for emotional distress. Objective Laboratory, Imaging, and Diagnostic Test Results - CT or ultrasound: Revealed diverticular abscess - Imaging: Showed solid mass Assessment & Plan Diverticular abscess with sepsis Assessment: Patient admitted with abdominal pain due to a diverticular abscess complicated by sepsis. IR placed a drain, which is currently leaking. Recent IR update indicates the patient is not a candidate for drain removal and replacement due to solid material in the abscess. There is a discrepancy between the radiologist's assessment of a solid mass and the surgeon's opinion. Surgery is being considered as the next step in management. Plan: - Maintain current drain placement - Await surgical evaluation and decision from Dr. Kothari and Dr. Seo - Continue current antibiotic regimen - Continue Kinemix - Request new drain bag from radiologist nurse in the morning due to odor - Provide emotional support and updates to the patient regarding treatment plan History of ovarian cancer Assessment: Patient has a history of ovarian cancer diagnosed in June 2022, treated with open laparotomy. Currently without an oncologist due to insurance changes. Another doctor is awaiting biopsy results of the current mass. Plan: - Place oncology consult for evaluation - Follow up on biopsy results of current mass Dietary Evaluation Review Comments: Clear Liquid diet with Ensure Clear BID Expected Outcomes/Goals: recovered GI function, gradual wt loss, Plan discussed with: Patient, Other GERARD WHEAT MD Jan 19, 2025 21:18
[2025-01-19] MEDS ORDERED: DEXTROSE (50%) 50ML SYRG IV SCH (22:00)
[2025-01-19] MEDS ORDERED: CLINIMIX PER PHARMACY 0 ML IV SCH (22:00)
[2025-01-19] MEDS: AMINO ACID INFUSION IN D10W 1,000 ML IV SCH (22:06)
[2025-01-19] MEDS: InsuLIN REG 1unit/0.01ml Soln (100units/ml) SC SCH (23:51)
[2025-01-19] MEDS: ACCU-CHEK COMFORT CURVE STRIP VI SCH (23:52)
[2025-01-20] VITALS (8 sets, daily range): BP systolic 104–125; BP diastolic 65–87; PULSE 56–69; RESP 16–19; TEMP 97.4–98.7; O2SAT 95–98
[2025-01-20 06:51] LABS: Albumin 3.3 g/dL (3.2-4.8); Alkaline Phosphatase 60 U/L (46-116); Anion Gap 9 (5-15); Carbon Dioxide 23 mmol/L (20-31); Magnesium 1.7 mg/dL (1.6-2.6); Potassium 3.7 mmol/L (3.5-5.1); Sodium 141 mmol/L (136-145)
[2025-01-20 06:52] LABS: Bilirubin, Total 0.4 mg/dL (0.2-1.0)
[2025-01-20 06:57] LABS: Alanine Aminotransferase < 9 U/L (7-40); BUN/Creatinine Ratio 10.2 (10.0-20.0); Blood Urea Nitrogen < 5 mg/dL (9-23); Calcium 8.3 mg/dL (8.7-10.4); Chloride 109 mmol/L (98-107); Glucose 108 mg/dL (74-106); Total Protein 5.5 g/dL (5.7-8.2)
--- NOTE | 2025-01-20 19:34 | DVHPN2 ---
Progress Note Date Seen: Jan 20, 2025 Resident Creating Document: ANGIE TORRES RESIDENT Has the PT tested + for MRSA If YES, has PT been informed?: No Medical Necessity Reason Pt with a Central, PICC or Fol: Yes Subjective Review of Systems Today's progress- Drain is no longer functioning, no output reported. IR consulted. Abdominal pain persists, described as diffuse discomfort with left lower quadrant predominance. Bloody diarrhea reported today, ongoing with associated cramping. Hemoglobin stable at 10.3. Surgeon at current facility recommended operative management of abscess so the patient is being transferred for a higher level of care to Gynecology/Oncology surgery. Objective vital signs Vital Sign Date Time Temp Pulse Resp B/P (MAP) Pulse Ox O2 Delivery O2 Flow Rate FiO2 01/20/25 18:36 67 16 113/68 01/20/25 17:08 97.7 98 97.7 01/20/25 08:00 Room Air* 0 21 Total Intake and Output 01/19/25 01/19/25 01/20/25 15:00 23:00 07:00 Intake Total 900 ml 1530 ml Output Total 50 ml 50 ml Balance -50 ml 850 ml 1530 ml medications Current Medications Medications Dose Ordered Sig/Earl Route Start Time Stop Time Status Last Admin Dose Admin Ondansetron HCl 4 mg Q4HP PRN IV 01/04/25 09:45 01/20/25 09:40 4 MG Pantoprazole Sodium 40 mg BID IV 01/04/25 10:00 01/20/25 09:35 40 MG Nitroglycerin 0.4 mg Q5MINP PRN SL 01/04/25 09:45 Vancomycin HCl 0 ml @ 0 mls/hr UD IV 01/04/25 10:00 Cancel Sodium Chloride 1,000 ml @ 75 mls/hr [id number] IV 01/04/25 10:00 01/20/25 13:14 75 MLS/HR Lorazepam 1 mg BID PRN PO 01/04/25 10:00 01/19/25 22:06 1 MG Atenolol 50 mg BID PO 01/04/25 10:00 01/19/25 10:08 50 MG Diphenhydramine HCl 25 mg Q8HP PRN IV 01/04/25 10:00 01/06/25 17:58 25 MG Polyethylene Glycol 17 gm DAILY PO 01/04/25 12:45 8/5/25 10:24 17 GM Levofloxacin/ Dextrose 100 ml @ 100 mls/hr DAILY IV 01/08/25 10:00 Cancel Sodium Chloride 10 ml QSHIFT@10,22 IV 01/11/25 22:00 01/20/25 09:36 10 ML Neomycin/ Polymyxin/ Bacitracin 1 applic TID TOP 01/12/25 22:00 01/18/25 21:13 1 APPLIC Hydromorphone HCl 1.5 mg Q3HPRN PRN IV 01/18/25 20:00 01/20/25 18:36 1.5 MG Metronidazole 500 mg Q8HR IV 01/19/25 22:00 Cancel Metronidazole 100 ml @ 100 mls/hr Q8HR IV 01/19/25 22:00 01/20/25 13:15 100 MLS/HR Amino Acids 0 ml @ 0 mls/hr PER PHARMACY IV 01/19/25 22:00 Amino Acids/ Electrolytes/ Dextrose 1,000 ml @ 41 mls/hr DAILY@2200 IV 01/19/25 22:00 01/19/25 22:06 41 MLS/HR Diagnostic Test (Pha) 1 strip Q6HR 01/20/25 00:00 01/20/25 18:09 1 STRIP Insulin Human Regular FOLLOW SLIDING SCALE Q6HR SC 01/20/25 00:00 Dextrose 50 ml UD IV 01/19/25 22:00 Examination * General: Alert, no acute distress, stable vitals * Abdomen: Soft, mild LLQ tenderness, no rebound or guarding * Drain site: Pigtail catheter not draining any serosanguinous fluid, dressing intact, no surrounding erythema laboratory and microbiology Laboratory Tests 01/20/25 05:43 01/17/25 09:48 Test 01/20/25 05:43 Range/Units Serum Glucose 108 H 74-106 mg/dL Microbiology Date/Time Source Procedure Growth Status 01/05/25 14:10 Aspirate Gram Stain - Final Complete 01/05/25 14:10 Body Fluid Culture - Final Klebsiella oxytoca Complete 01/05/25 00:50 Nose MRSA Screen - Final Methicillin Resistant S.aureus Complete 01/04/25 09:40 Blood Blood Culture - Final NO GROWTH AFTER 5 DAYS OF INCUBATION. Complete Problem List/Assessment/Plan Problem List/Assessment/Plan Assessment 1. Complicated sigmoid diverticulitis with large perisigmoid abscess (drain in situ), suspicion for fistula/metastatic erosion 2. Lower GI bleeding with ongoing hematochezia 3. Gram-negative intra-abdominal infection (pending final culture ID) 4. MRSA colonization (nasal positive) 5. Ventral abdominal wall hernia without obstruction 6. History of ovarian cancer 7. Leukocytosis, improving 8. Abdominal blisters around the percutaneous drain insertion site Plan GI-SPECIFIC PLAN Transfer to higher level facility with gynecology/ oncology surgical capability for operative management. IR consulted for the new drain placement as the current drain is not functioning properly. * Continue IV ceftriaxone and IV metronidazole per culture sensitivity. * Maintain percutaneous drain care: flush daily with 10 mL NS, monitor and document output and character. * Follow surgical teams recommendations regarding potential operative intervention. * Possible surgical resection with colostomy or gastrostomy if abscess persists. Nutrition * Discontinue full liquid diet; NPO starting today. * Continue TPN via central line for complete nutritional support. * Monitor daily electrolytes, glucose, weekly LFTs while on TPN. Monitoring * Monitor drain output daily; notify surgery and IR if output ceases or increases significantly. * CBC daily for infection trends. * CMP daily while inpatient on TPN. Prophylaxis / Supportive * GI prophylaxis: Pantoprazole IV 40 mg BID. Outpatient gynecological oncology/oncology follow-up appointment is required and repeat CA 125 as per OBGYN recommendation. GASTROINTESTINAL / INFECTIOUS DISEASES: The plan is to discharge the patient on PICC line and place her on clear liquid diet for 2 weeks. And TPN during that time. And IV antibiotics. And repeat imaging after 2 weeks and outpatient follow-up with GI. * Continue IV antibiotics: * Ceftriaxone IV per ID * Metronidazole IV * De-escalate Zosyn as culture confirmed Klebsiella oxytoca * Await sensitivity results; adjust antibiotics accordingly * Drain Management: CONTINUE CLOSE OBSERVATION Now drain is functioning. Maintain drain care. If drains ceases to function consult IR for evaluation and possible drain exchange. * Continue daily assessment of IR drain output * Flush with 10 mL NS daily to maintain patency. And continue wound care daily. * Monitor for signs of clogging or infection at the site * Change drainage bag daily or PRN * IR/nursing to perform wireline supervisor * Pain Control: * Continue hydromorphone 1 mg IV and Percocet PRN * Wean opioids as tolerated * Monitor for constipation continue Miralax 17 g PO PRN * Nutrition: * Continue clear liquid diet * Monitor for return of bowel function, distention, and bloating * GI Bleeding: * Monitor for recurrent hematochezia or melena * Continue IV pantoprazole 40 mg BID * Monitor H/H daily * No EGD/colonoscopy at this time unless bleeding recurs PROPHYLAXIS / SUPPORTIVE CARE: * GI prophylaxis: Pantoprazole IV * Skin care: Monitor IR drain site for signs of infection * Electrolyte monitoring: Daily BMP to monitor renal function on antibiotics * Contact precautions due to MRSA nasal swab * Encourage ambulation with assistance Follow-up planning with repeat CT abdomen and pelvis in 2 weeks to assess abscess resolution Colonoscopy in 3-4 months post discharge for further GI evaluation. Arrange outpatient clinic follow-up after hospital discharge. Discharge plan includes TPN, PICC line antibiotics, home health and wound care. Case discussed in detail with the attending physician, including the clinical presentation, diagnostic workup, and comprehensive management plan. The patient was present for the discussion and demonstrated understanding of her condition and the proposed plan. Plan discussed with: Patient Dietary Evaluation Review Comments: Clear Liquid diet with Ensure Clear BID Expected Outcomes/Goals: recovered GI function, gradual wt loss, ANGIE TORRES RESIDENT Jan 20, 2025 19:34
--- NOTE | 2025-01-20 20:31 | DVHPN2 ---
Progress Note Date Seen: Jan 20, 2025 Has the PT tested + for MRSA If YES, has PT been informed?: No Medical Necessity Reason Pt with a Central, PICC or Fol: Yes Subjective Review of Systems: CVS:Normal, RESPIRATORY:Normal, GI:Normal, NEURO:Normal Objective vital signs Vital Sign Date Time Temp Pulse Resp B/P (MAP) Pulse Ox O2 Delivery O2 Flow Rate FiO2 01/20/25 18:36 67 16 113/68 01/20/25 17:08 97.7 98 97.7 01/20/25 08:00 Room Air* 0 21 Total Intake and Output 01/19/25 01/19/25 01/20/25 15:00 23:00 07:00 Intake Total 900 ml 1530 ml Output Total 50 ml 50 ml Balance -50 ml 850 ml 1530 ml medications Current Medications Medications Dose Ordered Sig/Earl Route Start Time Stop Time Status Last Admin Dose Admin Ondansetron HCl 4 mg Q4HP PRN IV 01/04/25 09:45 01/20/25 09:40 4 MG Pantoprazole Sodium 40 mg BID IV 01/04/25 10:00 01/20/25 09:35 40 MG Nitroglycerin 0.4 mg Q5MINP PRN SL 01/04/25 09:45 Vancomycin HCl 0 ml @ 0 mls/hr UD IV 01/04/25 10:00 Cancel Sodium Chloride 1,000 ml @ 75 mls/hr [id number] IV 01/04/25 10:00 01/20/25 13:14 75 MLS/HR Lorazepam 1 mg BID PRN PO 01/04/25 10:00 01/19/25 22:06 1 MG Atenolol 50 mg BID PO 01/04/25 10:00 01/19/25 10:08 50 MG Diphenhydramine HCl 25 mg Q8HP PRN IV 01/04/25 10:00 01/06/25 17:58 25 MG Polyethylene Glycol 17 gm DAILY PO 01/04/25 12:45 01/10/25 10:24 17 GM Levofloxacin/ Dextrose 100 ml @ 100 mls/hr DAILY IV 01/08/25 10:00 Cancel Sodium Chloride 10 ml QSHIFT@10,22 IV 01/11/25 22:00 01/20/25 09:36 10 ML Neomycin/ Polymyxin/ Bacitracin 1 applic TID TOP 01/12/25 22:00 01/18/25 21:13 1 APPLIC Hydromorphone HCl 1.5 mg Q3HPRN PRN IV 01/18/25 20:00 01/20/25 18:36 1.5 MG Metronidazole 500 mg Q8HR IV 01/19/25 22:00 Cancel Metronidazole 100 ml @ 100 mls/hr Q8HR IV 01/19/25 22:00 01/20/25 13:15 100 MLS/HR Amino Acids 0 ml @ 0 mls/hr PER PHARMACY IV 01/19/25 22:00 Amino Acids/ Electrolytes/ Dextrose 1,000 ml @ 41 mls/hr DAILY@2200 IV 01/19/25 22:00 01/19/25 22:06 41 MLS/HR Diagnostic Test (Pha) 1 strip Q6HR 01/20/25 00:00 01/20/25 18:09 1 STRIP Insulin Human Regular FOLLOW SLIDING SCALE Q6HR SC 01/20/25 00:00 Dextrose 50 ml UD IV 01/19/25 22:00 Examination: GENERAL:Normal, LUNGS:Normal, CVS:Normal, ABDOMEN:Abnormal, SKIN:Normal, NEURO:Normal laboratory and microbiology Laboratory Tests 01/20/25 05:43 01/17/25 09:48 Test 01/20/25 05:43 Range/Units Serum Glucose 108 H 74-106 mg/dL Microbiology Date/Time Source Procedure Growth Status 01/05/25 14:10 Aspirate Gram Stain - Final Complete 01/05/25 14:10 Body Fluid Culture - Final Klebsiella oxytoca Complete 01/05/25 00:50 Nose MRSA Screen - Final Methicillin Resistant S.aureus Complete 01/04/25 09:40 Blood Blood Culture - Final NO GROWTH AFTER 5 DAYS OF INCUBATION. Complete Labs and/or images reviewed: Labs reviewed by me, Image(s) reviewed by me Problem List/Assessment/Plan Problem List/Assessment/Plan Georgia Mendiola is a patient with a history of ovarian cancer and status post hysterectomy presenting with complicated sigmoid diverticulitis and a diverticular abscess. She continues to report severe abdominal pain. The patient recently underwent a pigtail drain placement by interventional radiology for the diverticular abscess, but the drain is currently not draining. She was evaluated by general surgeon Dr. Kothari, who recommended a higher level of care for oncology and surgery. A GI consultation was obtained for hemorrhoids. The patient is being treated for sepsis, with Infectious Disease consulted. She is currently on antibiotic therapy with Rocephin and metronidazole, as well as Clinimix. The patient is being kept NPO due to concerns about worsening of the abscess. Her medical history is significant for a laparotomy performed in June 2019. The patient's condition is considered complex, and she is pending transfer to a higher level of care facility. Despite ongoing treatment, she continues to experience severe abdominal pain, which appears to be the primary symptom impacting her current health status. Complicated Sigmoid Diverticulitis with Diverticular Abscess Assessment: Patient has complicated sigmoid diverticulitis with a diverticular abscess. A pigtail drain was placed by interventional radiology, but it is currently not draining. The patient was evaluated by general surgeon Dr. Kothari, who recommended a higher level of care for oncology and surgery. The patient reports ongoing severe abdominal pain. A laparotomy was performed in June 2019. The patient's condition is being closely monitored for potential worsening of the abscess. Plan: - Continue Rocephin and metronidazole for antibiotic coverage - Continue Clinimix for abscess management - Monitor for worsening of abscess - Arrange transfer to higher level of care as recommended by general surgery History of Ovarian Cancer Assessment: Patient has a history of ovarian cancer and is status post hysterectomy. This history is relevant to the current presentation and management of the diverticulitis and abscess. Plan: - Oncology consultation as part of the higher level of care Sepsis Assessment: Patient is being treated for sepsis, likely secondary to the complicated diverticulitis and abscess. Plan: - Infectious Disease consultation - Continue antibiotic therapy with Rocephin and metronidazole - Monitor hemoglobin levels Hemorrhoids Assessment: Patient has hemorrhoids, which may be contributing to discomfort. Plan: - Gastroenterology consultation Plan discussed with: Patient Dietary Evaluation Review Comments: Clear Liquid diet with Ensure Clear BID Expected Outcomes/Goals: recovered GI function, gradual wt loss, Date of Service: Jan 20, 2025 Billing Provider: GERARD WHEAT MD Common Visit Codes: [id number] INP/OBS CARE (MOD) [facility] Jan 20, 2025 20:31
--- NOTE | 2025-01-20 22:02 | DVHPN2 ---
Progress Note Date Seen: Jan 20, 2025 Has the PT tested + for MRSA If YES, has PT been informed?: No Medical Necessity Reason Pt with a Central, PICC or Fol: Yes Objective vital signs Vital Sign Date Time Temp Pulse Resp B/P (MAP) Pulse Ox O2 Delivery O2 Flow Rate FiO2 01/20/25 21:33 69 19 119/87 01/20/25 17:08 97.7 98 97.7 01/20/25 08:00 Room Air* 0 21 Total Intake and Output 01/19/25 01/19/25 01/20/25 15:00 23:00 07:00 Intake Total 900 ml 1530 ml Output Total 50 ml 50 ml Balance -50 ml 850 ml 1530 ml medications Current Medications Medications Dose Ordered Sig/Earl Route Start Time Stop Time Status Last Admin Dose Admin Ondansetron HCl 4 mg Q4HP PRN IV 01/04/25 09:45 01/20/25 21:44 4 MG Pantoprazole Sodium 40 mg BID IV 01/04/25 10:00 01/20/25 21:44 40 MG Nitroglycerin 0.4 mg Q5MINP PRN SL 01/04/25 09:45 Vancomycin HCl 0 ml @ 0 mls/hr UD IV 01/04/25 10:00 Cancel Sodium Chloride 1,000 ml @ 75 mls/hr [id number] IV 01/04/25 10:00 01/20/25 13:14 75 MLS/HR Lorazepam 1 mg BID PRN PO 01/04/25 10:00 01/19/25 22:06 1 MG Atenolol 50 mg BID PO 01/04/25 10:00 01/20/25 21:31 50 MG Diphenhydramine HCl 25 mg Q8HP PRN IV 01/04/25 10:00 01/06/25 17:58 25 MG Polyethylene Glycol 17 gm DAILY PO 01/04/25 12:45 01/10/25 10:24 17 GM Levofloxacin/ Dextrose 100 ml @ 100 mls/hr DAILY IV 01/08/25 10:00 Cancel Sodium Chloride 10 ml QSHIFT@10,22 IV 01/11/25 22:00 01/20/25 21:44 10 ML Neomycin/ Polymyxin/ Bacitracin 1 applic TID TOP 01/12/25 22:00 01/20/25 21:45 1 APPLIC Hydromorphone HCl 1.5 mg Q3HPRN PRN IV 01/18/25 20:00 01/20/25 21:33 1.5 MG Metronidazole 500 mg Q8HR IV 01/19/25 22:00 Cancel Metronidazole 100 ml @ 100 mls/hr Q8HR IV 01/19/25 22:00 01/20/25 21:30 100 MLS/HR Amino Acids 0 ml @ 0 mls/hr PER PHARMACY IV 01/19/25 22:00 Amino Acids/ Electrolytes/ Dextrose 1,000 ml @ 41 mls/hr DAILY@2200 IV 01/19/25 22:00 01/20/25 21:45 41 MLS/HR Diagnostic Test (Pha) 1 strip Q6HR 01/20/25 00:00 01/20/25 18:09 1 STRIP Insulin Human Regular FOLLOW SLIDING SCALE Q6HR SC 01/20/25 00:00 Dextrose 50 ml UD IV 01/19/25 22:00 laboratory and microbiology Laboratory Tests 01/20/25 05:43 01/17/25 09:48 Test 01/20/25 05:43 Range/Units Serum Glucose 108 H 74-106 mg/dL Microbiology Date/Time Source Procedure Growth Status 01/05/25 14:10 Aspirate Gram Stain - Final Complete 01/05/25 14:10 Body Fluid Culture - Final Klebsiella oxytoca Complete 01/05/25 00:50 Nose MRSA Screen - Final Methicillin Resistant S.aureus Complete 01/04/25 09:40 Blood Blood Culture - Final NO GROWTH AFTER 5 DAYS OF INCUBATION. Complete Problem List/Assessment/Plan Problem List/Assessment/Plan AFEBRILE VSS ABD SOFT NON TENDER POSSIBLE LOWER GI BLEED NOTED BY PT REPEAT CT SCAN ABD PELVIS NOTED DRAIN PLACED BY IR NOT DRAINING CONTINUE CLOSE OBSERVATION SHEET TESTER CONSULT NOTED DISCUSSED WITH PT RE OPTIONS TRANSFER TO HIGHER LEVEL OF CARE BASED UPON POSSIBLE SHEET TESTER/ONCOLOGY/COLONIC EVAL FOR POSSIBLE SURGERY INDICATED NURSE AT BEDSIDE Plan discussed with: Patient My Orders My Orders Orders - CHIQUITA BRADSHAW MD Procedure Category Date Status Time Clinimix Per Pharmacy [facility] 01/19/25 In Process 22:00 Comprehensive LAB 01/21/25 Verified Metabolic Panel 04:00 Magnesium LAB 01/21/25 Verified 04:00 Phosphorus LAB 01/21/25 Verified 04:00 Clinim[facility] Per [facility] 01/20/25 In Process 22:00 Dietary Evaluation Review Comments: Clear Liquid diet with Ensure Clear BID Expected Outcomes/Goals: recovered GI function, gradual wt loss, CHIQUITA BRADSHAW MD Jan 20, 2025 22:02
[2025-01-21] VITALS (8 sets, daily range): BP systolic 112–138; BP diastolic 72–89; PULSE 58–74; RESP 17–19; TEMP 96.7–98.2; O2SAT 95–98
[2025-01-21 08:47] LABS: Alkaline Phosphatase 55 U/L (46-116); Anion Gap 8 (5-15); Carbon Dioxide 23 mmol/L (20-31); Chloride 107 mmol/L (98-107); Potassium 3.7 mmol/L (3.5-5.1); Sodium 138 mmol/L (136-145)
[2025-01-21 08:49] LABS: Alanine Aminotransferase < 9 U/L (7-40); Albumin 3.0 g/dL (3.2-4.8); BUN/Creatinine Ratio 9.4 (10.0-20.0); Bilirubin, Total 0.4 mg/dL (0.2-1.0); Blood Urea Nitrogen < 5 mg/dL (9-23); Calcium 7.9 mg/dL (8.7-10.4); Glucose 270 mg/dL (74-106); Magnesium 1.5 mg/dL (1.6-2.6); Total Protein 5.1 g/dL (5.7-8.2)
[2025-01-21 08:54] LABS: Hematocrit 32.2 % (36.0-46.0); Hemoglobin 10.7 g/dL (12.2-16.2); Mean Corpuscular Hemoglobin 30.1 pg (28.0-32.0); Mean Corpuscular Volume 91.0 fL (80.0-100.0); Nucleated Red Blood Cells % 0.0 %
--- NOTE | 2025-01-21 10:39 | DVHPN2 ---
Progress Note Date Seen: Jan 21, 2025 Has the PT tested + for MRSA If YES, has PT been informed?: No Medical Necessity Reason Pt with a Central, PICC or Fol: Yes Objective vital signs Vital Sign Date Time Temp Pulse Resp B/P (MAP) Pulse Ox O2 Delivery O2 Flow Rate FiO2 01/21/25 07:30 74 18 136/87 01/21/25 05:00 97.5 96 97.5 01/20/25 20:00 Room Air* 0 21 Total Intake and Output 01/20/25 01/20/25 01/21/25 15:00 23:00 07:00 Intake Total 100 ml 0 ml 0 ml Output Total 4 ml Balance 100 ml -4 ml 0 ml medications Current Medications Medications Dose Ordered Sig/Earl Route Start Time Stop Time Status Last Admin Dose Admin Ondansetron HCl 4 mg Q4HP PRN IV 01/04/25 09:45 01/21/25 04:05 4 MG Pantoprazole Sodium 40 mg BID IV 01/04/25 10:00 01/21/25 10:37 40 MG Nitroglycerin 0.4 mg Q5MINP PRN SL 01/04/25 09:45 Vancomycin HCl 0 ml @ 0 mls/hr UD IV 01/04/25 10:00 Cancel Sodium Chloride 1,000 ml @ 75 mls/hr [id number] IV 01/04/25 10:00 01/21/25 06:25 75 MLS/HR Lorazepam 1 mg BID PRN PO 01/04/25 10:00 01/19/25 22:06 1 MG Atenolol 50 mg BID PO 01/04/25 10:00 01/20/25 21:31 50 MG Diphenhydramine HCl 25 mg Q8HP PRN IV 01/04/25 10:00 01/06/25 17:58 25 MG Polyethylene Glycol 17 gm DAILY PO 01/04/25 12:45 01/10/25 10:24 17 GM Levofloxacin/ Dextrose 100 ml @ 100 mls/hr DAILY IV 01/08/25 10:00 Cancel Sodium Chloride 10 ml QSHIFT@10,22 IV 01/11/25 22:00 01/21/25 10:37 10 ML Neomycin/ Polymyxin/ Bacitracin 1 applic TID TOP 01/12/25 22:00 01/21/25 06:26 1 APPLIC Hydromorphone HCl 1.5 mg Q3HPRN PRN IV 01/18/25 20:00 01/21/25 07:00 1.5 MG Metronidazole 500 mg Q8HR IV 01/19/25 22:00 Cancel Metronidazole 100 ml @ 100 mls/hr Q8HR IV 01/19/25 22:00 01/21/25 06:24 100 MLS/HR Amino Acids 0 ml @ 0 mls/hr PER PHARMACY IV 01/19/25 22:00 Amino Acids/ Electrolytes/ Dextrose 1,000 ml @ 41 mls/hr DAILY@2200 IV 01/19/25 22:00 01/20/25 21:45 41 MLS/HR Diagnostic Test (Pha) 1 strip Q6HR 01/20/25 00:00 01/21/25 06:25 1 STRIP Insulin Human Regular FOLLOW SLIDING SCALE Q6HR SC 01/20/25 00:00 Dextrose 50 ml UD IV 01/19/25 22:00 laboratory and microbiology Laboratory Tests 01/21/25 08:03 Test 01/21/25 08:03 Range/Units Serum Glucose 270 H 74-106 mg/dL Microbiology Date/Time Source Procedure Growth Status 01/05/25 14:10 Aspirate Gram Stain - Final Complete 01/05/25 14:10 Body Fluid Culture - Final Klebsiella oxytoca Complete 01/05/25 00:50 Nose MRSA Screen - Final Methicillin Resistant S.aureus Complete 01/04/25 09:40 Blood Blood Culture - Final NO GROWTH AFTER 5 DAYS OF INCUBATION. Complete Problem List/Assessment/Plan Problem List/Assessment/Plan AFEBRILE VSS ABD SOFT MILD TENDER DRAIN SITE LOCATION POSSIBLE LOWER GI BLEED NOTED BY PT REPEAT CT SCAN ABD PELVIS NOTED DRAIN PLACED BY IR NOT DRAINING CONTINUE CLOSE OBSERVATION SALES SUPPORT TECHNICIAN CONSULT NOTED DISCUSSED WITH PT RE OPTIONS TRANSFER TO HIGHER LEVEL OF CARE BASED UPON POSSIBLE SALES SUPPORT TECHNICIAN/ONCOLOGY/COLONIC EVAL FOR POSSIBLE SURGERY INDICATED PENDING NURSE AT BEDSIDE Plan discussed with: Patient My Orders My Orders Orders - CHIQUITA BRADSHAW MD Procedure Category Date Status Time Clinimix Per Pharmacy [facility] 01/20/25 In Process 22:00 Dietary Evaluation Review Comments: Clear Liquid diet with Ensure Clear BID Expected Outcomes/Goals: recovered GI function, gradual wt loss, CHIQUITA BRADSHAW MD Jan 21, 2025 10:39
--- NOTE | 2025-01-21 14:00 | DVHPN2 ---
Progress Note Date Seen: Jan 21, 2025 Has the PT tested + for MRSA If YES, has PT been informed?: No Medical Necessity Reason Pt with a Central, PICC or Fol: Yes Subjective Review of Systems: CVS:Normal, RESPIRATORY:Normal, :Normal Objective vital signs Vital Sign Date Time Temp Pulse Resp B/P (MAP) Pulse Ox O2 Delivery O2 Flow Rate FiO2 01/21/25 13:46 66 17 133/76 01/21/25 12:48 98.2 97 98.2 01/20/25 20:00 Room Air* 0 21 Total Intake and Output 01/20/25 01/20/25 01/21/25 15:00 23:00 07:00 Intake Total 100 ml 0 ml 0 ml Output Total 4 ml Balance 100 ml -4 ml 0 ml medications Current Medications Medications Dose Ordered Sig/Earl Route Start Time Stop Time Status Last Admin Dose Admin Ondansetron HCl 4 mg Q4HP PRN IV 01/04/25 09:45 01/21/25 10:37 4 MG Pantoprazole Sodium 40 mg BID IV 01/04/25 10:00 01/21/25 10:37 40 MG Nitroglycerin 0.4 mg Q5MINP PRN SL 01/04/25 09:45 Vancomycin HCl 0 ml @ 0 mls/hr UD IV 01/04/25 10:00 Cancel Sodium Chloride 1,000 ml @ 75 mls/hr [id number] IV 01/04/25 10:00 01/21/25 06:25 75 MLS/HR Lorazepam 1 mg BID PRN PO 01/04/25 10:00 01/19/25 22:06 1 MG Atenolol 50 mg BID PO 01/04/25 10:00 01/21/25 10:42 50 MG Diphenhydramine HCl 25 mg Q8HP PRN IV 01/04/25 10:00 01/06/25 17:58 25 MG Polyethylene Glycol 17 gm DAILY PO 01/04/25 12:45 01/10/25 10:24 17 GM Levofloxacin/ Dextrose 100 ml @ 100 mls/hr DAILY IV 01/08/25 10:00 Cancel Sodium Chloride 10 ml QSHIFT@10,22 IV 01/11/25 22:00 01/21/25 10:37 10 ML Neomycin/ Polymyxin/ Bacitracin 1 applic TID TOP 01/12/25 22:00 01/21/25 13:47 1 APPLIC Hydromorphone HCl 1.5 mg Q3HPRN PRN IV 01/18/25 20:00 01/21/25 13:46 1.5 MG Metronidazole 500 mg Q8HR IV 01/19/25 22:00 Cancel Metronidazole 100 ml @ 100 mls/hr Q8HR IV 01/19/25 22:00 01/21/25 13:46 100 MLS/HR Amino Acids 0 ml @ 0 mls/hr PER PHARMACY IV 01/19/25 22:00 Amino Acids/ Electrolytes/ Dextrose 1,000 ml @ 41 mls/hr DAILY@2200 IV 01/19/25 22:00 01/20/25 21:45 41 MLS/HR Diagnostic Test (Pha) 1 strip Q6HR 01/20/25 00:00 01/21/25 12:00 1 STRIP Insulin Human Regular FOLLOW SLIDING SCALE Q6HR SC 01/20/25 00:00 Dextrose 50 ml UD IV 01/19/25 22:00 Examination: GENERAL:Normal, LUNGS:Normal, CVS:Normal, SKIN:Normal laboratory and microbiology Laboratory Tests 01/21/25 08:03 Test 01/21/25 08:03 Range/Units Serum Glucose 270 H 74-106 mg/dL Microbiology Date/Time Source Procedure Growth Status 01/05/25 14:10 Aspirate Gram Stain - Final Complete 01/05/25 14:10 Body Fluid Culture - Final Klebsiella oxytoca Complete 01/05/25 00:50 Nose MRSA Screen - Final Methicillin Resistant S.aureus Complete 01/04/25 09:40 Blood Blood Culture - Final NO GROWTH AFTER 5 DAYS OF INCUBATION. Complete Problem List/Assessment/Plan Problem List/Assessment/Plan The patient is currently being treated for complicated sigmoid diverticulitis with a diverticular abscess. She remains on Rocephin and metronidazole for this condition. Additionally, she is being kept on Clinimix The patient's condition is complicated by her history of ovarian cancer and post-hysterectomy status. Due to the complexity of her case, the patient needs to be transferred to a higher level of care for evaluation by a Gyne-Oncology Surgeon. This recommendation was made by the general surgeon, Dr. Kothari, who evaluated the patient. The patient is currently pending transfer to multiple facilities for this higher level of care. Georgia Mendiola is a patient with a history of ovarian cancer status post hysterectomy in 2005 and chemotherapy in 2022, presents with complicated sigmoid diverticulitis with diverticular abscess. Complicated Sigmoid Diverticulitis with Diverticular Abscess Assessment: Patient has a history of ovarian cancer with hysterectomy in 2005 and recent chemotherapy in 2022. She is currently being treated for complicated sigmoid diverticulitis with diverticular abscess. The patient is on antibiotic therapy with Rocephin and metronidazole. Given the complexity of her case and her oncological history, transfer to a higher level of care for evaluation by a Gyne-Oncology Surgeon has been recommended by the General Surgeon, Dr. Kothari. Plan: - Continue Rocephin and metronidazole for diverticulitis and abscess - Transfer patient to higher level care for Gyne-Oncology Surgeon evaluation - Pending transfer to multiple facilities -pigtail catheter is not draining, nurse will call radiology to change bag. History of Ovarian Cancer Assessment: Patient has a history of ovarian cancer with hysterectomy performed in 2005. She underwent chemotherapy in 2022. 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 Given her complex medical history and current diverticulitis, she requires evaluation by a Gyne-Oncology Surgeon. Plan: - Continue Clinimix - Transfer to higher level care for Gyne-Oncology Surgeon evaluation Sepsis Assessment: Patient is noted to have sepsis, likely secondary to complicated diverticulitis and abscess infections. This condition, in combination with her history of ovarian cancer and current diverticulitis, necessitates transfer to a higher level of care. Plan: - Continue current antibiotic regimen - Transfer to higher level care for further management Hemorrhoids Assessment: Patient is noted to have hemorrhoids, which are being treated with antibiotics. Plan: - Continue antibiotics with rosactin and metronidazole for hemorrhoids Plan discussed with: Patient Dietary Evaluation Review Comments: Clear Liquid diet with Ensure Clear BID Expected Outcomes/Goals: recovered GI function, gradual wt loss, Date of Service: Jan 21, 2025 Billing Provider: GERARD WHEAT MD Common Visit Codes: [id number] INP/OBS CARE (MOD) SIMÓN LEAL [employer] Jan 21, 2025 14:00
[2025-01-21] MEDS: MAGNESIUM SULFATE 1GM/100ML 100 ML IV SCH (16:37)
[2025-01-22] VITALS (8 sets, daily range): BP systolic 114–144; BP diastolic 76–92; PULSE 52–65; RESP 16–19; TEMP 97.2–98.7; O2SAT 97–100
[2025-01-22 07:42] LABS: Albumin 3.4 g/dL (3.2-4.8); Alkaline Phosphatase 62 U/L (46-116); Anion Gap 8 (5-15); Carbon Dioxide 23 mmol/L (20-31); Glucose 97 mg/dL (74-106); Magnesium 1.9 mg/dL (1.6-2.6); Potassium 4.0 mmol/L (3.5-5.1); Sodium 140 mmol/L (136-145); Total Protein 5.7 g/dL (5.7-8.2)
[2025-01-22 07:43] LABS: Bilirubin, Total 0.4 mg/dL (0.2-1.0)
[2025-01-22 07:47] LABS: Alanine Aminotransferase < 9 U/L (7-40); BUN/Creatinine Ratio 10.6 (10.0-20.0); Blood Urea Nitrogen < 5 mg/dL (9-23); Calcium 8.5 mg/dL (8.7-10.4); Chloride 109 mmol/L (98-107)
[2025-01-22 07:48] LABS: Hematocrit 34.7 % (36.0-46.0); Hemoglobin 11.3 g/dL (12.2-16.2); Mean Corpuscular Hemoglobin 29.5 pg (28.0-32.0); Mean Corpuscular Volume 90.5 fL (80.0-100.0); Nucleated Red Blood Cells % 0.1 %
[2025-01-22] MEDS ORDERED: TPN PER PHARMACY 0 ML IV SCH (11:00)
--- NOTE | 2025-01-22 12:23 | DVHPN2 ---
Progress Note Date Seen: Jan 22, 2025 Has the PT tested + for MRSA If YES, has PT been informed?: No Medical Necessity Reason Pt with a Central, PICC or Fol: Yes Subjective Review of Systems: RESPIRATORY:Normal, GI:Normal, :Normal Objective vital signs Vital Sign Date Time Temp Pulse Resp B/P (MAP) Pulse Ox O2 Delivery O2 Flow Rate FiO2 01/22/25 10:47 62 15 122/75 01/22/25 08:53 97.4 97 97.4 01/22/25 08:00 Room Air* 0 21 Total Intake and Output 01/21/25 01/21/25 01/22/25 15:00 23:00 07:00 Intake Total 100 ml 0 ml 0 ml Output Total 0 ml Balance 100 ml 0 ml 0 ml medications Current Medications Medications Dose Ordered Sig/Earl Route Start Time Stop Time Status Last Admin Dose Admin Ondansetron HCl 4 mg Q4HP PRN IV 01/04/25 09:45 01/22/25 02:49 4 MG Pantoprazole Sodium 40 mg BID IV 01/04/25 10:00 01/22/25 10:17 40 MG Nitroglycerin 0.4 mg Q5MINP PRN SL 01/04/25 09:45 Vancomycin HCl 0 ml @ 0 mls/hr UD IV 01/04/25 10:00 Cancel Sodium Chloride 1,000 ml @ 75 mls/hr [id number] IV 01/04/25 10:00 01/22/25 04:40 75 MLS/HR Lorazepam 1 mg BID PRN PO 01/04/25 10:00 01/19/25 22:06 1 MG Atenolol 50 mg BID PO 01/04/25 10:00 01/22/25 10:34 50 MG Diphenhydramine HCl 25 mg Q8HP PRN IV 01/04/25 10:00 01/06/25 17:58 25 MG Polyethylene Glycol 17 gm DAILY PO 01/04/25 12:45 01/10/25 10:24 17 GM Levofloxacin/ Dextrose 100 ml @ 100 mls/hr DAILY IV 01/08/25 10:00 Cancel Sodium Chloride 10 ml QSHIFT@10,22 IV 01/11/25 22:00 01/22/25 10:17 10 ML Neomycin/ Polymyxin/ Bacitracin 1 applic TID TOP 01/12/25 22:00 01/21/25 13:47 1 APPLIC Hydromorphone HCl 1.5 mg Q3HPRN PRN IV 01/18/25 20:00 01/22/25 10:17 1.5 MG Metronidazole 500 mg Q8HR IV 01/19/25 22:00 Cancel Metronidazole 100 ml @ 100 mls/hr Q8HR IV 01/19/25 22:00 01/22/25 05:59 100 MLS/HR Amino Acids 0 ml @ 0 mls/hr PER PHARMACY IV 01/19/25 22:00 01/22/25 21:59 Amino Acids/ Electrolytes/ Dextrose 1,000 ml @ 41 mls/hr DAILY@2200 IV 01/19/25 22:00 01/22/25 21:59 01/21/25 21:18 41 MLS/HR Diagnostic Test (Pha) 1 strip Q6HR 01/20/25 00:00 01/22/25 05:50 1 STRIP Insulin Human Regular FOLLOW SLIDING SCALE Q6HR SC 01/20/25 00:00 Dextrose 50 ml UD IV 01/19/25 22:00 Amino Acids 0 ml @ 0 mls/hr PER PHARMACY IV 01/22/25 11:00 Examination: LUNGS:Normal, CVS:Normal, ABDOMEN:Normal, SKIN:Normal laboratory and microbiology Laboratory Tests 01/22/25 05:38 Test 01/22/25 05:38 Range/Units Serum Glucose 97 74-106 mg/dL Microbiology Date/Time Source Procedure Growth Status 01/05/25 14:10 Aspirate Gram Stain - Final Complete 01/05/25 14:10 Body Fluid Culture - Final Klebsiella oxytoca Complete 01/05/25 00:50 Nose MRSA Screen - Final Methicillin Resistant S.aureus Complete 01/04/25 09:40 Blood Blood Culture - Final NO GROWTH AFTER 5 DAYS OF INCUBATION. Complete Labs and/or images reviewed: Labs reviewed by me, Image(s) reviewed by me Problem List/Assessment/Plan Problem List/Assessment/Plan The patient is currently being treated for complicated sigmoid diverticulitis with a diverticular abscess. She remains on Rocephin and metronidazole for this condition. Additionally, she is being kept on Clinimix The patient's condition is complicated by her history of ovarian cancer and post-hysterectomy status. Due to the complexity of her case, the patient needs to be transferred to a higher level of care for evaluation by a Gyne-Oncology Surgeon. This recommendation was made by the general surgeon, Dr. Kothari, who evaluated the patient. The patient is currently pending transfer to multiple facilities for this higher level of care. Georgia Mendiola is a patient with a history of ovarian cancer status post hysterectomy in 2005 and chemotherapy in 2022, presents with complicated sigmoid diverticulitis with diverticular abscess. Complicated Sigmoid Diverticulitis with Diverticular Abscess Assessment: Patient has a history of ovarian cancer with hysterectomy in 2005 and recent chemotherapy in 2022. She is currently being treated for complicated sigmoid diverticulitis with diverticular abscess. The patient is on antibiotic therapy with Rocephin and metronidazole. Given the complexity of her case and her oncological history, transfer to a higher level of care for evaluation by a Gyne-Oncology Surgeon has been recommended by the General Surgeon, Dr. Kothari. Plan: - Continue Rocephin and metronidazole for diverticulitis and abscess - Transfer patient to higher level care for Gyne-Oncology Surgeon evaluation - Pending transfer to higher level of care -pigtail catheter has scant draining today History of Ovarian Cancer Assessment: Patient has a history of ovarian cancer with hysterectomy performed in 2005. She underwent chemotherapy in 2022. 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 Given her complex medical history and current diverticulitis, she requires evaluation by a Gyne-Oncology Surgeon. Plan: - switch clinimix to TPN - Transfer to higher level care for Gyne-Oncology Surgeon evaluation Sepsis Assessment: Patient is noted to have sepsis, likely secondary to complicated diverticulitis and abscess infections. This condition, in combination with her history of ovarian cancer and current diverticulitis, necessitates transfer to a higher level of care. Plan: - Continue current antibiotic regimen - Transfer to higher level care for further management Hemorrhoids Assessment: Patient is noted to have hemorrhoids, which are being treated with antibiotics. Plan: - Continue antibiotics with rosactin and metronidazole for hemorrhoids Plan discussed with: Patient My Orders My Orders Orders - SIMÓN LEAL MOLD CHIPPER Procedure Category Date Status Time Communication Order ORDERS 01/22/25 Transmitted 08:53 Tpn Per Pharmacy PHA 01/22/25 In Process 11:00 Dietary Evaluation Review Comments: Clear Liquid diet with Ensure Clear BID Expected Outcomes/Goals: recovered GI function, gradual wt loss, Date of Service: Jan 22, 2025 Billing Provider: GERARD WHEAT MD Common Visit Codes: 84211-[id number] INP/OBS CARE (MOD) SIMÓN LEAL Jan 22, 2025 12:23
--- NOTE | 2025-01-22 14:46 | DVHPN2 ---
Progress Note Date Seen: Jan 22, 2025 Has the PT tested + for MRSA If YES, has PT been informed?: No Medical Necessity Reason Pt with a Central, PICC or Fol: Yes Objective vital signs Vital Sign Date Time Temp Pulse Resp B/P (MAP) Pulse Ox O2 Delivery O2 Flow Rate FiO2 01/22/25 13:00 97.2 52 16 127/92 (104) 98 97.2 01/22/25 08:00 Room Air* 0 21 Total Intake and Output 01/21/25 01/21/25 01/22/25 15:00 23:00 07:00 Intake Total 100 ml 0 ml 0 ml Output Total 0 ml Balance 100 ml 0 ml 0 ml medications Current Medications Medications Dose Ordered Sig/Earl Route Start Time Stop Time Status Last Admin Dose Admin Ondansetron HCl 4 mg Q4HP PRN IV 01/04/25 09:45 01/22/25 02:49 4 MG Pantoprazole Sodium 40 mg BID IV 01/04/25 10:00 01/22/25 10:17 40 MG Nitroglycerin 0.4 mg Q5MINP PRN SL 01/04/25 09:45 Vancomycin HCl 0 ml @ 0 mls/hr UD IV 01/04/25 10:00 Cancel Sodium Chloride 1,000 ml @ 75 mls/hr [id number] IV 01/04/25 10:00 01/22/25 04:40 75 MLS/HR Lorazepam 1 mg BID PRN PO 01/04/25 10:00 01/19/25 22:06 1 MG Atenolol 50 mg BID PO 01/04/25 10:00 01/22/25 10:34 50 MG Diphenhydramine HCl 25 mg Q8HP PRN IV 01/04/25 10:00 01/06/25 17:58 25 MG Polyethylene Glycol 17 gm DAILY PO 01/04/25 12:45 01/10/25 10:24 17 GM Levofloxacin/ Dextrose 100 ml @ 100 mls/hr DAILY IV 01/08/25 10:00 Cancel Sodium Chloride 10 ml QSHIFT@10,22 IV 01/11/25 22:00 01/22/25 10:17 10 ML Neomycin/ Polymyxin/ Bacitracin 1 applic TID TOP 01/12/25 22:00 01/21/25 13:47 1 APPLIC Hydromorphone HCl 1.5 mg Q3HPRN PRN IV 01/18/25 20:00 01/22/25 10:17 1.5 MG Metronidazole 500 mg Q8HR IV 01/19/25 22:00 Cancel Metronidazole 100 ml @ 100 mls/hr Q8HR IV 01/19/25 22:00 01/22/25 13:25 100 MLS/HR Amino Acids 0 ml @ 0 mls/hr PER PHARMACY IV 01/19/25 22:00 01/22/25 21:59 Amino Acids/ Electrolytes/ Dextrose 1,000 ml @ 41 mls/hr DAILY@2200 IV 01/19/25 22:00 01/22/25 21:59 01/21/25 21:18 41 MLS/HR Diagnostic Test (Pha) 1 strip Q6HR 01/20/25 00:00 01/22/25 12:00 1 STRIP Insulin Human Regular FOLLOW SLIDING SCALE Q6HR SC 01/20/25 00:00 Dextrose 50 ml UD IV 01/19/25 22:00 Amino Acids 0 ml @ 0 mls/hr PER PHARMACY IV 01/22/25 11:00 Fat Emulsion Intravenous 50 ml/ Potassium Acetate 20 meq/Potassium Phosphate 10 meq/ Calcium Gluconate 2.3 meq/Magnesium Sulfate 4 meq/ Multivitamins 10 ml/Chromium/ Copper/Manganese/ Zinc 1 ml/Amino Acids/Dextrose/ Purified Water 829.2189 ml @ 35 mls/hr [id number] IV 01/22/25 22:00 01/23/25 21:59 laboratory and microbiology Laboratory Tests 01/22/25 05:38 Test 01/22/25 05:38 Range/Units Serum Glucose 97 74-106 mg/dL Microbiology Date/Time Source Procedure Growth Status 01/05/25 14:10 Aspirate Gram Stain - Final Complete 01/05/25 14:10 Body Fluid Culture - Final Klebsiella oxytoca Complete 01/05/25 00:50 Nose MRSA Screen - Final Methicillin Resistant S.aureus Complete 01/04/25 09:40 Blood Blood Culture - Final NO GROWTH AFTER 5 DAYS OF INCUBATION. Complete Problem List/Assessment/Plan Problem List/Assessment/Plan AFEBRILE VSS ABD SOFT LESS TENDER DRAIN SITE LOCATION POSSIBLE LOWER GI BLEED NOTED BY PT REPEAT CT SCAN ABD PELVIS NOTED DRAIN PLACED BY IR NOT DRAINING CONTINUE CLOSE OBSERVATION HANDBELL CHOIR DIRECTOR CONSULT NOTED DISCUSSED WITH PT RE OPTIONS KEEP NPO TPN TRANSFER TO HIGHER LEVEL OF CARE BASED UPON POSSIBLE HANDBELL CHOIR DIRECTOR/ONCOLOGY/COLONIC EVAL FOR POSSIBLE SURGERY INDICATED PENDING NURSE AT BEDSIDE Plan discussed with: Patient My Orders My Orders Orders - CHIQUITA BRADSHAW MD Procedure Category Date Status Time Clinimix Per Pharmacy [facility] 01/21/25 In Process 22:00 * Infectious Trina- CONS 01/22/25 Transmitted [facility] 10:26 Dietary Evaluation Review Comments: Clear Liquid diet with Ensure Clear BID Expected Outcomes/Goals: recovered GI function, gradual wt loss, CHIQUITA BRADSHAW MD Jan 22, 2025 14:46
--- NOTE | 2025-01-22 16:24 | DVHPN2 ---
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 * Patient hemodynamically stable. vital signs Vital Sign Date Time Temp Pulse Resp B/P (MAP) Pulse Ox O2 Delivery O2 Flow Rate FiO2 01/22/25 13:00 97.2 52 16 127/92 (104) 98 97.2 01/22/25 08:00 Room Air* 0 21 Total Intake and Output 01/21/25 01/21/25 01/22/25 15:00 23:00 07:00 Intake Total 100 ml 0 ml 0 ml Output Total 0 ml Balance 100 ml 0 ml 0 ml medications Current Medications Medications Dose Ordered Sig/Earl Route Start Time Stop Time Status Last Admin Dose Admin Ondansetron HCl 4 mg Q4HP PRN IV 01/04/25 09:45 01/22/25 02:49 4 MG Pantoprazole Sodium 40 mg BID IV 01/04/25 10:00 01/22/25 10:17 40 MG Nitroglycerin 0.4 mg Q5MINP PRN SL 01/04/25 09:45 Vancomycin HCl 0 ml @ 0 mls/hr UD IV 01/04/25 10:00 Cancel Sodium Chloride 1,000 ml @ 75 mls/hr [id number] IV 01/04/25 10:00 01/22/25 04:40 75 MLS/HR Lorazepam 1 mg BID PRN PO 01/04/25 10:00 01/19/25 22:06 1 MG Atenolol 50 mg BID PO 01/04/25 10:00 01/22/25 10:34 50 MG Diphenhydramine HCl 25 mg Q8HP PRN IV 01/04/25 10:00 01/06/25 17:58 25 MG Polyethylene Glycol 17 gm DAILY PO 01/04/25 12:45 01/10/25 10:24 17 GM Levofloxacin/ Dextrose 100 ml @ 100 mls/hr DAILY IV 01/08/25 10:00 Cancel Sodium Chloride 10 ml QSHIFT@10,22 IV 01/11/25 22:00 01/22/25 10:17 10 ML Neomycin/ Polymyxin/ Bacitracin 1 applic TID TOP 01/12/25 22:00 01/22/25 14:00 1 APPLIC Hydromorphone HCl 1.5 mg Q3HPRN PRN IV 01/18/25 20:00 01/22/25 10:17 1.5 MG Metronidazole 500 mg Q8HR IV 01/19/25 22:00 Cancel Metronidazole 100 ml @ 100 mls/hr Q8HR IV 01/19/25 22:00 01/22/25 13:25 100 MLS/HR Amino Acids 0 ml @ 0 mls/hr PER PHARMACY IV 01/19/25 22:00 01/22/25 21:59 Amino Acids/ Electrolytes/ Dextrose 1,000 ml @ 41 mls/hr DAILY@2200 IV 01/19/25 22:00 01/22/25 21:59 01/21/25 21:18 41 MLS/HR Diagnostic Test (Pha) 1 strip Q6HR 01/20/25 00:00 01/22/25 12:00 1 STRIP Insulin Human Regular FOLLOW SLIDING SCALE Q6HR SC 01/20/25 00:00 Dextrose 50 ml UD IV 01/19/25 22:00 Amino Acids 0 ml @ 0 mls/hr PER PHARMACY IV 01/22/25 11:00 Fat Emulsion Intravenous 50 ml/ Potassium Acetate 20 meq/Potassium Phosphate 10 meq/ Calcium Gluconate 2.3 meq/Magnesium Sulfate 4 meq/ Multivitamins 10 ml/Chromium/ Copper/Manganese/ Zinc 1 ml/Amino Acids/Dextrose/ Purified Water 829.2189 ml @ 35 mls/hr [id number] IV 01/22/25 22:00 01/23/25 21:59 objective General: Alert, not in acute distress. * Abdomen: Soft, non-distended, mild LLQ tenderness, drain in place with sanguineous output. No peritoneal signs. * Drain Site: No erythema or purulent drainage, flushed per protocol. laboratory and microbiology Laboratory Tests 01/22/25 05:38 Test 01/22/25 05:38 Range/Units Serum Glucose 97 74-106 mg/dL Problems(with codes): (1) Pelvic abscess in female (2) Hepatic steatosis (3) History of ovarian cancer (4) Ovarian cancer (5) Abdominal mass Prognosis Plan Continue IV antibiotics Continue TPN Patient is awaiting referral to higher level of care for possible surgery possible consideration for OBGYN tumor Dietary Evaluation Review Comments: Clear Liquid diet with Ensure Clear BID Expected Outcomes/Goals: recovered GI function, gradual wt loss, Plan discussed with: Patient, Other (Dr Gonzalo Kothari) PEPE KOTHARI MD Jan 22, 2025 16:24
[2025-01-22] MEDS: [UNRECOGNIZED DRUG - OTHER] IV NR (20:47)
[2025-01-22] MEDS: POTASSIUM PHOSPHATE IV NR (20:47)
[2025-01-22] MEDS: POTASSIUM ACETATE IV NR (20:47)
[2025-01-22] MEDS: FAT EMULSION IV NR (20:47)
[2025-01-23] VITALS (7 sets, daily range): BP systolic 110–132; BP diastolic 64–83; PULSE 56–68; RESP 16–18; TEMP 96.9–98.9; O2SAT 95–99
[2025-01-23] MEDS: ONDANSETRON HCL 4 MG/2 ML VIAL IV PRN (00:37)
[2025-01-23 10:57] LABS: Albumin 3.4 g/dL (3.2-4.8); Alkaline Phosphatase 58 U/L (46-116); Anion Gap 6 (5-15); BUN/Creatinine Ratio 10.9 (10.0-20.0); Blood Urea Nitrogen < 5 mg/dL (9-23); Carbon Dioxide 27 mmol/L (20-31); Chloride 108 mmol/L (98-107); Glucose 117 mg/dL (74-106); Magnesium 1.6 mg/dL (1.6-2.6); Potassium 4.2 mmol/L (3.5-5.1); Sodium 141 mmol/L (136-145); Triglycerides 110 mg/dL (< 150)
[2025-01-23 10:58] LABS: Alanine Aminotransferase < 9 U/L (7-40); Bilirubin, Total 0.5 mg/dL (0.2-1.0); Calcium 8.5 mg/dL (8.7-10.4); Total Protein 5.6 g/dL (5.7-8.2)
[2025-01-23] MEDS: CATHFLO ACTIVASE (ALTEPLASE) 2 MG VIAL IV ONE (12:34)
[2025-01-23] MEDS: LIDOCAINE 2%HCL (LOCAL ANESTH.) INJ 10ml MDV ONE (13:35)
[2025-01-23] MEDS: fentaNYL CITRATE 100 MCG/2 ML VL IV ONE (13:45)
[2025-01-23] MEDS: MIDAZOLAM HCL 2MG/2ML 2ml VIAL (1mg/ml) IV ONE (13:45)
[2025-01-23] MEDS: fentaNYL CITRATE 100 MCG/2 ML VL ONE (13:46)
[2025-01-23] MEDS: MIDAZOLAM HCL 2MG/2ML 2ml VIAL (1mg/ml) ONE (13:46)
--- NOTE | 2025-01-23 14:55 | DVH ---
US US GUIDANCE FOR NEEDLE PLACEME, HISTORY: History of cancer and a LLQ lesion that is concerning for abscess or necrotic mass. No fluid coming out of drain. PROCEDURE: Informed consent was obtained. The patient was placed supine on the CT scanner, and limite d US was performed of the liver. IV sedation was administered. The skin over the area of interest was prepped with chlorhexidine which was allowed to dry and draped in the usual sterile fashion. Time ou t was performed. 1% local lidocaine was administered. With intermittent US/CT guidance, Temno 17 gaug e outer coaxial guiding needle was advanced into the LLQ lesion. Multiple biopsies were obtained usin g Temno 18 gauge inner core biopsy needle. The specimens were placed in formalin and sent to patholog y for analysis. The needle was withdrawn. Post procedural images were obtained. No immediate complica tion was identified. SEDATION: Dr. Magaly Garcia was personally responsible for the administration of moderate sedation during the procedure performed, including the use of an independent trained observer who had no other duties during the procedure. The drugs utilized were IV fentanyl and versed (see nursing log for details). The total time of supervision by the attending physician was approximately 30 minutes. FINDINGS: Intra-procedural images demonstrate biopsy needle within the margin of targeted lesion. Post procedural images do not demonstrate any significant hemorrhage. IMPRESSION: US/ CT guided left lower quadrant lesion biopsy for abscess or necrotic mass . Pathology results pend ing.
--- NOTE | 2025-01-23 15:01 | DVH ---
CT CT GUIDANCE FOR NEEDLE PLACEME, HISTORY: History of cancer and a LLQ lesion that is concerning for abscess or necrotic mass. No fluid coming out of drain. PROCEDURE: Informed consent was obtained. The patient was placed supine on the CT scanner, and limite d US was performed of the liver. IV sedation was administered. The skin over the area of interest was prepped with chlorhexidine which was allowed to dry and draped in the usual sterile fashion. Time ou t was performed. 1% local lidocaine was administered. With intermittent US/CT guidance, Temno 17 gaug e outer coaxial guiding needle was advanced into the LLQ lesion. Multiple biopsies were obtained usin g Temno 18 gauge inner core biopsy needle. The specimens were placed in formalin and sent to patholog y for analysis. The needle was withdrawn. Post procedural images were obtained. No immediate complica tion was identified. DLP = 1232 mGy-cm. SEDATION: Dr. Magaly Garcia was personally responsible for the administration of moderate sedation during the procedure performed, including the use of an independent trained observer who had no other duties during the procedure. The drugs utilized were IV fentanyl and versed (see nursing log for details). The total time of supervision by the attending physician was approximately 30 minutes. FINDINGS: Intra-procedural images demonstrate biopsy needle within the margin of targeted lesion. Pos t procedural images do not demonstrate any significant hemorrhage. IMPRESSION: US/ CT guided left lower quadrant lesion biopsy for abscess or necrotic mass . Pathology results pend ing.
--- NOTE | 2025-01-23 15:45 | DVHPN2 ---
Progress Note - Dictate Date Seen: Jan 23, 2025 Has the PT tested + for MRSA If YES, has PT been informed?: No Medical Necessity Reason Pt with a Central, PICC or Fol: Yes vital signs Vital Sign Date Time Temp Pulse Resp B/P (MAP) Pulse Ox O2 Delivery O2 Flow Rate FiO2 01/23/25 13:20 59 16 128/79 01/23/25 08:43 96.9 99 96.9 01/23/25 08:00 Room Air* 0 21 Total Intake and Output 01/22/25 01/22/25 01/23/25 15:00 23:00 07:00 Intake Total 0 ml 0 ml Output Total 0 ml Balance 0 ml 0 ml medications Current Medications Medications Dose Ordered Sig/Earl Route Start Time Stop Time Status Last Admin Dose Admin Pantoprazole Sodium 40 mg BID IV 01/04/25 10:00 01/23/25 08:48 40 MG Nitroglycerin 0.4 mg Q5MINP PRN SL 01/04/25 09:45 Vancomycin HCl 0 ml @ 0 mls/hr UD IV 01/04/25 10:00 Cancel Sodium Chloride 1,000 ml @ 75 mls/hr [id number] IV 01/04/25 10:00 01/23/25 07:20 75 MLS/HR Lorazepam 1 mg BID PRN PO 01/04/25 10:00 01/19/25 22:06 1 MG Atenolol 50 mg BID PO 01/04/25 10:00 01/22/25 22:50 50 MG Diphenhydramine HCl 25 mg Q8HP PRN IV 01/04/25 10:00 01/06/25 17:58 25 MG Polyethylene Glycol 17 gm DAILY PO 01/04/25 12:45 01/10/25 10:24 17 GM Levofloxacin/ Dextrose 100 ml @ 100 mls/hr DAILY IV 01/08/25 10:00 Cancel Sodium Chloride 10 ml QSHIFT@10,22 IV 01/11/25 22:00 01/23/25 08:48 10 ML Neomycin/ Polymyxin/ Bacitracin 1 applic TID TOP 01/12/25 22:00 01/22/25 14:00 1 APPLIC Hydromorphone HCl 1.5 mg Q3HPRN PRN IV 01/18/25 20:00 01/23/25 12:44 1.5 MG Metronidazole 500 mg Q8HR IV 01/19/25 22:00 Cancel Metronidazole 100 ml @ 100 mls/hr Q8HR IV 01/19/25 22:00 01/23/25 15:29 100 MLS/HR Diagnostic Test (Pha) 1 strip Q6HR 01/20/25 00:00 01/23/25 11:32 1 STRIP Insulin Human Regular FOLLOW SLIDING SCALE Q6HR SC 01/20/25 00:00 Dextrose 50 ml UD IV 01/19/25 22:00 Amino Acids 0 ml @ 0 mls/hr PER PHARMACY IV 01/22/25 11:00 Fat Emulsion Intravenous 50 ml/ Potassium Acetate 20 meq/Potassium Phosphate 10 meq/ Calcium Gluconate 2.3 meq/Magnesium Sulfate 4 meq/ Multivitamins 10 ml/Chromium/ Copper/Manganese/ Zinc 1 ml/Amino Acids/Dextrose/ Purified Water 829.2189 ml @ 35 mls/hr [id number] IV 01/22/25 22:00 01/23/25 21:59 01/22/25 20:47 35 MLS/HR Ondansetron HCl 2 mg Q4HPRN PRN IV 01/22/25 17:30 01/23/25 00:37 2 MG Fat Emulsion Intravenous 100 ml/Potassium Acetate 10 meq/ Potassium Phosphate 22 meq/ Calcium Gluconate 6.975 meq/ Magnesium Sulfate 10 meq/ Multivitamins 10 ml/Chromium/ Copper/Manganese/ Zinc 1 ml/Amino Acids/Dextrose/ Purified Water 1,088.5 ml @ 45 mls/hr [id number] IV 01/23/25 22:00 01/24/25 21:59 objective General Appearance: alert, no distress HEENT: EOMI, PERRLA, normal external inspect of ears, no icterus, no nasal drainage Neck: no carotid bruit, no jugular venous distention (JVD), no lymphadenopathy Chest: normal thorax Respiratory: clear to auscultation, normal air movement Cardiovascular: regular rate and rhythm, no diastolic murmur, no jugular venous distention (JVD), no rub, no systolic murmur Abdominal: soft, no hepatomegaly, no mass, no splenomegaly, no tenderness Genitourinary: grossly normal external Musculoskeletal: no joint tenderness, no swelling Extremities: normal pulses, no calf tenderness, no clubbing, no cyanosis, no edema Skin: no bruising, no jaundice, no rash Neurological: alert, No focal deficit laboratory and microbiology Laboratory Tests 01/23/25 10:09 01/22/25 05:38 Test 01/23/25 10:09 Range/Units Serum Glucose 117 H 74-106 mg/dL Problem List 1. Rectal Bleed GI Consult, Hold blood thinners 2. Hemorrhoids Medication, GI consult 3. Morbid Obesity Diet Education, monitoring 4. Chronic constipation Cathartics, monitoring 5.Sepsis Antibiotics, ID consult 6.Diverticular abscess IR consult for drainage, IV antibiotics Assessment/Plan Subjective: Patient is awake and alert. Objective: Patient is still waiting for a higher level of care with possible Oncology and FINANCIAL ECONOMIST specialist involvement. Patient is status post abdominal mass biopsy today by Radiology. No output noted from pigtail today. Patient continues to complain of severe abdominal pain. Plan: Continue TPN for nutrition. Continue NPO status. Continue antibiotics for sepsis due to abscess. General Surgery recommendations appreciated. Dietary Evaluation Review Comments: Clear Liquid diet with Ensure Clear BID Expected Outcomes/Goals: recovered GI function, gradual wt loss, Plan discussed with: Patient, Other SAIMA GUERRERO STUCCO APPLICATOR Jan 23, 2025 15:45
--- NOTE | 2025-01-23 19:05 | DVHPN2 ---
Progress Note Date Seen: Jan 23, 2025 Resident Creating Document: ANGIE TORRES RESIDENT Has the PT tested + for MRSA If YES, has PT been informed?: No Medical Necessity Reason Pt with a Central, PICC or Fol: Yes Subjective Review of Systems Today's progress- Ultrasound/CT guided left lower quadrant imaging revealed abscess/necrotic mass Patient underwent IR guided biopsy of the abscess/necrotic mass lesion today. Awaiting pathology results. Symptoms continued to report left lower quadrant abdominal pain, unchanged from prior days. Known worsening, tolerating with current medication. Bowel movements-2 today, no worsening bleeding. WBC count increased to 13.9. Hemoglobin stable at 11.3. LFTs stable. Patient remains afebrile and hemodynamically stable. Patient is being transferred to higher level of care for gynecological oncology surgical evaluation Objective vital signs Vital Sign Date Time Temp Pulse Resp B/P (MAP) Pulse Ox O2 Delivery O2 Flow Rate FiO2 01/23/25 17:30 76 16 106/57 01/23/25 16:38 97.4 99 97.4 01/23/25 08:00 Room Air* 0 21 Total Intake and Output 01/22/25 01/22/25 01/23/25 15:00 23:00 07:00 Intake Total 0 ml 0 ml Output Total 0 ml Balance 0 ml 0 ml medications Current Medications Medications Dose Ordered Sig/Earl Route Start Time Stop Time Status Last Admin Dose Admin Pantoprazole Sodium 40 mg BID IV 01/04/25 10:00 01/23/25 08:48 40 MG Nitroglycerin 0.4 mg Q5MINP PRN SL 01/04/25 09:45 Vancomycin HCl 0 ml @ 0 mls/hr UD IV 01/04/25 10:00 Cancel Sodium Chloride 1,000 ml @ 75 mls/hr [id number] IV 01/04/25 10:00 01/23/25 07:20 75 MLS/HR Lorazepam 1 mg BID PRN PO 01/04/25 10:00 01/19/25 22:06 1 MG Atenolol 50 mg BID PO 01/04/25 10:00 01/22/25 22:50 50 MG Diphenhydramine HCl 25 mg Q8HP PRN IV 01/04/25 10:00 01/06/25 17:58 25 MG Polyethylene Glycol 17 gm DAILY PO 01/04/25 12:45 01/10/25 10:24 17 GM Levofloxacin/ Dextrose 100 ml @ 100 mls/hr DAILY IV 01/08/25 10:00 Cancel Sodium Chloride 10 ml QSHIFT@10,22 IV 01/11/25 22:00 01/23/25 08:48 10 ML Neomycin/ Polymyxin/ Bacitracin 1 applic TID TOP 01/12/25 22:00 01/22/25 14:00 1 APPLIC Hydromorphone HCl 1.5 mg Q3HPRN PRN IV 01/18/25 20:00 01/23/25 16:51 1.5 MG Metronidazole 500 mg Q8HR IV 01/19/25 22:00 Cancel Metronidazole 100 ml @ 100 mls/hr Q8HR IV 01/19/25 22:00 01/23/25 15:29 100 MLS/HR Diagnostic Test (Pha) 1 strip Q6HR 01/20/25 00:00 01/23/25 16:55 1 STRIP Insulin Human Regular FOLLOW SLIDING SCALE Q6HR SC 01/20/25 00:00 Dextrose 50 ml UD IV 01/19/25 22:00 Amino Acids 0 ml @ 0 mls/hr PER PHARMACY IV 01/22/25 11:00 Fat Emulsion Intravenous 50 ml/ Potassium Acetate 20 meq/Potassium Phosphate 10 meq/ Calcium Gluconate 2.3 meq/Magnesium Sulfate 4 meq/ Multivitamins 10 ml/Chromium/ Copper/Manganese/ Zinc 1 ml/Amino Acids/Dextrose/ Purified Water 829.2189 ml @ 35 mls/hr [id number] IV 01/22/25 22:00 01/23/25 21:59 01/22/25 20:47 35 MLS/HR Ondansetron HCl 2 mg Q4HPRN PRN IV 01/22/25 17:30 01/23/25 00:37 2 MG Fat Emulsion Intravenous 100 ml/Potassium Acetate 10 meq/ Potassium Phosphate 22 meq/ Calcium Gluconate 6.975 meq/ Magnesium Sulfate 10 meq/ Multivitamins 10 ml/Chromium/ Copper/Manganese/ Zinc 1 ml/Amino Acids/Dextrose/ Purified Water 1,088.5 ml @ 45 mls/hr [id number] IV 01/23/25 22:00 01/24/25 21:59 Examination General: Alert, not in acute distress. * Abdomen: Soft, non-distended, mild LLQ tenderness, drain in place with sanguineous output. No peritoneal signs. * Drain Site: No erythema or purulent drainage, flushed per protocol. laboratory and microbiology Laboratory Tests 01/23/25 10:09 01/22/25 05:38 Test 01/23/25 10:09 Range/Units Serum Glucose 117 H 74-106 mg/dL Microbiology Date/Time Source Procedure Growth Status 01/05/25 14:10 Aspirate Gram Stain - Final Complete 01/05/25 14:10 Body Fluid Culture - Final Klebsiella oxytoca Complete 01/05/25 00:50 Nose MRSA Screen - Final Methicillin Resistant S.aureus Complete 01/04/25 09:40 Blood Blood Culture - Final NO GROWTH AFTER 5 DAYS OF INCUBATION. Complete Problem List/Assessment/Plan Problem List/Assessment/Plan Assessment 1. Complicated sigmoid diverticulitis with large perisigmoid abscess (drain in situ), suspicion for fistula/metastatic erosion 2. Lower GI bleeding with ongoing hematochezia 3. Gram-negative intra-abdominal infection (pending final culture ID) 4. MRSA colonization (nasal positive) 5. Ventral abdominal wall hernia without obstruction 6. History of ovarian cancer 7. Leukocytosis, improving 8. Abdominal blisters around the percutaneous drain insertion site Plan GI-SPECIFIC PLAN Transfer to higher level facility with gynecology/ oncology surgical capability for operative management. Patient underwent IR guided biopsy of the mass lesion/abscess. Awaiting biopsy results * Continue IV ceftriaxone and IV metronidazole per culture sensitivity. * Maintain percutaneous drain care: flush daily with 10 mL NS, monitor and document output and character. * Follow surgical teams recommendations regarding potential operative intervention. * Possible surgical resection with colostomy or gastrostomy if abscess persists. Nutrition * Discontinue full liquid diet; NPO starting today. * Continue TPN via central line for complete nutritional support. * Monitor daily electrolytes, glucose, weekly LFTs while on TPN. Monitoring * Monitor drain output daily; notify surgery and IR if output ceases or increases significantly. * CBC daily for infection trends. * CMP daily while inpatient on TPN. Prophylaxis / Supportive * GI prophylaxis: Pantoprazole IV 40 mg BID. Outpatient gynecological oncology/oncology follow-up appointment is required and repeat CA 125 as per OBGYN recommendation. GASTROINTESTINAL / INFECTIOUS DISEASES: The plan is to discharge the patient on PICC line and place her on clear liquid diet for 2 weeks. And TPN during that time. And IV antibiotics. And repeat imaging after 2 weeks and outpatient follow-up with GI. * Continue IV antibiotics: * Ceftriaxone IV per ID * Metronidazole IV * De-escalate Zosyn as culture confirmed Klebsiella oxytoca * Await sensitivity results; adjust antibiotics accordingly * Drain Management: CONTINUE CLOSE OBSERVATION Now drain is functioning. Maintain drain care. If drains ceases to function consult IR for evaluation and possible drain exchange. * Continue daily assessment of IR drain output * Flush with 10 mL NS daily to maintain patency. And continue wound care daily. 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 * Pain Control: * Continue hydromorphone 1 mg IV and Percocet PRN * Wean opioids as tolerated * Monitor for constipation continue Miralax 17 g PO PRN * Nutrition: * Continue clear liquid diet * Monitor for return of bowel function, distention, and bloating * GI Bleeding: * Monitor for recurrent hematochezia or melena * Continue IV pantoprazole 40 mg BID * Monitor H/H daily * No EGD/colonoscopy at this time unless bleeding recurs PROPHYLAXIS / SUPPORTIVE CARE: * GI prophylaxis: Pantoprazole IV * Skin care: Monitor IR drain site for signs of infection * Electrolyte monitoring: Daily BMP to monitor renal function on antibiotics * Contact precautions due to MRSA nasal swab * Encourage ambulation with assistance Follow-up planning with repeat CT abdomen and pelvis in 2 weeks to assess abscess resolution Colonoscopy in 3-4 months post discharge for further GI evaluation. Arrange outpatient clinic follow-up after hospital discharge. Discharge plan includes TPN, PICC line antibiotics, home health and wound care. Case discussed in detail with the attending physician, including the clinical presentation, diagnostic workup, and comprehensive management plan. The patient was present for the discussion and demonstrated understanding of her condition and the proposed plan. Plan discussed with: Patient Dietary Evaluation Review Comments: Clear Liquid diet with Ensure Clear BID Expected Outcomes/Goals: recovered GI function, gradual wt loss, ANGIE TORRES RESIDENT Jan 23, 2025 19:05
[2025-01-23] MEDS: [UNRECOGNIZED DRUG - OTHER] IV NR (21:57)
[2025-01-23] MEDS: POTASSIUM ACETATE IV NR (21:57)
[2025-01-23] MEDS: POTASSIUM PHOSPHATE IV NR (21:57)
[2025-01-23] MEDS: FAT EMULSION IV NR (21:57)
[2025-01-24] VITALS (7 sets, daily range): BP systolic 106–128; BP diastolic 70–87; PULSE 58–89; RESP 16–19; TEMP 96.7–98.6; O2SAT 96–98
--- NOTE | 2025-01-24 09:04 | DVHPN2 ---
Progress Note - Dictate Date Seen: Jan 24, 2025 Has the PT tested + for MRSA If YES, has PT been informed?: No Medical Necessity Reason Pt with a Central, PICC or Fol: Yes vital signs Vital Sign Date Time Temp Pulse Resp B/P (MAP) Pulse Ox O2 Delivery O2 Flow Rate FiO2 01/24/25 06:34 70 18 121/73 01/24/25 05:00 96.8 96 96.8 01/23/25 20:00 Room Air* 0 21 Total Intake and Output 01/23/25 01/23/25 01/24/25 15:00 23:00 07:00 Intake Total 929.2189 ml 1055 ml Balance 929.2189 ml 1055 ml medications Current Medications Medications Dose Ordered Sig/Earl Route Start Time Stop Time Status Last Admin Dose Admin Pantoprazole Sodium 40 mg BID IV 01/04/25 10:00 01/23/25 21:53 40 MG Nitroglycerin 0.4 mg Q5MINP PRN SL 01/04/25 09:45 Vancomycin HCl 0 ml @ 0 mls/hr UD IV 01/04/25 10:00 Cancel Sodium Chloride 1,000 ml @ 75 mls/hr [id number] IV 01/04/25 10:00 01/23/25 20:40 75 MLS/HR Lorazepam 1 mg BID PRN PO 01/04/25 10:00 01/19/25 22:06 1 MG Atenolol 50 mg BID PO 01/04/25 10:00 01/23/25 21:53 50 MG Diphenhydramine HCl 25 mg Q8HP PRN IV 01/04/25 10:00 01/06/25 17:58 25 MG Polyethylene Glycol 17 gm DAILY PO 01/04/25 12:45 01/10/25 10:24 17 GM Levofloxacin/ Dextrose 100 ml @ 100 mls/hr DAILY IV 01/08/25 10:00 Cancel Sodium Chloride 10 ml QSHIFT@10,22 IV 01/11/25 22:00 01/23/25 22:15 10 ML Hydromorphone HCl 1.5 mg Q3HPRN PRN IV 01/18/25 20:00 01/24/25 06:34 1.5 MG Metronidazole 500 mg Q8HR IV 01/19/25 22:00 Cancel Metronidazole 100 ml @ 100 mls/hr Q8HR IV 01/19/25 22:00 01/24/25 06:01 100 MLS/HR Diagnostic Test (Pha) 1 strip Q6HR 01/20/25 00:00 01/24/25 06:00 1 STRIP Insulin Human Regular FOLLOW SLIDING SCALE Q6HR SC 01/20/25 00:00 Dextrose 50 ml UD IV 01/19/25 22:00 Amino Acids 0 ml @ 0 mls/hr PER PHARMACY IV 01/22/25 11:00 Ondansetron HCl 2 mg Q4HPRN PRN IV 01/22/25 17:30 01/23/25 00:37 2 MG Fat Emulsion Intravenous 100 ml/Potassium Acetate 10 meq/ Potassium Phosphate 22 meq/ Calcium Gluconate 6.975 meq/ Magnesium Sulfate 10 meq/ Multivitamins 10 ml/Chromium/ Copper/Manganese/ Zinc 1 ml/Amino Acids/Dextrose/ Purified Water 1,088.5 ml @ 45 mls/hr [id number] IV 01/23/25 22:00 01/24/25 21:59 01/23/25 21:57 45 MLS/HR objective General Appearance: alert, no distress HEENT: EOMI, PERRLA, normal external inspect of ears, no icterus, no nasal drainage Neck: no carotid bruit, no jugular venous distention (JVD), no lymphadenopathy Chest: normal thorax Respiratory: clear to auscultation, normal air movement Cardiovascular: regular rate and rhythm, no diastolic murmur, no jugular venous distention (JVD), no rub, no systolic murmur Abdominal: soft, no hepatomegaly, no mass, no splenomegaly, no tenderness Genitourinary: grossly normal external Musculoskeletal: no joint tenderness, no swelling Extremities: normal pulses, no calf tenderness, no clubbing, no cyanosis, no edema Skin: no bruising, no jaundice, no rash Neurological: alert, No focal deficit laboratory and microbiology Laboratory Tests 01/23/25 10:09 01/22/25 05:38 Test 01/23/25 10:09 Range/Units Serum Glucose 117 H 74-106 mg/dL Problem List 1. Rectal Bleed GI Consult, Hold blood thinners 2. Hemorrhoids Medication, GI consult 3. Morbid Obesity Diet Education, monitoring 4. Chronic constipation Cathartics, monitoring 5.Sepsis Antibiotics, ID consult 6.Diverticular abscess IR consult for drainage, IV antibiotics Assessment/Plan Subjective: Patient is awake and alert. Objective: I did speak with physician at [facility]. Patient is status post biopsy of abdominal mass. Per radiology could be fecal material. Per Boss physician he is requesting to hold transfer until biopsy results are obtained. He states that it is if it is related to ovarian cancer he will accept the patient, if it is fecal material then general surgery to operate on patient here at this facility. Plan: Continue antibiotics. Per ID patient has a diverticular abscess. Monitor drainage from accordion drain. Continue pain medications as needed. Continue TPN for nutritional support. Dietary Evaluation Review Comments: Clear Liquid diet with Ensure Clear BID Expected Outcomes/Goals: recovered GI function, gradual wt loss, Plan discussed with: Patient, Other SAIMA GUERRERO NP Jan 24, 2025 09:04
[2025-01-24 10:30] LABS: Albumin 3.3 g/dL (3.2-4.8); Alkaline Phosphatase 62 U/L (46-116); Anion Gap 8 (5-15); BUN/Creatinine Ratio 11.4 (10.0-20.0); Carbon Dioxide 26 mmol/L (20-31); Chloride 106 mmol/L (98-107); Glucose 105 mg/dL (74-106); Magnesium 1.7 mg/dL (1.6-2.6); Potassium 3.9 mmol/L (3.5-5.1); Sodium 140 mmol/L (136-145)
[2025-01-24 10:31] LABS: Bilirubin, Total 0.5 mg/dL (0.2-1.0)
[2025-01-24 10:36] LABS: Alanine Aminotransferase < 9 U/L (7-40); Blood Urea Nitrogen 5 mg/dL (9-23); Calcium 8.4 mg/dL (8.7-10.4); Total Protein 5.3 g/dL (5.7-8.2)
[2025-01-24] MEDS: LORazepam 2MG/ML-1ML VIAL IM ONE (17:00)
--- NOTE | 2025-01-24 17:00 | DVHPN2 ---
Progress Note Date Seen: Jan 24, 2025 Resident Creating Document: ANGIE TORRES RESIDENT Has the PT tested + for MRSA If YES, has PT been informed?: No Medical Necessity Reason Pt with a Central, PICC or Fol: Yes Subjective Review of Systems Today's progress- The drain was changed yesterday, currently no output. Lab showed WBC count increased to 13.9 high and hemoglobin stable at 11.3, LFTs normal. Hemodynamics revealed BP of 106/ 57, borderline low but stable. Pain and anxiety ongoing pain managed with p.r.n. analgesia 1 dose Ativan given. Nutrition-TPN per central line., tolerating well. Imaging no new imaging today. Pending biopsy pathology and pending transfer to higher level of care. Discussed the case with general surgeon and he agreed upon the same Objective vital signs Vital Sign Date Time Temp Pulse Resp B/P (MAP) Pulse Ox O2 Delivery O2 Flow Rate FiO2 01/24/25 16:36 97.6 68 16 127/87 (100) 97 97.6 01/24/25 08:00 Room Air* 0 21 Total Intake and Output 01/23/25 01/23/25 01/24/25 15:00 23:00 07:00 Intake Total 929.2189 ml 1055 ml Balance 929.2189 ml 1055 ml medications Current Medications Medications Dose Ordered Sig/Earl Route Start Time Stop Time Status Last Admin Dose Admin Pantoprazole Sodium 40 mg BID IV 01/04/25 10:00 01/24/25 10:17 40 MG Nitroglycerin 0.4 mg Q5MINP PRN SL 01/04/25 09:45 Vancomycin HCl 0 ml @ 0 mls/hr UD IV 01/04/25 10:00 Cancel Sodium Chloride 1,000 ml @ 75 mls/hr [id number] IV 01/04/25 10:00 01/23/25 20:40 75 MLS/HR Lorazepam 1 mg BID PRN PO 01/04/25 10:00 01/19/25 22:06 1 MG Atenolol 50 mg BID PO 01/04/25 10:00 01/23/25 21:53 50 MG Diphenhydramine HCl 25 mg Q8HP PRN IV 01/04/25 10:00 01/06/25 17:58 25 MG Polyethylene Glycol 17 gm DAILY PO 01/04/25 12:45 01/10/25 10:24 17 GM Levofloxacin/ Dextrose 100 ml @ 100 mls/hr DAILY IV 01/08/25 10:00 Cancel Sodium Chloride 10 ml QSHIFT@10,22 IV 01/11/25 22:00 01/24/25 10:18 10 ML Hydromorphone HCl 1.5 mg Q3HPRN PRN IV 01/18/25 20:00 01/24/25 14:07 1.5 MG Metronidazole 500 mg Q8HR IV 01/19/25 22:00 Cancel Metronidazole 100 ml @ 100 mls/hr Q8HR IV 01/19/25 22:00 01/24/25 14:07 100 MLS/HR Diagnostic Test (Pha) 1 strip Q6HR 01/20/25 00:00 01/24/25 16:47 1 STRIP Insulin Human Regular FOLLOW SLIDING SCALE Q6HR SC 01/20/25 00:00 Dextrose 50 ml UD IV 01/19/25 22:00 Amino Acids 0 ml @ 0 mls/hr PER PHARMACY IV 01/22/25 11:00 Ondansetron HCl 2 mg Q4HPRN PRN IV 01/22/25 17:30 01/23/25 00:37 2 MG Fat Emulsion Intravenous 100 ml/Potassium Acetate 10 meq/ Potassium Phosphate 22 meq/ Calcium Gluconate 6.975 meq/ Magnesium Sulfate 10 meq/ Multivitamins 10 ml/Chromium/ Copper/Manganese/ Zinc 1 ml/Amino Acids/Dextrose/ Purified Water 1,088.5 ml @ 45 mls/hr [id number] IV 01/23/25 22:00 01/24/25 21:59 01/23/25 21:57 45 MLS/HR Fat Emulsion Intravenous 150 ml/Sodium Acetate 10 meq/Potassium Acetate 10 meq/ Potassium Phosphate 22 meq/ Calcium Gluconate 6.975 meq/ Magnesium Sulfate 10 meq/ Multivitamins 10 ml/Chromium/ Copper/Manganese/ Zinc 1 ml/Amino Acids/Dextrose 1,343.5 ml @ 55 mls/hr [id number] IV 01/24/25 22:00 01/25/25 21:59 Examination General: Alert, not in acute distress. * Abdomen: Soft, non-distended, mild LLQ tenderness, drain in place with sanguineous output. No peritoneal signs. * Drain Site: No erythema or purulent drainage, flushed per protocol. laboratory and microbiology Laboratory Tests 01/24/25 09:55 01/22/25 05:38 Test 01/24/25 09:55 Range/Units Serum Glucose 105 74-106 mg/dL Microbiology Date/Time Source Procedure Growth Status 01/05/25 14:10 Aspirate Gram Stain - Final Complete 01/05/25 14:10 Body Fluid Culture - Final Klebsiella oxytoca Complete 01/05/25 00:50 Nose MRSA Screen - Final Methicillin Resistant S.aureus Complete 01/04/25 09:40 Blood Blood Culture - Final NO GROWTH AFTER 5 DAYS OF INCUBATION. Complete Problem List/Assessment/Plan Problem List/Assessment/Plan Assessment 1. Complicated sigmoid diverticulitis with large perisigmoid abscess (drain in situ), suspicion for fistula/metastatic erosion 2. Lower GI bleeding with ongoing hematochezia 3. Gram-negative intra-abdominal infection (pending final culture ID) 4. MRSA colonization (nasal positive) 5. Ventral abdominal wall hernia without obstruction 6. History of ovarian cancer 7. Leukocytosis, improving 8. Abdominal blisters around the percutaneous drain insertion site Plan GI-SPECIFIC PLAN Transfer to higher level facility with gynecology/ oncology surgical capability for operative management. Patient underwent IR guided biopsy of the mass lesion/abscess. Awaiting biopsy results * Continue IV ceftriaxone and IV metronidazole per culture sensitivity. * Maintain percutaneous drain care: flush daily with 10 mL NS, monitor and document output and character. * Follow surgical teams recommendations regarding potential operative intervention. * Possible surgical resection with colostomy or gastrostomy if abscess persists. Nutrition * Discontinue full liquid diet; NPO starting today. * Continue TPN via central line for complete nutritional support. * Monitor daily electrolytes, glucose, weekly LFTs while on TPN. Monitoring * Monitor drain output daily; notify surgery and IR if output ceases or increases significantly. * CBC daily for infection trends. * CMP daily while inpatient on TPN. Prophylaxis / Supportive * GI prophylaxis: Pantoprazole IV 40 mg BID. Outpatient gynecological oncology/oncology follow-up appointment is required and repeat CA 125 as per OBGYN recommendation. GASTROINTESTINAL / INFECTIOUS DISEASES: The plan is to discharge the patient on PICC line and place her on clear liquid diet for 2 weeks. And TPN during that time. And IV antibiotics. And repeat imaging after 2 weeks and outpatient follow-up with GI. * Continue IV antibiotics: * Ceftriaxone IV per ID * Metronidazole IV * De-escalate Zosyn as culture confirmed Klebsiella oxytoca * Await sensitivity results; adjust antibiotics accordingly * Drain Management: CONTINUE CLOSE OBSERVATION Now drain is functioning. Maintain drain care. If drains ceases to function consult IR for evaluation and possible drain exchange. * Continue daily assessment of IR drain output * Flush with 10 mL NS daily to maintain patency. And continue wound care daily. 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 * Pain Control: * Continue hydromorphone 1 mg IV and Percocet PRN * Wean opioids as tolerated * Monitor for constipation continue Miralax 17 g PO PRN * Nutrition: * Continue clear liquid diet * Monitor for return of bowel function, distention, and bloating * GI Bleeding: * Monitor for recurrent hematochezia or melena * Continue IV pantoprazole 40 mg BID * Monitor H/H daily * No EGD/colonoscopy at this time unless bleeding recurs PROPHYLAXIS / SUPPORTIVE CARE: * GI prophylaxis: Pantoprazole IV * Skin care: Monitor IR drain site for signs of infection * Electrolyte monitoring: Daily BMP to monitor renal function on antibiotics * Contact precautions due to MRSA nasal swab * Encourage ambulation with assistance Follow-up planning with repeat CT abdomen and pelvis in 2 weeks to assess abscess resolution Colonoscopy in 3-4 months post discharge for further GI evaluation. Arrange outpatient clinic follow-up after hospital discharge. Discharge plan includes TPN, PICC line antibiotics, home health and wound care. Case discussed in detail with the attending physician, including the clinical presentation, diagnostic workup, and comprehensive management plan. The patient was present for the discussion and demonstrated understanding of her condition and the proposed plan. Plan discussed with: Patient Dietary Evaluation Review Comments: Clear Liquid diet with Ensure Clear BID Expected Outcomes/Goals: recovered GI function, gradual wt loss, ANGIE TORRES RESIDENT Jan 24, 2025 17:00
[2025-01-24 17:56] LABS: Hematocrit 36.6 % (36.0-46.0); Hemoglobin 11.6 g/dL (12.2-16.2); Mean Corpuscular Hemoglobin 29.3 pg (28.0-32.0); Mean Corpuscular Volume 92.3 fL (80.0-100.0); Nucleated Red Blood Cells % 0.2 %
--- NOTE | 2025-01-24 19:04 | DVHPN2 ---
Progress Note Date Seen: Jan 24, 2025 Has the PT tested + for MRSA If YES, has PT been informed?: No Medical Necessity Reason Pt with a Central, PICC or Fol: Yes Objective vital signs Vital Sign Date Time Temp Pulse Resp B/P (MAP) Pulse Ox O2 Delivery O2 Flow Rate FiO2 01/24/25 18:09 62 16 126/79 01/24/25 16:36 97.6 97 97.6 01/24/25 08:00 Room Air* 0 21 Total Intake and Output 01/23/25 01/23/25 01/24/25 15:00 23:00 07:00 Intake Total 929.2189 ml 1055 ml Balance 929.2189 ml 1055 ml medications Current Medications Medications Dose Ordered Sig/Earl Route Start Time Stop Time Status Last Admin Dose Admin Pantoprazole Sodium 40 mg BID IV 01/04/25 10:00 01/24/25 10:17 40 MG Nitroglycerin 0.4 mg Q5MINP PRN SL 01/04/25 09:45 Vancomycin HCl 0 ml @ 0 mls/hr UD IV 01/04/25 10:00 Cancel Sodium Chloride 1,000 ml @ 75 mls/hr [id number] IV 01/04/25 10:00 01/24/25 17:09 75 MLS/HR Lorazepam 1 mg BID PRN PO 01/04/25 10:00 01/19/25 22:06 1 MG Atenolol 50 mg BID PO 01/04/25 10:00 01/23/25 21:53 50 MG Diphenhydramine HCl 25 mg Q8HP PRN IV 01/04/25 10:00 01/06/25 17:58 25 MG Polyethylene Glycol 17 gm DAILY PO 01/04/25 12:45 01/10/25 10:24 17 GM Levofloxacin/ Dextrose 100 ml @ 100 mls/hr DAILY IV 01/08/25 10:00 Cancel Sodium Chloride 10 ml QSHIFT@10,22 IV 01/11/25 22:00 01/24/25 10:18 10 ML Hydromorphone HCl 1.5 mg Q3HPRN PRN IV 01/18/25 20:00 01/24/25 17:09 1.5 MG Metronidazole 500 mg Q8HR IV 01/19/25 22:00 Cancel Metronidazole 100 ml @ 100 mls/hr Q8HR IV 01/19/25 22:00 01/24/25 14:07 100 MLS/HR Diagnostic Test (Pha) 1 strip Q6HR 01/20/25 00:00 01/24/25 16:47 1 STRIP Insulin Human Regular FOLLOW SLIDING SCALE Q6HR SC 01/20/25 00:00 Dextrose 50 ml UD IV 01/19/25 22:00 Amino Acids 0 ml @ 0 mls/hr PER PHARMACY IV 01/22/25 11:00 Ondansetron HCl 2 mg Q4HPRN PRN IV 01/22/25 17:30 01/23/25 00:37 2 MG Fat Emulsion Intravenous 100 ml/Potassium Acetate 10 meq/ Potassium Phosphate 22 meq/ Calcium Gluconate 6.975 meq/ Magnesium Sulfate 10 meq/ Multivitamins 10 ml/Chromium/ Copper/Manganese/ Zinc 1 ml/Amino Acids/Dextrose/ Purified Water 1,088.5 ml @ 45 mls/hr [id number] IV 01/23/25 22:00 01/24/25 21:59 01/23/25 21:57 45 MLS/HR Fat Emulsion Intravenous 150 ml/Sodium Acetate 10 meq/Potassium Acetate 10 meq/ Potassium Phosphate 22 meq/ Calcium Gluconate 6.975 meq/ Magnesium Sulfate 10 meq/ Multivitamins 10 ml/Chromium/ Copper/Manganese/ Zinc 1 ml/Amino Acids/Dextrose 1,343.5 ml @ 55 mls/hr [id number] IV 01/24/25 22:00 01/25/25 21:59 laboratory and microbiology Laboratory Tests 01/24/25 09:55 Test 01/24/25 09:55 Range/Units Serum Glucose 105 74-106 mg/dL Microbiology Date/Time Source Procedure Growth Status 01/05/25 14:10 Aspirate Gram Stain - Final Complete 01/05/25 14:10 Body Fluid Culture - Final Klebsiella oxytoca Complete 01/05/25 00:50 Nose MRSA Screen - Final Methicillin Resistant S.aureus Complete 01/04/25 09:40 Blood Blood Culture - Final NO GROWTH AFTER 5 DAYS OF INCUBATION. 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
[2025-01-24] MEDS: TPN PER PHARMACY IV NR (22:00)
[2025-01-25] VITALS (8 sets, daily range): BP systolic 104–128; BP diastolic 60–85; PULSE 60–85; RESP 17–20; TEMP 97.2–98.4; O2SAT 96–99
[2025-01-25 07:16] LABS: Hematocrit 31.9 % (36.0-46.0); Hemoglobin 10.7 g/dL (12.2-16.2); Mean Corpuscular Hemoglobin 30.2 pg (28.0-32.0); Mean Corpuscular Volume 90.3 fL (80.0-100.0); Nucleated Red Blood Cells % 0.1 %
[2025-01-25 07:21] LABS: Alkaline Phosphatase 59 U/L (46-116); Anion Gap 10 (5-15); BUN/Creatinine Ratio 13.6 (10.0-20.0); Carbon Dioxide 24 mmol/L (20-31); Glucose 105 mg/dL (74-106); Magnesium 1.7 mg/dL (1.6-2.6); Potassium 3.5 mmol/L (3.5-5.1); Sodium 141 mmol/L (136-145)
[2025-01-25 07:22] LABS: Bilirubin, Total 0.5 mg/dL (0.2-1.0)
[2025-01-25 07:29] LABS: Alanine Aminotransferase < 9 U/L (7-40); Albumin 3.2 g/dL (3.2-4.8); Blood Urea Nitrogen 6 mg/dL (9-23); Calcium 8.3 mg/dL (8.7-10.4); Chloride 107 mmol/L (98-107); Total Protein 5.3 g/dL (5.7-8.2)
--- NOTE | 2025-01-25 13:33 | DVHPN2 ---
Progress Note - Dictate Date Seen: Jan 25, 2025 Has the PT tested + for MRSA If YES, has PT been informed?: No Medical Necessity Reason Pt with a Central, PICC or Fol: Yes vital signs Vital Sign Date Time Temp Pulse Resp B/P (MAP) Pulse Ox O2 Delivery O2 Flow Rate FiO2 01/25/25 13:02 65 20 112/77 01/25/25 12:30 97.2 96 97.2 01/24/25 20:00 Room Air* 0 21 Total Intake and Output 01/24/25 01/24/25 01/25/25 15:00 23:00 07:00 Intake Total 100 ml 1390 ml 400 ml Output Total 15 ml Balance 100 ml 1390 ml 385 ml medications Current Medications Medications Dose Ordered Sig/Earl Route Start Time Stop Time Status Last Admin Dose Admin Pantoprazole Sodium 40 mg BID IV 01/04/25 10:00 01/25/25 09:40 40 MG Nitroglycerin 0.4 mg Q5MINP PRN SL 01/04/25 09:45 Vancomycin HCl 0 ml @ 0 mls/hr UD IV 01/04/25 10:00 Cancel Sodium Chloride 1,000 ml @ 75 mls/hr [id number] IV 01/04/25 10:00 01/24/25 17:09 75 MLS/HR Lorazepam 1 mg BID PRN PO 01/04/25 10:00 Hold 01/19/25 22:06 1 MG Atenolol 50 mg BID PO 01/04/25 10:00 01/25/25 09:51 50 MG Diphenhydramine HCl 25 mg Q8HP PRN IV 01/04/25 10:00 01/06/25 17:58 25 MG Polyethylene Glycol 17 gm DAILY PO 01/04/25 12:45 01/10/25 10:24 17 GM Levofloxacin/ Dextrose 100 ml @ 100 mls/hr DAILY IV 01/08/25 10:00 Cancel Sodium Chloride 10 ml QSHIFT@10,22 IV 01/11/25 22:00 01/25/25 09:59 10 ML Hydromorphone HCl 1.5 mg Q3HPRN PRN IV 01/18/25 20:00 01/25/25 13:02 1.5 MG Metronidazole 500 mg Q8HR IV 01/19/25 22:00 Cancel Metronidazole 100 ml @ 100 mls/hr Q8HR IV 01/19/25 22:00 01/25/25 06:23 100 MLS/HR Diagnostic Test (Pha) 1 strip Q6HR 01/20/25 00:00 01/25/25 06:00 1 STRIP Insulin Human Regular FOLLOW SLIDING SCALE Q6HR SC 01/20/25 00:00 Dextrose 50 ml UD IV 01/19/25 22:00 Amino Acids 0 ml @ 0 mls/hr PER PHARMACY IV 01/22/25 11:00 Ondansetron HCl 2 mg Q4HPRN PRN IV 01/22/25 17:30 01/25/25 06:24 2 MG Fat Emulsion Intravenous 150 ml/Sodium Acetate 10 meq/Potassium Acetate 10 meq/ Potassium Phosphate 22 meq/ Calcium Gluconate 6.975 meq/ Magnesium Sulfate 10 meq/ Multivitamins 10 ml/Chromium/ Copper/Manganese/ Zinc 1 ml/Amino Acids/Dextrose 1,343.5 ml @ 55 mls/hr [id number] IV 01/24/25 22:00 01/25/25 21:59 01/24/25 22:00 55 MLS/HR Lorazepam 0.25 mg Q6HP PRN IV 01/24/25 19:15 Fat Emulsion Intravenous 200 ml/Potassium Acetate 20 meq/ Potassium Phosphate 22 meq/ Calcium Gluconate 6.975 meq/ Magnesium Sulfate 10 meq/ Multivitamins 10 ml/Chromium/ Copper/Manganese/ Zinc 1 ml/Amino Acids/Dextrose 1,493.5 ml @ 62 mls/hr Q24H6M IV 01/25/25 22:00 01/26/25 21:59 objective General Appearance: alert, no distress HEENT: EOMI, PERRLA, normal external inspect of ears, no icterus, no nasal drainage Neck: no carotid bruit, no jugular venous distention (JVD), no lymphadenopathy Chest: normal thorax Respiratory: clear to auscultation, normal air movement Cardiovascular: regular rate and rhythm, no diastolic murmur, no jugular venous distention (JVD), no rub, no systolic murmur Abdominal: soft, no hepatomegaly, no mass, no splenomegaly, no tenderness Genitourinary: grossly normal external Musculoskeletal: no joint tenderness, no swelling Extremities: normal pulses, no calf tenderness, no clubbing, no cyanosis, no edema Skin: no bruising, no jaundice, no rash Neurological: alert, No focal deficit laboratory and microbiology Laboratory Tests 01/25/25 05:14 Test 01/25/25 05:14 Range/Units Serum Glucose 105 74-106 mg/dL Problem List 1. Rectal Bleed GI Consult, Hold blood thinners 2. Hemorrhoids Medication, GI consult 3. Morbid Obesity Diet Education, monitoring 4. Chronic constipation Cathartics, monitoring 5.Sepsis Antibiotics, ID consult 6.Diverticular abscess IR consult for drainage, IV antibiotics Assessment/Plan Subjective: Patient is awake and alert. Objective: I received a call from Pathology today: abdominal biopsy is positive for cancer. Patient has a history of ovarian cancer, status post treatment. Plan: Wood Grinder consult. Re-consult Alfonzo Ulloa. Plan to transfer patient to higher level of care for surgical services with ROOM CLEANER. Dietary Evaluation Review Comments: Clear Liquid diet with Ensure Clear BID Expected Outcomes/Goals: recovered GI function, gradual wt loss, Plan discussed with: Patient, Other SAIMA GUERRERO NP Jan 25, 2025 13:33
--- NOTE | 2025-01-25 16:54 | DVHPN2 ---
Progress Note Date Seen: Jan 25, 2025 Resident Creating Document: ANGIE TORRES RESIDENT Has the PT tested + for MRSA If YES, has PT been informed?: No Medical Necessity Reason Pt with a Central, PICC or Fol: Yes Subjective Review of Systems Today's progress- The patient had 2 bowel movements today. WBC count improved to 12.7 Hemoglobin stable at 10.7. LFTs are normal. Percutaneous drain-minimal, pending removal by surgeon today. Abdominal abscess biopsy results-still pending. Continue GI monitoring, coordinate biopsy results, proceed with drain removal, ensure transport to [place] for higher level of care. Objective vital signs Vital Sign Date Time Temp Pulse Resp B/P (MAP) Pulse Ox O2 Delivery O2 Flow Rate FiO2 01/25/25 16:28 97.9 67 20 119/79 (92) 97 97.9 01/24/25 20:00 Room Air* 0 21 Total Intake and Output 01/24/25 01/24/25 01/25/25 15:00 23:00 07:00 Intake Total 100 ml 1390 ml 400 ml Output Total 15 ml Balance 100 ml 1390 ml 385 ml medications Current Medications Medications Dose Ordered Sig/Earl Route Start Time Stop Time Status Last Admin Dose Admin Pantoprazole Sodium 40 mg BID IV 01/04/25 10:00 01/25/25 09:40 40 MG Nitroglycerin 0.4 mg Q5MINP PRN SL 01/04/25 09:45 Vancomycin HCl 0 ml @ 0 mls/hr UD IV 01/04/25 10:00 Cancel Sodium Chloride 1,000 ml @ 75 mls/hr [id number] IV 01/04/25 10:00 01/24/25 17:09 75 MLS/HR Lorazepam 1 mg BID PRN PO 01/04/25 10:00 Hold 01/19/25 22:06 1 MG Atenolol 50 mg BID PO 01/04/25 10:00 01/25/25 09:51 50 MG Diphenhydramine HCl 25 mg Q8HP PRN IV 01/04/25 10:00 01/06/25 17:58 25 MG Polyethylene Glycol 17 gm DAILY PO 01/04/25 12:45 01/10/25 10:24 17 GM Levofloxacin/ Dextrose 100 ml @ 100 mls/hr DAILY IV 01/08/25 10:00 Cancel Sodium Chloride 10 ml QSHIFT@10,22 IV 01/11/25 22:00 01/25/25 09:59 10 ML Hydromorphone HCl 1.5 mg Q3HPRN PRN IV 01/18/25 20:00 01/25/25 13:02 1.5 MG Metronidazole 500 mg Q8HR IV 01/19/25 22:00 Cancel Metronidazole 100 ml @ 100 mls/hr Q8HR IV 01/19/25 22:00 01/25/25 06:23 100 MLS/HR Diagnostic Test (Pha) 1 strip Q6HR 01/20/25 00:00 01/25/25 06:00 1 STRIP Insulin Human Regular FOLLOW SLIDING SCALE Q6HR SC 01/20/25 00:00 Dextrose 50 ml UD IV 01/19/25 22:00 Amino Acids 0 ml @ 0 mls/hr PER PHARMACY IV 01/22/25 11:00 Ondansetron HCl 2 mg Q4HPRN PRN IV 01/22/25 17:30 01/25/25 06:24 2 MG Fat Emulsion Intravenous 150 ml/Sodium Acetate 10 meq/Potassium Acetate 10 meq/ Potassium Phosphate 22 meq/ Calcium Gluconate 6.975 meq/ Magnesium Sulfate 10 meq/ Multivitamins 10 ml/Chromium/ Copper/Manganese/ Zinc 1 ml/Amino Acids/Dextrose 1,343.5 ml @ 55 mls/hr [id number] IV 01/24/25 22:00 01/25/25 21:59 01/24/25 22:00 55 MLS/HR Lorazepam 0.25 mg Q6HP PRN IV 01/24/25 19:15 Fat Emulsion Intravenous 200 ml/Potassium Acetate 20 meq/ Potassium Phosphate 22 meq/ Calcium Gluconate 6.975 meq/ Magnesium Sulfate 10 meq/ Multivitamins 10 ml/Chromium/ Copper/Manganese/ Zinc 1 ml/Amino Acids/Dextrose 1,493.5 ml @ 62 mls/hr Q24H6M IV 01/25/25 22:00 01/26/25 21:59 Examination General: Alert, not in acute distress. * Abdomen: Soft, non-distended, mild LLQ tenderness, drain in place with sanguineous output. No peritoneal signs. * Drain Site: No erythema or purulent drainage, flushed per protocol. laboratory and microbiology Laboratory Tests 01/25/25 05:14 Test 01/25/25 05:14 Range/Units Serum Glucose 105 74-106 mg/dL Microbiology Date/Time Source Procedure Growth Status 01/23/25 14:25 Aspirate Gram Stain Pending Resulted 01/23/25 14:25 Body Fluid Culture - Preliminary Klebsiella oxytoca Resulted 01/05/25 00:50 Nose MRSA Screen - Final Methicillin Resistant S.aureus Complete 01/04/25 09:40 Blood Blood Culture - Final NO GROWTH AFTER 5 DAYS OF INCUBATION. Complete Labs and/or images reviewed: Labs reviewed by me, Image(s) reviewed by me Problem List/Assessment/Plan Problem List/Assessment/Plan Assessment 1. Complicated sigmoid diverticulitis with large perisigmoid abscess (drain in situ), suspicion for fistula/metastatic erosion 2. Lower GI bleeding with ongoing hematochezia 3. Gram-negative intra-abdominal infection (pending final culture ID) 4. MRSA colonization (nasal positive) 5. Ventral abdominal wall hernia without obstruction 6. History of ovarian cancer 7. Leukocytosis, improving 8. Abdominal blisters around the percutaneous drain insertion site Plan GI-SPECIFIC PLAN Transfer to higher level facility with gynecology/ oncology surgical capability for operative management. Patient underwent IR guided biopsy of the mass lesion/abscess. Awaiting biopsy results * Continue IV ceftriaxone and IV metronidazole per culture sensitivity. * Maintain percutaneous drain care: flush daily with 10 mL NS, monitor and document output and character. * Follow surgical teams recommendations regarding potential operative intervention. * Possible surgical resection with colostomy or gastrostomy if abscess persists. Nutrition * Discontinue full liquid diet; NPO starting today. * Continue TPN via central line for complete nutritional support. * Monitor daily electrolytes, glucose, weekly LFTs while on TPN. Monitoring * Monitor drain output daily; notify surgery and IR if output ceases or increases significantly. * CBC daily for infection trends. * CMP daily while inpatient on TPN. Prophylaxis / Supportive * GI prophylaxis: Pantoprazole IV 40 mg BID. Outpatient gynecological oncology/oncology follow-up appointment is required and repeat CA 125 as per OBGYN recommendation. GASTROINTESTINAL / INFECTIOUS DISEASES: The plan is to discharge the patient on PICC line and place her on clear liquid diet for 2 weeks. And TPN during that time. And IV antibiotics. And repeat imaging after 2 weeks and outpatient follow-up with GI. * Continue IV antibiotics: * Ceftriaxone IV per ID * Metronidazole IV * De-escalate Zosyn as culture confirmed Klebsiella oxytoca * Await sensitivity results; adjust antibiotics accordingly * Drain Management: Removal of drain by general surgeon today as it is not draining anymore * Continue daily assessment of IR drain output * Flush with 10 mL NS daily to maintain patency. And continue wound care daily. * Monitor for signs of clogging or infection at the site * Change drainage bag daily or PRN * IR/nursing to perform long line teamster * Pain Control: * Continue hydromorphone 1 mg IV and Percocet PRN * Wean opioids as tolerated * Monitor for constipation continue Miralax 17 g PO PRN * Nutrition: * Continue clear liquid diet * Monitor for return of bowel function, distention, and bloating * GI Bleeding: * Monitor for recurrent hematochezia or melena * Continue IV pantoprazole 40 mg BID * Monitor H/H daily * No EGD/colonoscopy at this time unless bleeding recurs PROPHYLAXIS / SUPPORTIVE CARE: * GI prophylaxis: Pantoprazole IV * Skin care: Monitor IR drain site for signs of infection * Electrolyte monitoring: Daily BMP to monitor renal function on antibiotics * Contact precautions due to MRSA nasal swab * Encourage ambulation with assistance Follow-up planning with repeat CT abdomen and pelvis in 2 weeks to assess abscess resolution Colonoscopy in 3-4 months post discharge for further GI evaluation. Arrange outpatient clinic follow-up after hospital discharge. Discharge plan includes TPN, PICC line antibiotics, home health and wound care. Case discussed in detail with the attending physician, including the clinical presentation, diagnostic workup, and comprehensive management plan. The patient was present for the discussion and demonstrated understanding of her condition and the proposed plan. Plan discussed with: Patient Dietary Evaluation Review Comments: Clear Liquid diet with Ensure Clear BID Expected Outcomes/Goals: recovered GI function, gradual wt loss, ANGIE TORRES RESIDENT Jan 25, 2025 16:54
[2025-01-25] MEDS: TPN PER PHARMACY IV NR (21:32)
[2025-01-26] VITALS (7 sets, daily range): BP systolic 116–126; BP diastolic 66–78; PULSE 63–76; RESP 17–20; TEMP 97.5–98.2; O2SAT 96–98
[2025-01-26] MEDS: cefTRIAXone 2GM/50ML D5W 50 ML IV SCH ×2 (10:00→23:00)
--- NOTE | 2025-01-26 10:04 | DVHPN2 ---
Progress Note - Dictate Date Seen: Jan 26, 2025 Has the PT tested + for MRSA If YES, has PT been informed?: No Medical Necessity Reason Pt with a Central, PICC or Fol: Yes vital signs Vital Sign Date Time Temp Pulse Resp B/P (MAP) Pulse Ox O2 Delivery O2 Flow Rate FiO2 01/26/25 06:55 68 18 121/72 01/26/25 05:00 97.5 97 97.5 01/25/25 20:00 Room Air* 0 21 Total Intake and Output 01/25/25 01/25/25 01/26/25 15:00 23:00 07:00 Intake Total 155 ml 130 ml Balance 155 ml 130 ml medications Current Medications Medications Dose Ordered Sig/Earl Route Start Time Stop Time Status Last Admin Dose Admin Pantoprazole Sodium 40 mg BID IV 01/04/25 10:00 01/25/25 22:03 40 MG Nitroglycerin 0.4 mg Q5MINP PRN SL 01/04/25 09:45 Vancomycin HCl 0 ml @ 0 mls/hr UD IV 01/04/25 10:00 Cancel Sodium Chloride 1,000 ml @ 75 mls/hr [id number] IV 01/04/25 10:00 01/26/25 03:00 75 MLS/HR Lorazepam 1 mg BID PRN PO 01/04/25 10:00 Hold 01/19/25 22:06 1 MG Atenolol 50 mg BID PO 01/04/25 10:00 01/25/25 22:07 50 MG Diphenhydramine HCl 25 mg Q8HP PRN IV 01/04/25 10:00 01/06/25 17:58 25 MG Polyethylene Glycol 17 gm DAILY PO 01/04/25 12:45 01/10/25 10:24 17 GM Levofloxacin/ Dextrose 100 ml @ 100 mls/hr DAILY IV 01/08/25 10:00 Cancel Sodium Chloride 10 ml QSHIFT@10,22 IV 01/11/25 22:00 01/25/25 22:02 10 ML Hydromorphone HCl 1.5 mg Q3HPRN PRN IV 01/18/25 20:00 01/26/25 06:55 1.5 MG Metronidazole 500 mg Q8HR IV 01/19/25 22:00 Cancel Metronidazole 100 ml @ 100 mls/hr Q8HR IV 01/19/25 22:00 01/26/25 06:56 100 MLS/HR Diagnostic Test (Pha) 1 strip Q6HR 01/20/25 00:00 01/26/25 06:58 1 STRIP Insulin Human Regular FOLLOW SLIDING SCALE Q6HR SC 01/20/25 00:00 Dextrose 50 ml UD IV 01/19/25 22:00 Amino Acids 0 ml @ 0 mls/hr PER PHARMACY IV 01/22/25 11:00 Ondansetron HCl 2 mg Q4HPRN PRN IV 01/22/25 17:30 01/26/25 03:30 2 MG Lorazepam 0.25 mg Q6HP PRN IV 01/24/25 19:15 Fat Emulsion Intravenous 200 ml/Potassium Acetate 20 meq/ Potassium Phosphate 22 meq/ Calcium Gluconate 6.975 meq/ Magnesium Sulfate 10 meq/ Multivitamins 10 ml/Chromium/ Copper/Manganese/ Zinc 1 ml/Amino Acids/Dextrose 1,493.5 ml @ 62 mls/hr Q24H6M IV 01/25/25 22:00 01/26/25 21:59 01/25/25 21:32 62 MLS/HR Ceftriaxone Sodium/Dextrose 50 ml @ 50 mls/hr DAILY IV 01/26/25 10:00 objective General Appearance: alert, no distress HEENT: EOMI, PERRLA, normal external inspect of ears, no icterus, no nasal drainage Neck: no carotid bruit, no jugular venous distention (JVD), no lymphadenopathy Chest: normal thorax Respiratory: clear to auscultation, normal air movement Cardiovascular: regular rate and rhythm, no diastolic murmur, no jugular venous distention (JVD), no rub, no systolic murmur Abdominal: soft, no hepatomegaly, no mass, no splenomegaly, no tenderness Genitourinary: grossly normal external Musculoskeletal: no joint tenderness, no swelling Extremities: normal pulses, no calf tenderness, no clubbing, no cyanosis, no edema Skin: no bruising, no jaundice, no rash Neurological: alert, No focal deficit laboratory and microbiology Laboratory Tests 01/25/25 05:14 Test 01/26/25 09:30 Range/Units Serum Glucose Pending Problem List 1. Rectal Bleed GI Consult, Hold blood thinners 2. Hemorrhoids Medication, GI consult 3. Morbid Obesity Diet Education, monitoring 4. Chronic constipation Cathartics, monitoring 5.Sepsis Antibiotics, ID consult 6.Diverticular abscess IR consult for drainage, IV antibiotics Assessment/Plan Subjective Patient is awake and alert. Objective pharmacy services director has been contacted for higher level of care to [place]. I did receive a phone call from pathology who stated she had a report ready for director of social media marketing to steel pickler to provide for [facility]. Patient is status post biopsy. Biopsy was found to be cancerous. Plan Continue TPN for nutritional support. Continue n.p.o. status. Plan to transfer to [facility] for abdominal mass, biopsy found to have cancer. Patient has a history of ovarian cancer status posttreatment. Dietary Evaluation Review Comments: Clear Liquid diet with Ensure Clear BID Expected Outcomes/Goals: recovered GI function, gradual wt loss, Plan discussed with: Patient, Other SAIMA GUERRERO NP Jan 26, 2025 10:04
[2025-01-26 10:09] LABS: Alkaline Phosphatase 57 U/L (46-116); Anion Gap 9 (5-15); BUN/Creatinine Ratio 15.0 (10.0-20.0); Bilirubin, Total 0.4 mg/dL (0.2-1.0); Carbon Dioxide 24 mmol/L (20-31); Magnesium 1.7 mg/dL (1.6-2.6); Potassium 4.2 mmol/L (3.5-5.1); Sodium 140 mmol/L (136-145)
[2025-01-26 10:11] LABS: Alanine Aminotransferase < 9 U/L (7-40); Albumin 3.1 g/dL (3.2-4.8); Blood Urea Nitrogen 6 mg/dL (9-23); Calcium 8.2 mg/dL (8.7-10.4); Chloride 107 mmol/L (98-107); Glucose 115 mg/dL (74-106); Total Protein 5.2 g/dL (5.7-8.2)
--- NOTE | 2025-01-26 17:52 | MEDREC ---
[facility] Intervention Section I [facility] Intervention: Review courses of therapy (ASPIRATE BODY FLUID CULTURE PRELIMINARY FOR KLEBSIELLA OXYTOCA, MRSA, AND E.COLI. PATIENT CURRENTLY ON CEFTRIAXONE AND METRONIDAZOLE, MAY CONSIDER ADDING VANCOMYCIN FOR MRSA COVERAGE IF/WHEN CLINICALLY APPROPRIATE) MARTÍN DAVID [facility] RESIDENT Jan 26, 2025 17:52
--- NOTE | 2025-01-26 18:35 | DVHPN2 ---
Progress Note Date Seen: Jan 26, 2025 Resident Creating Document: ANGIE TORRES RESIDENT Has the PT tested + for MRSA If YES, has PT been informed?: No Medical Necessity Reason Pt with a Central, PICC or Fol: Yes Subjective Review of Systems Today's progress- The patient had 4 bowel movements today. WBC count improved to 12.7 Hemoglobin stable at 10.7. LFTs are normal. Percutaneous drain-minimal Abdominal abscess biopsy results-still pending. Continue GI monitoring, coordinate biopsy results, proceed with drain removal, ensure transport to [place] for higher level of care. Objective vital signs Vital Sign Date Time Temp Pulse Resp B/P (MAP) Pulse Ox O2 Delivery O2 Flow Rate FiO2 01/26/25 16:42 98.0 68 20 124/77 (93) 97 98.0 01/25/25 20:00 Room Air* 0 21 Total Intake and Output 01/25/25 01/25/25 01/26/25 15:00 23:00 07:00 Intake Total 155 ml 130 ml Balance 155 ml 130 ml medications Current Medications Medications Dose Ordered Sig/Earl Route Start Time Stop Time Status Last Admin Dose Admin Pantoprazole Sodium 40 mg BID IV 01/04/25 10:00 01/26/25 10:00 40 MG Nitroglycerin 0.4 mg Q5MINP PRN SL 01/04/25 09:45 Vancomycin HCl 0 ml @ 0 mls/hr UD IV 01/04/25 10:00 Cancel Sodium Chloride 1,000 ml @ 75 mls/hr [id number] IV 01/04/25 10:00 01/26/25 03:00 75 MLS/HR Lorazepam 1 mg BID PRN PO 01/04/25 10:00 Hold 01/19/25 22:06 1 MG Atenolol 50 mg BID PO 01/04/25 10:00 01/26/25 10:00 50 MG Diphenhydramine HCl 25 mg Q8HP PRN IV 01/04/25 10:00 01/06/25 17:58 25 MG Polyethylene Glycol 17 gm DAILY PO 01/04/25 12:45 01/10/25 10:24 17 GM Levofloxacin/ Dextrose 100 ml @ 100 mls/hr DAILY IV 01/08/25 10:00 Cancel Sodium Chloride 10 ml QSHIFT@10,22 IV 01/11/25 22:00 8/21/25 10:00 10 ML Hydromorphone HCl 1.5 mg Q3HPRN PRN IV 01/18/25 20:00 01/26/25 16:35 1.5 MG Metronidazole 500 mg Q8HR IV 01/19/25 22:00 Cancel Metronidazole 100 ml @ 100 mls/hr Q8HR IV 01/19/25 22:00 01/26/25 14:00 100 MLS/HR Diagnostic Test (Pha) 1 strip Q6HR 01/20/25 00:00 01/26/25 12:00 1 STRIP Insulin Human Regular FOLLOW SLIDING SCALE Q6HR SC 01/20/25 00:00 Dextrose 50 ml UD IV 01/19/25 22:00 Amino Acids 0 ml @ 0 mls/hr PER PHARMACY IV 01/22/25 11:00 Ondansetron HCl 2 mg Q4HPRN PRN IV 01/22/25 17:30 01/26/25 03:30 2 MG Lorazepam 0.25 mg Q6HP PRN IV 01/24/25 19:15 Fat Emulsion Intravenous 200 ml/Potassium Acetate 20 meq/ Potassium Phosphate 22 meq/ Calcium Gluconate 6.975 meq/ Magnesium Sulfate 10 meq/ Multivitamins 10 ml/Chromium/ Copper/Manganese/ Zinc 1 ml/Amino Acids/Dextrose 1,493.5 ml @ 62 mls/hr Q24H6M IV 01/25/25 22:00 01/26/25 21:59 01/25/25 21:32 62 MLS/HR Ceftriaxone Sodium/Dextrose 50 ml @ 50 mls/hr DAILY IV 01/26/25 10:00 01/26/25 10:00 50 MLS/HR Fat Emulsion Intravenous 200 ml/Sodium Acetate 20 meq/Sodium Phosphate 20 meq/ Calcium Gluconate 6.975 meq/ Magnesium Sulfate 12 meq/ Multivitamins 10 ml/Chromium/ Copper/Manganese/ Zinc 1 ml/Amino Acids/Dextrose 1,444 ml @ 60 mls/hr Q24H4M IV 01/26/25 22:00 01/27/25 21:59 Examination General: Alert, not in acute distress. * Abdomen: Soft, non-distended, mild LLQ tenderness, drain in place with sanguineous output. No peritoneal signs. * Drain Site: No erythema or purulent drainage, flushed per protocol. laboratory and microbiology Laboratory Tests 01/26/25 09:30 01/25/25 05:14 Test 01/26/25 09:30 Range/Units Serum Glucose 115 H 74-106 mg/dL Microbiology Date/Time Source Procedure Growth Status 01/23/25 14:25 Aspirate Gram Stain Pending Resulted 01/23/25 14:25 Body Fluid Culture - Preliminary Klebsiella oxytoca Methicillin Resistant S.aureus Escherichia coli Resulted 01/05/25 00:50 Nose MRSA Screen - Final Methicillin Resistant S.aureus Complete 01/04/25 09:40 Blood Blood Culture - Final NO GROWTH AFTER 5 DAYS OF INCUBATION. Complete Problem List/Assessment/Plan Problem List/Assessment/Plan Assessment 1. Complicated sigmoid diverticulitis with large perisigmoid abscess (drain in situ), suspicion for fistula/metastatic erosion 2. Lower GI bleeding with ongoing hematochezia 3. Gram-negative intra-abdominal infection (pending final culture ID) 4. MRSA colonization (nasal positive) 5. Ventral abdominal wall hernia without obstruction 6. History of ovarian cancer 7. Leukocytosis, improving 8. Abdominal blisters around the percutaneous drain insertion site Plan GI-SPECIFIC PLAN Transfer to higher level facility with gynecology/ oncology surgical capability for operative management. Patient underwent IR guided biopsy of the mass lesion/abscess. Awaiting biopsy results * Continue IV ceftriaxone and IV metronidazole per culture sensitivity. * Maintain percutaneous drain care: flush daily with 10 mL NS, monitor and document output and character. * Follow surgical teams recommendations regarding potential operative intervention. * Possible surgical resection with colostomy or gastrostomy if abscess persists. Nutrition * Discontinue full liquid diet; NPO starting today. * Continue TPN via central line for complete nutritional support. * Monitor daily electrolytes, glucose, weekly LFTs while on TPN. Monitoring * Monitor drain output daily; notify surgery and IR if output ceases or increases significantly. * CBC daily for infection trends. * CMP daily while inpatient on TPN. Prophylaxis / Supportive * GI prophylaxis: Pantoprazole IV 40 mg BID. Outpatient gynecological oncology/oncology follow-up appointment is required and repeat CA 125 as per OBGYN recommendation. GASTROINTESTINAL / INFECTIOUS DISEASES: The plan is to discharge the patient on PICC line and place her on clear liquid diet for 2 weeks. And TPN during that time. And IV antibiotics. And repeat imaging after 2 weeks and outpatient follow-up with GI. * Continue IV antibiotics: * Ceftriaxone IV per ID * Metronidazole IV * De-escalate Zosyn as culture confirmed Klebsiella oxytoca * Await sensitivity results; adjust antibiotics accordingly * Drain Management: Removal of drain by general surgeon today as it is not draining anymore * Continue daily assessment of IR drain output * Flush with 10 mL NS daily to maintain patency. And continue wound care daily. * Monitor for signs of clogging or infection at the site * Change drainage bag daily or PRN * IR/nursing to perform main line assembler * Pain Control: * Continue hydromorphone 1 mg IV and Percocet PRN * Wean opioids as tolerated * Monitor for constipation continue Miralax 17 g PO PRN * Nutrition: * Continue clear liquid diet * Monitor for return of bowel function, distention, and bloating * GI Bleeding: * Monitor for recurrent hematochezia or melena * Continue IV pantoprazole 40 mg BID * Monitor H/H daily * No EGD/colonoscopy at this time unless bleeding recurs PROPHYLAXIS / SUPPORTIVE CARE: * GI prophylaxis: Pantoprazole IV * Skin care: Monitor IR drain site for signs of infection * Electrolyte monitoring: Daily BMP to monitor renal function on antibiotics * Contact precautions due to MRSA nasal swab * Encourage ambulation with assistance Follow-up planning with repeat CT abdomen and pelvis in 2 weeks to assess abscess resolution Colonoscopy in 3-4 months post discharge for further GI evaluation. Arrange outpatient clinic follow-up after hospital discharge. Discharge plan includes TPN, PICC line antibiotics, home health and wound care. Case discussed in detail with the attending physician, including the clinical presentation, diagnostic workup, and comprehensive management plan. The patient was present for the discussion and demonstrated understanding of her condition and the proposed plan. Plan discussed with: Patient Dietary Evaluation Review Comments: Clear Liquid diet with Ensure Clear BID Expected Outcomes/Goals: recovered GI function, gradual wt loss, ANGIE TORRES RESIDENT Jan 26, 2025 18:35
[2025-01-26] MEDS ORDERED: VANCOMYCIN PER PHARMACY 0 MG IV SCH (20:00)
--- NOTE | 2025-01-26 20:01 | DVHPN2 ---
Consult Progress Note Date Seen: Jan 18, 2025 Objective vital signs Vital Sign Date Time Temp Pulse Resp B/P (MAP) Pulse Ox O2 Delivery O2 Flow Rate FiO2 01/26/25 19:59 87 22 128/68 01/26/25 16:42 98.0 97 98.0 01/26/25 08:00 Room Air* 0 21 Total Intake and Output 01/25/25 01/25/25 01/26/25 15:00 23:00 07:00 Intake Total 155 ml 130 ml Balance 155 ml 130 ml medications Current Medications Medications Dose Ordered Sig/Earl Route Start Time Stop Time Status Last Admin Dose Admin Pantoprazole Sodium 40 mg BID IV 01/04/25 10:00 01/26/25 10:00 40 MG Nitroglycerin 0.4 mg Q5MINP PRN SL 01/04/25 09:45 Vancomycin HCl 0 ml @ 0 mls/hr UD IV 01/04/25 10:00 Cancel Sodium Chloride 1,000 ml @ 75 mls/hr [id number] IV 01/04/25 10:00 01/26/25 03:00 75 MLS/HR Lorazepam 1 mg BID PRN PO 01/04/25 10:00 Hold 01/19/25 22:06 1 MG Atenolol 50 mg BID PO 01/04/25 10:00 01/26/25 10:00 50 MG Diphenhydramine HCl 25 mg Q8HP PRN IV 01/04/25 10:00 01/06/25 17:58 25 MG Polyethylene Glycol 17 gm DAILY PO 01/04/25 12:45 01/10/25 10:24 17 GM Levofloxacin/ Dextrose 100 ml @ 100 mls/hr DAILY IV 01/08/25 10:00 Cancel Sodium Chloride 10 ml QSHIFT@10,22 IV 01/11/25 22:00 01/26/25 10:00 10 ML Hydromorphone HCl 1.5 mg Q3HPRN PRN IV 01/18/25 20:00 01/26/25 19:59 1.5 MG Metronidazole 500 mg Q8HR IV 01/19/25 22:00 Cancel Metronidazole 100 ml @ 100 mls/hr Q8HR IV 01/19/25 22:00 01/26/25 14:00 100 MLS/HR Diagnostic Test (Pha) 1 strip Q6HR 01/20/25 00:00 01/26/25 12:00 1 STRIP Insulin Human Regular FOLLOW SLIDING SCALE Q6HR SC 01/20/25 00:00 Dextrose 50 ml UD IV 01/19/25 22:00 Amino Acids 0 ml @ 0 mls/hr PER PHARMACY IV 01/22/25 11:00 Ondansetron HCl 2 mg Q4HPRN PRN IV 01/22/25 17:30 01/26/25 03:30 2 MG Lorazepam 0.25 mg Q6HP PRN IV 01/24/25 19:15 Fat Emulsion Intravenous 200 ml/Potassium Acetate 20 meq/ Potassium Phosphate 22 meq/ Calcium Gluconate 6.975 meq/ Magnesium Sulfate 10 meq/ Multivitamins 10 ml/Chromium/ Copper/Manganese/ Zinc 1 ml/Amino Acids/Dextrose 1,493.5 ml @ 62 mls/hr Q24H6M IV 01/25/25 22:00 01/26/25 21:59 01/25/25 21:32 62 MLS/HR Ceftriaxone Sodium/Dextrose 50 ml @ 50 mls/hr DAILY IV 01/26/25 10:00 01/26/25 10:00 50 MLS/HR Fat Emulsion Intravenous 200 ml/Sodium Acetate 20 meq/Sodium Phosphate 20 meq/ Calcium Gluconate 6.975 meq/ Magnesium Sulfate 12 meq/ Multivitamins 10 ml/Chromium/ Copper/Manganese/ Zinc 1 ml/Amino Acids/Dextrose 1,444 ml @ 60 mls/hr Q24H4M IV 01/26/25 22:00 01/27/25 21:59 Vancomycin HCl 0 ml @ 0 mls/hr UD IV 01/26/25 20:00 UNV laboratory and microbiology Laboratory Tests 01/26/25 09:30 01/25/25 05:14 Test 01/26/25 09:30 Range/Units Serum Glucose 115 H 74-106 mg/dL Problem List/Assessment/Plan Problem List/Assessment/Plan ASSESSMENT AND PLAN: ID Problem List: \-- Ovarian cancer, not currently on treatment \-- Diverticulosis \-- Acute diverticular abscess (left lower quadrant) \-- Rectal bleeding \-- History of hemorrhoids \-- Hypertension \-- Abdominal Wall cellulitis Assessment This is a female with a past medical history of ovarian cancer (not on treatment for the last six months), diverticulosis, hypertension, and hemorrhoids, presenting with several days of acute abdominal pain and rectal bleeding. She is currently admitted for further evaluation and management. On admission, the patient was hemodynamically stable. Initial labs significant for leukocytosis (WBC 16.1), hemoglobin 12.6, and platelets 497. Lactic acid was 1.3. CT abdomen and pelvis without contrast revealed a large (14.3 cm) complex fluid collection containing gas in the left lower quadrant inseparable from the sigmoid colon, with diverticula, highly suspicious for abscess. This has significantly increased in size compared to prior imaging. Hepatic steatosis and a ventral abdominal wall hernia with non-obstructed bowel loops noted. Remote cholecystectomy. 01/05: aspirated cultures from intraabdominal abscess is growing gram negative rods , awaiting identification and susceptibilities 01/06: tolerating clear liquid diet 01/07: ongoing concern for bowel leak via metstatic spread to sigmoid and fistulization r 01/08: aspirated fluid collection show klebsiella that is morejon sensitive and is also growing streptococcus . drainage output down to 50ccs of bilious fluid 01/09: hemoglobin appears stable and whitecount is coming down . no drain output through billiary drain 01/10: required intermittently TPN but tolerating clear liquid diet 8: having localized cellulitis around the intraabdominal drain 01/12: whitecount down to 12.5 01/13: whitecount improved . Ct shows persistent 11.7 x 10.8 cm abdominal complex fluid collection with pigtail drainage catheter in the center of the collection and only minimally decreased in size , additionally has a paraumbilical hernia without evidence of obstruction and numerous perirectal lymph nodes measuring 1.6 cm . Plan: - Given complexity and minial response to pigtail catheter drainage of the intraabdominal abscess , have a strong suspicion that IV antibiotics will be insufficient to remedy this collection , please consider surgical evacuation and will discuss with general surgery team - started on TPN as needed wehn oral intake is insufficient - add topical neomycin cream 3x a day for abdominal cellulitis - recommend close observation to see if patient can advance diet and see if additional surgical remedies are needed - continue ceftriaxone with oral flagyll - agree with repeat ct abdomen and pelvis to see if adjustments need to be made if abscess if multiloculated vs surgical evacuation of intraabdominal abscess - defer to primary on line access needs for IV antibiotics and TPN if needed - recommend picc line and 4 weeks ceftriaxone til 02/02 if the intraabdominal abscess remains persistently large - can consited repeat ct imaging if patient remains longer than a week - fu in id clinic in 4 weeks. - will need ct in 4 weeks to determine if abscess has resolved. - will need to fu on aspirated specimen path results. - continue iv antibiotics given extensive leukocytosis and extensive drainage output from the abdomen - Percutaneous drain was placed today (01/05/2025) into the perisigmoid fluid collection, which aspirated 30 cc of feculent fluid. - Cultures are pending. - Current rectal bleeding is being monitored. - The patient is NPO except for advancement of diet per surgical team recommendations. Empiric antibiotics initiated (vancomycin and piperacillin- tazobactam). - Blood and urine cultures are no growth to date. - Will closely monitor abdominal exam, bowel movements, and rectal bleeding with coordination with surgical colleagues. - Continue to monitor drain output. The patient appears to be stable and improving. - Will follow up on aspirated culture results and modify antibiotics as needed. - Surgical and dietary recommendations per general surgery team to be followed. Will arrange for follow-up after completion of treatment. Isolation Precautions: Standard Dietary Evaluation Review Comments: Clear Liquid diet with Ensure Clear BID Expected Outcomes/Goals: recovered GI function, gradual wt loss, ROGELIO PATRICIA MD Jan 26, 2025 20:01
--- NOTE | 2025-01-26 20:02 | DVHPN2 ---
Consult Progress Note Date Seen: Jan 24, 2025 Objective vital signs Vital Sign Date Time Temp Pulse Resp B/P (MAP) Pulse Ox O2 Delivery O2 Flow Rate FiO2 01/26/25 19:59 87 22 128/68 01/26/25 16:42 98.0 97 98.0 01/26/25 08:00 Room Air* 0 21 Total Intake and Output 01/25/25 01/25/25 01/26/25 15:00 23:00 07:00 Intake Total 155 ml 130 ml Balance 155 ml 130 ml medications Current Medications Medications Dose Ordered Sig/Earl Route Start Time Stop Time Status Last Admin Dose Admin Pantoprazole Sodium 40 mg BID IV 01/04/25 10:00 01/26/25 10:00 40 MG Nitroglycerin 0.4 mg Q5MINP PRN SL 01/04/25 09:45 Vancomycin HCl 0 ml @ 0 mls/hr UD IV 01/04/25 10:00 Cancel Sodium Chloride 1,000 ml @ 75 mls/hr [id number] IV 01/04/25 10:00 01/26/25 03:00 75 MLS/HR Lorazepam 1 mg BID PRN PO 01/04/25 10:00 Hold 01/19/25 22:06 1 MG Atenolol 50 mg BID PO 01/04/25 10:00 01/26/25 10:00 50 MG Diphenhydramine HCl 25 mg Q8HP PRN IV 01/04/25 10:00 01/06/25 17:58 25 MG Polyethylene Glycol 17 gm DAILY PO 01/04/25 12:45 01/10/25 10:24 17 GM Levofloxacin/ Dextrose 100 ml @ 100 mls/hr DAILY IV 01/08/25 10:00 Cancel Sodium Chloride 10 ml QSHIFT@10,22 IV 01/11/25 22:00 01/26/25 10:00 10 ML Hydromorphone HCl 1.5 mg Q3HPRN PRN IV 01/18/25 20:00 01/26/25 19:59 1.5 MG Metronidazole 500 mg Q8HR IV 01/19/25 22:00 Cancel Metronidazole 100 ml @ 100 mls/hr Q8HR IV 01/19/25 22:00 01/26/25 14:00 100 MLS/HR Diagnostic Test (Pha) 1 strip Q6HR 01/20/25 00:00 01/26/25 12:00 1 STRIP Insulin Human Regular FOLLOW SLIDING SCALE Q6HR SC 01/20/25 00:00 Dextrose 50 ml UD IV 01/19/25 22:00 Amino Acids 0 ml @ 0 mls/hr PER PHARMACY IV 01/22/25 11:00 Ondansetron HCl 2 mg Q4HPRN PRN IV 01/22/25 17:30 01/26/25 03:30 2 MG Lorazepam 0.25 mg Q6HP PRN IV 01/24/25 19:15 Fat Emulsion Intravenous 200 ml/Potassium Acetate 20 meq/ Potassium Phosphate 22 meq/ Calcium Gluconate 6.975 meq/ Magnesium Sulfate 10 meq/ Multivitamins 10 ml/Chromium/ Copper/Manganese/ Zinc 1 ml/Amino Acids/Dextrose 1,493.5 ml @ 62 mls/hr Q24H6M IV 01/25/25 22:00 01/26/25 21:59 01/25/25 21:32 62 MLS/HR Ceftriaxone Sodium/Dextrose 50 ml @ 50 mls/hr DAILY IV 01/26/25 10:00 01/26/25 10:00 50 MLS/HR Fat Emulsion Intravenous 200 ml/Sodium Acetate 20 meq/Sodium Phosphate 20 meq/ Calcium Gluconate 6.975 meq/ Magnesium Sulfate 12 meq/ Multivitamins 10 ml/Chromium/ Copper/Manganese/ Zinc 1 ml/Amino Acids/Dextrose 1,444 ml @ 60 mls/hr Q24H4M IV 01/26/25 22:00 01/27/25 21:59 Vancomycin HCl 0 ml @ 0 mls/hr UD IV 01/26/25 20:00 UNV laboratory and microbiology Laboratory Tests 01/26/25 09:30 01/25/25 05:14 Test 01/26/25 09:30 Range/Units Serum Glucose 115 H 74-106 mg/dL Problem List/Assessment/Plan Problem List/Assessment/Plan ASSESSMENT AND PLAN: ID Problem List: \-- Ovarian cancer, not currently on treatment \-- Diverticulosis \-- Acute diverticular abscess (left lower quadrant) \-- Rectal bleeding \-- History of hemorrhoids \-- Hypertension \-- Abdominal Wall cellulitis Assessment This is a female with a past medical history of ovarian cancer (not on treatment for the last six months), diverticulosis, hypertension, and hemorrhoids, presenting with several days of acute abdominal pain and rectal bleeding. She is currently admitted for further evaluation and management. On admission, the patient was hemodynamically stable. Initial labs significant for leukocytosis (WBC 16.1), hemoglobin 12.6, and platelets 497. Lactic acid was 1.3. CT abdomen and pelvis without contrast revealed a large (14.3 cm) complex fluid collection containing gas in the left lower quadrant inseparable from the sigmoid colon, with diverticula, highly suspicious for abscess. This has significantly increased in size compared to prior imaging. Hepatic steatosis and a ventral abdominal wall hernia with non-obstructed bowel loops noted. Remote cholecystectomy. 01/05: aspirated cultures from intraabdominal abscess is growing gram negative rods , awaiting identification and susceptibilities 01/06: tolerating clear liquid diet 01/07: ongoing concern for bowel leak via metstatic spread to sigmoid and fistulization r 01/08: aspirated fluid collection show klebsiella that is morejon sensitive and is also growing streptococcus . drainage output down to 50ccs of bilious fluid 01/09: hemoglobin appears stable and whitecount is coming down . no drain output through billiary drain 01/10: required intermittently TPN but tolerating clear liquid diet 8: having localized cellulitis around the intraabdominal drain 01/12: whitecount down to 12.5 01/13: whitecount improved . Ct shows persistent 11.7 x 10.8 cm abdominal complex fluid collection with pigtail drainage catheter in the center of the collection and only minimally decreased in size , additionally has a paraumbilical hernia without evidence of obstruction and numerous perirectal lymph nodes measuring 1.6 cm . 01/23: sp IR drainage attempted no fluid withdrawn, biopsies acquired, sample cultured 01/26: MRSA, e.coli, Klebsiella Plan: - with morbid obesity, large intraabdominal mass/abscess, persistent klebsiella infection, increase ceftriaxone to 2gq 12hrs - start vancomycin for MRSA, likely introduced from prior aspiration attempts. - started on TPN as needed wehn oral intake is insufficient - add topical neomycin cream 3x a day for abdominal cellulitis - will need to fu on aspirated specimen path results. - recommend close observation to see if patient can advance diet and see if additional surgical remedies are needed - Current rectal bleeding is being monitored. - Blood and urine cultures are no growth to date. - Will closely monitor abdominal exam, bowel movements, and rectal bleeding with coordination with surgical colleagues. - Continue to monitor drain output. The patient appears to be stable and improving. - Will follow up on aspirated culture results and modify antibiotics as needed. - Surgical and dietary recommendations per general surgery team to be followed. Will arrange for follow-up after completion of treatment. Isolation Precautions: Standard Dietary Evaluation Review Comments: Clear Liquid diet with Ensure Clear BID Expected Outcomes/Goals: recovered GI function, gradual wt loss, ROGELIO PATRICIA MD Jan 26, 2025 20:02
[2025-01-26] MEDS: TPN PER PHARMACY IV NR (22:07)
[2025-01-26] MEDS: VANCOMYCIN 1GM/250ML KIT 250 ML IV SCH (22:15)
[2025-01-27] VITALS (9 sets, daily range): BP systolic 109–126; BP diastolic 62–87; PULSE 64–86; RESP 16–22; TEMP 97.5–99.2; O2SAT 95–98
[2025-01-27 13:01] LABS: Alkaline Phosphatase 64 U/L (46-116); Anion Gap 7 (5-15); BUN/Creatinine Ratio 12.8 (10.0-20.0); Carbon Dioxide 25 mmol/L (20-31); Magnesium 1.7 mg/dL (1.6-2.6); Potassium 3.7 mmol/L (3.5-5.1); Sodium 139 mmol/L (136-145); Total Protein 5.7 g/dL (5.7-8.2)
[2025-01-27 13:02] LABS: Bilirubin, Total 0.4 mg/dL (0.2-1.0)
[2025-01-27 13:13] LABS: Blood Urea Nitrogen 5 mg/dL (9-23); Chloride 107 mmol/L (98-107); Glucose 113 mg/dL (74-106)
[2025-01-27 13:14] LABS: Alanine Aminotransferase < 9 U/L (7-40); Albumin 3.1 g/dL (3.2-4.8); Calcium 8.1 mg/dL (8.7-10.4)
--- NOTE | 2025-01-27 13:24 | DVHPN2 ---
Progress Note - Dictate Date Seen: Jan 27, 2025 Has the PT tested + for MRSA If YES, has PT been informed?: No Medical Necessity Reason Pt with a Central, PICC or Fol: Yes vital signs Vital Sign Date Time Temp Pulse Resp B/P (MAP) Pulse Ox O2 Delivery O2 Flow Rate FiO2 01/27/25 12:52 79 22 128/72 01/27/25 08:34 97.5 97 97.5 01/26/25 20:00 Room Air* 0 21 Total Intake and Output 01/26/25 01/26/25 01/27/25 15:00 23:00 07:00 Intake Total 50 ml 2444 ml 200 ml Balance 50 ml 2444 ml 200 ml medications Current Medications Medications Dose Ordered Sig/Earl Route Start Time Stop Time Status Last Admin Dose Admin Pantoprazole Sodium 40 mg BID IV 01/04/25 10:00 01/27/25 10:00 40 MG Nitroglycerin 0.4 mg Q5MINP PRN SL 01/04/25 09:45 Vancomycin HCl 0 ml @ 0 mls/hr UD IV 01/04/25 10:00 Cancel Sodium Chloride 1,000 ml @ 75 mls/hr [id number] IV 01/04/25 10:00 01/26/25 22:15 75 MLS/HR Lorazepam 1 mg BID PRN PO 01/04/25 10:00 Hold 01/19/25 22:06 1 MG Atenolol 50 mg BID PO 01/04/25 10:00 01/27/25 10:00 50 MG Diphenhydramine HCl 25 mg Q8HP PRN IV 01/04/25 10:00 01/06/25 17:58 25 MG Polyethylene Glycol 17 gm DAILY PO 01/04/25 12:45 01/10/25 10:24 17 GM Levofloxacin/ Dextrose 100 ml @ 100 mls/hr DAILY IV 01/08/25 10:00 Cancel Sodium Chloride 10 ml QSHIFT@10,22 IV 01/11/25 22:00 01/27/25 10:00 10 ML Hydromorphone HCl 1.5 mg Q3HPRN PRN IV 01/18/25 20:00 01/27/25 12:52 1.5 MG Metronidazole 500 mg Q8HR IV 01/19/25 22:00 Cancel Metronidazole 100 ml @ 100 mls/hr Q8HR IV 01/19/25 22:00 01/27/25 05:42 100 MLS/HR Diagnostic Test (Pha) 1 strip Q6HR 01/20/25 00:00 01/27/25 12:00 1 STRIP Insulin Human Regular FOLLOW SLIDING SCALE Q6HR SC 01/20/25 00:00 01/27/25 07:05 4 UNITS Dextrose 50 ml UD IV 01/19/25 22:00 Amino Acids 0 ml @ 0 mls/hr PER PHARMACY IV 01/22/25 11:00 Ondansetron HCl 2 mg Q4HPRN PRN IV 01/22/25 17:30 01/26/25 23:04 2 MG Lorazepam 0.25 mg Q6HP PRN IV 01/24/25 19:15 Fat Emulsion Intravenous 200 ml/Sodium Acetate 20 meq/Sodium Phosphate 20 meq/ Calcium Gluconate 6.975 meq/ Magnesium Sulfate 12 meq/ Multivitamins 10 ml/Chromium/ Copper/Manganese/ Zinc 1 ml/Amino Acids/Dextrose 1,444 ml @ 60 mls/hr Q24H4M IV 01/26/25 22:00 01/27/25 21:59 01/26/25 22:07 60 MLS/HR Vancomycin HCl 0 ml @ 0 mls/hr UD IV 01/26/25 20:00 Ceftriaxone Sodium/Dextrose 50 ml @ 50 mls/hr Q12HR IV 01/26/25 22:00 01/27/25 10:00 50 MLS/HR Vancomycin HCl 250 ml @ 250 mls/hr Q8H IV 01/26/25 21:00 01/27/25 12:51 250 MLS/HR objective General Appearance: alert, no distress HEENT: EOMI, PERRLA, normal external inspect of ears, no icterus, no nasal drainage Neck: no carotid bruit, no jugular venous distention (JVD), no lymphadenopathy Chest: normal thorax Respiratory: clear to auscultation, normal air movement Cardiovascular: regular rate and rhythm, no diastolic murmur, no jugular venous distention (JVD), no rub, no systolic murmur Abdominal: soft, no hepatomegaly, no mass, no splenomegaly, no tenderness Genitourinary: grossly normal external Musculoskeletal: no joint tenderness, no swelling Extremities: normal pulses, no calf tenderness, no clubbing, no cyanosis, no edema Skin: no bruising, no jaundice, no rash Neurological: alert, No focal deficit laboratory and microbiology Laboratory Tests 01/27/25 11:56 01/25/25 05:14 Test 01/27/25 11:56 Range/Units Serum Glucose 113 H 74-106 mg/dL Problem List 1. Rectal Bleed GI Consult, Hold blood thinners 2. Hemorrhoids Medication, GI consult 3. Morbid Obesity Diet Education, monitoring 4. Chronic constipation Cathartics, monitoring 5.Sepsis Antibiotics, ID consult 6.Diverticular abscess IR consult for drainage, IV antibiotics Assessment/Plan Subjective: Patient is awake and alert. Objective: Patient is awaiting transfer to a higher level of care due to a cancerous abdominal mass confirmed on biopsy. She was originally admitted for abdominal pain and was found to have a diverticular abscess. Patient was evaluated by Infectious Disease, GI, and General Surgery. She is on TPN and remains NPO. Patient has been on antibiotics with Rocephin and vancomycin. [facility] has accepted the patient; she is awaiting an available bed and transportation. Plan: Continue current treatment. Continue TPN for nutritional support. Plan to transfer to [facility] once a bed becomes available. Dietary Evaluation Review Comments: Clear Liquid diet with Ensure Clear BID Expected Outcomes/Goals: recovered GI function, gradual wt loss, Plan discussed with: Patient, Other SAIMA GUERRERO NP Jan 27, 2025 13:24
--- NOTE | 2025-01-27 15:33 | DVHPN2 ---
Progress Note Date Seen: Jan 27, 2025 Resident Creating Document: ANGIE TORRES RESIDENT Has the PT tested + for MRSA If YES, has PT been informed?: No Medical Necessity Reason Pt with a Central, PICC or Fol: Yes Subjective Review of Systems Today's progress- The patient had 6 bowel movements today. WBC count improved to 12.7 Hemoglobin stable at 10.7. LFTs are normal. Percutaneous drain-minimal The patient underwent left lower quadrant abdominal lesion, core biopsy and the findings revealed high-grade adenocarcinoma. The immunophenotype supports a gynecological tract origin. Continue GI monitoring, ensure transport to [facility] for higher level of care. Objective vital signs Vital Sign Date Time Temp Pulse Resp B/P (MAP) Pulse Ox O2 Delivery O2 Flow Rate FiO2 01/27/25 13:22 86 22 128/72 01/27/25 13:00 97.8 95 97.8 01/27/25 08:00 Room Air* 0 21 Total Intake and Output 01/26/25 01/26/25 01/27/25 15:00 23:00 07:00 Intake Total 50 ml 2444 ml 385 ml Balance 50 ml 2444 ml 385 ml medications Current Medications Medications Dose Ordered Sig/Earl Route Start Time Stop Time Status Last Admin Dose Admin Pantoprazole Sodium 40 mg BID IV 01/04/25 10:00 01/27/25 10:00 40 MG Nitroglycerin 0.4 mg Q5MINP PRN SL 01/04/25 09:45 Vancomycin HCl 0 ml @ 0 mls/hr UD IV 01/04/25 10:00 Cancel Sodium Chloride 1,000 ml @ 75 mls/hr [id number] IV 01/04/25 10:00 01/26/25 22:15 75 MLS/HR Lorazepam 1 mg BID PRN PO 01/04/25 10:00 Hold 01/19/25 22:06 1 MG Atenolol 50 mg BID PO 01/04/25 10:00 01/27/25 10:00 50 MG Diphenhydramine HCl 25 mg Q8HP PRN IV 01/04/25 10:00 01/06/25 17:58 25 MG Polyethylene Glycol 17 gm DAILY PO 01/04/25 12:45 01/10/25 10:24 17 GM Levofloxacin/ Dextrose 100 ml @ 100 mls/hr DAILY IV 01/08/25 10:00 Cancel Sodium Chloride 10 ml QSHIFT@10,22 IV 01/11/25 22:00 01/27/25 10:00 10 ML Hydromorphone HCl 1.5 mg Q3HPRN PRN IV 01/18/25 20:00 01/27/25 12:52 1.5 MG Metronidazole 500 mg Q8HR IV 01/19/25 22:00 Cancel Metronidazole 100 ml @ 100 mls/hr Q8HR IV 01/19/25 22:00 01/27/25 05:42 100 MLS/HR Diagnostic Test (Pha) 1 strip Q6HR 01/20/25 00:00 01/27/25 12:00 1 STRIP Insulin Human Regular FOLLOW SLIDING SCALE Q6HR SC 01/20/25 00:00 01/27/25 07:05 4 UNITS Dextrose 50 ml UD IV 01/19/25 22:00 Amino Acids 0 ml @ 0 mls/hr PER PHARMACY IV 01/22/25 11:00 Ondansetron HCl 2 mg Q4HPRN PRN IV 01/22/25 17:30 01/26/25 23:04 2 MG Lorazepam 0.25 mg Q6HP PRN IV 01/24/25 19:15 Fat Emulsion Intravenous 200 ml/Sodium Acetate 20 meq/Sodium Phosphate 20 meq/ Calcium Gluconate 6.975 meq/ Magnesium Sulfate 12 meq/ Multivitamins 10 ml/Chromium/ Copper/Manganese/ Zinc 1 ml/Amino Acids/Dextrose 1,444 ml @ 60 mls/hr Q24H4M IV 01/26/25 22:00 01/27/25 21:59 01/26/25 22:07 60 MLS/HR Vancomycin HCl 0 ml @ 0 mls/hr UD IV 01/26/25 20:00 Ceftriaxone Sodium/Dextrose 50 ml @ 50 mls/hr Q12HR IV 01/26/25 22:00 01/27/25 10:00 50 MLS/HR Vancomycin HCl 250 ml @ 250 mls/hr Q8H IV 01/26/25 21:00 01/27/25 12:51 250 MLS/HR Fat Emulsion Intravenous 200 ml/Potassium Acetate 20 meq/ Potassium Phosphate 22 meq/ Calcium Gluconate 6.975 meq/ Magnesium Sulfate 12 meq/ Multivitamins 10 ml/Chromium/ Copper/Manganese/ Zinc 1 ml/Amino Acids/Dextrose 1,444 ml @ 60 mls/hr Q24H4M IV 01/27/25 22:00 01/28/25 21:59 Examination General: Alert, not in acute distress. * Abdomen: Soft, non-distended, mild LLQ tenderness, drain in place with sanguineous output. No peritoneal signs. * Drain Site: No erythema or purulent drainage, flushed per protocol. laboratory and microbiology Laboratory Tests 01/27/25 11:56 01/25/25 05:14 Test 01/27/25 11:56 Range/Units Serum Glucose 113 H 74-106 mg/dL Microbiology Date/Time Source Procedure Growth Status 01/23/25 14:25 Aspirate Gram Stain - Final Resulted 01/23/25 14:25 Body Fluid Culture - Preliminary Klebsiella oxytoca Methicillin Resistant S.aureus Escherichia coli Resulted 01/05/25 00:50 Nose MRSA Screen - Final Methicillin Resistant S.aureus Complete 01/04/25 09:40 Blood Blood Culture - Final NO GROWTH AFTER 5 DAYS OF INCUBATION. Complete Problem List/Assessment/Plan Problem List/Assessment/Plan Assessment 1. Complicated sigmoid diverticulitis with large perisigmoid abscess (drain in situ), suspicion for fistula/metastatic erosion 2. Lower GI bleeding with ongoing hematochezia 3. Gram-negative intra-abdominal infection (pending final culture ID) 4. MRSA colonization (nasal positive) 5. Ventral abdominal wall hernia without obstruction 6. History of ovarian cancer 7. Leukocytosis, improving 8. Abdominal blisters around the percutaneous drain insertion site Plan GI-SPECIFIC PLAN Transfer to higher level facility with gynecology/ oncology surgical capability for operative management. The patient underwent left lower quadrant abdominal lesion, core biopsy and the findings revealed high-grade adenocarcinoma. The immunophenotype supports a gynecological tract origin. * Continue IV ceftriaxone and IV metronidazole per culture sensitivity. * Maintain percutaneous drain care: flush daily with 10 mL NS, monitor and document output and character. * Follow surgical teams recommendations regarding potential operative intervention. * Possible surgical resection with colostomy or gastrostomy if abscess persists. Nutrition * Discontinue full liquid diet; NPO starting today. * Continue TPN via central line for complete nutritional support. * Monitor daily electrolytes, glucose, weekly LFTs while on TPN. Monitoring * Monitor drain output daily; notify surgery and IR if output ceases or increases significantly. * CBC daily for infection trends. * CMP daily while inpatient on TPN. Prophylaxis / Supportive * GI prophylaxis: Pantoprazole IV 40 mg BID. Outpatient gynecological oncology/oncology follow-up appointment is required and repeat CA 125 as per OBGYN recommendation. GASTROINTESTINAL / INFECTIOUS DISEASES: The plan is to discharge the patient on PICC line and place her on clear liquid diet for 2 weeks. And TPN during that time. And IV antibiotics. And repeat imaging after 2 weeks and outpatient follow-up with GI. * Continue IV antibiotics: * Ceftriaxone IV per ID * Metronidazole IV * De-escalate Zosyn as culture confirmed Klebsiella oxytoca * Await sensitivity results; adjust antibiotics accordingly * Drain Management: Removal of drain by general surgeon today as it is not draining anymore * Continue daily assessment of IR drain output * Flush with 10 mL NS daily to maintain patency. And continue wound care daily. * Monitor for signs of clogging or infection at the site * Change drainage bag daily or PRN * IR/nursing to perform fur liner * Pain Control: * Continue hydromorphone 1 mg IV and Percocet PRN * Wean opioids as tolerated * Monitor for constipation continue Miralax 17 g PO PRN * Nutrition: * Continue clear liquid diet * Monitor for return of bowel function, distention, and bloating * GI Bleeding: * Monitor for recurrent hematochezia or melena * Continue IV pantoprazole 40 mg BID * Monitor H/H daily * No EGD/colonoscopy at this time unless bleeding recurs PROPHYLAXIS / SUPPORTIVE CARE: * GI prophylaxis: Pantoprazole IV * Skin care: Monitor IR drain site for signs of infection * Electrolyte monitoring: Daily BMP to monitor renal function on antibiotics * Contact precautions due to MRSA nasal swab * Encourage ambulation with assistance Follow-up planning with repeat CT abdomen and pelvis in 2 weeks to assess abscess resolution Colonoscopy in 3-4 months post discharge for further GI evaluation. Arrange outpatient clinic follow-up after hospital discharge. Discharge plan includes TPN, PICC line antibiotics, home health and wound care. Case discussed in detail with the attending physician, including the clinical presentation, diagnostic workup, and comprehensive management plan. The patient was present for the discussion and demonstrated understanding of her condition and the proposed plan. Plan discussed with: Patient Dietary Evaluation Review Comments: Clear Liquid diet with Ensure Clear BID Expected Outcomes/Goals: recovered GI function, gradual wt loss, ANGIE TORRES RESIDENT Jan 27, 2025 15:33
[2025-01-27] MEDS: FAT EMULSION IV NR (22:00)
[2025-01-27] MEDS: POTASSIUM ACETATE IV NR (22:00)
[2025-01-27] MEDS: [UNRECOGNIZED DRUG - OTHER] IV NR (22:00)
[2025-01-27] MEDS: POTASSIUM PHOSPHATE IV NR (22:00)
--- NOTE | 2025-01-27 23:32 | DVHPN2 ---
Consult Progress Note Date Seen: Jan 26, 2025 Objective vital signs Vital Sign Date Time Temp Pulse Resp B/P (MAP) Pulse Ox O2 Delivery O2 Flow Rate FiO2 01/27/25 22:29 71 116/81 01/27/25 22:28 16 01/27/25 21:00 99.2 97 99.2 01/27/25 08:00 Room Air* 0 21 Total Intake and Output 01/26/25 01/26/25 01/27/25 15:00 23:00 07:00 Intake Total 50 ml 2444 ml 385 ml Balance 50 ml 2444 ml 385 ml medications Current Medications Medications Dose Ordered Sig/Earl Route Start Time Stop Time Status Last Admin Dose Admin Pantoprazole Sodium 40 mg BID IV 01/04/25 10:00 01/27/25 22:28 40 MG Nitroglycerin 0.4 mg Q5MINP PRN SL 01/04/25 09:45 Vancomycin HCl 0 ml @ 0 mls/hr UD IV 01/04/25 10:00 Cancel Sodium Chloride 1,000 ml @ 75 mls/hr [id number] IV 01/04/25 10:00 01/27/25 18:00 75 MLS/HR Lorazepam 1 mg BID PRN PO 01/04/25 10:00 Hold 01/19/25 22:06 1 MG Atenolol 50 mg BID PO 01/04/25 10:00 01/27/25 22:29 50 MG Diphenhydramine HCl 25 mg Q8HP PRN IV 01/04/25 10:00 01/06/25 17:58 25 MG Polyethylene Glycol 17 gm DAILY PO 01/04/25 12:45 01/10/25 10:24 17 GM Levofloxacin/ Dextrose 100 ml @ 100 mls/hr DAILY IV 01/08/25 10:00 Cancel Sodium Chloride 10 ml QSHIFT@10,22 IV 01/11/25 22:00 01/27/25 22:00 10 ML Metronidazole 500 mg Q8HR IV 01/19/25 22:00 Cancel Metronidazole 100 ml @ 100 mls/hr Q8HR IV 01/19/25 22:00 01/27/25 22:28 100 MLS/HR Diagnostic Test (Pha) 1 strip Q6HR 01/20/25 00:00 01/27/25 22:34 1 STRIP Insulin Human Regular FOLLOW SLIDING SCALE Q6HR SC 01/20/25 00:00 01/27/25 07:05 4 UNITS Dextrose 50 ml UD IV 01/19/25 22:00 Amino Acids 0 ml @ 0 mls/hr PER PHARMACY IV 01/22/25 11:00 Ondansetron HCl 2 mg Q4HPRN PRN IV 01/22/25 17:30 01/27/25 19:26 2 MG Lorazepam 0.25 mg Q6HP PRN IV 01/24/25 19:15 Vancomycin HCl 0 ml @ 0 mls/hr UD IV 01/26/25 20:00 Ceftriaxone Sodium/Dextrose 50 ml @ 50 mls/hr Q12HR IV 01/26/25 22:00 01/27/25 10:00 50 MLS/HR Fat Emulsion Intravenous 200 ml/Potassium Acetate 20 meq/ Potassium Phosphate 22 meq/ Calcium Gluconate 6.975 meq/ Magnesium Sulfate 12 meq/ Multivitamins 10 ml/Chromium/ Copper/Manganese/ Zinc 1 ml/Amino Acids/Dextrose 1,444 ml @ 60 mls/hr Q24H4M IV 01/27/25 22:00 01/28/25 21:59 01/27/25 22:00 60 MLS/HR Vancomycin HCl 250 ml @ 200 mls/hr Q8H IV 01/28/25 05:00 laboratory and microbiology Laboratory Tests 01/27/25 11:56 01/25/25 05:14 Test 01/27/25 11:56 Range/Units Serum Glucose 113 H 74-106 mg/dL Problem List/Assessment/Plan Problem List/Assessment/Plan ASSESSMENT AND PLAN: ID Problem List: \-- Ovarian cancer, not currently on treatment \-- Diverticulosis \-- Acute diverticular abscess (left lower quadrant) \-- Rectal bleeding \-- History of hemorrhoids \-- Hypertension \-- Abdominal Wall cellulitis Assessment This is a female with a past medical history of ovarian cancer (not on treatment for the last six months), diverticulosis, hypertension, and hemorrhoids, presenting with several days of acute abdominal pain and rectal bleeding. She is currently admitted for further evaluation and management. On admission, the patient was hemodynamically stable. Initial labs significant for leukocytosis (WBC 16.1), hemoglobin 12.6, and platelets 497. Lactic acid was 1.3. CT abdomen and pelvis without contrast revealed a large (14.3 cm) complex fluid collection containing gas in the left lower quadrant inseparable from the sigmoid colon, with diverticula, highly suspicious for abscess. This has significantly increased in size compared to prior imaging. Hepatic steatosis and a ventral abdominal wall hernia with non-obstructed bowel loops noted. Remote cholecystectomy. 01/05: aspirated cultures from intraabdominal abscess is growing gram negative rods , awaiting identification and susceptibilities 01/06: tolerating clear liquid diet 01/07: ongoing concern for bowel leak via metstatic spread to sigmoid and fistulization r 01/08: aspirated fluid collection show klebsiella that is morejon sensitive and is also growing streptococcus . drainage output down to 50ccs of bilious fluid 01/09: hemoglobin appears stable and whitecount is coming down . no drain output through billiary drain 01/10: required intermittently TPN but tolerating clear liquid diet 01/11: having localized cellulitis around the intraabdominal drain 01/12: whitecount down to 12.5 01/13: whitecount improved . Ct shows persistent 11.7 x 10.8 cm abdominal complex fluid collection with pigtail drainage catheter in the center of the collection and only minimally decreased in size , additionally has a paraumbilical hernia without evidence of obstruction and numerous perirectal lymph nodes measuring 1.6 cm . 01/23: sp IR drainage attempted no fluid withdrawn, biopsies acquired, sample cultured 01/26: MRSA, e.coli, Klebsiella Plan: - with morbid obesity, large intraabdominal mass/abscess, persistent klebsiella infection, increase ceftriaxone to 2gq 12hrs - start vancomycin for MRSA, likely introduced from prior aspiration attempts. - started on TPN as needed wehn oral intake is insufficient - add topical neomycin cream 3x a day for abdominal cellulitis - will need to fu on aspirated specimen path results. - recommend close observation to see if patient can advance diet and see if additional surgical remedies are needed - Current rectal bleeding is being monitored. - Blood and urine cultures are no growth to date. - Will closely monitor abdominal exam, bowel movements, and rectal bleeding with coordination with surgical colleagues. - Continue to monitor drain output. The patient appears to be stable and improving. - Will follow up on aspirated culture results and modify antibiotics as needed. - Surgical and dietary recommendations per general surgery team to be followed. Will arrange for follow-up after completion of treatment. Isolation Precautions: Standard Dietary Evaluation Review Comments: Clear Liquid diet with Ensure Clear BID Expected Outcomes/Goals: recovered GI function, gradual wt loss, ROGELIO PATRICIA MD Jan 27, 2025 23:32
[2025-01-28] VITALS (8 sets, daily range): BP systolic 113–137; BP diastolic 71–89; PULSE 64–75; RESP 16–19; TEMP 97–98.8; O2SAT 97–99
[2025-01-28] MEDS: SIMETHICONE 80 MG CHEWABLE TABLET PO ONE (01:32)
[2025-01-28] MEDS: HYDROmorphone HCL 2 MG/ML VL/or syr IV PRN (01:32)
[2025-01-28 10:39] LABS: Chloride 108 mmol/L (98-107); Potassium 3.8 mmol/L (3.5-5.1); Sodium 140 mmol/L (136-145)
[2025-01-28 10:40] LABS: Anion Gap 8 (5-15)
[2025-01-28 10:41] LABS: Calcium 8.1 mg/dL (8.7-10.4); Carbon Dioxide 24 mmol/L (20-31)
[2025-01-28 10:46] LABS: BUN/Creatinine Ratio 13.5 (10.0-20.0)
[2025-01-28 10:48] LABS: Albumin 3.0 g/dL (3.2-4.8); Alkaline Phosphatase 61 U/L (46-116); Bilirubin, Total 0.3 mg/dL (0.2-1.0); Blood Urea Nitrogen 5 mg/dL (9-23); Glucose 125 mg/dL (74-106); Magnesium 1.6 mg/dL (1.6-2.6); Total Protein 5.1 g/dL (5.7-8.2)
[2025-01-28 10:58] LABS: Alanine Aminotransferase < 9 U/L (7-40)
--- NOTE | 2025-01-28 14:52 | DVHPN2 ---
Progress Note - Dictate Date Seen: Jan 28, 2025 Has the PT tested + for MRSA If YES, has PT been informed?: No Medical Necessity Reason Pt with a Central, PICC or Fol: Yes vital signs Vital Sign Date Time Temp Pulse Resp B/P (MAP) Pulse Ox O2 Delivery O2 Flow Rate FiO2 01/28/25 14:20 88 22 130/90 01/28/25 11:43 97.6 97 97.6 01/27/25 20:00 Room Air* 0 21 Total Intake and Output 01/27/25 01/27/25 01/28/25 15:00 23:00 07:00 Intake Total 300 ml 0 ml 400 ml Balance 300 ml 0 ml 400 ml medications Current Medications Medications Dose Ordered Sig/Earl Route Start Time Stop Time Status Last Admin Dose Admin Pantoprazole Sodium 40 mg BID IV 01/04/25 10:00 01/28/25 11:29 40 MG Nitroglycerin 0.4 mg Q5MINP PRN SL 01/04/25 09:45 Vancomycin HCl 0 ml @ 0 mls/hr UD IV 01/04/25 10:00 Cancel Sodium Chloride 1,000 ml @ 75 mls/hr [id number] IV 01/04/25 10:00 01/27/25 18:00 75 MLS/HR Lorazepam 1 mg BID PRN PO 01/04/25 10:00 Hold 01/19/25 22:06 1 MG Atenolol 50 mg BID PO 01/04/25 10:00 01/28/25 11:31 50 MG Diphenhydramine HCl 25 mg Q8HP PRN IV 01/04/25 10:00 01/06/25 17:58 25 MG Polyethylene Glycol 17 gm DAILY PO 01/04/25 12:45 01/28/25 11:30 17 GM Levofloxacin/ Dextrose 100 ml @ 100 mls/hr DAILY IV 01/08/25 10:00 Cancel Sodium Chloride 10 ml QSHIFT@10,22 IV 01/11/25 22:00 01/28/25 10:00 10 ML Metronidazole 500 mg Q8HR IV 01/19/25 22:00 Cancel Metronidazole 100 ml @ 100 mls/hr Q8HR IV 01/19/25 22:00 01/28/25 06:27 100 MLS/HR Diagnostic Test (Pha) 1 strip Q6HR 01/20/25 00:00 01/28/25 11:31 1 STRIP Insulin Human Regular FOLLOW SLIDING SCALE Q6HR SC 01/20/25 00:00 01/27/25 07:05 4 UNITS Dextrose 50 ml UD IV 01/19/25 22:00 Amino Acids 0 ml @ 0 mls/hr PER PHARMACY IV 01/22/25 11:00 Ondansetron HCl 2 mg Q4HPRN PRN IV 01/22/25 17:30 01/28/25 04:45 2 MG Lorazepam 0.25 mg Q6HP PRN IV 01/24/25 19:15 Vancomycin HCl 0 ml @ 0 mls/hr UD IV 01/26/25 20:00 Ceftriaxone Sodium/Dextrose 50 ml @ 50 mls/hr Q12HR IV 01/26/25 22:00 01/28/25 10:00 50 MLS/HR Fat Emulsion Intravenous 200 ml/Potassium Acetate 20 meq/ Potassium Phosphate 22 meq/ Calcium Gluconate 6.975 meq/ Magnesium Sulfate 12 meq/ Multivitamins 10 ml/Chromium/ Copper/Manganese/ Zinc 1 ml/Amino Acids/Dextrose 1,444 ml @ 60 mls/hr Q24H4M IV 01/27/25 22:00 01/28/25 21:59 01/27/25 22:00 60 MLS/HR Vancomycin HCl 250 ml @ 200 mls/hr Q8H IV 01/28/25 05:00 01/28/25 13:00 200 MLS/HR Hydromorphone HCl 1 mg Q3HPRN PRN IV 01/28/25 00:00 01/28/25 14:20 1 MG Fat Emulsion Intravenous 150 ml/Potassium Acetate 20 meq/ Potassium Phosphate 22 meq/ Calcium Gluconate 6.975 meq/ Magnesium Sulfate 14 meq/ Multivitamins 10 ml/Chromium/ Copper/Manganese/ Zinc 1 ml/Amino Acids/Dextrose 1,394.5 ml @ 50 mls/hr [id number] IV 01/28/25 22:00 01/29/25 21:59 objective General Appearance: alert, no distress HEENT: EOMI, PERRLA, normal external inspect of ears, no icterus, no nasal drainage Neck: no carotid bruit, no jugular venous distention (JVD), no lymphadenopathy Chest: normal thorax Respiratory: clear to auscultation, normal air movement Cardiovascular: regular rate and rhythm, no diastolic murmur, no jugular venous distention (JVD), no rub, no systolic murmur Abdominal: soft, no hepatomegaly, no mass, no splenomegaly, no tenderness Genitourinary: grossly normal external Musculoskeletal: no joint tenderness, no swelling Extremities: normal pulses, no calf tenderness, no clubbing, no cyanosis, no edema Skin: no bruising, no jaundice, no rash Neurological: alert, No focal deficit laboratory and microbiology Laboratory Tests 01/28/25 10:19 01/25/25 05:14 Test 01/28/25 10:19 Range/Units Serum Glucose 125 H 74-106 mg/dL Problem List 1. Rectal Bleed GI Consult, Hold blood thinners 2. Hemorrhoids Medication, GI consult 3. Morbid Obesity Diet Education, monitoring 4. Chronic constipation Cathartics, monitoring 5.Sepsis Antibiotics, ID consult 6.Diverticular abscess IR consult for drainage, IV antibiotics Assessment/Plan Subjective: Patient is awake and alert. Objective: No change in patient status. Plan: Plan for transfer to [facility]. Continue nutritional support and maintain NPO status. Continue antibiotics as recommended by Infectious Disease. Dietary Evaluation Review Comments: Clear Liquid diet with Ensure Clear BID Expected Outcomes/Goals: recovered GI function, gradual wt loss, Plan discussed with: Patient, Other SAIMA GUERRERO NP Jan 28, 2025 14:52
[2025-01-28] MEDS: TPN PER PHARMACY IV NR (22:10)
[2025-01-29] VITALS (9 sets, daily range): BP systolic 109–132; BP diastolic 65–99; PULSE 66–78; RESP 16–18; TEMP 98–98.4; O2SAT 95–98
[2025-01-29 06:19] LABS: Hematocrit 34.5 % (36.0-46.0); Hemoglobin 10.9 g/dL (12.2-16.2); Mean Corpuscular Hemoglobin 29.8 pg (28.0-32.0); Mean Corpuscular Volume 94.2 fL (80.0-100.0); Nucleated Red Blood Cells % 0.0 %
[2025-01-29 06:47] LABS: Alkaline Phosphatase 65 U/L (46-116); Anion Gap 10 (5-15); Carbon Dioxide 22 mmol/L (20-31); Glucose 101 mg/dL (74-106); Magnesium 1.9 mg/dL (1.6-2.6); Potassium 4.2 mmol/L (3.5-5.1); Sodium 140 mmol/L (136-145)
[2025-01-29 06:48] LABS: Alanine Aminotransferase < 9 U/L (7-40); Albumin 3.0 g/dL (3.2-4.8); BUN/Creatinine Ratio 12.5 (10.0-20.0); Bilirubin, Total 0.3 mg/dL (0.2-1.0); Blood Urea Nitrogen < 5 mg/dL (9-23); Calcium 8.1 mg/dL (8.7-10.4); Chloride 108 mmol/L (98-107); Total Protein 5.5 g/dL (5.7-8.2)
--- NOTE | 2025-01-29 14:20 | DVHPN2 ---
Progress Note - Dictate Date Seen: Jan 29, 2025 Has the PT tested + for MRSA If YES, has PT been informed?: No Medical Necessity Reason Pt with a Central, PICC or Fol: Yes vital signs Vital Sign Date Time Temp Pulse Resp B/P (MAP) Pulse Ox O2 Delivery O2 Flow Rate FiO2 01/29/25 13:00 98.3 66 16 112/65 (81) 98 98.3 01/29/25 08:00 Room Air* 0 21 Total Intake and Output 01/28/25 01/28/25 01/29/25 15:00 23:00 07:00 Intake Total 850 ml 950 ml Output Total 400 ml Balance 450 ml 950 ml medications Current Medications Medications Dose Ordered Sig/Earl Route Start Time Stop Time Status Last Admin Dose Admin Pantoprazole Sodium 40 mg BID IV 01/04/25 10:00 01/29/25 09:02 40 MG Nitroglycerin 0.4 mg Q5MINP PRN SL 01/04/25 09:45 Vancomycin HCl 0 ml @ 0 mls/hr UD IV 01/04/25 10:00 Cancel Sodium Chloride 1,000 ml @ 75 mls/hr [id number] IV 01/04/25 10:00 01/27/25 18:00 75 MLS/HR Lorazepam 1 mg BID PRN PO 01/04/25 10:00 Hold 01/19/25 22:06 1 MG Atenolol 50 mg BID PO 01/04/25 10:00 01/29/25 09:02 50 MG Diphenhydramine HCl 25 mg Q8HP PRN IV 01/04/25 10:00 01/28/25 15:32 25 MG Polyethylene Glycol 17 gm DAILY PO 01/04/25 12:45 01/28/25 11:30 17 GM Levofloxacin/ Dextrose 100 ml @ 100 mls/hr DAILY IV 01/08/25 10:00 Cancel Sodium Chloride 10 ml QSHIFT@10,22 IV 01/11/25 22:00 01/29/25 10:00 10 ML Metronidazole 500 mg Q8HR IV 01/19/25 22:00 Cancel Metronidazole 100 ml @ 100 mls/hr Q8HR IV 01/19/25 22:00 01/29/25 06:43 100 MLS/HR Diagnostic Test (Pha) 1 strip Q6HR 01/20/25 00:00 01/29/25 12:00 1 STRIP Insulin Human Regular FOLLOW SLIDING SCALE Q6HR SC 01/20/25 00:00 01/27/25 07:05 4 UNITS Dextrose 50 ml UD IV 01/19/25 22:00 Amino Acids 0 ml @ 0 mls/hr PER PHARMACY IV 01/22/25 11:00 Ondansetron HCl 2 mg Q4HPRN PRN IV 01/22/25 17:30 01/29/25 12:01 2 MG Lorazepam 0.25 mg Q6HP PRN IV 01/24/25 19:15 Vancomycin HCl 0 ml @ 0 mls/hr UD IV 01/26/25 20:00 Ceftriaxone Sodium/Dextrose 50 ml @ 50 mls/hr Q12HR IV 01/26/25 22:00 01/29/25 10:00 50 MLS/HR Hydromorphone HCl 1 mg Q3HPRN PRN IV 01/28/25 00:00 01/29/25 11:56 1 MG Fat Emulsion Intravenous 150 ml/Potassium Acetate 20 meq/ Potassium Phosphate 22 meq/ Calcium Gluconate 6.975 meq/ Magnesium Sulfate 14 meq/ Multivitamins 10 ml/Chromium/ Copper/Manganese/ Zinc 1 ml/Amino Acids/Dextrose 1,394.5 ml @ 50 mls/hr [id number] IV 01/28/25 22:00 01/29/25 21:59 01/28/25 22:10 50 MLS/HR Fat Emulsion Intravenous 150 ml/Sodium Acetate 20 meq/Potassium Phosphate 22 meq/ Calcium Gluconate 6.975 meq/ Magnesium Sulfate 14 meq/ Multivitamins 10 ml/Chromium/ Copper/Manganese/ Zinc 1 ml/Amino Acids/Dextrose 1,394.5 ml @ 50 mls/hr [id number] IV 01/29/25 22:00 01/30/25 21:59 Vancomycin HCl 250 ml @ 166.667 mls/hr Q8H IV 01/29/25 14:00 objective General Appearance: alert, no distress HEENT: EOMI, PERRLA, normal external inspect of ears, no icterus, no nasal drainage Neck: no carotid bruit, no jugular venous distention (JVD), no lymphadenopathy Chest: normal thorax Respiratory: clear to auscultation, normal air movement Cardiovascular: regular rate and rhythm, no diastolic murmur, no jugular venous distention (JVD), no rub, no systolic murmur Abdominal: soft, no hepatomegaly, no mass, no splenomegaly, no tenderness Genitourinary: grossly normal external Musculoskeletal: no joint tenderness, no swelling Extremities: normal pulses, no calf tenderness, no clubbing, no cyanosis, no edema Skin: no bruising, no jaundice, no rash Neurological: alert, No focal deficit laboratory and microbiology Laboratory Tests 01/29/25 05:10 Test 01/29/25 05:10 Range/Units Serum Glucose 101 74-106 mg/dL Problem List 1. Rectal Bleed GI Consult, Hold blood thinners 2. Hemorrhoids Medication, GI consult 3. Morbid Obesity Diet Education, monitoring 4. Chronic constipation Cathartics, monitoring 5.Sepsis Antibiotics, ID consult 6.Diverticular abscess IR consult for drainage, IV antibiotics Assessment/Plan Subjective: Patient is awake and alert. Objective: Patient is awaiting a higher level of care transfer to [facility]. Patient has a history of ovarian cancer status post chemotherapy. Patient was admitted with abdominal pain. She was found to have a diverticular abscess. Patient is status post drainage by IR and status post placement of accordion drain. Patient had a biopsy done of her abdominal mass. 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 Patient remains on antibiotics with Zosyn and vancomycin. Plan: Transfer to [facility] for oncology, [employer], surgical services. Replace electrolytes as needed. Dietary Evaluation Review Comments: Clear Liquid diet with Ensure Clear BID Expected Outcomes/Goals: recovered GI function, gradual wt loss, Plan discussed with: Patient, Other SAIMA GUERRERO NP Jan 29, 2025 14:20
[2025-01-29] MEDS: HYDROmorphone HCL 2 MG/ML VL/or syr IV ONE (14:52)
--- NOTE | 2025-01-29 17:00 | DVHPN2 ---
Consult Progress Note Date Seen: Jan 28, 2025 Objective vital signs Vital Sign Date Time Temp Pulse Resp B/P (MAP) Pulse Ox O2 Delivery O2 Flow Rate FiO2 01/29/25 16:54 98.0 78 17 121/99 (106) 98 98.0 01/29/25 08:00 Room Air* 0 21 Total Intake and Output 01/28/25 01/28/25 01/29/25 15:00 23:00 07:00 Intake Total 850 ml 950 ml Output Total 400 ml Balance 450 ml 950 ml medications Current Medications Medications Dose Ordered Sig/Earl Route Start Time Stop Time Status Last Admin Dose Admin Pantoprazole Sodium 40 mg BID IV 01/04/25 10:00 01/29/25 09:02 40 MG Nitroglycerin 0.4 mg Q5MINP PRN SL 01/04/25 09:45 Vancomycin HCl 0 ml @ 0 mls/hr UD IV 01/04/25 10:00 Cancel Sodium Chloride 1,000 ml @ 75 mls/hr [id number] IV 01/04/25 10:00 01/27/25 18:00 75 MLS/HR Lorazepam 1 mg BID PRN PO 01/04/25 10:00 Hold 01/19/25 22:06 1 MG Atenolol 50 mg BID PO 01/04/25 10:00 01/29/25 09:02 50 MG Diphenhydramine HCl 25 mg Q8HP PRN IV 01/04/25 10:00 01/28/25 15:32 25 MG Polyethylene Glycol 17 gm DAILY PO 01/04/25 12:45 01/28/25 11:30 17 GM Levofloxacin/ Dextrose 100 ml @ 100 mls/hr DAILY IV 01/08/25 10:00 Cancel Sodium Chloride 10 ml QSHIFT@10,22 IV 01/11/25 22:00 01/29/25 10:00 10 ML Metronidazole 500 mg Q8HR IV 01/19/25 22:00 Cancel Metronidazole 100 ml @ 100 mls/hr Q8HR IV 01/19/25 22:00 01/29/25 06:43 100 MLS/HR Diagnostic Test (Pha) 1 strip Q6HR 01/20/25 00:00 01/29/25 12:00 1 STRIP Insulin Human Regular FOLLOW SLIDING SCALE Q6HR SC 01/20/25 00:00 01/27/25 07:05 4 UNITS Dextrose 50 ml UD IV 01/19/25 22:00 Amino Acids 0 ml @ 0 mls/hr PER PHARMACY IV 01/22/25 11:00 Ondansetron HCl 2 mg Q4HPRN PRN IV 01/22/25 17:30 01/29/25 12:01 2 MG Lorazepam 0.25 mg Q6HP PRN IV 01/24/25 19:15 Vancomycin HCl 0 ml @ 0 mls/hr UD IV 01/26/25 20:00 Ceftriaxone Sodium/Dextrose 50 ml @ 50 mls/hr Q12HR IV 01/26/25 22:00 01/29/25 10:00 50 MLS/HR Fat Emulsion Intravenous 150 ml/Potassium Acetate 20 meq/ Potassium Phosphate 22 meq/ Calcium Gluconate 6.975 meq/ Magnesium Sulfate 14 meq/ Multivitamins 10 ml/Chromium/ Copper/Manganese/ Zinc 1 ml/Amino Acids/Dextrose 1,394.5 ml @ 50 mls/hr [id number] IV 01/28/25 22:00 01/29/25 21:59 01/28/25 22:10 50 MLS/HR Fat Emulsion Intravenous 150 ml/Sodium Acetate 20 meq/Potassium Phosphate 22 meq/ Calcium Gluconate 6.975 meq/ Magnesium Sulfate 14 meq/ Multivitamins 10 ml/Chromium/ Copper/Manganese/ Zinc 1 ml/Amino Acids/Dextrose 1,394.5 ml @ 50 mls/hr [id number] IV 01/29/25 22:00 01/30/25 21:59 Vancomycin HCl 250 ml @ 166.667 mls/hr Q8H IV 01/29/25 14:00 Hydromorphone HCl 1.5 mg Q3HPRN PRN IV 01/29/25 14:30 laboratory and microbiology Laboratory Tests 01/29/25 05:10 Test 01/29/25 05:10 Range/Units Serum Glucose 101 74-106 mg/dL Problem List/Assessment/Plan Problem List/Assessment/Plan ASSESSMENT AND PLAN: ID Problem List: \-- Ovarian cancer, not currently on treatment \-- Diverticulosis \-- Acute diverticular abscess (left lower quadrant) \-- Rectal bleeding \-- History of hemorrhoids \-- Hypertension \-- Abdominal Wall cellulitis Assessment This is a female with a past medical history of ovarian cancer (not on treatment for the last six months), diverticulosis, hypertension, and hemorrhoids, presenting with several days of acute abdominal pain and rectal bleeding. She is currently admitted for further evaluation and management. On admission, the patient was hemodynamically stable. Initial labs significant for leukocytosis (WBC 16.1), hemoglobin 12.6, and platelets 497. Lactic acid was 1.3. CT abdomen and pelvis without contrast revealed a large (14.3 cm) complex fluid collection containing gas in the left lower quadrant inseparable from the sigmoid colon, with diverticula, highly suspicious for abscess. This has significantly increased in size compared to prior imaging. Hepatic steatosis and a ventral abdominal wall hernia with non-obstructed bowel loops noted. Remote cholecystectomy. 01/05: aspirated cultures from intraabdominal abscess is growing gram negative rods , awaiting identification and susceptibilities 01/06: tolerating clear liquid diet 01/07: ongoing concern for bowel leak via metstatic spread to sigmoid and fistulization r 01/08: aspirated fluid collection show klebsiella that is morejon sensitive and is also growing streptococcus . drainage output down to 50ccs of bilious fluid 01/09: hemoglobin appears stable and whitecount is coming down . no drain output through billiary drain 01/10: required intermittently TPN but tolerating clear liquid diet 8: having localized cellulitis around the intraabdominal drain 01/12: whitecount down to 12.5 01/13: whitecount improved . Ct shows persistent 11.7 x 10.8 cm abdominal complex fluid collection with pigtail drainage catheter in the center of the collection and only minimally decreased in size , additionally has a paraumbilical hernia without evidence of obstruction and numerous perirectal lymph nodes measuring 1.6 cm . 01/23: sp IR drainage attempted no fluid withdrawn, biopsies acquired, sample cultured 01/26: MRSA, e.coli, Klebsiella Plan: - with morbid obesity, large intraabdominal mass/abscess, persistent klebsiella infection, increase ceftriaxone to 2gq 12hrs - start vancomycin for MRSA, likely introduced from prior aspiration attempts. - started on TPN as needed wehn oral intake is insufficient - add topical neomycin cream 3x a day for abdominal cellulitis - will need to fu on aspirated specimen path results. - recommend close observation to see if patient can advance diet and see if additional surgical remedies are needed - Current rectal bleeding is being monitored. - Blood and urine cultures are no growth to date. - Will closely monitor abdominal exam, bowel movements, and rectal bleeding with coordination with surgical colleagues. - Continue to monitor drain output. The patient appears to be stable and improving. - Will follow up on aspirated culture results and modify antibiotics as needed. - Surgical and dietary recommendations per general surgery team to be followed. Will arrange for follow-up after completion of treatment. Isolation Precautions: Standard Dietary Evaluation Review Comments: Clear Liquid diet with Ensure Clear BID Expected Outcomes/Goals: recovered GI function, gradual wt loss, ROGELIO PATRICIA MD Jan 29, 2025 17:00
[2025-01-29] MEDS: VANCOMYCIN 1.5GM/250ML 250 ML IV SCH (18:38)
[2025-01-29] MEDS: HYDROmorphone HCL 2 MG/ML VL/or syr IV PRN (18:40)
[2025-01-29] MEDS: TPN PER PHARMACY IV NR (22:18)
[2025-01-30] VITALS (8 sets, daily range): BP systolic 101–121; BP diastolic 63–76; PULSE 68–81; RESP 16–18; TEMP 97.7–98.6; O2SAT 96–99
[2025-01-30 08:03] LABS: Hematocrit 32.2 % (36.0-46.0); Hemoglobin 10.4 g/dL (12.2-16.2); Mean Corpuscular Hemoglobin 29.4 pg (28.0-32.0); Mean Corpuscular Volume 90.5 fL (80.0-100.0); Nucleated Red Blood Cells % 0.2 %
[2025-01-30 08:25] LABS: Alkaline Phosphatase 64 U/L (46-116); Anion Gap 8 (5-15); Bilirubin, Total 0.4 mg/dL (0.2-1.0); Carbon Dioxide 24 mmol/L (20-31); Chloride 107 mmol/L (98-107); Magnesium 1.7 mg/dL (1.6-2.6); Potassium 3.7 mmol/L (3.5-5.1); Sodium 139 mmol/L (136-145); Triglycerides 104 mg/dL (< 150)
[2025-01-30 08:27] LABS: Alanine Aminotransferase < 9 U/L (7-40); Albumin 3.0 g/dL (3.2-4.8); BUN/Creatinine Ratio 11.9 (10.0-20.0); Blood Urea Nitrogen < 5 mg/dL (9-23); Calcium 8.3 mg/dL (8.7-10.4); Glucose 127 mg/dL (74-106); Total Protein 5.2 g/dL (5.7-8.2)
--- NOTE | 2025-01-30 13:56 | DVHPN2 ---
Progress Note - Dictate Date Seen: Jan 30, 2025 Has the PT tested + for MRSA If YES, has PT been informed?: No Medical Necessity Reason Pt with a Central, PICC or Fol: Yes vital signs Vital Sign Date Time Temp Pulse Resp B/P (MAP) Pulse Ox O2 Delivery O2 Flow Rate FiO2 01/30/25 13:18 75 18 118/74 01/30/25 09:00 98.2 97 98.2 01/30/25 08:00 Room Air* 0 21 Total Intake and Output 01/29/25 01/29/25 01/30/25 15:00 23:00 07:00 Intake Total 400 ml 150 ml Balance 400 ml 150 ml medications Current Medications Medications Dose Ordered Sig/Earl Route Start Time Stop Time Status Last Admin Dose Admin Pantoprazole Sodium 40 mg BID IV 01/04/25 10:00 01/30/25 10:04 40 MG Nitroglycerin 0.4 mg Q5MINP PRN SL 01/04/25 09:45 Vancomycin HCl 0 ml @ 0 mls/hr UD IV 01/04/25 10:00 Cancel Sodium Chloride 1,000 ml @ 75 mls/hr [id number] IV 01/04/25 10:00 01/29/25 23:20 75 MLS/HR Lorazepam 1 mg BID PRN PO 01/04/25 10:00 Hold 01/19/25 22:06 1 MG Atenolol 50 mg BID PO 01/04/25 10:00 01/29/25 21:49 50 MG Diphenhydramine HCl 25 mg Q8HP PRN IV 01/04/25 10:00 01/28/25 15:32 25 MG Polyethylene Glycol 17 gm DAILY PO 01/04/25 12:45 01/28/25 11:30 17 GM Levofloxacin/ Dextrose 100 ml @ 100 mls/hr DAILY IV 01/08/25 10:00 Cancel Sodium Chloride 10 ml QSHIFT@10,22 IV 01/11/25 22:00 01/30/25 10:10 10 ML Metronidazole 500 mg Q8HR IV 01/19/25 22:00 Cancel Metronidazole 100 ml @ 100 mls/hr Q8HR IV 01/19/25 22:00 01/30/25 05:48 100 MLS/HR Diagnostic Test (Pha) 1 strip Q6HR 01/20/25 00:00 01/30/25 12:06 1 STRIP Insulin Human Regular FOLLOW SLIDING SCALE Q6HR SC 01/20/25 00:00 01/27/25 07:05 4 UNITS Dextrose 50 ml UD IV 01/19/25 22:00 Amino Acids 0 ml @ 0 mls/hr PER PHARMACY IV 01/22/25 11:00 Ondansetron HCl 2 mg Q4HPRN PRN IV 01/22/25 17:30 01/30/25 06:25 2 MG Lorazepam 0.25 mg Q6HP PRN IV 01/24/25 19:15 Vancomycin HCl 0 ml @ 0 mls/hr UD IV 01/26/25 20:00 Ceftriaxone Sodium/Dextrose 50 ml @ 50 mls/hr Q12HR IV 01/26/25 22:00 01/30/25 10:06 50 MLS/HR Fat Emulsion Intravenous 150 ml/Sodium Acetate 20 meq/Potassium Phosphate 22 meq/ Calcium Gluconate 6.975 meq/ Magnesium Sulfate 14 meq/ Multivitamins 10 ml/Chromium/ Copper/Manganese/ Zinc 1 ml/Amino Acids/Dextrose 1,394.5 ml @ 50 mls/hr [id number] IV 01/29/25 22:00 01/30/25 21:59 01/29/25 22:18 50 MLS/HR Hydromorphone HCl 1.5 mg Q3HPRN PRN IV 01/29/25 14:30 01/30/25 13:18 1.5 MG Vancomycin HCl 250 ml @ 166.667 mls/hr Q8H IV 01/30/25 16:30 Fat Emulsion Intravenous 150 ml/Potassium Acetate 20 meq/ Potassium Phosphate 22 meq/ Calcium Gluconate 6.975 meq/ Magnesium Sulfate 16 meq/ Multivitamins 10 ml/Chromium/ Copper/Manganese/ Zinc 1 ml/Amino Acids/Dextrose 1,395 ml @ 58 mls/hr Q24H4M IV 01/30/25 22:00 01/31/25 21:59 objective General Appearance: alert, no distress HEENT: EOMI, PERRLA, normal external inspect of ears, no icterus, no nasal drainage Neck: no carotid bruit, no jugular venous distention (JVD), no lymphadenopathy Chest: normal thorax Respiratory: clear to auscultation, normal air movement Cardiovascular: regular rate and rhythm, no diastolic murmur, no jugular venous distention (JVD), no rub, no systolic murmur Abdominal: soft, no hepatomegaly, no mass, no splenomegaly, no tenderness Genitourinary: grossly normal external Musculoskeletal: no joint tenderness, no swelling Extremities: normal pulses, no calf tenderness, no clubbing, no cyanosis, no edema Skin: no bruising, no jaundice, no rash Neurological: alert, No focal deficit laboratory and microbiology Laboratory Tests 01/30/25 07:35 Test 01/30/25 07:35 Range/Units Serum Glucose 127 H 74-106 mg/dL Problem List 1. Rectal Bleed GI Consult, Hold blood thinners 2. Hemorrhoids Medication, GI consult 3. Morbid Obesity Diet Education, monitoring 4. Chronic constipation Cathartics, monitoring 5.Sepsis Antibiotics, ID consult 6.Diverticular abscess IR consult for drainage, IV antibiotics Assessment/Plan Subjective Patient is awake and alert. Objective [place] has accepted the patient pending on bed assignment. Patient has adenocarcinoma and needs gynecological and oncology services for surgery. Patient was admitted for sepsis for diverticular abscess status post biopsy. Patient remains on Zosyn and vancomycin. Plan Continue antibiotics per ID. Plan to transfer to [place] as soon as bed is available. Dietary Evaluation Review Comments: Clear Liquid diet with Ensure Clear BID Expected Outcomes/Goals: recovered GI function, gradual wt loss, Plan discussed with: Patient, Other SAIMA GUERRERO NP Jan 30, 2025 13:56
--- NOTE | 2025-01-30 15:01 | DVHPN2 ---
Progress Note Date Seen: Jan 30, 2025 Has the PT tested + for MRSA If YES, has PT been informed?: No Medical Necessity Reason Pt with a Central, PICC or Fol: Yes Objective vital signs Vital Sign Date Time Temp Pulse Resp B/P (MAP) Pulse Ox O2 Delivery O2 Flow Rate FiO2 01/30/25 13:18 75 18 118/74 01/30/25 09:00 98.2 97 98.2 01/30/25 08:00 Room Air* 0 21 Total Intake and Output 01/29/25 01/29/25 01/30/25 15:00 23:00 07:00 Intake Total 400 ml 150 ml Balance 400 ml 150 ml medications Current Medications Medications Dose Ordered Sig/Earl Route Start Time Stop Time Status Last Admin Dose Admin Pantoprazole Sodium 40 mg BID IV 01/04/25 10:00 01/30/25 10:04 40 MG Nitroglycerin 0.4 mg Q5MINP PRN SL 01/04/25 09:45 Vancomycin HCl 0 ml @ 0 mls/hr UD IV 01/04/25 10:00 Cancel Sodium Chloride 1,000 ml @ 75 mls/hr [id number] IV 01/04/25 10:00 01/29/25 23:20 75 MLS/HR Lorazepam 1 mg BID PRN PO 01/04/25 10:00 Hold 01/19/25 22:06 1 MG Atenolol 50 mg BID PO 01/04/25 10:00 01/29/25 21:49 50 MG Diphenhydramine HCl 25 mg Q8HP PRN IV 01/04/25 10:00 01/28/25 15:32 25 MG Polyethylene Glycol 17 gm DAILY PO 01/04/25 12:45 01/28/25 11:30 17 GM Levofloxacin/ Dextrose 100 ml @ 100 mls/hr DAILY IV 01/08/25 10:00 Cancel Sodium Chloride 10 ml QSHIFT@10,22 IV 01/11/25 22:00 01/30/25 10:10 10 ML Metronidazole 500 mg Q8HR IV 01/19/25 22:00 Cancel Metronidazole 100 ml @ 100 mls/hr Q8HR IV 01/19/25 22:00 01/30/25 05:48 100 MLS/HR Diagnostic Test (Pha) 1 strip Q6HR 01/20/25 00:00 01/30/25 12:06 1 STRIP Insulin Human Regular FOLLOW SLIDING SCALE Q6HR SC 01/20/25 00:00 01/27/25 07:05 4 UNITS Dextrose 50 ml UD IV 01/19/25 22:00 Amino Acids 0 ml @ 0 mls/hr PER PHARMACY IV 01/22/25 11:00 Ondansetron HCl 2 mg Q4HPRN PRN IV 01/22/25 17:30 01/30/25 06:25 2 MG Lorazepam 0.25 mg Q6HP PRN IV 01/24/25 19:15 Vancomycin HCl 0 ml @ 0 mls/hr UD IV 01/26/25 20:00 Ceftriaxone Sodium/Dextrose 50 ml @ 50 mls/hr Q12HR IV 01/26/25 22:00 01/30/25 10:06 50 MLS/HR Fat Emulsion Intravenous 150 ml/Sodium Acetate 20 meq/Potassium Phosphate 22 meq/ Calcium Gluconate 6.975 meq/ Magnesium Sulfate 14 meq/ Multivitamins 10 ml/Chromium/ Copper/Manganese/ Zinc 1 ml/Amino Acids/Dextrose 1,394.5 ml @ 50 mls/hr [id number] IV 01/29/25 22:00 01/30/25 21:59 01/29/25 22:18 50 MLS/HR Hydromorphone HCl 1.5 mg Q3HPRN PRN IV 01/29/25 14:30 01/30/25 13:18 1.5 MG Vancomycin HCl 250 ml @ 166.667 mls/hr Q8H IV 01/30/25 16:30 Fat Emulsion Intravenous 150 ml/Potassium Acetate 20 meq/ Potassium Phosphate 22 meq/ Calcium Gluconate 6.975 meq/ Magnesium Sulfate 16 meq/ Multivitamins 10 ml/Chromium/ Copper/Manganese/ Zinc 1 ml/Amino Acids/Dextrose 1,395 ml @ 58 mls/hr Q24H4M IV 01/30/25 22:00 01/31/25 21:59 Ketorolac Tromethamine 30 mg Q6HR PRN IV 01/30/25 14:30 01/31/25 14:29 laboratory and microbiology Laboratory Tests 01/30/25 07:35 Test 01/30/25 07:35 Range/Units Serum Glucose 127 H 74-106 mg/dL Microbiology Date/Time Source Procedure Growth Status 01/23/25 14:25 Aspirate Gram Stain - Final Complete 01/23/25 14:25 Body Fluid Culture - Final Klebsiella oxytoca Methicillin Resistant S.aureus Escherichia coli Enterococcus faecalis Complete 01/05/25 00:50 Nose MRSA Screen - Final Methicillin Resistant S.aureus Complete 01/04/25 09:40 Blood Blood Culture - Final NO GROWTH AFTER 5 DAYS OF INCUBATION. 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
[2025-01-30] MEDS: KETOROLAC TROMETH 30 MG/ML 1ML VIAL IV PRN (15:45)
[2025-01-30] MEDS: VANCOMYCIN 1.5GM/250ML 250 ML IV SCH (16:59)
[2025-01-30] MEDS: TPN PER PHARMACY IV NR (21:30)
--- NOTE | 2025-01-30 22:00 | DVHPN2 ---
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 pelvic malignancy recurrence She had diagnosis and management of ovarian cancer in 2022 Her last colonoscopy was almost 10 years ago CEA level normal less than 0.5, CA 125 mildly elevated to 16.9 vital signs Vital Sign Date Time Temp Pulse Resp B/P (MAP) Pulse Ox O2 Delivery O2 Flow Rate FiO2 01/30/25 21:09 75 18 121/65 01/30/25 21:00 98.6 98 98.6 01/30/25 19:51 Room Air* 0 21 Total Intake and Output 01/29/25 01/29/25 01/30/25 15:00 23:00 07:00 Intake Total 400 ml 150 ml Balance 400 ml 150 ml medications Current Medications Medications Dose Ordered Sig/Earl Route Start Time Stop Time Status Last Admin Dose Admin Pantoprazole Sodium 40 mg BID IV 01/04/25 10:00 01/30/25 21:08 40 MG Nitroglycerin 0.4 mg Q5MINP PRN SL 01/04/25 09:45 Vancomycin HCl 0 ml @ 0 mls/hr UD IV 01/04/25 10:00 Cancel Sodium Chloride 1,000 ml @ 75 mls/hr [id number] IV 01/04/25 10:00 01/29/25 23:20 75 MLS/HR Lorazepam 1 mg BID PRN PO 01/04/25 10:00 Hold 01/19/25 22:06 1 MG Atenolol 50 mg BID PO 01/04/25 10:00 01/30/25 21:08 50 MG Diphenhydramine HCl 25 mg Q8HP PRN IV 01/04/25 10:00 01/28/25 15:32 25 MG Polyethylene Glycol 17 gm DAILY PO 01/04/25 12:45 01/28/25 11:30 17 GM Levofloxacin/ Dextrose 100 ml @ 100 mls/hr DAILY IV 01/08/25 10:00 Cancel Sodium Chloride 10 ml QSHIFT@10,22 IV 01/11/25 22:00 01/30/25 21:08 10 ML Metronidazole 500 mg Q8HR IV 01/19/25 22:00 Cancel Metronidazole 100 ml @ 100 mls/hr Q8HR IV 01/19/25 22:00 01/30/25 21:13 100 MLS/HR Diagnostic Test (Pha) 1 strip Q6HR 01/20/25 00:00 01/30/25 17:40 1 STRIP Insulin Human Regular FOLLOW SLIDING SCALE Q6HR SC 01/20/25 00:00 01/27/25 07:05 4 UNITS Dextrose 50 ml UD IV 01/19/25 22:00 Amino Acids 0 ml @ 0 mls/hr PER PHARMACY IV 01/22/25 11:00 Ondansetron HCl 2 mg Q4HPRN PRN IV 01/22/25 17:30 01/30/25 17:49 2 MG Lorazepam 0.25 mg Q6HP PRN IV 01/24/25 19:15 Vancomycin HCl 0 ml @ 0 mls/hr UD IV 01/26/25 20:00 Ceftriaxone Sodium/Dextrose 50 ml @ 50 mls/hr Q12HR IV 01/26/25 22:00 01/30/25 10:06 50 MLS/HR Fat Emulsion Intravenous 150 ml/Sodium Acetate 20 meq/Potassium Phosphate 22 meq/ Calcium Gluconate 6.975 meq/ Magnesium Sulfate 14 meq/ Multivitamins 10 ml/Chromium/ Copper/Manganese/ Zinc 1 ml/Amino Acids/Dextrose 1,394.5 ml @ 50 mls/hr [id number] IV 01/29/25 22:00 01/30/25 21:59 01/29/25 22:18 50 MLS/HR Hydromorphone HCl 1.5 mg Q3HPRN PRN IV 01/29/25 14:30 01/30/25 21:09 1.5 MG Vancomycin HCl 250 ml @ 166.667 mls/hr Q8H IV 01/30/25 16:30 01/30/25 16:59 166.667 MLS/HR Fat Emulsion Intravenous 150 ml/Potassium Acetate 20 meq/ Potassium Phosphate 22 meq/ Calcium Gluconate 6.975 meq/ Magnesium Sulfate 16 meq/ Multivitamins 10 ml/Chromium/ Copper/Manganese/ Zinc 1 ml/Amino Acids/Dextrose 1,395 ml @ 58 mls/hr Q24H4M IV 01/30/25 22:00 01/31/25 21:59 01/30/25 21:30 58 MLS/HR Ketorolac Tromethamine 30 mg Q6HR PRN IV 01/30/25 14:30 01/31/25 14:29 01/30/25 15:45 30 MG objective General: Alert, not in acute distress. * Abdomen: Soft, non-distended, mild LLQ tenderness, drain in place with sanguineous output. No peritoneal signs. * Drain Site: No erythema or purulent drainage, flushed per protocol. laboratory and microbiology Laboratory Tests 01/30/25 07:35 Test 01/30/25 07:35 Range/Units Serum Glucose 127 H 74-106 mg/dL Problems(with codes): (1) Pelvic abscess in female (2) Hepatic steatosis (3) Ovarian cancer (4) Abdominal mass (5) Acute abdominal pain (6) Bright red blood per rectum (7) Intra-abdominal abscess Prognosis Plan Awaiting transfer to [facility] for higher level of care and possible surgical intervention Awaiting bed availability; [facility] authorization Prognosis remains guarded Patient will follow up in my office in six months to discuss elective colonoscopy once medically stabilized from current medical condition Dietary Evaluation Review Comments: Clear Liquid diet with Ensure Clear BID Expected Outcomes/Goals: recovered GI function, gradual wt loss, Plan discussed with: Patient, Other (Dr Gonzalo Kothari) PEPE KOTHARI MD Jan 30, 2025 22:00
[2025-01-31] VITALS (7 sets, daily range): BP systolic 109–134; BP diastolic 61–87; PULSE 69–95; RESP 16–18; TEMP 98.2–98.9; O2SAT 95–98
--- NOTE | 2025-01-31 11:18 | DVHPN2 ---
Progress Note - Dictate Has the PT tested + for MRSA If YES, has PT been informed?: No Medical Necessity Reason Pt with a Central, PICC or Fol: Yes vital signs Vital Sign Date Time Temp Pulse Resp B/P (MAP) Pulse Ox O2 Delivery O2 Flow Rate FiO2 01/31/25 09:59 77 18 113/66 01/31/25 08:00 98.4 96 98.4 01/30/25 19:51 Room Air* 0 21 Total Intake and Output 01/30/25 01/30/25 01/31/25 14:59 22:59 06:59 Intake Total 2550 ml 300 ml Balance 2550 ml 300 ml medications Current Medications Medications Dose Ordered Sig/Earl Route Start Time Stop Time Status Last Admin Dose Admin Pantoprazole Sodium 40 mg BID IV 01/04/25 10:00 01/31/25 09:23 40 MG Nitroglycerin 0.4 mg Q5MINP PRN SL 01/04/25 09:45 Vancomycin HCl 0 ml @ 0 mls/hr UD IV 01/04/25 10:00 Cancel Sodium Chloride 1,000 ml @ 75 mls/hr [id number] IV 01/04/25 10:00 01/29/25 23:20 75 MLS/HR Lorazepam 1 mg BID PRN PO 01/04/25 10:00 Hold 01/19/25 22:06 1 MG Atenolol 50 mg BID PO 01/04/25 10:00 01/31/25 09:31 50 MG Diphenhydramine HCl 25 mg Q8HP PRN IV 01/04/25 10:00 01/28/25 15:32 25 MG Polyethylene Glycol 17 gm DAILY PO 01/04/25 12:45 01/28/25 11:30 17 GM Levofloxacin/ Dextrose 100 ml @ 100 mls/hr DAILY IV 01/08/25 10:00 Cancel Sodium Chloride 10 ml QSHIFT@10,22 IV 01/11/25 22:00 01/31/25 09:31 10 ML Metronidazole 500 mg Q8HR IV 01/19/25 22:00 Cancel Metronidazole 100 ml @ 100 mls/hr Q8HR IV 01/19/25 22:00 01/31/25 06:11 100 MLS/HR Diagnostic Test (Pha) 1 strip Q6HR 01/20/25 00:00 01/31/25 11:14 1 STRIP Insulin Human Regular FOLLOW SLIDING SCALE Q6HR SC 01/20/25 00:00 01/27/25 07:05 4 UNITS Dextrose 50 ml UD IV 01/19/25 22:00 Amino Acids 0 ml @ 0 mls/hr PER PHARMACY IV 01/22/25 11:00 Ondansetron HCl 2 mg Q4HPRN PRN IV 01/22/25 17:30 01/31/25 06:06 2 MG Lorazepam 0.25 mg Q6HP PRN IV 01/24/25 19:15 Vancomycin HCl 0 ml @ 0 mls/hr UD IV 01/26/25 20:00 Ceftriaxone Sodium/Dextrose 50 ml @ 50 mls/hr Q12HR IV 01/26/25 22:00 01/31/25 10:00 50 MLS/HR Hydromorphone HCl 1.5 mg Q3HPRN PRN IV 01/29/25 14:30 01/31/25 09:29 1.5 MG Vancomycin HCl 250 ml @ 166.667 mls/hr Q8H IV 01/30/25 16:30 01/31/25 08:30 166.667 MLS/HR Fat Emulsion Intravenous 150 ml/Potassium Acetate 20 meq/ Potassium Phosphate 22 meq/ Calcium Gluconate 6.975 meq/ Magnesium Sulfate 16 meq/ Multivitamins 10 ml/Chromium/ Copper/Manganese/ Zinc 1 ml/Amino Acids/Dextrose 1,395 ml @ 58 mls/hr Q24H4M IV 01/30/25 22:00 01/31/25 21:59 01/30/25 21:30 58 MLS/HR Ketorolac Tromethamine 30 mg Q6HR PRN IV 01/30/25 14:30 01/31/25 14:29 01/31/25 11:06 30 MG objective General Appearance: alert, no distress HEENT: EOMI, PERRLA, normal external inspect of ears, no icterus, no nasal drainage Neck: no carotid bruit, no jugular venous distention (JVD), no lymphadenopathy Chest: normal thorax Respiratory: clear to auscultation, normal air movement Cardiovascular: regular rate and rhythm, no diastolic murmur, no jugular venous distention (JVD), no rub, no systolic murmur Abdominal: soft, no hepatomegaly, no mass, no splenomegaly, no tenderness Genitourinary: grossly normal external Musculoskeletal: no joint tenderness, no swelling Extremities: normal pulses, no calf tenderness, no clubbing, no cyanosis, no edema Skin: no bruising, no jaundice, no rash Neurological: alert, No focal deficit laboratory and microbiology Laboratory Tests 01/30/25 07:35 Test 01/30/25 07:35 Range/Units Serum Glucose 127 H 74-106 mg/dL Problem List 1. Rectal Bleed GI Consult, Hold blood thinners 2. Hemorrhoids Medication, GI consult 3. Morbid Obesity Diet Education, monitoring 4. Chronic constipation Cathartics, monitoring 5.Sepsis Antibiotics, ID consult 6.Diverticular abscess IR consult for drainage, IV antibiotics Assessment/Plan Subjective Patient is awake and alert. Objective [facility] has accepted the patient pending on bed assignment. Patient has adenocarcinoma and needs gynecological and oncology services for surgery. Patient was admitted for sepsis for diverticular abscess status post biopsy. Patient remains on Zosyn and vancomycin. Plan Continue antibiotics per ID. Plan to transfer to [facility] as soon as bed is available. Dietary Evaluation Review Comments: Clear Liquid diet with Ensure Clear BID Expected Outcomes/Goals: recovered GI function, gradual wt loss, SAIMA GUERRERO PATIENT SERVICES CLERK Jan 31, 2025 11:18
--- NOTE | 2025-01-31 11:22 | DVHPN2 ---
Progress Note - Dictate Date Seen: Jan 31, 2025 Has the PT tested + for MRSA If YES, has PT been informed?: No Medical Necessity Reason Pt with a Central, PICC or Fol: Yes vital signs Vital Sign Date Time Temp Pulse Resp B/P (MAP) Pulse Ox O2 Delivery O2 Flow Rate FiO2 01/31/25 09:59 77 18 113/66 01/31/25 08:00 98.4 96 98.4 01/30/25 19:51 Room Air* 0 21 Total Intake and Output 01/30/25 01/30/25 01/31/25 14:59 22:59 06:59 Intake Total 2550 ml 300 ml Balance 2550 ml 300 ml medications Current Medications Medications Dose Ordered Sig/Earl Route Start Time Stop Time Status Last Admin Dose Admin Pantoprazole Sodium 40 mg BID IV 01/04/25 10:00 01/31/25 09:23 40 MG Nitroglycerin 0.4 mg Q5MINP PRN SL 01/04/25 09:45 Vancomycin HCl 0 ml @ 0 mls/hr UD IV 01/04/25 10:00 Cancel Sodium Chloride 1,000 ml @ 75 mls/hr [id number] IV 01/04/25 10:00 01/29/25 23:20 75 MLS/HR Lorazepam 1 mg BID PRN PO 01/04/25 10:00 Hold 01/19/25 22:06 1 MG Atenolol 50 mg BID PO 01/04/25 10:00 01/31/25 09:31 50 MG Diphenhydramine HCl 25 mg Q8HP PRN IV 01/04/25 10:00 01/28/25 15:32 25 MG Polyethylene Glycol 17 gm DAILY PO 01/04/25 12:45 01/28/25 11:30 17 GM Levofloxacin/ Dextrose 100 ml @ 100 mls/hr DAILY IV 01/08/25 10:00 Cancel Sodium Chloride 10 ml QSHIFT@10,22 IV 01/11/25 22:00 01/31/25 09:31 10 ML Metronidazole 500 mg Q8HR IV 01/19/25 22:00 Cancel Metronidazole 100 ml @ 100 mls/hr Q8HR IV 01/19/25 22:00 01/31/25 06:11 100 MLS/HR Diagnostic Test (Pha) 1 strip Q6HR 01/20/25 00:00 01/31/25 11:14 1 STRIP Insulin Human Regular FOLLOW SLIDING SCALE Q6HR SC 01/20/25 00:00 01/27/25 07:05 4 UNITS Dextrose 50 ml UD IV 01/19/25 22:00 Amino Acids 0 ml @ 0 mls/hr PER PHARMACY IV 01/22/25 11:00 Ondansetron HCl 2 mg Q4HPRN PRN IV 01/22/25 17:30 01/31/25 06:06 2 MG Lorazepam 0.25 mg Q6HP PRN IV 01/24/25 19:15 Vancomycin HCl 0 ml @ 0 mls/hr UD IV 01/26/25 20:00 Ceftriaxone Sodium/Dextrose 50 ml @ 50 mls/hr Q12HR IV 01/26/25 22:00 01/31/25 10:00 50 MLS/HR Hydromorphone HCl 1.5 mg Q3HPRN PRN IV 01/29/25 14:30 01/31/25 09:29 1.5 MG Vancomycin HCl 250 ml @ 166.667 mls/hr Q8H IV 01/30/25 16:30 01/31/25 08:30 166.667 MLS/HR Fat Emulsion Intravenous 150 ml/Potassium Acetate 20 meq/ Potassium Phosphate 22 meq/ Calcium Gluconate 6.975 meq/ Magnesium Sulfate 16 meq/ Multivitamins 10 ml/Chromium/ Copper/Manganese/ Zinc 1 ml/Amino Acids/Dextrose 1,395 ml @ 58 mls/hr Q24H4M IV 01/30/25 22:00 01/31/25 21:59 01/30/25 21:30 58 MLS/HR Ketorolac Tromethamine 30 mg Q6HR PRN IV 01/30/25 14:30 01/31/25 14:29 01/31/25 11:06 30 MG objective General Appearance: alert, no distress HEENT: EOMI, PERRLA, normal external inspect of ears, no icterus, no nasal drainage Neck: no carotid bruit, no jugular venous distention (JVD), no lymphadenopathy Chest: normal thorax Respiratory: clear to auscultation, normal air movement Cardiovascular: regular rate and rhythm, no diastolic murmur, no jugular venous distention (JVD), no rub, no systolic murmur Abdominal: soft, no hepatomegaly, no mass, no splenomegaly, no tenderness Genitourinary: grossly normal external Musculoskeletal: no joint tenderness, no swelling Extremities: normal pulses, no calf tenderness, no clubbing, no cyanosis, no edema Skin: no bruising, no jaundice, no rash Neurological: alert, No focal deficit laboratory and microbiology Laboratory Tests 01/30/25 07:35 Test 01/30/25 07:35 Range/Units Serum Glucose 127 H 74-106 mg/dL Problem List 1. Rectal Bleed GI Consult, Hold blood thinners 2. Hemorrhoids Medication, GI consult 3. Morbid Obesity Diet Education, monitoring 4. Chronic constipation Cathartics, monitoring 5.Sepsis Antibiotics, ID consult 6.Diverticular abscess IR consult for drainage, IV antibiotics Assessment/Plan Subjective: Patient is awake and alert. Objective: Patient is waiting for higher level of care transfer to [facility]. Patient was admitted for abdominal pain. Patient was found to have a diverticular abscess. Patient had sepsis related to abscess. Patient was seen by infectious disease. Patient remains on IV antibiotics and TPN. Patient is currently n.p.o. I did discuss plan of care with infectious disease. He is recommending to continue IV antibiotics at this time. Per [facility] they have all of her information, they are just waiting for a bed for transfer. Plan: Continue current treatment. Monitor on EKG. Continue TPN for nutritional support. Plan for transfer to [facility] once bed is available. Dietary Evaluation Review Comments: Clear Liquid diet with Ensure Clear BID Expected Outcomes/Goals: recovered GI function, gradual wt loss, Plan discussed with: Patient, Other SAIMA GUERRERO NP Jan 31, 2025 11:22
--- NOTE | 2025-01-31 15:09 | DVHPN2 ---
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 She had diagnosis and management of ovarian cancer in 2022 Her last colonoscopy was almost 10 years ago CEA level normal less than 0.5, CA 125 mildly elevated to 16.9 vital signs Vital Sign Date Time Temp Pulse Resp B/P (MAP) Pulse Ox O2 Delivery O2 Flow Rate FiO2 01/31/25 13:33 74 18 113/71 01/31/25 08:00 98.4 96 98.4 01/30/25 19:51 Room Air* 0 21 Total Intake and Output 01/30/25 01/30/25 01/31/25 15:00 23:00 07:00 Intake Total 2550 ml 300 ml Balance 2550 ml 300 ml medications Current Medications Medications Dose Ordered Sig/Earl Route Start Time Stop Time Status Last Admin Dose Admin Pantoprazole Sodium 40 mg BID IV 01/04/25 10:00 01/31/25 09:23 40 MG Nitroglycerin 0.4 mg Q5MINP PRN SL 01/04/25 09:45 Vancomycin HCl 0 ml @ 0 mls/hr UD IV 01/04/25 10:00 Cancel Sodium Chloride 1,000 ml @ 75 mls/hr [id number] IV 01/04/25 10:00 01/29/25 23:20 75 MLS/HR Lorazepam 1 mg BID PRN PO 01/04/25 10:00 Hold 01/19/25 22:06 1 MG Atenolol 50 mg BID PO 01/04/25 10:00 01/31/25 09:31 50 MG Diphenhydramine HCl 25 mg Q8HP PRN IV 01/04/25 10:00 01/28/25 15:32 25 MG Polyethylene Glycol 17 gm DAILY PO 01/04/25 12:45 01/28/25 11:30 17 GM Levofloxacin/ Dextrose 100 ml @ 100 mls/hr DAILY IV 01/08/25 10:00 Cancel Sodium Chloride 10 ml QSHIFT@10,22 IV 01/11/25 22:00 01/31/25 09:31 10 ML Metronidazole 500 mg Q8HR IV 01/19/25 22:00 Cancel Metronidazole 100 ml @ 100 mls/hr Q8HR IV 01/19/25 22:00 01/31/25 14:29 100 MLS/HR Diagnostic Test (Pha) 1 strip Q6HR 01/20/25 00:00 01/31/25 11:14 1 STRIP Insulin Human Regular FOLLOW SLIDING SCALE Q6HR SC 01/20/25 00:00 01/27/25 07:05 4 UNITS Dextrose 50 ml UD IV 01/19/25 22:00 Amino Acids 0 ml @ 0 mls/hr PER PHARMACY IV 01/22/25 11:00 Ondansetron HCl 2 mg Q4HPRN PRN IV 01/22/25 17:30 01/31/25 06:06 2 MG Lorazepam 0.25 mg Q6HP PRN IV 01/24/25 19:15 Vancomycin HCl 0 ml @ 0 mls/hr UD IV 01/26/25 20:00 Ceftriaxone Sodium/Dextrose 50 ml @ 50 mls/hr Q12HR IV 01/26/25 22:00 01/31/25 10:00 50 MLS/HR Hydromorphone HCl 1.5 mg Q3HPRN PRN IV 01/29/25 14:30 01/31/25 13:03 1.5 MG Vancomycin HCl 250 ml @ 166.667 mls/hr Q8H IV 01/30/25 16:30 01/31/25 08:30 166.667 MLS/HR Fat Emulsion Intravenous 150 ml/Potassium Acetate 20 meq/ Potassium Phosphate 22 meq/ Calcium Gluconate 6.975 meq/ Magnesium Sulfate 16 meq/ Multivitamins 10 ml/Chromium/ Copper/Manganese/ Zinc 1 ml/Amino Acids/Dextrose 1,395 ml @ 58 mls/hr Q24H4M IV 01/30/25 22:00 01/31/25 21:59 01/30/25 21:30 58 MLS/HR objective General: Alert, not in acute distress. * Abdomen: Soft, non-distended, mild LLQ tenderness, drain in place with sanguineous output. No peritoneal signs. * Drain Site: No erythema or purulent drainage, flushed per protocol. laboratory and microbiology Laboratory Tests 01/30/25 07:35 Test 01/30/25 07:35 Range/Units Serum Glucose 127 H 74-106 mg/dL Problems(with codes): (1) Pelvic abscess in female (2) Hepatic steatosis (3) Ovarian cancer (4) Abdominal mass (5) Acute abdominal pain (6) Bright red blood per rectum (7) Intra-abdominal abscess Prognosis Plan Awaiting transfer to [facility] or [facility] for higher level of care and possible surgical intervention Awaiting bed availability; [facility] authorization Prognosis remains guarded Patient will follow up in my office in six months to discuss elective colonoscopy once medically stabilized from current medical condition Dietary Evaluation Review Comments: Clear Liquid diet with Ensure Clear BID Expected Outcomes/Goals: recovered GI function, gradual wt loss, Plan discussed with: Patient PEPE BRADSHAW MD Jan 31, 2025 15:09
[2025-01-31] MEDS: LORazepam 2MG/ML-1ML VIAL IV PRN (15:32)
[2025-01-31 15:50] LABS: Alkaline Phosphatase 71 U/L (46-116); Anion Gap 10 (5-15); BUN/Creatinine Ratio 19.5 (10.0-20.0); Carbon Dioxide 24 mmol/L (20-31); Chloride 107 mmol/L (98-107); Glucose 99 mg/dL (74-106); Magnesium 1.7 mg/dL (1.6-2.6); Potassium 3.7 mmol/L (3.5-5.1); Sodium 141 mmol/L (136-145)
[2025-01-31 15:51] LABS: Alanine Aminotransferase < 9 U/L (7-40); Albumin 2.8 g/dL (3.2-4.8); Bilirubin, Total 0.3 mg/dL (0.2-1.0); Blood Urea Nitrogen 8 mg/dL (9-23); Calcium 7.9 mg/dL (8.7-10.4); Total Protein 5.0 g/dL (5.7-8.2)
[2025-01-31] MEDS ORDERED: CATHFLO ACTIVASE (ALTEPLASE) 2 MG VIAL IV ONE (17:45)
[2025-01-31] MEDS: AMINO ACID INFUSION IN D10W 1,000 ML IV SCH (21:36)
[2025-01-31] MEDS: VANCOMYCIN 1.5GM/250ML 250 ML IV SCH (23:18)
[2025-02-01] VITALS (8 sets, daily range): BP systolic 114–132; BP diastolic 68–86; PULSE 73–85; RESP 16–18; TEMP 98.2–99.1; O2SAT 97–100
[2025-02-01 07:15] LABS: Alkaline Phosphatase 64 U/L (46-116); Anion Gap 8 (5-15); Carbon Dioxide 23 mmol/L (20-31); Magnesium 1.7 mg/dL (1.6-2.6); Potassium 3.8 mmol/L (3.5-5.1); Sodium 140 mmol/L (136-145)
[2025-02-01 07:16] LABS: Bilirubin, Total 0.3 mg/dL (0.2-1.0)
[2025-02-01 07:32] LABS: Alanine Aminotransferase < 9 U/L (7-40); Albumin 2.8 g/dL (3.2-4.8); BUN/Creatinine Ratio 11.4 (10.0-20.0); Blood Urea Nitrogen < 5 mg/dL (9-23); Calcium 8.0 mg/dL (8.7-10.4); Chloride 109 mmol/L (98-107); Glucose 118 mg/dL (74-106); Total Protein 5.0 g/dL (5.7-8.2)
--- NOTE | 2025-02-01 12:24 | DVHPN2 ---
Progress Note - Dictate Date Seen: Feb 01, 2025 Has the PT tested + for MRSA If YES, has PT been informed?: No Medical Necessity Reason Pt with a Central, PICC or Fol: Yes vital signs Vital Sign Date Time Temp Pulse Resp B/P (MAP) Pulse Ox O2 Delivery O2 Flow Rate FiO2 02/01/25 09:45 77 18 122/84 02/01/25 08:33 98.2 97 98.2 01/31/25 20:25 Room Air* 0 21 Total Intake and Output 01/31/25 01/31/25 02/01/25 15:00 23:00 07:00 Intake Total 50 ml 1000 ml 400 ml Balance 50 ml 1000 ml 400 ml medications Current Medications Medications Dose Ordered Sig/Earl Route Start Time Stop Time Status Last Admin Dose Admin Pantoprazole Sodium 40 mg BID IV 01/04/25 10:00 02/01/25 10:46 40 MG Nitroglycerin 0.4 mg Q5MINP PRN SL 01/04/25 09:45 Vancomycin HCl 0 ml @ 0 mls/hr UD IV 01/04/25 10:00 Cancel Sodium Chloride 1,000 ml @ 75 mls/hr [id number] IV 01/04/25 10:00 02/01/25 04:40 75 MLS/HR Lorazepam 1 mg BID PRN PO 01/04/25 10:00 Hold 01/19/25 22:06 1 MG Atenolol 50 mg BID PO 01/04/25 10:00 01/31/25 21:32 50 MG Diphenhydramine HCl 25 mg Q8HP PRN IV 01/04/25 10:00 01/28/25 15:32 25 MG Polyethylene Glycol 17 gm DAILY PO 01/04/25 12:45 02/01/25 10:46 17 GM Levofloxacin/ Dextrose 100 ml @ 100 mls/hr DAILY IV 01/08/25 10:00 Cancel Sodium Chloride 10 ml QSHIFT@10,22 IV 01/11/25 22:00 02/01/25 05:48 10 ML Metronidazole 500 mg Q8HR IV 01/19/25 22:00 Cancel Metronidazole 100 ml @ 100 mls/hr Q8HR IV 01/19/25 22:00 02/01/25 05:58 100 MLS/HR Diagnostic Test (Pha) 1 strip Q6HR 01/20/25 00:00 02/01/25 05:58 1 STRIP Insulin Human Regular FOLLOW SLIDING SCALE Q6HR SC 01/20/25 00:00 01/27/25 07:05 4 UNITS Dextrose 50 ml UD IV 01/19/25 22:00 Amino Acids 0 ml @ 0 mls/hr PER PHARMACY IV 01/22/25 11:00 Ondansetron HCl 2 mg Q4HPRN PRN IV 01/22/25 17:30 02/01/25 09:45 2 MG Lorazepam 0.25 mg Q6HP PRN IV 01/24/25 19:15 02/01/25 10:46 0.25 MG Vancomycin HCl 0 ml @ 0 mls/hr UD IV 01/26/25 20:00 Ceftriaxone Sodium/Dextrose 50 ml @ 50 mls/hr Q12HR IV 01/26/25 22:00 02/01/25 10:48 50 MLS/HR Hydromorphone HCl 1.5 mg Q3HPRN PRN IV 01/29/25 14:30 02/01/25 09:45 1.5 MG Amino Acids/ Electrolytes/ Dextrose 1,000 ml @ 41 mls/hr DAILY@2200 IV 01/31/25 22:00 02/01/25 21:59 01/31/25 21:36 41 MLS/HR Vancomycin HCl 250 ml @ 166.667 mls/hr Q12H IV 01/31/25 22:00 01/31/25 23:18 166.667 MLS/HR Fat Emulsion Intravenous 150 ml/Potassium Acetate 20 meq/ Potassium Phosphate 22 meq/ Calcium Gluconate 6.975 meq/ Magnesium Sulfate 18 meq/ Multivitamins 10 ml/Chromium/ Copper/Manganese/ Zinc 1 ml/Amino Acids/Dextrose 1,395.5 ml @ 58 mls/hr Q24H4M IV 02/01/25 22:00 02/02/25 21:59 objective General Appearance: alert, no distress HEENT: EOMI, PERRLA, normal external inspect of ears, no icterus, no nasal drainage Neck: no carotid bruit, no jugular venous distention (JVD), no lymphadenopathy Chest: normal thorax Respiratory: clear to auscultation, normal air movement Cardiovascular: regular rate and rhythm, no diastolic murmur, no jugular venous distention (JVD), no rub, no systolic murmur Abdominal: soft, no hepatomegaly, no mass, no splenomegaly, no tenderness Genitourinary: grossly normal external Musculoskeletal: no joint tenderness, no swelling Extremities: normal pulses, no calf tenderness, no clubbing, no cyanosis, no edema Skin: no bruising, no jaundice, no rash Neurological: alert, No focal deficit laboratory and microbiology Laboratory Tests 02/01/25 06:00 01/30/25 07:35 Test 02/01/25 06:00 Range/Units Serum Glucose 118 H 74-106 mg/dL Problem List 1. Rectal Bleed GI Consult, Hold blood thinners 2. Hemorrhoids Medication, GI consult 3. Morbid Obesity Diet Education, monitoring 4. Chronic constipation Cathartics, monitoring 5.Sepsis Antibiotics, ID consult 6.Diverticular abscess IR consult for drainage, IV antibiotics Assessment/Plan Subjective: Patient is awake and alert. Objective: Waiting on higher level of care transfer for adenocarcinoma status post biopsy of abdominal mass. Patient was admitted for sepsis related to diverticular abscess. Patient was seen by infectious disease as well as GI and general surgery. Patient has a previous history of ovarian cancer status postchemotherapy. Contacted [facility] for available bed as well as [facility]. Plan: Continue antibiotics as ordered by ID. Start clear liquid diet and continue current pain medication regimen Dietary Evaluation Review Comments: Clear Liquid diet with Ensure Clear BID Expected Outcomes/Goals: recovered GI function, gradual wt loss, Plan discussed with: Patient, Other SAIMA GUERRERO NP Feb 01, 2025 12:24
[2025-02-01] MEDS: TPN PER PHARMACY IV NR (22:15)
[2025-02-02] VITALS (8 sets, daily range): BP systolic 105–125; BP diastolic 62–78; PULSE 68–82; RESP 16–20; TEMP 36.9; O2SAT 95–98
[2025-02-02 06:30] LABS: Hematocrit 29.8 % (36.0-46.0); Hemoglobin 9.8 g/dL (12.2-16.2); Mean Corpuscular Hemoglobin 30.0 pg (28.0-32.0); Mean Corpuscular Volume 91.3 fL (80.0-100.0); Nucleated Red Blood Cells % 0.0 %
[2025-02-02 06:52] LABS: Alkaline Phosphatase 68 U/L (46-116); Anion Gap 9 (5-15); Carbon Dioxide 23 mmol/L (20-31); Magnesium 1.7 mg/dL (1.6-2.6); Potassium 3.5 mmol/L (3.5-5.1); Sodium 140 mmol/L (136-145)
[2025-02-02 06:53] LABS: Alanine Aminotransferase < 9 U/L (7-40); Albumin 2.7 g/dL (3.2-4.8); BUN/Creatinine Ratio 11.9 (10.0-20.0); Bilirubin, Total 0.2 mg/dL (0.2-1.0); Blood Urea Nitrogen < 5 mg/dL (9-23); Calcium 8.0 mg/dL (8.7-10.4); Chloride 108 mmol/L (98-107); Glucose 106 mg/dL (74-106); Total Protein 5.0 g/dL (5.7-8.2)
[2025-02-02] MEDS: VANCOMYCIN 1.5GM/250ML 250 ML IV SCH (09:36)
--- NOTE | 2025-02-02 11:32 | DVHPN2 ---
Progress Note - Dictate Has the PT tested + for MRSA If YES, has PT been informed?: No Medical Necessity Reason Pt with a Central, PICC or Fol: Yes vital signs Vital Sign Date Time Temp Pulse Resp B/P (MAP) Pulse Ox O2 Delivery O2 Flow Rate FiO2 02/02/25 09:28 75 112/74 02/02/25 09:25 18 02/02/25 09:00 98.4 95 98.4 02/02/25 08:00 Room Air* 0 21 Total Intake and Output 02/01/25 02/01/25 02/02/25 15:00 23:00 07:00 Intake Total 369 ml 290 ml 1250 ml Balance 369 ml 290 ml 1250 ml medications Current Medications Medications Dose Ordered Sig/Earl Route Start Time Stop Time Status Last Admin Dose Admin Pantoprazole Sodium 40 mg BID IV 01/04/25 10:00 02/02/25 09:27 40 MG Nitroglycerin 0.4 mg Q5MINP PRN SL 01/04/25 09:45 Vancomycin HCl 0 ml @ 0 mls/hr UD IV 01/04/25 10:00 Cancel Sodium Chloride 1,000 ml @ 75 mls/hr [id number] IV 01/04/25 10:00 02/01/25 17:23 75 MLS/HR Lorazepam 1 mg BID PRN PO 01/04/25 10:00 Hold 01/19/25 22:06 1 MG Atenolol 50 mg BID PO 01/04/25 10:00 02/02/25 09:28 50 MG Diphenhydramine HCl 25 mg Q8HP PRN IV 01/04/25 10:00 01/28/25 15:32 25 MG Polyethylene Glycol 17 gm DAILY PO 01/04/25 12:45 02/01/25 10:46 17 GM Levofloxacin/ Dextrose 100 ml @ 100 mls/hr DAILY IV 01/08/25 10:00 Cancel Sodium Chloride 10 ml QSHIFT@10,22 IV 01/11/25 22:00 02/02/25 09:29 10 ML Metronidazole 500 mg Q8HR IV 01/19/25 22:00 Cancel Metronidazole 100 ml @ 100 mls/hr Q8HR IV 01/19/25 22:00 02/02/25 05:57 100 MLS/HR Diagnostic Test (Pha) 1 strip Q6HR 01/20/25 00:00 02/02/25 06:01 1 STRIP Insulin Human Regular FOLLOW SLIDING SCALE Q6HR SC 01/20/25 00:00 01/27/25 07:05 4 UNITS Dextrose 50 ml UD IV 01/19/25 22:00 Amino Acids 0 ml @ 0 mls/hr PER PHARMACY IV 01/22/25 11:00 Ondansetron HCl 2 mg Q4HPRN PRN IV 01/22/25 17:30 02/02/25 05:59 2 MG Lorazepam 0.25 mg Q6HP PRN IV 01/24/25 19:15 02/02/25 03:51 0.25 MG Vancomycin HCl 0 ml @ 0 mls/hr UD IV 01/26/25 20:00 Ceftriaxone Sodium/Dextrose 50 ml @ 50 mls/hr Q12HR IV 01/26/25 22:00 02/01/25 20:54 50 MLS/HR Hydromorphone HCl 1.5 mg Q3HPRN PRN IV 01/29/25 14:30 02/02/25 09:25 1.5 MG Fat Emulsion Intravenous 150 ml/Potassium Acetate 20 meq/ Potassium Phosphate 22 meq/ Calcium Gluconate 6.975 meq/ Magnesium Sulfate 18 meq/ Multivitamins 10 ml/Chromium/ Copper/Manganese/ Zinc 1 ml/Amino Acids/Dextrose 1,395.5 ml @ 58 mls/hr Q24H4M IV 02/01/25 22:00 02/02/25 21:59 02/01/25 22:15 58 MLS/HR Vancomycin HCl 250 ml @ 166.667 mls/hr Q8H IV 02/02/25 10:00 02/02/25 09:36 166.667 MLS/HR Fat Emulsion Intravenous 150 ml/Potassium Acetate 26 meq/ Potassium Phosphate 22 meq/ Calcium Gluconate 6.975 meq/ Magnesium Sulfate 20 meq/ Multivitamins 10 ml/Chromium/ Copper/Manganese/ Zinc 1 ml/Amino Acids/Dextrose 1,399 ml @ 58 mls/hr Q24H8M IV 02/02/25 22:00 02/03/25 21:59 objective General Appearance: alert, no distress HEENT: EOMI, PERRLA, normal external inspect of ears, no icterus, no nasal drainage Neck: no carotid bruit, no jugular venous distention (JVD), no lymphadenopathy Chest: normal thorax Respiratory: clear to auscultation, normal air movement Cardiovascular: regular rate and rhythm, no diastolic murmur, no jugular venous distention (JVD), no rub, no systolic murmur Abdominal: soft, no hepatomegaly, no mass, no splenomegaly, no tenderness Genitourinary: grossly normal external Musculoskeletal: no joint tenderness, no swelling Extremities: normal pulses, no calf tenderness, no clubbing, no cyanosis, no edema Skin: no bruising, no jaundice, no rash Neurological: alert, No focal deficit laboratory and microbiology Laboratory Tests 02/02/25 05:02 Test 02/02/25 05:02 Range/Units Serum Glucose 106 74-106 mg/dL Problem List 1. Rectal Bleed GI Consult, Hold blood thinners 2. Hemorrhoids Medication, GI consult 3. Morbid Obesity Diet Education, monitoring 4. Chronic constipation Cathartics, monitoring 5.Sepsis Antibiotics, ID consult 6.Diverticular abscess IR consult for drainage, IV antibiotics Assessment/Plan Subjective: Patient is awake and alert. Objective: Waiting on higher level of care transfer for adenocarcinoma status post biopsy of abdominal mass. Patient was admitted for sepsis related to diverticular abscess. Patient was seen by infectious disease as well as GI and general surgery. Patient has a previous history of ovarian cancer status postchemotherapy. Contacted [facility] for available bed as well as [facility]. Plan: Continue antibiotics as ordered by ID. Start clear liquid diet and continue current pain medication regimen Dietary Evaluation Review Comments: Clear Liquid diet with Ensure Clear BID Expected Outcomes/Goals: recovered GI function, gradual wt loss, SAIMA GUERRERO NP Feb 02, 2025 11:32
--- NOTE | 2025-02-02 20:21 | DVHDS2 ---
Discharge Summary Date of Admission Jan 04, 2025 at 09:42 Date of Discharge: Feb 02, 2025 Labs/Diagnostic Data: Laboratory Results Test 02/02/25 11:39 02/02/25 05:02 02/01/25 20:59 01/30/25 07:35 POC Glucose 95 mg/dl (70-106) White Blood Count 12.9 10^3/uL (4.4-10.8) Red Blood Count 3.27 10^6/uL (4.0-5.20) Hemoglobin 9.8 g/dL (12.2-16.2) Hematocrit 29.8 % (36.0-46.0) Mean Corpuscular Volume 91.3 fL (80.0-100.0) Mean Corpuscular Hemoglobin 30.0 pg (28.0-32.0) Mean Corpuscular Hemoglobin Concent 32.9 g/dL (32.0-36.0) Red Cell Distribution Width 16.2 % (11.8-14.3) Platelet Count 329 10^3/uL (140-450) Mean Platelet Volume 7.7 fL (6.9-10.8) Neutrophils (%) (Auto) 67.1 % (37.0-80.0) Lymphocytes (%) (Auto) 19.2 % (10.0-50.0) Monocytes (%) (Auto) 8.0 % (0.0-12.0) Eosinophils (%) (Auto) 4.8 % (0.0-7.0) Basophils (%) (Auto) 0.9 % (0.0-2.0) Neutrophils # (Auto) 8.6 10 ^3/uL (1.6-8.6) Lymphocytes # (Auto) 2.5 10 ^3/uL (0.4-5.4) Monocytes # (Auto) 1.0 10 ^3/uL (0-1.3) Eosinophils # (Auto) 0.6 10 ^3/uL (0-0.8) Basophils # (Auto) 0.1 10 ^3/uL (0-0.2) Nucleated Red Blood Cells 0.0 % Sodium Level 140 mmol/L (136-145) Potassium Level 3.5 mmol/L (3.5-5.1) Chloride Level 108 mmol/L (98-107) Carbon Dioxide Level 23 mmol/L (20-31) Anion Gap 9 (5-15) Blood Urea Nitrogen < 5 mg/dL (9-23) Creatinine 0.42 mg/dL (0.550-1.02) Glomerular Filtration Rate Calc 119 mL/min (>90) BUN/Creatinine Ratio 11.9 (10.0-20.0) Serum Glucose 106 mg/dL (74-106) Calcium Level 8.0 mg/dL (8.7-10.4) Phosphorus Level 3.0 mg/dL (2.4-5.1) Magnesium Level 1.7 mg/dL (1.6-2.6) Total Bilirubin 0.2 mg/dL (0.2-1.0) Aspartate Amino Transferase (AST) 14 U/L (13-40) Alanine Aminotransferase (ALT) < 9 U/L (7-40) Alkaline Phosphatase 68 U/L (46-116) Total Protein 5.0 g/dL (5.7-8.2) Albumin 2.7 g/dL (3.2-4.8) Vancomycin Level Trough 4.9 ug/mL (5-10) Triglycerides Level 104 mg/dL (< 150) Test 01/19/25 11:08 01/17/25 09:48 01/11/25 10:49 01/04/25 09:46 CA 125 Antigen 16.9 U/mL (0.0-38.1) Carcinoembryonic Antigen < 0.50 ng/mL (<=5.0) Prothrombin Time 12.4 sec (9.3-11.8) Prothrombin Time INR 1.19 (0.9-1.15) Activated Partial Thromboplast Time 28.8 SEC (24.5-34.5) Urine Color Yellow (Yellow) Urine Clarity Turbid (Clear) Urine pH 5.5 (5.0-9.0) Urine Specific [place] 1.022 (1.001-1.035) Urine Protein Negative (Negative) Urine Ketones Negative (Negative) Urine Blood Negative /uL (Negative) Urine Nitrite Negative (Negative) Urine Bilirubin Negative (Negative) Urine Urobilinogen 3 mg/dL (Negative) Urine Leukocyte Esterase Negative /uL (Negative) Urine RBC 2 /hpf (0 - 4) Urine Microscopic WBC 2 /HPF (0-5) Urine Squamous Epithelial Cells Mod /hpf (<5) Urine Bacteria None seen /hpf (None Seen) Urine Mucus Few (None Seen) Urine Glucose Normal mg/dL (Normal) Test 01/04/25 09:41 01/04/25 05:58 Lactic Acid Level 1.3 mmol/L (0.4-2.0) Lipase 33 U/L (12-53) Other Laboratory Tests 02/02/25 05:02 Brief Hx & Hospital Course: Patient is a 49 y/o female presenting to the ED with a CC of abdominal pain and rectal bleeding x 2 weeks. Patient has a PMHx of ovarian cancer, diverticulosis, and hemorrhoids. Patient reports that her abdominal pain is nonradiating and that the rectal bleed is occurring every day. Patient states that she is not currently receiving chemotherapy for her cancer. No other symptoms at this time. Patient was admitted on 01/04/2025 for abdominal pain. Patient has a history of ovarian cancer in [address] imaging showed fluid collection and possible abscess to her abdomen. Patient was seen by gastroenterology, general surgery, and infectious disease. Patient is status post drainage of abscess by IR. Accordion drain was placed. Patient found to have a diverticular abscess. Patient was found to be septic. Patient was started on IV antibiotics. Patient is status post biopsy of abdominal mass. After radiology reassess for possible repeat drainage when radiology stated mass was solid. Biopsy was done which revealed a high-grade adenocarcinoma. 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 Patient is currently n.p.o. and on TPN for nutritional support. Patient was okayed for clear liquid diet by general surgeon Dr. Kothari. Patient was transferred to [facility] for continued care and evaluation of high-grade adenocarcinoma noted in abdominal mass with likely gynecological origin. The patient received proper medical treatment and medications. Vital signs, Imaging and Laboratory Work was monitored daily. All consults recommendations were followed as provided. There were no complaints or new complaints upon discharge, all questions and concerns were answered. Patient was advised to return to the ER or call 911 if any headaches, dizziness, shortness of breath, chest pain, bleeding, fevers, or worsening of medical condition. Patient/Family was counseled about treatment plan, medications, possible side effects, patient verbalized understanding. All questions were answered to the best of my ability. The patient symptoms improved and they are okay to be DC. Condition at Discharge: Stable Final Diagnosis/Problems List ABDOMINAL ABCESS ADENOCARCINOMA Rectal bleed Hemorrhoids Morbid obesity Chronic constipation Sepsis Diverticular abscess Discharge Disposition: Acute Care Facility Discharge Instruct/Medications Diet: See Comment Diet comment: TPN Activity: No Restrictions, As Tolerated Follow Up/Referral: Follow up with PCP Medications: VIEW TRANSFER PAPERWORK Scheduled Hydrocortisone Acetate (Anucort-Hc Suppository), 25 MG SC Q12HR Loratadine (Claritin), 1 TAB PO DAILY Lorazepam (Ativan), 1 TAB PO DAILY, (Reported) Scheduled PRN Lactulose (Lactulose), 10 GM PO BIDP PRN Oxycodone W/ Acetaminophen (Percocet 5/325MG), 1 TAB PO Q6HP PRN Miscellaneous Medications Atenolol (Atenolol), (Reported) Diphenhydramine Hcl (Benadryl), (Reported) Discharge Statement: "Patient was advised to return to the ER or call 911 if any headaches, dizziness, shortness of breath, chest pain, abdominal pain, bleeding, fevers, or worsening of medical condition. Patient was counseled about treatment plan, medications, possible side effects, patientverbalized understanding. All questions were answered to the best of my ability. This discharge took greater then 30 minutes in planning, reviewing documentation, counseling the patient, and discussing with other team members." ASSESSMENT ASSESSMENT Assessment ABDOMINAL ABCESS ADENOCARCINOMA SAIMA GUERRERO NP Feb 02, 2025 20:21
[2025-02-02] MEDS ORDERED: TPN PER PHARMACY IV NR (22:00)
== END 2025-02-02 18:20 | disposition short-term general hospital (02) | DRG 720 ==
LOC: ER 05:19 → OVERFLOW 09:42 → TELE-EAST 21:13 → TELE-WESTW 01-05 22:50 → TELE-CENTR 01-09 23:59 → TELE-WESTW 01-14 20:17 → TELE-CENTR 01-21 12:54
PROVIDERS: ADMIT Nurse Practitioner; ATTEND Nurse Practitioner
PROC: 0D9N30Z Drainage of Sigmoid Colon with Drainage Device, Percutaneous Approach (ICD-10-PCS; 2025-01-05)
PROC: 02HV33Z Insertion of Infusion Device into Superior Vena Cava, Percutaneous Approach (ICD-10-PCS; 2025-01-11)
PROC: B548ZZA Ultrasonography of Superior Vena Cava, Guidance (ICD-10-PCS; 2025-01-11)
PROC: 02HV33Z Insertion of Infusion Device into Superior Vena Cava, Percutaneous Approach (ICD-10-PCS; 2025-01-13)
PROC: B548ZZA Ultrasonography of Superior Vena Cava, Guidance (ICD-10-PCS; 2025-01-13)
PROC: 0WBF3ZX Excision of Abdominal Wall, Percutaneous Approach, Diagnostic (ICD-10-PCS; principal; 2025-01-23)
DX: A41.9 Sepsis, unspecified organism (principal); K65.1 Peritoneal abscess; K57.21 Diverticulitis of large intestine with perforation and abscess with bleeding; K76.0 Fatty (change of) liver, not elsewhere classified; L03.311 Cellulitis of abdominal wall; E66.01 Morbid (severe) obesity due to excess calories; I10 Essential (primary) hypertension; Z68.41 Body mass index [BMI] 40.0-44.9, adult; K64.9 Unspecified hemorrhoids; D75.839 Thrombocytosis, unspecified; K59.09 Other constipation; K43.9 Ventral hernia without obstruction or gangrene; K42.9 Umbilical hernia without obstruction or gangrene; S30.821A Blister (nonthermal) of abdominal wall, initial encounter; Z88.5 Allergy status to narcotic agent; Z92.21 Personal history of antineoplastic chemotherapy; Z22.322 Carrier or suspected carrier of Methicillin resistant Staphylococcus aureus; Z90.710 Acquired absence of both cervix and uterus; Z87.442 Personal history of urinary calculi; Z85.6 Personal history of leukemia; Z85.43 Personal history of malignant neoplasm of ovary; Z83.3 Family history of diabetes mellitus; Z82.49 Family history of ischemic heart disease and other diseases of the circulatory system; Z80.6 Family history of leukemia; Z90.49 Acquired absence of other specified parts of digestive tract; X58.XXXA Exposure to other specified factors, initial encounter; Y93.9 Activity, unspecified; Y92.89 Other specified places as the place of occurrence of the external cause; Y99.8 Other external cause status
CPT/HCPCS: 10005; 36415; 36569; 71045; 74150; 74176; 74177; 76937; 76942; 77012; 80048; 80053; 80202; 81001; 82378; 82962; 83605; 83690; 83735; 84100; 84478; 85025; 85610; 85730; 86304; 86850; 86900; 86901; 87040; 87077; 87081; 87186; 87205; 96361; 96365; 96366; 96367; 97163; 99291; G0378; J1642; J1815; J1885; J2003; J2250; J2405; J2470; J2543; J3490; J7131

== ENCOUNTER 2025-02-15 21:47 | Inpatient (IN) | payer MEDICAID ==
[~2025-02-15] VITALS: Ht 167.6 cm; Wt 128.3 kg
[2025-02-16] VITALS (8 sets, daily range): BP systolic 124–159; BP diastolic 73–104; PULSE 56–81; RESP 16–20; TEMP 97.3–98.5; O2SAT 94–98
--- NOTE | 2025-02-16 01:27 | DVHHP2 ---
Admitting Diagnosis: high-grade adenocarcinoma History of Present Illness 49 year old female patient was readmitted from [facility]. Patient was transferred due to high-grade adenocarcinoma. She states her mass was as large as a basketball. Patient had surgery around February 07 or . She required 3 units of blood. The surgeon also took multiple new masses that have developed and she was a CODE BLUE in the recovery room. Patient stat ed she was reintubated right after surgery. Patient was now transferred back currently on antibiotics and vancomycin and Zosyn. Patient Family History: FH: leukemia G8 MOTHER, G8 FATHER, , Onset:60 years & older Hypertension G8 MOTHER, (htn/unk year) G8 FATHER, Other blood disorders G8 FATHER, (leukemia,unk year) Allergies: Coded Allergies: Morphine (Verified Allergy, Unknown, 03/16/22) Home Meds Active Scripts Oxycodone W/ Acetaminophen (Percocet 5/325MG) 1 Tab Tb, 1 TAB PO Q6HP PRN for 5 Days, #20 TAB Prov:SAIMA GUERRERO DISPATCH MACHINE RUNNER 04/07/23 Hydrocortisone Acetate (ANUCORT-HC SUPPOSITORY) 25 Mg [place], 25 MG CO Q12HR for 15 Days, #30 SUPP Prov:FALLONJHONY MCKEONSANTOS Varela DISPATCH MACHINE RUNNER 02/05/23 Lactulose (Lactulose) 10 Gm/15 Ml [place], 10 GM PO BIDP PRN, #300 ML Prov:ENRRIQUE RAMIREZ PAC 12/27/22 Loratadine (Claritin) 10 Mg Tab, 1 TAB PO DAILY, #30 TAB 0 Refills Prov:ENRRIQUE RAMIREZ PAC 12/27/22 Reported Medications Lorazepam (Ativan) 0.5 Mg Tab, 1 TAB PO DAILY, #30 TAB 09/08/23 Diphenhydramine Hcl (Benadryl) 25 Mg Cap 12/18/10 Atenolol (Atenolol) 100 Mg Tab 12/18/10 Current Medications Current Medications Medications (Trade) Dose Ordered Sig/Earl Route PRN Reason Start Time Stop Time Status Last Admin Sodium Chloride 1,000 ml @ 60 mls/hr [id number] IV 02/16/25 01:30 02/16/25 10:20 DC 02/16/25 04:41 Acetaminophen/ Hydrocodone Bitart ([place] 5/325MG Tab) 1 tab Q4HP PRN PO MODERATE PAIN (4-6 PAIN SCALE) 02/16/25 01:30 02/16/25 03:41 DC Temazepam (Restoril) 15 mg QHSP PRN PO FOR INSOMNIA 02/16/25 01:30 Ondansetron HCl (Zofran) 4 mg Q4HP PRN IV NAUSEA / VOMITING 02/16/25 01:30 Docusate Sodium (Colace Capsule) 100 mg BIDPRN PRN PO FOR CONSTIPATION 02/16/25 01:30 Enoxaparin Sodium (Lovenox) 40 mg DAILY SC 02/16/25 10:00 Acetaminophen (Tylenol Tablet) 650 mg Q6HP PRN PO PAIN SCALE 1-3 OR TEMP>100.4 02/16/25 01:30 Hydromorphone HCl (Dilaudid Injection) 1 mg Q3HPRN PRN IV SEVERE PAIN (7-10 PAIN SCALE) 02/16/25 01:30 02/16/25 12:39 DC 02/16/25 11:42 Nitroglycerin (Ntrostat Sublingual) 0.4 mg Q5MINP PRN SL FOR CHEST PAIN 02/16/25 01:30 Morphine Sulfate 2 mg Q30M PRN IV FOR CHEST PAIN 02/16/25 01:30 Hold Vancomycin HCl 0 ml @ 0 mls/hr UD IV 02/16/25 01:30 Piperacillin Sod/ Tazobactam Sod 100 ml @ 25 mls/hr Q8H IV 02/16/25 12:00 02/16/25 13:15 Oxycodone/ Acetaminophen (Percocet 5/ 325MG Tablet) 1 tab Q6HP PRN PO MODERATE PAIN (4-6 PAIN SCALE) 02/16/25 01:30 02/16/25 15:15 Docusate Sodium (Colace Capsule) 100 mg BID PO 02/16/25 10:45 02/16/25 11:48 Vancomycin HCl 250 ml @ 200 mls/hr Q8H IV 02/16/25 17:00 Vital Signs Vital Signs Date Time Temp Pulse Resp B/P (MAP) Pulse Ox O2 Delivery O2 Flow Rate FiO2 02/16/25 13:00 98.5 64 18 156/95 (115) 96 98.5 02/16/25 08:00 Room Air* 0 21 Physical Exam General Appearance: alert, no distress HEENT: EOMI, PERRLA, normal external inspect of ears, no icterus, no nasal drainage Neck: no carotid bruit, no jugular venous distention (JVD), no lymphadenopathy Chest: normal thorax Respiratory: clear to auscultation, normal air movement Cardiovascular: regular rate and rhythm, no diastolic murmur, no jugular venous distention (JVD), no rub, no systolic murmur Abdominal: soft, no hepatomegaly, no mass, no splenomegaly, no tenderness Musculoskeletal: no joint tenderness, no swelling Extremities: normal pulses, no calf tenderness, no clubbing, no cyanosis, no edema Skin: no bruising, no jaundice, no rash Neurological: alert, No focal deficit SEPSIS Sepsis Screen Physician Orders Admit (02/16/25) Code Status (02/16/25) Temazepam (Restoril) (02/16/25:30) Ondansetron Hcl (Zofran) (02/16/25) Enoxaparin Sodium (Lovenox) (02/16/25 10:00) Fall Risk Precautions In Place QSHIFT (02/16/25:) Complete Blood Count (02/17/25 04:00) Comprehensive Metabolic Panel (02/17/25 04:00) Condition: Fair (02/16/25) Acetaminophen Tablet (Tylenol Tablet) (02/16/25:30) Maintain Bed Rest (02/16/25:) Nitroglycerin Sublingual (Ntrostat Subli (02/16/25) Morphine Sulfate Injection (02/16/25:) Stat Ekg For Chest Pain (02/16/25:) Notify Md Of Changes From Base (02/16/25:) Nut And Bolt Assembler For 24 Hours (02/16/25:) Emergency Dysrhythmia Protocol (02/16/25) Rhythm Strips Once Every Shift (02/16/25:) Oxygen By Nasal Cannula (02/16/25) Docusate Sodium Capsule (Colace Capsule) (02/16/25:30) * Infectious [facility]- Dr. Stas Crenshaw (02/16/25:) Vancomycin Per Pharmacy (9/11/25 01:30) Piperacillin-Tazob 3.375gm (Zosyn 3.375g (02/16/25 12:00) Oxycodone W/ Acet 5/325mg Tab (Percocet (02/16/25 01:30) Mrsa Screen (02/16/25 07:00) Pt Request For Service (02/16/25 09:45) * Chopper Operator Consult (02/16/25 ) Chest Portable (02/16/25 10:10) Regular Diet (02/16/25 Lunch) * Wound Consult (02/16/25 ) Docusate Sodium Capsule (Colace Capsule) (02/16/25 10:45) Transfer Orders (02/16/25 12:38) May Draw Blood From [facility] (02/16/25 13:17) Vancomycin 1gm/250ml Kit (02/16/25 17:00) Vancomycin,Trough (02/17/25 08:00) Vancomycin Per Pharmacy Protoc (02/17/25 09:00) Vital Signs Date Time Temp Pulse Resp B/P (MAP) Pulse Ox O2 Delivery O2 Flow Rate FiO2 02/16/25 13:00 98.5 64 18 156/95 (115) 96 98.5 02/16/25 12:12 64 18 156/95 02/16/25 11:42 65 18 150/92 02/16/25 09:04 71 20 142/85 02/16/25 09:00 97.9 72 18 133/89 (104) 98 97.9 02/16/25 08:34 72 18 133/89 02/16/25 08:00 Room Air* 0 21 02/16/25 08:00 81 02/16/25 05:22 80 20 141/95 02/16/25 05:00 97.3 80 20 141/95 (110) 94 97.3 02/16/25 02:14 78 20 139/95 02/16/25 01:44 66 18 145/80 02/16/25 01:42 56 16 96 Room Air* 0 21 02/16/25 01:42 97.5 56 124/73 (90) 96 97.5 02/16/25 01:00 98.2 66 18 145/80 (101) 97 98.2 Laboratory Tests Test 02/16/25 13:18 White Blood Count 17.8 10^3/uL (4.4-10.8) H Medications Medications Dose Ordered Sig/Earl Route Start Time Stop Time Status Last Admin Dose Admin Docusate Sodium 100 mg BID PO 02/16/25 10:45 02/16/25 11:48 Piperacillin Sod/ Tazobactam Sod 100 ml @ 25 mls/hr Q8H IV 02/16/25 12:00 02/16/25 13:15 Results Labs Test 02/16/25 13:18 Range/Units White Blood Count 17.8 H 4.4-10.8 10^3/uL Red Blood Count 3.50 L 4.0-5.20 10^6/uL Hemoglobin 10.4 L 12.2-16.2 g/dL Hematocrit 31.3 L 36.0-46.0 % Mean Corpuscular Volume 89.5 80.0-100.0 fL Mean Corpuscular Hemoglobin 29.6 28.0-32.0 pg Mean Corpuscular Hemoglobin Concent 33.1 32.0-36.0 g/dL Red Cell Distribution Width 16.7 H 11.8-14.3 % Platelet Count 612 H 140-450 10^3/uL Mean Platelet Volume 7.1 6.9-10.8 fL Neutrophils (%) (Auto) 37.0-80.0 % Lymphocytes (%) (Auto) 10.0-50.0 % Monocytes (%) (Auto) 0.0-12.0 % Basophils (%) (Auto) 0.0-2.0 % Neutrophils # (Auto) 1.6-8.6 10 ^3/uL Lymphocytes # (Auto) 0.4-5.4 10 ^3/uL Monocytes # (Auto) 0-1.3 10 ^3/uL Differential Total Cells Counted 100.0 100 Neutrophils % (Manual) 60 37.0-80.0 Band Neutrophils % (Manual) 0 Lymphocytes % (Manual) 21 10.0-50.0 Monocytes % (Manual) 7 0-12 Eosinophils % (Manual) 12 H 0-7 Basophils % (Manual) 0 0.0-2.0 Metamyelocytes % (manual) 0 Myelocytes % (Manual) 0 Promyelocytes % (Manual) 0 Blast Cells % (Manual) 0 Reactive Lymphocytes 0 Platelet Estimate Increased Sodium Level 140 136-145 mmol/L Potassium Level 4.3 3.5-5.1 mmol/L Chloride Level 104 98-107 mmol/L Carbon Dioxide Level 26 20-31 mmol/L Anion Gap 10 5-15 Blood Urea Nitrogen 7 L 9-23 mg/dL Creatinine 0.61 0.550-1.02 mg/dL Glomerular Filtration Rate Calc 109 >90 mL/min BUN/Creatinine Ratio 11.5 10.0-20.0 Serum Glucose 111 H 74-106 mg/dL Calcium Level 9.1 8.7-10.4 mg/dL Phosphorus Level 3.4 2.4-5.1 mg/dL Magnesium Level 1.7 1.6-2.6 mg/dL Total Bilirubin 0.5 0.2-1.0 mg/dL Aspartate Amino Transferase (AST) 26 13-40 U/L Alanine Aminotransferase (ALT) 22 7-40 U/L Alkaline Phosphatase 120 H 46-116 U/L Total Protein 6.4 5.7-8.2 g/dL Albumin 3.6 3.2-4.8 g/dL Admitting Diagnosis: - Recurrent carcinoma of ovary Monitoring - Morbid obesity Diet, exercise - Leukocytosis ID consult, IV antibiotics, monitoring -High-grade adenocarcinoma Monitor -Sepsis from abdominal abscess (diverticular) -Status post colostomy medical staff services manager consult Plan discussed with: Patient, Other SAIMA GUERRERO NP Feb 16, 2025 01:27
[2025-02-16] MEDS ORDERED: NITROGLYCERIN 0.4 MG SL TAB SL PRN (01:30)
[2025-02-16] MEDS ORDERED: HYDROcodone-ACET 5/325MG TAB PO PRN (01:30)
[2025-02-16] MEDS ORDERED: MORPHINE SULFATE INJ 2 MG/ml SYRG IV PRN (01:30)
[2025-02-16] MEDS ORDERED: VANCOMYCIN PER PHARMACY 0 MG IV SCH (01:30)
[2025-02-16] MEDS ORDERED: ACETAMINOPHEN 325 MG TAB PO PRN (01:30)
[2025-02-16] MEDS ORDERED: DOCUSATE SOD 100 MG CAP PO PRN (01:30)
[2025-02-16] MEDS ORDERED: TEMAZEPAM 15 MG CAP PO PRN (01:30)
[2025-02-16] MEDS: SODIUM CHLORIDE 0.9% 1,000 ML IV SCH (01:44)
[2025-02-16] MEDS: HYDROmorphone HCL 2 MG/ML VL/or syr IV PRN (01:44)
[2025-02-16] MEDS: VANCOMYCIN 1GM/250ML IV ONE (04:41)
[2025-02-16] MEDS: PIPERACILLIN-TAZOB 3.375GM 100 ML IV ONE (04:41)
--- NOTE | 2025-02-16 09:47 | DVHPN2 ---
Progress Note - Dictate Date Seen: Feb 16, 2025 Medical Necessity Reason Pt with a Central, PICC or Fol: No vital signs Vital Sign Date Time Temp Pulse Resp B/P (MAP) Pulse Ox O2 Delivery O2 Flow Rate FiO2 02/16/25 08:34 72 18 133/89 02/16/25 05:00 97.3 94 97.3 02/16/25 01:42 Room Air* 0 21 Total Intake and Output 02/15/25 02/15/25 02/16/25 15:00 23:00 07:00 Intake Total 850 ml Balance 850 ml medications Current Medications Medications Dose Ordered Sig/Earl Route Start Time Stop Time Status Last Admin Dose Admin Sodium Chloride 1,000 ml @ 60 mls/hr [id number] IV 02/16/25 01:30 02/16/25 04:41 60 MLS/HR Temazepam 15 mg QHSP PRN PO 02/16/25 01:30 Ondansetron HCl 4 mg Q4HP PRN IV 02/16/25 01:30 Docusate Sodium 100 mg BIDPRN PRN PO 02/16/25 01:30 Enoxaparin Sodium 40 mg DAILY SC 02/16/25 10:00 Acetaminophen 650 mg Q6HP PRN PO 02/16/25 01:30 Hydromorphone HCl 1 mg Q3HPRN PRN IV 02/16/25 01:30 02/16/25 08:34 1 MG Nitroglycerin 0.4 mg Q5MINP PRN SL 02/16/25 01:30 Morphine Sulfate 2 mg Q30M PRN IV 02/16/25 01:30 Hold Vancomycin HCl 0 ml @ 0 mls/hr UD IV 02/16/25 01:30 Piperacillin Sod/ Tazobactam Sod 100 ml @ 25 mls/hr Q8H IV 02/16/25 12:00 Oxycodone/ Acetaminophen 1 tab Q6HP PRN PO 02/16/25 01:30 objective General Appearance: alert, no distress HEENT: EOMI, PERRLA, normal external inspect of ears, no icterus, no nasal drainage Neck: no carotid bruit, no jugular venous distention (JVD), no lymphadenopathy Chest: normal thorax Respiratory: clear to auscultation, normal air movement Cardiovascular: regular rate and rhythm, no diastolic murmur, no jugular venous distention (JVD), no rub, no systolic murmur Abdominal: soft, no hepatomegaly, no mass, no splenomegaly, no tenderness Musculoskeletal: no joint tenderness, no swelling Extremities: normal pulses, no calf tenderness, no clubbing, no cyanosis, no edema Skin: no bruising, no jaundice, no rash Neurological: alert, No focal deficit Problem List - Recurrent carcinoma of ovary Monitoring - Morbid obesity Diet, exercise - Leukocytosis ID consult, IV antibiotics, monitoring -High-grade adenocarcinoma Monitor -Sepsis from abdominal abscess (diverticular) -Status post colostomy human services professional consult Assessment/Plan Subjective Patient is awake and alert. Objective Patient was readmitted from [facility]. Patient was transferred due to high-grade adenocarcinoma. She states her mass was as large as a basketball. Patient had surgery around February 07 or . She required 3 units of blood. The surgeon also took multiple new masses that have developed and she was a CODE BLUE in the recovery room. Patient stated she was reintubated right after surgery. Patient was now transferred back currently on antibiotics and vancomycin and Zosyn. I did reach out to ID for discharge planning. Patient has been afebrile. Patient does have a PICC line and is requesting for discharge planning. Plan Continue current plan. ID recommendations for discharge. Patient is also status post colostomy. Home health will be arranged for colostomy management. Patient also states she will undergo 6 rounds of chemotherapy at [place] per Plan discussed with: Patient, Other SAIMA GUERRERO NP Feb 16, 2025 09:47
[2025-02-16] MEDS: ENOXAPARIN SOD 40 MG/0.4 ML SYRINGE SC SCH (09:55)
--- NOTE | 2025-02-16 11:43 | DVH ---
INDICATION: FOLLOW UP SHORT OF BREATH TECHNIQUE: Frontal view of the chest. COMPARISON: XY CHEST PORTABLE on DOS: 01/04/25, CHEST XRAY 1 VIEW on DOS: 01/20/21 FINDINGS: Right chest port tip in the cavoatrial junction. Left PICC tip in the SVC.. The heart and mediastinal contours are grossly unremarkable. There is no evidence of pleural disease. The lungs are clear. The bony structures of the chest are intact without fracture. IMPRESSION: 1. No evidence of acute disease.
[2025-02-16] MEDS: DOCUSATE SOD 100 MG CAP PO SCH (11:48)
[2025-02-16] MEDS: PIPERACILLIN-TAZOB 3.375GM 100 ML IV SCH (13:15)
[2025-02-16 13:40] LABS: Hematocrit 31.3 % (36.0-46.0); Hemoglobin 10.4 g/dL (12.2-16.2); Mean Corpuscular Hemoglobin 29.6 pg (28.0-32.0); Mean Corpuscular Volume 89.5 fL (80.0-100.0)
[2025-02-16 13:54] LABS: Alanine Aminotransferase 22 U/L (7-40); Albumin 3.6 g/dL (3.2-4.8); Alkaline Phosphatase 120 U/L (46-116); Anion Gap 10 (5-15); BUN/Creatinine Ratio 11.5 (10.0-20.0); Blood Urea Nitrogen 7 mg/dL (9-23); Calcium 9.1 mg/dL (8.7-10.4); Carbon Dioxide 26 mmol/L (20-31); Chloride 104 mmol/L (98-107); Glucose 111 mg/dL (74-106); Magnesium 1.7 mg/dL (1.6-2.6); Potassium 4.3 mmol/L (3.5-5.1); Sodium 140 mmol/L (136-145); Total Protein 6.4 g/dL (5.7-8.2)
[2025-02-16 13:55] LABS: Bilirubin, Total 0.5 mg/dL (0.2-1.0)
[2025-02-16 14:27] LABS: Total Cells Counted 100.0 (100)
[2025-02-16] MEDS: OXYCODONE W/ ACETAMINOPHEN 5/325MG TABLET PO PRN (15:15)
[2025-02-16] MEDS: VANCOMYCIN 1GM/250ML KIT 250 ML IV SCH (18:15)
[2025-02-17 01:00] VITALS: BP 142/93; PULSE 68; RESP 16; TEMP 97.9; O2SAT 96
[2025-02-17] MEDS: ONDANSETRON HCL 4 MG/2 ML VIAL IV PRN (01:21)
[2025-02-17 05:00] VITALS: BP 132/90; PULSE 68; RESP 16; TEMP 97.8; O2SAT 96
[2025-02-17 08:58] LABS: Alanine Aminotransferase 19 U/L (7-40); Albumin 3.5 g/dL (3.2-4.8); Alkaline Phosphatase 115 U/L (46-116); Anion Gap 10 (5-15); BUN/Creatinine Ratio 11.9 (10.0-20.0); Calcium 9.1 mg/dL (8.7-10.4); Carbon Dioxide 26 mmol/L (20-31); Chloride 105 mmol/L (98-107); Potassium 4.4 mmol/L (3.5-5.1); Sodium 141 mmol/L (136-145); Total Protein 6.2 g/dL (5.7-8.2)
[2025-02-17 08:59] LABS: Bilirubin, Total 0.7 mg/dL (0.2-1.0)
[2025-02-17 09:02] LABS: Blood Urea Nitrogen 7 mg/dL (9-23); Glucose 139 mg/dL (74-106)
[2025-02-17 09:06] LABS: Hemoglobin 10.1 g/dL (12.2-16.2)
[2025-02-17 09:08] LABS: Hematocrit 30.7 % (36.0-46.0); Mean Corpuscular Hemoglobin 29.2 pg (28.0-32.0); Mean Corpuscular Volume 88.7 fL (80.0-100.0)
[2025-02-17 09:10] VITALS: BP 143/43; PULSE 77; RESP 16; TEMP 97.8; O2SAT 97
[2025-02-17 09:29] LABS: RBC Morphology Normal; Total Cells Counted 100.0 (100)
[2025-02-17 12:49] VITALS: BP 153/100; PULSE 61; RESP 16; TEMP 98.5; O2SAT 99
[2025-02-17] MEDS ORDERED: LINE1TAB6 PO (14:34)
[2025-02-17] MEDS ORDERED: AUG875T PO (14:34)
--- NOTE | 2025-02-17 14:35 | DVHDS2 ---
Discharge Summary Date of Admission Feb 16, 2025 at 00:00 Date of Discharge: Feb 17, 2025 Labs/Diagnostic Data: Laboratory Results Test 02/17/25 08:30 02/16/25 13:18 White Blood Count 17.1 10^3/uL (4.4-10.8) Red Blood Count 3.46 10^6/uL (4.0-5.20) Hemoglobin 10.1 g/dL (12.2-16.2) Hematocrit 30.7 % (36.0-46.0) Mean Corpuscular Volume 88.7 fL (80.0-100.0) Mean Corpuscular Hemoglobin 29.2 pg (28.0-32.0) Mean Corpuscular Hemoglobin Concent 32.9 g/dL (32.0-36.0) Red Cell Distribution Width 16.8 % (11.8-14.3) Platelet Count 581 10^3/uL (140-450) Mean Platelet Volume 7.0 fL (6.9-10.8) Neutrophils (%) (Auto) % (37.0-80.0) Lymphocytes (%) (Auto) % (10.0-50.0) Monocytes (%) (Auto) % (0.0-12.0) Basophils (%) (Auto) % (0.0-2.0) Neutrophils # (Auto) 10 ^3/uL (1.6-8.6) Lymphocytes # (Auto) 10 ^3/uL (0.4-5.4) Monocytes # (Auto) 10 ^3/uL (0-1.3) Differential Total Cells Counted 100.0 (100) Neutrophils % (Manual) 67 (37.0-80.0) Band Neutrophils % (Manual) 0 Lymphocytes % (Manual) 16 (10.0-50.0) Monocytes % (Manual) 7 (0-12) Eosinophils % (Manual) 10 (0-7) Basophils % (Manual) 0 (0.0-2.0) Metamyelocytes % (manual) 0 Myelocytes % (Manual) 0 Promyelocytes % (Manual) 0 Blast Cells % (Manual) 0 Reactive Lymphocytes 0 Platelet Estimate Increased Red Blood Cell Morphology Normal Sodium Level 141 mmol/L (136-145) Potassium Level 4.4 mmol/L (3.5-5.1) Chloride Level 105 mmol/L (98-107) Carbon Dioxide Level 26 mmol/L (20-31) Anion Gap 10 (5-15) Blood Urea Nitrogen 7 mg/dL (9-23) Creatinine 0.59 mg/dL (0.550-1.02) Glomerular Filtration Rate Calc 110 mL/min (>90) BUN/Creatinine Ratio 11.9 (10.0-20.0) Serum Glucose 139 mg/dL (74-106) Calcium Level 9.1 mg/dL (8.7-10.4) Total Bilirubin 0.7 mg/dL (0.2-1.0) Aspartate Amino Transferase (AST) 20 U/L (13-40) Alanine Aminotransferase (ALT) 19 U/L (7-40) Alkaline Phosphatase 115 U/L (46-116) Total Protein 6.2 g/dL (5.7-8.2) Albumin 3.5 g/dL (3.2-4.8) Vancomycin Level Trough 17.6 ug/mL (5-10) Phosphorus Level 3.4 mg/dL (2.4-5.1) Magnesium Level 1.7 mg/dL (1.6-2.6) Other Laboratory Tests 02/17/25 08:30 Brief Hx & Hospital Course: The patient underwent surgery around February 07 or for a mass described as "large as a basketball." Multiple new masses were also removed during the procedure. Postoperatively, the patient experienced complications requiring 3 units of blood transfusion and became "cold blue" in the recovery room, necessitating re-intubation immediately after surgery. The patient also underwent a colostomy procedure and now has colostomy bags. The patient is eager to be discharged home and will need to follow up with [facility] for 6 rounds of chemotherapy under the care of Dr. Cao for her high-grade adenocarcinoma. Georgia Mendiola is a female patient with recurrent ovarian carcinoma, recently underwent surgery for high-grade adenocarcinoma and was transferred from [facility]. 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 She recently underwent surgery on February 07 or for a large mass described as "basketball-sized." Multiple new masses were also removed during the procedure. Post-operatively, patient experienced complications including becoming "cold blue" in the recovery room and requiring re-intubation. She received 3 units of blood during the surgery. Patient is now status post colostomy. Plan: - Follow up with Dr. Cao at [facility] for 6 rounds of chemotherapy - Arrange home health care and colostomy supplies delivery for Thursday - Follow up with PCP within one week of discharge Post-operative Infection Assessment: Patient is currently on broad-spectrum antibiotics for presumed post-operative infection. Infectious Disease was consulted for discharge planning. Plan: - Discharge on oral antibiotics: - Augmentin 875-125 mg twice daily for 14 days - Zyvox for 14 days Abdominal Diverticular Abscess Assessment: Patient noted to have a substance from abdominal diverticular abscess, likely discovered during recent surgery. Plan: - Monitor for resolution with current antibiotic regimen Condition at Discharge: Fair Final Diagnosis/Problems List - Recurrent carcinoma of ovary Monitoring - Morbid obesity Diet, exercise - Leukocytosis ID consult, IV antibiotics, monitoring -High-grade adenocarcinoma Monitor -Sepsis from abdominal abscess (diverticular) -Status post colostomy Discharge Disposition: Home Discharge Instruct/Medications Diet: Cardiac 2g Na,low cholest Activity: Bed rest Follow Up/Referral: [facility] for 6 months of chemotherapy PCP within 1 week Scheduled Amoxicillin & Pot Clavulanate (Augmentin Tablet), 875 MG PO BID Hydrocortisone Acetate (Anucort-Hc Suppository), 25 MG [place] Q12HR Linezolid (Zyvox), 600 MG PO BID Loratadine (Claritin), 1 TAB PO DAILY Lorazepam (Ativan), 1 TAB PO DAILY, (Reported) Scheduled PRN Lactulose (Lactulose), 10 GM PO BIDP PRN Oxycodone W/ Acetaminophen (Percocet 5/325MG), 1 TAB PO Q6HP PRN Miscellaneous Medications Atenolol (Atenolol), (Reported) Diphenhydramine Hcl (Benadryl), (Reported) Discharge Statement: "Patient was advised to return to the ER or call 911 if any headaches, dizziness, shortness of breath, chest pain, abdominal pain, bleeding, fevers, or worsening of medical condition. Patient was counseled about treatment plan, medications, possible side effects, patientverbalized understanding. All questions were answered to the best of my ability. This discharge took greater then 30 minutes in planning, reviewing documentation, counseling the patient, and discussing with other team members." ASSESSMENT ASSESSMENT Assessment - Recurrent carcinoma of ovary Monitoring - Morbid obesity Diet, exercise - Leukocytosis ID consult, IV antibiotics, monitoring -High-grade adenocarcinoma Monitor -Sepsis from abdominal abscess (diverticular) -Status post colostomy SIMÓN LEAL SPRINKLER INSTALLER Feb 17, 2025 14:35
[2025-02-17] MEDS ORDERED: MUPI2OIN2 EX ×2 (16:04→16:06)
[2025-02-17 16:30] VITALS: BP 167/99; PULSE 67; RESP 16; TEMP 98; O2SAT 96
--- NOTE | 2025-02-17 16:50 | DVHCONRES ---
Date Seen: Feb 17, 2025 Resident Creating Document: VÍCTOR CORNELL RESIDENT Referring Physician Maury Ho has significant past medical history of ovarian carcinoma, diagnosed in 2022. She reported 1 month of lower GI bleed in November, after which she seeked care in [facility], and on further workup she was diagnosed with recurrent ovarian carcinoma and was referred for debulking surgery in [place]. She underwent Debulking surgery for recurrent ovarian carcinoma on February 08 and we will follow-up for chemotherapy. Today, CBC show leukocytosis, eosinophilia. MRSA nose negative. CXR shows no evidence of acute disease. ROS: Constitutional: Denies weight loss, fever and chills. HEENT: Denies changes in vision and hearing. Respiratory: Denies shortness of breath and cough Cardiovascular: Denies chest discomfort or palpitations GI: Denies abdominal pain, nausea, vomiting and diarrhea. : Denies dysuria and urinary frequency. Musculoskeletal: Denies myalgias and joint pain Skin: Denies rash and pruritus. Neurological: Denies dizziness, headache, vision or hearing problems On Exam: General: Morbidly obese. Patient alert and oriented in person, place and time. Patient following commands. HEENT: Normocephalic, atraumatic, moist mucous membranes Respiratory/pulmonary: Clear lungs bilaterally, vesicular murmurs present in almost all lung bauman, no associated crackles or wheezes. Cardiovascular: Normal heart sounds S1 and S2 with no associated murmurs Abdomen: Colostomy bag snug, appropriately fit without leakage. Incision site with with surgical stapling extending from the umbilicus to lower abdomen, no erythema or discharge noted. Extremities: Grade 2 pitting edema in bilateral lower extremities. Skin: No rashes or pruritus, there is no sacral edema present at this time. Neurological: Intact cranial nerves with no focal neurologic deficits Assessment: Sepsis d/t Abdominal Diverticular Abscess High-grade Ovarian adenocarcinoma Obesity class III with BMI 45.7 Plan/ Recommendation: Before further records could be obtained from her stay at [place], the patient was discharged. No further recommendations could be provided at this time. Recommend follow-up as outpatient with Dr. Crenshaw within 1 week Plan of care discussed with Dr. Crenshaw Thank you for letting us take care of your patient. Family History: FH: leukemia G8 MOTHER, G8 FATHER, , Onset:60 years & older Hypertension G8 MOTHER, (htn/unk year) G8 FATHER, Other blood disorders G8 FATHER, (leukemia,unk year) Allergies: Coded Allergies: Morphine (Verified Allergy, Unknown, 03/16/22) Home Meds Active Scripts Mupirocin (Pseudomonas Fluores (Mupirocin) 2 % Oin, 2 % EX BID for 5 Days, #10 OIN apply to bilatral nares Prov:SIMÓN LEAL LASTING FLOORWORKER 02/17/25 Linezolid (Zyvox) 600 Mg Tab, 600 MG PO BID for 14 Days, #28 TAB Prov:SIMÓN LEAL LASTING FLOORWORKER 02/17/25 Amoxicillin & Pot Clavulanate (AUGMENTIN TABLET) 875 Mg Tb, 875 MG PO BID for 14 Days, #28 TAB Prov:SIMÓN LEAL LASTING FLOORWORKER 02/17/25 Oxycodone W/ Acetaminophen (Percocet 5/325MG) 1 Tab Tb, 1 TAB PO Q6HP PRN for 5 Days, #20 TAB Prov:SAIMA GUERRERO BANANA EXPERT 04/07/23 Hydrocortisone Acetate (ANUCORT-HC SUPPOSITORY) 25 Mg Cochran, 25 MG [place] Q12HR for 15 Days, #30 SUPP Prov:SAIMA GUERRERO BANANA EXPERT 02/05/23 Lactulose (Lactulose) 10 Gm/15 Ml Miroslava, 10 GM PO BIDP PRN, #300 ML Prov:ENRRIQUE RAMIREZ PAC 12/27/22 Loratadine (Claritin) 10 Mg Tab, 1 TAB PO DAILY, #30 TAB 0 Refills Prov:ENRRIQUE RAMIREZ PAC 12/27/22 Reported Medications Lorazepam (Ativan) 0.5 Mg Tab, 1 TAB PO DAILY, #30 TAB 09/08/23 Diphenhydramine Hcl (Benadryl) 25 Mg Cap 12/18/10 Atenolol (Atenolol) 100 Mg Tab 12/18/10 Current Medications Current Medications Medications (Trade) Dose Ordered Sig/Earl Route PRN Reason Start Time Stop Time Status Last Admin Vancomycin HCl 250 ml @ 200 mls/hr Q8H IV 02/16/25 17:00 02/17/25 09:40 Vital Signs Vital Signs Date Time Temp Pulse Resp B/P (MAP) Pulse Ox O2 Delivery O2 Flow Rate FiO2 02/17/25 12:49 98.5 61 16 153/100 (117) 99 98.5 02/16/25 20:00 Room Air* 0 21 Labs/Diagnostic Data Labs Test 02/17/25 08:30 02/16/25 13:18 Range/Units White Blood Count 17.1 H 4.4-10.8 10^3/uL Red Blood Count 3.46 L 4.0-5.20 10^6/uL Hemoglobin 10.1 L 12.2-16.2 g/dL Hematocrit 30.7 L 36.0-46.0 % Mean Corpuscular Volume 88.7 80.0-100.0 fL Mean Corpuscular Hemoglobin 29.2 28.0-32.0 pg Mean Corpuscular Hemoglobin Concent 32.9 32.0-36.0 g/dL Red Cell Distribution Width 16.8 H 11.8-14.3 % Platelet Count 581 H 140-450 10^3/uL Mean Platelet Volume 7.0 6.9-10.8 fL Neutrophils (%) (Auto) 37.0-80.0 % Lymphocytes (%) (Auto) 10.0-50.0 % Monocytes (%) (Auto) 0.0-12.0 % Basophils (%) (Auto) 0.0-2.0 % Neutrophils # (Auto) 1.6-8.6 10 ^3/uL Lymphocytes # (Auto) 0.4-5.4 10 ^3/uL Monocytes # (Auto) 0-1.3 10 ^3/uL Differential Total Cells Counted 100.0 100 Neutrophils % (Manual) 67 37.0-80.0 Band Neutrophils % (Manual) 0 Lymphocytes % (Manual) 16 10.0-50.0 Monocytes % (Manual) 7 0-12 Eosinophils % (Manual) 10 H 0-7 Basophils % (Manual) 0 0.0-2.0 Metamyelocytes % (manual) 0 Myelocytes % (Manual) 0 Promyelocytes % (Manual) 0 Blast Cells % (Manual) 0 Reactive Lymphocytes 0 Platelet Estimate Increased Red Blood Cell Morphology Normal Sodium Level 141 136-145 mmol/L Potassium Level 4.4 3.5-5.1 mmol/L Chloride Level 105 98-107 mmol/L Carbon Dioxide Level 26 20-31 mmol/L Anion Gap 10 5-15 Blood Urea Nitrogen 7 L 9-23 mg/dL Creatinine 0.59 0.550-1.02 mg/dL Glomerular Filtration Rate Calc 110 >90 mL/min BUN/Creatinine Ratio 11.9 10.0-20.0 Serum Glucose 139 H 74-106 mg/dL Calcium Level 9.1 8.7-10.4 mg/dL Total Bilirubin 0.7 0.2-1.0 mg/dL Aspartate Amino Transferase (AST) 20 13-40 U/L Alanine Aminotransferase (ALT) 19 7-40 U/L Alkaline Phosphatase 115 46-116 U/L Total Protein 6.2 5.7-8.2 g/dL Albumin 3.5 3.2-4.8 g/dL Vancomycin Level Trough 17.6 H 5-10 ug/mL Phosphorus Level 3.4 2.4-5.1 mg/dL Magnesium Level 1.7 1.6-2.6 mg/dL Microbiology Date/Time Source Procedure Growth Status 02/16/25 06:30 Nose MRSA Screen - Final Complete Plan discussed with: Patient BRICEMohitVÍCTOR RESIDENT Feb 17, 2025 16:50
[2025-02-17 17:33] VITALS: TEMP 36.7
== END 2025-02-17 19:00 | disposition home health service (06) | DRG 720 ==
LOC: TELE-WESTW 02-16 → WEST WING 02-16 23:53
PROVIDERS: ADMIT Nurse Practitioner; ATTEND Nurse Practitioner
DX: A41.9 Sepsis, unspecified organism (principal); K57.20 Diverticulitis of large intestine with perforation and abscess without bleeding; C56.9 Malignant neoplasm of unspecified ovary; E66.01 Morbid (severe) obesity due to excess calories; Z68.42 Body mass index [BMI] 45.0-49.9, adult; Z93.3 Colostomy status; Z80.6 Family history of leukemia; Z82.49 Family history of ischemic heart disease and other diseases of the circulatory system; Z88.5 Allergy status to narcotic agent; Y83.8 Other surgical procedures as the cause of abnormal reaction of the patient, or of later complication, without mention of misadventure at the time of the procedure; Y92.89 Other specified places as the place of occurrence of the external cause
CPT/HCPCS: 36415; 71045; 80053; 80202; 83735; 84100; 85007; 85027; 87081; 97163; G0378; J2405; J2543